=== PATIENT | female | born 1960 | race Caucasian/White ===

== ENCOUNTER 2017-09-30 04:31 | Emergency (ER) | payer OTHER ==
[~2017-09-30] VITALS: Ht 162.6 cm; Wt 86.0 kg
[~2017-09-30 04:31] MED LIST: ANAS1TAB PO; CHOL20002 PO; DENO60DI SC; ESOM40CA PO; FLUT1DIS3 INH; IPRA4AER INH; LORA1TAB46 PO; MONT10TA9 PO; VILA20TA PO; VITA1CAP PO; calcium PO; magnesium PO
[2017-09-30 04:32] VITALS: BP 154/90
[2017-09-30] MEDS ORDERED: ACYCLOVIR (04:39)
[2017-09-30] MEDS ORDERED: CLINDAMYCIN (04:39)
[2017-09-30] MEDS ORDERED: PROPARACAINE OPHTH 0.5%, 15ML ONE (04:50)
[2017-09-30] MEDS ORDERED: FLUORESCEIN OPHTHALMIC 1 MG STRIP ONE (04:50)
[2017-09-30] MEDS ORDERED: ONDANSETRON ODT 4 MG ONE (05:15)
[2017-09-30] MEDS ORDERED: OXYcodone/APAP 5/325MG TABLET ONE (05:15)
[2017-09-30] MEDS ORDERED: ONDANSETRON ODT 4 MG PO ONE (05:30)
[2017-09-30] MEDS ORDERED: OXYcodone/APAP 5/325MG TABLET PO ONE (05:30)
== END 2017-09-30 05:59 | disposition home or self-care (01) ==
LOC: ED 05:39
DX: B02.33 Zoster keratitis (principal); K21.9 Gastro-esophageal reflux disease without esophagitis; J44.9 Chronic obstructive pulmonary disease, unspecified; Z85.3 Personal history of malignant neoplasm of breast; Z87.891 Personal history of nicotine dependence
CPT/HCPCS: 99283; Q0162

== ENCOUNTER → 2018-02-13 | Outpatient (CLI) | payer OTHER ==
[~2018-02-13] MED LIST changes: +ACYCLOVIR; +CLINDAMYCIN; +IBUP-1223 PO; +TRAM50TA2 PO
== END | disposition home or self-care (01) ==
LOC: CFH 12:33
PROVIDERS: ATTEND Nurse Practitioner Family
DX: M79.604 Pain in right leg (principal); R60.0 Localized edema

== ENCOUNTER → 2018-02-14 | Outpatient (CLI) | payer OTHER ==
[~2018-02-14] MED LIST changes: +OMNIPAQUE 350 MG/ML, 100ML BOTTLE ONE
== END | disposition home or self-care (01) ==
LOC: RAD 11:48
PROVIDERS: ATTEND Nurse Practitioner Family
DX: M84.451A Pathological fracture, right femur, initial encounter for fracture (principal); R59.0 Localized enlarged lymph nodes; M79.89 Other specified soft tissue disorders; F17.200 Nicotine dependence, unspecified, uncomplicated; Z88.0 Allergy status to penicillin; Z88.2 Allergy status to sulfonamides
CPT/HCPCS: 72193; Q9967

== ENCOUNTER → 2018-02-18 | Day surgery (SDC) | payer OTHER ==
[~2018-02-18] VITALS: Ht 162.6 cm; Wt 88.9 kg
[~2018-02-18] MED LIST changes: +FENTANYL PF 100 MCG/2ML ONE; +LIDOCAINE-MPF 2%, 2ML ONE; +MIDAZOLAM 1 MG/ML, 5ML ONE; -OMNIPAQUE 350 MG/ML, 100ML BOTTLE ONE; +SODIUM CHLORIDE 0.9% 1,000 ML IV SCH
[2018-02-18 09:55] VITALS: BP 131/68
== END | disposition home or self-care (01) ==
LOC: OUT 09:20
PROVIDERS: ATTEND Nurse Practitioner Family
DX: C83.35 Diffuse large B-cell lymphoma, lymph nodes of inguinal region and lower limb (principal); F17.210 Nicotine dependence, cigarettes, uncomplicated; Z79.899 Other long term (current) drug therapy; Z98.890 Other specified postprocedural states; Z88.0 Allergy status to penicillin; Z88.2 Allergy status to sulfonamides; Z88.8 Allergy status to other drugs, medicaments and biological substances
CPT/HCPCS: 20206; 76942; 88305; 88341; 88342; 88360; 99156; 99157; J2250; J3010; J3490; J7030; G0461

== ENCOUNTER 2018-02-28 21:44 | Inpatient (IN) | payer OTHER ==
[~2018-02-28] VITALS: Ht 162.6 cm; Wt 80.5 kg
[~2018-02-28 21:44] MED LIST changes: -CHOL20002 PO; +CHOL200052 PO; -FENTANYL PF 100 MCG/2ML ONE; -LIDOCAINE-MPF 2%, 2ML ONE; -MIDAZOLAM 1 MG/ML, 5ML ONE; -SODIUM CHLORIDE 0.9% 1,000 ML IV SCH
[2018-02-28] MEDS ORDERED: ONDANSETRON ODT 4 MG ONE (22:17)
[2018-02-28] MEDS ORDERED: MORPHINE SULFATE 4 MG/ML, 1ML ONE ×2 (22:17→23:13)
[2018-02-28] MEDS: MORPHINE SULFATE 4 MG/ML, 1ML IVPush PRN ×2 (22:23→23:16)
[2018-02-28] MEDS ORDERED: ONDANSETRON ODT 4 MG PO ONE (22:30)
[2018-02-28] MEDS ORDERED: SODIUM CHLORIDE FLUSH 10ML SYR IVF ONE (23:00)
[2018-02-28] MEDS ORDERED: MORPHINE SULFATE 4 MG/ML, 1ML IVPush PRN (23:00)
[2018-02-28 23:22] LABS: BASOPHILS # (AUTO) 0.01 x10^3/uL (0-0.1); BASOPHILS % (AUTO) 0 % (0-1); EOSINOPHILS # (AUTO) 0.07 x10^3/uL (0-0.4); EOSINOPHILS % (AUTO) 2 % (1-7); LYMPHOCYTES # (AUTO) 0.37 x10^3/uL (1-3.4); LYMPHOCYTES % (AUTO) 11 % (22-44); MD NO; MEAN CORPUSCULAR HEMOGLOBIN 34.3 pg (27.0-34.8); MEAN CORPUSCULAR HGB CONC 34.9 g/dL (32.4-35.8); MEAN CORPUSCULAR VOLUME 98.2 fL (80-100); MEAN PLATELET VOLUME 7.6 fL (7.4-10.4); MONOCYTES # (AUTO) 0.08 x10^3/uL (0.2-0.8); MONOCYTES % (AUTO) 2 % (2-9); NEUTROPHILS % (AUTO) 85 % (42-75); PLATELET COUNT 210 x10^3/uL (130-400); RED BLOOD COUNT 3.04 x10^6/uL (3.82-5.3); RED CELL DISTRIBUTION WIDTH 14.5 % (9.6-15.2)
[2018-02-28 23:30] LABS: INTERNATIONAL NORMALIZED RATIO 1.1 (0.93-1.1); PROTHROMBIN TIME 11.3 Seconds (9.6-11.5)
[2018-02-28 23:31] LABS: ALBUMIN 3.4 g/dL (3.4-5.0); ANION GAP 9 mmol/L (5-15); CALCIUM 12.4 mg/dL (8.5-10.1); CHLORIDE 102 mmol/L (98-107); CREATININE 1.78 mg/dL (0.55-1.02)
[2018-03-01] MEDS ORDERED: MORPHINE SULFATE 4 MG/ML, 1ML ONE ×2 (00:42→21:39)
[2018-03-01] MEDS ORDERED: HYDROmorphone 1 MG/ML, 1ML IVPush PRN (01:30)
[2018-03-01] MEDS ORDERED: SODIUM CHLORIDE FLUSH 10ML SYR IVF PRN (01:30)
[2018-03-01] MEDS ORDERED: HYDROmorphone 2 MG/ML, 1ML IVPush ONE (01:30)
[2018-03-01] MEDS ORDERED: ONDANSETRON 2MG/ML, 2ML IVPush PRN (01:30)
[2018-03-01 01:52] VITALS: BP 186/90
[2018-03-01] MEDS ORDERED: SODIUM CHLORIDE 0.9% 1,000 ML IV SCH ×2 (04:09→23:00)
[2018-03-01] MEDS: ONDANSETRON ODT 4 MG PO PRN (04:27)
[2018-03-01] MEDS ORDERED: hydrALAzine 20 MG/ML, 1ML IVPush PRN (04:30)
[2018-03-01] MEDS ORDERED: ACETAMINOPHEN 500 MG TABLET PO PRN (04:30)
[2018-03-01] MEDS: KETOROLAC 30 MG/1 ML IV PRN ×2 (04:32→13:38)
[2018-03-01] MEDS: PROMETHAZINE 25 MG/ML, 1ML IM PRN (04:49)
[2018-03-01] MEDS: HEPARIN 5,000 UNITS/ML, 1ML SQ SCH ×2 (06:02→16:12)
[2018-03-01 06:23] LABS: ALBUMIN 3.1 g/dL (3.4-5.0); ANION GAP 10 mmol/L (5-15); CHLORIDE 103 mmol/L (98-107)
[2018-03-01 06:32] LABS: % IRON SATURATION 23 % (20-55); ALANINE AMINOTRANSFERASE 15 U/L (12-78); ALKALINE PHOSPHATASE 75 U/L (45-117); BILIRUBIN,TOTAL 0.3 mg/dL (0.2-1.0); IRON LEVEL 56 mcg/dL (50-170); TOTAL IRON BINDING CAPACITY 245 mcg/dL (250-450); TOTAL PROTEIN 6.5 g/dL (6.4-8.2)
[2018-03-01 06:51] VITALS: BP 148/81
[2018-03-01] MEDS ORDERED: PAMIDRONATE 3 MG/ML, 10ML IV ONE (08:30)
[2018-03-01] MEDS ORDERED: CALCIUM CARBONATE 500 MG TAB.CHEW PO SCH (09:00)
[2018-03-01] MEDS: LACTULOSE 10 GM/15 ML UDC PO SCH ×2 (09:00→22:50)
[2018-03-01 09:43] LABS: FREE T4 (FREE THYROXINE) 1.31 ng/dL (0.76-1.46)
[2018-03-01] MEDS ORDERED: PAMIDRONATE IV ONE (10:00)
[2018-03-01] MEDS ORDERED: SODIUM CHLORIDE 0.9% IV ONE (10:00)
[2018-03-01] MEDS: HYDROmorphone 2 MG/ML, 1ML IVPush PRN ×3 (10:05→18:42)
[2018-03-01] MEDS: ALLOPURINOL 100 MG TABLET PO SCH (11:52)
[2018-03-01] MEDS: CHOLECALCIFEROL 5,000u TAB PO SCH (11:53)
[2018-03-01] MEDS: PANTOPROZOLE 40MG TABLET PO SCH ×2 (11:53→22:47)
[2018-03-01] MEDS: MAGNESIUM OXIDE 400 MG TABLET PO SCH (11:53)
[2018-03-01] MEDS: MULTIVITS,STRESS FORMULA 1 TABLET PO SCH (11:53)
[2018-03-01 12:48] VITALS: BP 158/70
[2018-03-01] MEDS ORDERED: LIDOCAINE-MPF 2%, 2ML ONE (13:40)
[2018-03-01] MEDS ORDERED: FENTANYL PF 100 MCG/2ML ONE ×2 (14:16→21:01)
[2018-03-01] MEDS ORDERED: MIDAZOLAM 1 MG/ML, 5ML ONE (14:16)
[2018-03-01] MEDS ORDERED: NALOXONE 1 MG/ML, 2ML ONE (14:17)
[2018-03-01] MEDS ORDERED: FLUMAZENIL 0.1 MG/1 ML, 5ML ONE (14:17)
[2018-03-01 15:16] VITALS: BP 155/78
[2018-03-01 18:28] VITALS: BP 165/74
[2018-03-01] MEDS ORDERED: MIDAZOLAM 1 MG/ML, 2ML ONE (19:14)
[2018-03-01] MEDS ORDERED: PROPOFOL 10 MG/ML, 20ML ONE (19:20)
[2018-03-01] MEDS ORDERED: ROCURONIUM 10 MG/ML,10ML ONE (19:20)
[2018-03-01] MEDS ORDERED: DEXAMETHASONE 4 MG/ML, 5ML ONE (19:20)
[2018-03-01] MEDS ORDERED: SUCCINYLCHOLINE 20 MG/ML, 10ML ONE (19:20)
[2018-03-01] MEDS ORDERED: CEFAZOLIN 1,000 MG ONE (19:20)
[2018-03-01] MEDS ORDERED: LABETALOL 5MG/ML, 20ML IV PRN ×2 (20:00→21:00)
[2018-03-01] MEDS ORDERED: LORazepam 2 MG/ML, 1ML IVPush PRN (20:00)
[2018-03-01] MEDS ORDERED: ONDANSETRON 2MG/ML, 2ML IV PRN ×2 (20:00→21:00)
[2018-03-01] MEDS ORDERED: OXYcodone 5 MG/5 ML ORAL.SOL UDC PO PRN ×2 (20:00→21:00)
[2018-03-01] MEDS ORDERED: ACETAMINOPHEN 325 MG TABLET PO PRN ×2 (20:00→21:00)
[2018-03-01] MEDS ORDERED: FENTANYL PF 250 MCG/5ML ONE (20:00)
[2018-03-01] MEDS ORDERED: ALBUTEROL SULFATE 2.5 MG/3 ML NPPB PRN (20:00)
[2018-03-01] MEDS ORDERED: MEPERIDINE/PF 25MG/0.5ML IVPush PRN ×2 (20:00→21:00)
[2018-03-01] MEDS ORDERED: hydrALAzine 20 MG/ML, 1ML IV PRN (20:00)
[2018-03-01] MEDS ORDERED: ONDANSETRON ODT 8 MG PO PRN (20:00)
[2018-03-01] MEDS ORDERED: PROMETHAZINE 25 MG/ML, 1ML IV PRN ×2 (20:00→21:00)
[2018-03-01] MEDS ORDERED: EPHEDRINE 50 MG/ML, 1ML IVPush PRN (20:00)
[2018-03-01] MEDS ORDERED: MIDAZOLAM 1 MG/ML, 2ML IV PRN ×2 (20:00→21:00)
[2018-03-01] MEDS ORDERED: HYDROmorphone 1 MG/ML, 1ML IV PRN ×2 (20:00→21:00)
[2018-03-01] MEDS ORDERED: PROMETHAZINE 12.5 MG SUPP PR PRN (20:00)
[2018-03-01] MEDS ORDERED: ALBUTEROL/IPRATROPIUM 2.5MG/0.5MG, 3 ML NPPB PRN (21:00)
[2018-03-01] MEDS ORDERED: SCOPOLAMINE PATCH, 1.5MG PATCH.TD72 TD PRN (21:00)
[2018-03-01] MEDS ORDERED: FENTANYL PF 100 MCG/2ML IV PRN (21:00)
[2018-03-01] MEDS ORDERED: OXYcodone 5 MG/5 ML ORAL.SOL UDC ONE (21:01)
[2018-03-01] MEDS ORDERED: ACETAMINOPHEN 650 MG/20.3 ML UDC ONE (21:01)
[2018-03-01] MEDS: FENTANYL PF 100 MCG/2ML IV PRN ×2 (21:05→21:10)
[2018-03-01] MEDS ORDERED: CYCLOBENZAPRINE 10 MG TABLET PO ONE (21:30)
[2018-03-01] MEDS ORDERED: CYCLOBENZAPRINE 10 MG TABLET ONE (21:35)
[2018-03-01] MEDS: MORPHINE SULFATE 4 MG/ML, 1ML IVPush PRN ×3 (21:41→21:57)
[2018-03-01] MEDS ORDERED: morphine SULFATE 10 MG/ML, 1ML ONE (21:50)
[2018-03-01 22:36] VITALS: BP 152/73
[2018-03-01] MEDS: SODIUM CHLORIDE 0.9% 1,000 ML IV SCH (23:20)
[2018-03-02 00:52] VITALS: BP 121/75
[2018-03-02] MEDS ORDERED: SODIUM CHLORIDE 0.9% 1,000 ML IV SCH ×2 (04:09→23:20)
[2018-03-02] MEDS: CEFAZOLIN PMX 2GM/100ML 100 ML IVPB SCH ×2 (04:34→12:59)
[2018-03-02] MEDS: SODIUM CHLORIDE 0.9% 1,000 ML IV SCH ×2 (04:35→18:57)
[2018-03-02 05:42] LABS: ALANINE AMINOTRANSFERASE 14 U/L (12-78); ALBUMIN 2.7 g/dL (3.4-5.0); ANION GAP 7 mmol/L (5-15); CALCIUM 11.4 mg/dL (8.5-10.1); CHLORIDE 107 mmol/L (98-107); CREATININE 1.33 mg/dL (0.55-1.02)
[2018-03-02 05:45] LABS: ALKALINE PHOSPHATASE 69 U/L (45-117); BILIRUBIN,TOTAL 0.3 mg/dL (0.2-1.0); TOTAL PROTEIN 5.8 g/dL (6.4-8.2)
[2018-03-02 06:05] LABS: MEAN CORPUSCULAR HEMOGLOBIN 33.7 pg (27.0-34.8); MEAN CORPUSCULAR HGB CONC 34.5 g/dL (32.4-35.8); MEAN CORPUSCULAR VOLUME 97.8 fL (80-100); MEAN PLATELET VOLUME 7.6 fL (7.4-10.4); PLATELET COUNT 197 x10^3/uL (130-400); RED BLOOD COUNT 2.38 x10^6/uL (3.82-5.3)
[2018-03-02 06:08] LABS: RED CELL DISTRIBUTION WIDTH 13.7 % (9.6-15.2)
[2018-03-02 06:45] LABS: MD MORPH REVIEW ONLY
[2018-03-02 06:46] LABS: <PLATELET ESTIMATE> ADEQUATE; <PLT MORPHOLOGY> NORMAL PLT MORPH; ANISOCYTOSIS 1+; BASOPHILS % (AUTO) 0 % (0-1); EOSINOPHILS % (AUTO) 0 % (1-7); LYMPHOCYTES # (AUTO) 0.22 x10^3/uL (1-3.4); LYMPHOCYTES % (AUTO) 8 % (22-44); MONOCYTES # (AUTO) 0.06 x10^3/uL (0.2-0.8); MONOCYTES % (AUTO) 2 % (2-9); NEUTROPHILS # (AUTO) 2.57 x10^3/uL (1.8-6.8); NEUTROPHILS % (AUTO) 90 % (42-75); OVALOCYTES 1+
[2018-03-02 06:47] LABS: BASOPHILLIC STIPPLING 1+; POLYCHROMASIA 1+
[2018-03-02 06:58] VITALS: BP 138/78
[2018-03-02] MEDS: LACTULOSE 10 GM/15 ML UDC PO SCH ×2 (09:00→20:58)
[2018-03-02] MEDS: SODIUM CHLORIDE FLUSH 10ML SYR IVF SCH ×2 (10:38→20:59)
[2018-03-02] MEDS: PANTOPROZOLE 40MG TABLET PO SCH ×2 (10:41→20:59)
[2018-03-02] MEDS: MAGNESIUM OXIDE 400 MG TABLET PO SCH (10:41)
[2018-03-02] MEDS: CHOLECALCIFEROL 5,000u TAB PO SCH (10:41)
[2018-03-02] MEDS: MULTIVITS,STRESS FORMULA 1 TABLET PO SCH (10:41)
[2018-03-02] MEDS: ALLOPURINOL 100 MG TABLET PO SCH (10:41)
[2018-03-02] MEDS: HEPARIN 5,000 UNITS/ML, 1ML SQ SCH ×2 (10:41→20:58)
[2018-03-02] MEDS: POLYETHYLENE GLYCOL 17 GM PACKET PO PRN (10:58)
[2018-03-02] MEDS: OXYcodone IR 5MG TABLET PO PRN ×2 (10:59→17:46)
[2018-03-02 12:05] VITALS: BP 163/77
[2018-03-02] MEDS: HYDROmorphone 2 MG/ML, 1ML IVPush PRN ×3 (13:36→21:56)
[2018-03-02] MEDS ORDERED: MAGNESIUM SULFATE PMX 2GM/50ML 50 ML IV ONE (18:30)
[2018-03-02 19:42] VITALS: BP 157/73
[2018-03-03] VITALS (12 sets, daily range): BP systolic 123–164; BP diastolic 64–82
[2018-03-03] MEDS: OXYcodone IR 5MG TABLET PO PRN ×4 (01:06→19:42)
[2018-03-03] MEDS: SODIUM CHLORIDE 0.9% 1,000 ML IV SCH (02:36)
[2018-03-03 05:07] LABS: CALCIUM 9.3 mg/dL (8.5-10.1); CHLORIDE 104 mmol/L (98-107)
[2018-03-03 05:13] LABS: ALANINE AMINOTRANSFERASE 11 U/L (12-78); ALBUMIN 2.4 g/dL (3.4-5.0); ALKALINE PHOSPHATASE 59 U/L (45-117); ANION GAP 8 mmol/L (5-15); BILIRUBIN,TOTAL 0.3 mg/dL (0.2-1.0); CREATININE 1.16 mg/dL (0.55-1.02); TOTAL PROTEIN 5.1 g/dL (6.4-8.2)
[2018-03-03 06:28] LABS: MEAN CORPUSCULAR HEMOGLOBIN 34.5 pg (27.0-34.8); MEAN CORPUSCULAR HGB CONC 35.6 g/dL (32.4-35.8); MEAN CORPUSCULAR VOLUME 96.8 fL (80-100); MEAN PLATELET VOLUME 7.4 fL (7.4-10.4); PLATELET COUNT 155 x10^3/uL (130-400); RED BLOOD COUNT 1.97 x10^6/uL (3.82-5.3); RED CELL DISTRIBUTION WIDTH 14.3 % (9.6-15.2)
[2018-03-03 07:10] LABS: MD YES
[2018-03-03 07:16] LABS: EOS#(MANUAL) 0.02 x10^3/uL (0.0-0.4); EOS% (MANUAL) 1 % (1-7); LYMPH#(MANUAL) 0.19 x10^3/uL (1-3.4); LYMPHS% (MANUAL) 12 % (22-44); MONOS#(MANUAL) 0.03 x10^3/uL (0.3-2.7); MONOS% (MANUAL) 2 % (2-9); SEG#(MANUAL) 1.34 x10^3/uL (1.8-6.8); SEGS% (MANUAL) 84 % (42-75)
[2018-03-03 07:18] LABS: ANISOCYTOSIS 1+; OTHER CELLS # (MANUAL) 0.02 x10^3/uL (0-0); OTHER CELLS % (MANUAL) 1 % (0-0)
[2018-03-03 07:19] LABS: OVALOCYTES 1+; POLYCHROMASIA 1+
[2018-03-03 07:20] LABS: <PLATELET ESTIMATE> ADEQUATE; <PLT MORPHOLOGY> NORMAL PLT MORPH
[2018-03-03] MEDS ORDERED: MAGNESIUM SULFATE IN WATER 50 ML IV ONE (09:00)
[2018-03-03] MEDS ORDERED: MAGNESIUM SULFATE 4 GM in SODIUM CHLORIDE 0.9% 100 ML IV ONE (09:00)
[2018-03-03] MEDS: SODIUM CHLORIDE FLUSH 10ML SYR IVF SCH ×2 (09:00→21:19)
[2018-03-03] MEDS ORDERED: POTASSIUM PHOSPHATE 44 MEQ in SODIUM CHLORIDE 0.9% 500 ML IV ONE (09:00)
[2018-03-03 10:12] LABS: MEAN CORPUSCULAR HEMOGLOBIN 33.9 pg (27.0-34.8); MEAN CORPUSCULAR HGB CONC 35.4 g/dL (32.4-35.8); MEAN CORPUSCULAR VOLUME 95.6 fL (80-100); MEAN PLATELET VOLUME 6.8 fL (7.4-10.4); PLATELET COUNT 157 x10^3/uL (130-400); RED BLOOD COUNT 1.91 x10^6/uL (3.82-5.3); RED CELL DISTRIBUTION WIDTH 14.2 % (9.6-15.2)
[2018-03-03 10:26] LABS: MD YES
[2018-03-03 10:28] LABS: BAND#(MANUAL) 0.02 x10^3/uL; BANDS%(MANUAL) 1 % (0-7); LYMPH#(MANUAL) 0.22 x10^3/uL (1-3.4); LYMPHS% (MANUAL) 13 % (22-44); MONOS#(MANUAL) 0.05 x10^3/uL (0.3-2.7); MONOS% (MANUAL) 3 % (2-9); SEG#(MANUAL) 1.41 x10^3/uL (1.8-6.8); SEGS% (MANUAL) 83 % (42-75)
[2018-03-03 10:29] LABS: ANISOCYTOSIS 1+; OVALOCYTES 1+; POLYCHROMASIA 1+
[2018-03-03 10:30] LABS: <PLATELET ESTIMATE> ADEQUATE; <PLT MORPHOLOGY> NORMAL PLT MORPH
[2018-03-03] MEDS: HYDROmorphone 2 MG/ML, 1ML IVPush PRN (10:58)
[2018-03-03] MEDS: ALLOPURINOL 100 MG TABLET PO SCH (11:08)
[2018-03-03] MEDS: POTASSIUM CHLORIDE 20 MEQ TAB.ER.PRT PO SCH ×2 (11:09→14:44)
[2018-03-03] MEDS: PANTOPROZOLE 40MG TABLET PO SCH ×2 (11:10→21:18)
[2018-03-03] MEDS: LACTULOSE 10 GM/15 ML UDC PO SCH ×2 (11:10→21:18)
[2018-03-03] MEDS: MAGNESIUM OXIDE 400 MG TABLET PO SCH (11:10)
[2018-03-03] MEDS: MULTIVITS,STRESS FORMULA 1 TABLET PO SCH (11:11)
[2018-03-03] MEDS: HEPARIN 5,000 UNITS/ML, 1ML SQ SCH ×2 (11:12→22:50)
[2018-03-03] MEDS: CHOLECALCIFEROL 5,000u TAB PO SCH (11:13)
[2018-03-04] MEDS: OXYcodone IR 5MG TABLET PO PRN ×6 (00:11→23:50)
[2018-03-04 01:26] VITALS: BP 155/79
[2018-03-04 04:31] LABS: MEAN CORPUSCULAR HEMOGLOBIN 33.8 pg (27.0-34.8); MEAN CORPUSCULAR HGB CONC 35.7 g/dL (32.4-35.8); MEAN CORPUSCULAR VOLUME 94.9 fL (80-100); MEAN PLATELET VOLUME 7.3 fL (7.4-10.4); PLATELET COUNT 154 x10^3/uL (130-400); RED BLOOD COUNT 2.83 x10^6/uL (3.82-5.3); RED CELL DISTRIBUTION WIDTH 15.7 % (9.6-15.2)
[2018-03-04 04:37] LABS: ALBUMIN 2.3 g/dL (3.4-5.0); ANION GAP 6 mmol/L (5-15); CALCIUM 8.6 mg/dL (8.5-10.1); CHLORIDE 108 mmol/L (98-107)
[2018-03-04 04:42] LABS: ALANINE AMINOTRANSFERASE 11 U/L (12-78); ALKALINE PHOSPHATASE 61 U/L (45-117); BILIRUBIN,TOTAL 0.5 mg/dL (0.2-1.0); CREATININE 1.01 mg/dL (0.55-1.02); TOTAL PROTEIN 5.2 g/dL (6.4-8.2)
[2018-03-04 05:36] LABS: OCCULT BLOOD NEGATIVE (NEGATIVE)
[2018-03-04 05:48] LABS: MD YES
[2018-03-04 05:53] LABS: <PLATELET ESTIMATE> ADEQUATE; <PLT MORPHOLOGY> NORMAL PLT MORPH; ANISOCYTOSIS 1+; BAND#(MANUAL) 0.05 x10^3/uL; BANDS%(MANUAL) 3 % (0-7); EOS#(MANUAL) 0.04 x10^3/uL (0.0-0.4); EOS% (MANUAL) 2 % (1-7); LYMPH#(MANUAL) 0.32 x10^3/uL (1-3.4); LYMPHS% (MANUAL) 18 % (22-44); MONOS#(MANUAL) 0.02 x10^3/uL (0.3-2.7); MONOS% (MANUAL) 1 % (2-9); OVALOCYTES 1+; POLYCHROMASIA 1+; SEG#(MANUAL) 1.37 x10^3/uL (1.8-6.8); SEGS% (MANUAL) 76 % (42-75)
[2018-03-04 07:33] VITALS: BP 148/79
[2018-03-04] MEDS: MAGNESIUM OXIDE 400 MG TABLET PO SCH (08:59)
[2018-03-04] MEDS: LACTULOSE 10 GM/15 ML UDC PO SCH ×2 (08:59→21:42)
[2018-03-04] MEDS: MULTIVITS,STRESS FORMULA 1 TABLET PO SCH (08:59)
[2018-03-04] MEDS: CHOLECALCIFEROL 5,000u TAB PO SCH (08:59)
[2018-03-04] MEDS: PANTOPROZOLE 40MG TABLET PO SCH ×2 (08:59→21:42)
[2018-03-04] MEDS: ALLOPURINOL 100 MG TABLET PO SCH (08:59)
[2018-03-04] MEDS: POLYETHYLENE GLYCOL 17 GM PACKET PO PRN (09:08)
[2018-03-04] MEDS: HEPARIN 5,000 UNITS/ML, 1ML SQ SCH ×2 (11:47→21:42)
[2018-03-04] MEDS: SODIUM CHLORIDE FLUSH 10ML SYR IVF SCH ×2 (11:52→21:42)
[2018-03-04 13:12] VITALS: BP 166/83
[2018-03-04] MEDS: ONDANSETRON ODT 4 MG PO PRN ×2 (19:34→23:51)
[2018-03-04 19:51] VITALS: BP 162/89
[2018-03-05 01:40] VITALS: BP 150/74
[2018-03-05] MEDS: OXYcodone IR 5MG TABLET PO PRN ×2 (05:56→13:05)
[2018-03-05 06:43] VITALS: BP 151/84
[2018-03-05] MEDS: ONDANSETRON ODT 4 MG PO PRN ×4 (08:15→20:59)
[2018-03-05 08:18] VITALS: BP 150/78
[2018-03-05] MEDS: LACTULOSE 10 GM/15 ML UDC PO SCH ×2 (10:09→20:59)
[2018-03-05] MEDS: PANTOPROZOLE 40MG TABLET PO SCH ×2 (10:10→20:59)
[2018-03-05] MEDS: CHOLECALCIFEROL 5,000u TAB PO SCH (10:10)
[2018-03-05] MEDS: MAGNESIUM OXIDE 400 MG TABLET PO SCH (10:10)
[2018-03-05] MEDS: MULTIVITS,STRESS FORMULA 1 TABLET PO SCH (10:10)
[2018-03-05] MEDS: ALLOPURINOL 100 MG TABLET PO SCH (10:10)
[2018-03-05] MEDS: HEPARIN 5,000 UNITS/ML, 1ML SQ SCH ×2 (10:15→20:59)
[2018-03-05] MEDS: SODIUM CHLORIDE FLUSH 10ML SYR IVF SCH ×2 (10:23→20:59)
[2018-03-05] MEDS: DRONABINOL 5 MG CAPSULE PO SCH ×2 (12:07→16:00)
[2018-03-05 12:46] VITALS: BP 126/58
[2018-03-05] MEDS ORDERED: DRONABINOL 2.5 MG CAPSULE ONE (15:34)
[2018-03-05 19:40] VITALS: BP 148/66
[2018-03-06] MEDS: ONDANSETRON ODT 4 MG PO PRN ×4 (01:38→15:05)
[2018-03-06] MEDS: OXYcodone IR 5MG TABLET PO PRN ×4 (01:39→15:05)
[2018-03-06 01:50] VITALS: BP 138/70
[2018-03-06 05:05] LABS: MEAN CORPUSCULAR HEMOGLOBIN 33.6 pg (27.0-34.8); MEAN CORPUSCULAR HGB CONC 34.9 g/dL (32.4-35.8); MEAN CORPUSCULAR VOLUME 96.4 fL (80-100); MEAN PLATELET VOLUME 7.5 fL (7.4-10.4); PLATELET COUNT 193 x10^3/uL (130-400); RED BLOOD COUNT 2.94 x10^6/uL (3.82-5.3); RED CELL DISTRIBUTION WIDTH 15.5 % (9.6-15.2)
[2018-03-06 05:09] LABS: ALBUMIN 2.3 g/dL (3.4-5.0); ANION GAP 7 mmol/L (5-15); CALCIUM 9.1 mg/dL (8.5-10.1); CHLORIDE 106 mmol/L (98-107)
[2018-03-06 05:14] LABS: ALANINE AMINOTRANSFERASE 16 U/L (12-78); ALKALINE PHOSPHATASE 71 U/L (45-117); BILIRUBIN,TOTAL 0.3 mg/dL (0.2-1.0); CREATININE 0.98 mg/dL (0.55-1.02); TOTAL PROTEIN 5.3 g/dL (6.4-8.2)
[2018-03-06 05:39] LABS: MD YES
[2018-03-06 05:42] LABS: <PLATELET ESTIMATE> ADEQUATE; <PLT MORPHOLOGY> NORMAL PLT MORPH; ANISOCYTOSIS 1+; EOS#(MANUAL) 0.07 x10^3/uL (0.0-0.4); EOS% (MANUAL) 4 % (1-7); LYMPH#(MANUAL) 0.51 x10^3/uL (1-3.4); LYMPHS% (MANUAL) 30 % (22-44); MONOS#(MANUAL) 0.03 x10^3/uL (0.3-2.7); MONOS% (MANUAL) 2 % (2-9); OVALOCYTES 1+; POLYCHROMASIA 1+; SEG#(MANUAL) 1.09 x10^3/uL (1.8-6.8); SEGS% (MANUAL) 64 % (42-75)
[2018-03-06 08:23] VITALS: BP 136/82
[2018-03-06] MEDS: LACTULOSE 10 GM/15 ML UDC PO SCH ×2 (10:01→22:24)
[2018-03-06] MEDS: PANTOPROZOLE 40MG TABLET PO SCH ×2 (10:01→22:22)
[2018-03-06] MEDS: MAGNESIUM OXIDE 400 MG TABLET PO SCH (10:01)
[2018-03-06] MEDS: ALLOPURINOL 100 MG TABLET PO SCH (10:01)
[2018-03-06] MEDS: MULTIVITS,STRESS FORMULA 1 TABLET PO SCH (10:01)
[2018-03-06] MEDS: CHOLECALCIFEROL 5,000u TAB PO SCH (10:01)
[2018-03-06] MEDS: HEPARIN 5,000 UNITS/ML, 1ML SQ SCH ×2 (10:02→22:22)
[2018-03-06] MEDS: SODIUM CHLORIDE FLUSH 10ML SYR IVF SCH ×2 (10:18→22:21)
[2018-03-06 15:06] VITALS: BP 134/80
[2018-03-06 18:51] VITALS: BP 155/83
[2018-03-07 00:45] VITALS: BP 133/75
[2018-03-07] MEDS: ONDANSETRON ODT 4 MG PO PRN ×3 (03:45→17:46)
[2018-03-07] MEDS: OXYcodone IR 5MG TABLET PO PRN ×3 (03:45→17:46)
[2018-03-07 04:55] LABS: MEAN CORPUSCULAR HEMOGLOBIN 32.1 pg (27.0-34.8); MEAN CORPUSCULAR HGB CONC 33.8 g/dL (32.4-35.8); MEAN PLATELET VOLUME 7.6 fL (7.4-10.4); PLATELET COUNT 181 x10^3/uL (130-400); RED BLOOD COUNT 2.97 x10^6/uL (3.82-5.3); RED CELL DISTRIBUTION WIDTH 15.3 % (9.6-15.2)
[2018-03-07 05:02] LABS: ALBUMIN 2.3 g/dL (3.4-5.0); ANION GAP 7 mmol/L (5-15); CALCIUM 8.5 mg/dL (8.5-10.1); CHLORIDE 105 mmol/L (98-107)
[2018-03-07 05:07] LABS: ALANINE AMINOTRANSFERASE 22 U/L (12-78); ALKALINE PHOSPHATASE 85 U/L (45-117); BILIRUBIN,TOTAL 0.4 mg/dL (0.2-1.0); CREATININE 1.01 mg/dL (0.55-1.02); TOTAL PROTEIN 5.3 g/dL (6.4-8.2)
[2018-03-07 05:41] LABS: MD YES
[2018-03-07 05:45] LABS: BAND#(MANUAL) 0.02 x10^3/uL; BANDS%(MANUAL) 1 % (0-7); BASOS#(MANUAL) 0.02 x10^3/uL (0-0.1); BASOS% (MANUAL) 1 % (0-1); EOS#(MANUAL) 0.02 x10^3/uL (0.0-0.4); EOS% (MANUAL) 1 % (1-7); LYMPH#(MANUAL) 0.48 x10^3/uL (1-3.4); LYMPHS% (MANUAL) 25 % (22-44); MONOS#(MANUAL) 0.08 x10^3/uL (0.3-2.7); MONOS% (MANUAL) 4 % (2-9); SEG#(MANUAL) 1.29 x10^3/uL (1.8-6.8); SEGS% (MANUAL) 68 % (42-75)
[2018-03-07 05:46] LABS: ANISOCYTOSIS 1+; POLYCHROMASIA 1+
[2018-03-07 05:47] LABS: <PLATELET ESTIMATE> ADEQUATE; <PLT MORPHOLOGY> NORMAL PLT MORPH; OVALOCYTES 1+
[2018-03-07 08:00] VITALS: BP 151/73
[2018-03-07] MEDS: PANTOPROZOLE 40MG TABLET PO SCH ×2 (08:19→21:10)
[2018-03-07] MEDS: CHOLECALCIFEROL 5,000u TAB PO SCH (08:19)
[2018-03-07] MEDS: POLYETHYLENE GLYCOL 17 GM PACKET PO PRN (08:19)
[2018-03-07] MEDS: LACTULOSE 10 GM/15 ML UDC PO SCH ×2 (08:19→21:09)
[2018-03-07] MEDS: MAGNESIUM OXIDE 400 MG TABLET PO SCH (08:19)
[2018-03-07] MEDS: MULTIVITS,STRESS FORMULA 1 TABLET PO SCH (08:19)
[2018-03-07] MEDS: ALLOPURINOL 100 MG TABLET PO SCH (08:19)
[2018-03-07] MEDS: HEPARIN 5,000 UNITS/ML, 1ML SQ SCH ×2 (08:19→21:14)
[2018-03-07] MEDS: SODIUM CHLORIDE FLUSH 10ML SYR IVF SCH ×2 (08:20→21:00)
[2018-03-07 14:30] VITALS: BP 146/80
[2018-03-07 18:53] VITALS: BP 158/87
[2018-03-08 04:19] VITALS: BP 132/76
[2018-03-08] MEDS: OXYcodone IR 5MG TABLET PO PRN ×4 (04:36→23:08)
[2018-03-08] MEDS: ONDANSETRON ODT 4 MG PO PRN ×4 (04:38→21:59)
[2018-03-08 05:24] LABS: MEAN CORPUSCULAR HEMOGLOBIN 33.6 pg (27.0-34.8); MEAN CORPUSCULAR HGB CONC 35.1 g/dL (32.4-35.8); MEAN CORPUSCULAR VOLUME 95.6 fL (80-100); MEAN PLATELET VOLUME 7.4 fL (7.4-10.4); PLATELET COUNT 184 x10^3/uL (130-400); RED BLOOD COUNT 3.14 x10^6/uL (3.82-5.3)
[2018-03-08 05:36] LABS: ALANINE AMINOTRANSFERASE 29 U/L (12-78); ALBUMIN 2.3 g/dL (3.4-5.0); ANION GAP 7 mmol/L (5-15); CALCIUM 8.7 mg/dL (8.5-10.1); CHLORIDE 104 mmol/L (98-107)
[2018-03-08 05:39] LABS: ALKALINE PHOSPHATASE 95 U/L (45-117); BILIRUBIN,TOTAL 0.4 mg/dL (0.2-1.0); TOTAL PROTEIN 5.5 g/dL (6.4-8.2)
[2018-03-08 06:19] LABS: BASOPHILS # (AUTO) 0.01 x10^3/uL (0-0.1); BASOPHILS % (AUTO) 0 % (0-1); EOSINOPHILS # (AUTO) 0.06 x10^3/uL (0-0.4); EOSINOPHILS % (AUTO) 3 % (1-7); LYMPHOCYTES # (AUTO) 0.37 x10^3/uL (1-3.4); LYMPHOCYTES % (AUTO) 18 % (22-44); MD SCAN; MONOCYTES # (AUTO) 0.15 x10^3/uL (0.2-0.8); MONOCYTES % (AUTO) 7 % (2-9); NEUTROPHILS # (AUTO) 1.52 x10^3/uL (1.8-6.8); NEUTROPHILS % (AUTO) 72 % (42-75)
[2018-03-08] MEDS: HEPARIN 5,000 UNITS/ML, 1ML SQ SCH ×2 (08:29→22:05)
[2018-03-08] MEDS: MAGNESIUM OXIDE 400 MG TABLET PO SCH (08:29)
[2018-03-08] MEDS: SODIUM CHLORIDE FLUSH 10ML SYR IVF SCH ×2 (08:29→22:08)
[2018-03-08] MEDS: ALLOPURINOL 100 MG TABLET PO SCH (08:29)
[2018-03-08] MEDS: LACTULOSE 10 GM/15 ML UDC PO SCH ×2 (08:29→21:59)
[2018-03-08] MEDS: PANTOPROZOLE 40MG TABLET PO SCH ×2 (08:29→21:59)
[2018-03-08] MEDS: CHOLECALCIFEROL 5,000u TAB PO SCH (08:29)
[2018-03-08] MEDS: MULTIVITS,STRESS FORMULA 1 TABLET PO SCH (08:29)
[2018-03-08 08:30] VITALS: BP 115/83
[2018-03-08 14:30] VITALS: BP 150/86
[2018-03-08 18:41] VITALS: BP 160/80
[2018-03-08] MEDS: PROMETHAZINE 25 MG/ML, 1ML IM PRN (19:53)
[2018-03-09 02:51] VITALS: BP 140/84
[2018-03-09] MEDS: OXYcodone IR 5MG TABLET PO PRN ×6 (03:59→23:13)
[2018-03-09] MEDS: ONDANSETRON ODT 4 MG PO PRN ×4 (03:59→23:13)
[2018-03-09 05:02] LABS: MEAN CORPUSCULAR HEMOGLOBIN 32.9 pg (27.0-34.8); MEAN CORPUSCULAR HGB CONC 34.5 g/dL (32.4-35.8); MEAN CORPUSCULAR VOLUME 95.5 fL (80-100); MEAN PLATELET VOLUME 7.5 fL (7.4-10.4); PLATELET COUNT 210 x10^3/uL (130-400); RED BLOOD COUNT 3.46 x10^6/uL (3.82-5.3)
[2018-03-09 05:08] LABS: ALBUMIN 2.6 g/dL (3.4-5.0); ANION GAP 9 mmol/L (5-15); CHLORIDE 103 mmol/L (98-107)
[2018-03-09 05:17] LABS: ALANINE AMINOTRANSFERASE 27 U/L (12-78); ALKALINE PHOSPHATASE 107 U/L (45-117); BILIRUBIN,TOTAL 0.5 mg/dL (0.2-1.0); CREATININE 0.98 mg/dL (0.55-1.02)
[2018-03-09 05:56] LABS: BASOPHILS # (AUTO) 0.02 x10^3/uL (0-0.1); BASOPHILS % (AUTO) 1 % (0-1); EOSINOPHILS # (AUTO) 0.06 x10^3/uL (0-0.4); EOSINOPHILS % (AUTO) 3 % (1-7); LYMPHOCYTES # (AUTO) 0.27 x10^3/uL (1-3.4); LYMPHOCYTES % (AUTO) 12 % (22-44); MD SCAN; MONOCYTES # (AUTO) 0.13 x10^3/uL (0.2-0.8); MONOCYTES % (AUTO) 6 % (2-9); NEUTROPHILS # (AUTO) 1.79 x10^3/uL (1.8-6.8); NEUTROPHILS % (AUTO) 79 % (42-75)
[2018-03-09 08:30] VITALS: BP 123/76
[2018-03-09] MEDS: SODIUM CHLORIDE FLUSH 10ML SYR IVF SCH ×2 (09:00→22:03)
[2018-03-09] MEDS: ALLOPURINOL 100 MG TABLET PO SCH (09:14)
[2018-03-09] MEDS: MAGNESIUM OXIDE 400 MG TABLET PO SCH (09:14)
[2018-03-09] MEDS: LACTULOSE 10 GM/15 ML UDC PO SCH ×2 (09:14→22:00)
[2018-03-09] MEDS: PANTOPROZOLE 40MG TABLET PO SCH ×2 (09:14→22:00)
[2018-03-09] MEDS: HEPARIN 5,000 UNITS/ML, 1ML SQ SCH ×2 (09:15→22:00)
[2018-03-09] MEDS: CHOLECALCIFEROL 5,000u TAB PO SCH (09:15)
[2018-03-09] MEDS: MULTIVITS,STRESS FORMULA 1 TABLET PO SCH (09:16)
[2018-03-09 14:30] VITALS: BP 131/83
[2018-03-09 20:41] VITALS: BP 146/81
[2018-03-10 01:27] VITALS: BP 139/85
[2018-03-10] MEDS: OXYcodone IR 5MG TABLET PO PRN ×5 (04:35→21:51)
[2018-03-10] MEDS: ONDANSETRON ODT 4 MG PO PRN ×4 (04:35→21:51)
[2018-03-10 08:22] VITALS: BP 118/82
[2018-03-10] MEDS: SODIUM CHLORIDE FLUSH 10ML SYR IVF SCH ×2 (09:06→20:59)
[2018-03-10] MEDS: MULTIVITS,STRESS FORMULA 1 TABLET PO SCH (09:06)
[2018-03-10] MEDS: ALLOPURINOL 100 MG TABLET PO SCH (09:06)
[2018-03-10] MEDS: CHOLECALCIFEROL 5,000u TAB PO SCH (09:06)
[2018-03-10] MEDS: HEPARIN 5,000 UNITS/ML, 1ML SQ SCH ×2 (09:07→20:58)
[2018-03-10] MEDS: PANTOPROZOLE 40MG TABLET PO SCH ×2 (09:07→20:58)
[2018-03-10] MEDS: LACTULOSE 10 GM/15 ML UDC PO SCH ×2 (09:07→20:59)
[2018-03-10] MEDS: MAGNESIUM OXIDE 400 MG TABLET PO SCH (09:07)
[2018-03-10] MEDS: PROMETHAZINE 25 MG/ML, 1ML IM PRN (12:00)
[2018-03-10 13:50] VITALS: BP 139/84
[2018-03-10 19:57] VITALS: BP 140/73
[2018-03-10] MEDS: HYDROmorphone 2 MG/ML, 1ML IVPush PRN (23:53)
[2018-03-11 00:08] VITALS: BP 142/84
[2018-03-11] MEDS: ONDANSETRON ODT 4 MG PO PRN ×5 (04:05→21:05)
[2018-03-11] MEDS: OXYcodone IR 5MG TABLET PO PRN ×5 (04:05→21:05)
[2018-03-11 05:23] LABS: BASOPHILS # (AUTO) 0.01 x10^3/uL (0-0.1); BASOPHILS % (AUTO) 0 % (0-1); EOSINOPHILS # (AUTO) 0.05 x10^3/uL (0-0.4); EOSINOPHILS % (AUTO) 1 % (1-7); LYMPHOCYTES # (AUTO) 0.37 x10^3/uL (1-3.4); LYMPHOCYTES % (AUTO) 10 % (22-44); MD NO; MEAN CORPUSCULAR HEMOGLOBIN 33.5 pg (27.0-34.8); MEAN CORPUSCULAR HGB CONC 34.6 g/dL (32.4-35.8); MEAN CORPUSCULAR VOLUME 96.8 fL (80-100); MEAN PLATELET VOLUME 7.7 fL (7.4-10.4); MONOCYTES # (AUTO) 0.17 x10^3/uL (0.2-0.8); MONOCYTES % (AUTO) 5 % (2-9); NEUTROPHILS # (AUTO) 3.06 x10^3/uL (1.8-6.8); NEUTROPHILS % (AUTO) 84 % (42-75); PLATELET COUNT 209 x10^3/uL (130-400); RED BLOOD COUNT 3.83 x10^6/uL (3.82-5.3); RED CELL DISTRIBUTION WIDTH 15.4 % (9.6-15.2)
[2018-03-11 05:33] LABS: ALBUMIN 2.7 g/dL (3.4-5.0); ANION GAP 7 mmol/L (5-15); CHLORIDE 97 mmol/L (98-107)
[2018-03-11 05:57] LABS: ALANINE AMINOTRANSFERASE 22 U/L (12-78); ALKALINE PHOSPHATASE 114 U/L (45-117); BILIRUBIN,TOTAL 0.6 mg/dL (0.2-1.0); TOTAL PROTEIN 6.2 g/dL (6.4-8.2)
[2018-03-11] MEDS: HEPARIN 5,000 UNITS/ML, 1ML SQ SCH ×2 (07:24→20:20)
[2018-03-11] MEDS ORDERED: VANCOMYCIN PMX 1GM/200ML 200 ML IV STA (07:33)
[2018-03-11 07:38] VITALS: BP 142/70
[2018-03-11] MEDS: MULTIVITS,STRESS FORMULA 1 TABLET PO SCH (07:40)
[2018-03-11] MEDS: CHOLECALCIFEROL 5,000u TAB PO SCH (07:40)
[2018-03-11] MEDS: SODIUM CHLORIDE FLUSH 10ML SYR IVF SCH ×2 (07:41→20:21)
[2018-03-11] MEDS: MAGNESIUM OXIDE 400 MG TABLET PO SCH (07:41)
[2018-03-11] MEDS: PANTOPROZOLE 40MG TABLET PO SCH ×2 (07:41→20:20)
[2018-03-11] MEDS: LACTULOSE 10 GM/15 ML UDC PO SCH ×2 (07:41→20:20)
[2018-03-11] MEDS: ALLOPURINOL 100 MG TABLET PO SCH (07:41)
[2018-03-11] MEDS ORDERED: LIDOCAINE-MPF 2%, 2ML ONE (08:54)
[2018-03-11] MEDS ORDERED: FLUMAZENIL 0.1 MG/1 ML, 5ML ONE (09:20)
[2018-03-11] MEDS ORDERED: MIDAZOLAM 1 MG/ML, 5ML ONE ×2 (09:20→12:11)
[2018-03-11] MEDS ORDERED: FENTANYL PF 100 MCG/2ML ONE ×2 (09:20→12:11)
[2018-03-11] MEDS ORDERED: NALOXONE 1 MG/ML, 2ML ONE (09:20)
[2018-03-11 14:14] VITALS: BP 130/75
[2018-03-11 19:10] VITALS: BP 138/90
[2018-03-12] MEDS: ONDANSETRON ODT 4 MG PO PRN ×5 (01:05→20:12)
[2018-03-12] MEDS: OXYcodone IR 5MG TABLET PO PRN ×5 (01:05→20:12)
[2018-03-12 01:15] VITALS: BP 136/80
[2018-03-12 05:24] LABS: BASOPHILS # (AUTO) 0.02 x10^3/uL (0-0.1); BASOPHILS % (AUTO) 0 % (0-1); EOSINOPHILS # (AUTO) 0.06 x10^3/uL (0-0.4); EOSINOPHILS % (AUTO) 1 % (1-7); LYMPHOCYTES # (AUTO) 0.42 x10^3/uL (1-3.4); LYMPHOCYTES % (AUTO) 8 % (22-44); MD NO; MEAN CORPUSCULAR HEMOGLOBIN 33.4 pg (27.0-34.8); MEAN CORPUSCULAR HGB CONC 34.7 g/dL (32.4-35.8); MEAN CORPUSCULAR VOLUME 96.2 fL (80-100); MEAN PLATELET VOLUME 7.6 fL (7.4-10.4); MONOCYTES # (AUTO) 0.25 x10^3/uL (0.2-0.8); MONOCYTES % (AUTO) 5 % (2-9); NEUTROPHILS # (AUTO) 4.55 x10^3/uL (1.8-6.8); NEUTROPHILS % (AUTO) 86 % (42-75); PLATELET COUNT 216 x10^3/uL (130-400); RED BLOOD COUNT 3.59 x10^6/uL (3.82-5.3); RED CELL DISTRIBUTION WIDTH 15.3 % (9.6-15.2)
[2018-03-12 05:29] LABS: ANION GAP 10 mmol/L (5-15); CALCIUM 9.2 mg/dL (8.5-10.1); CHLORIDE 96 mmol/L (98-107); CREATININE 0.97 mg/dL (0.55-1.02)
[2018-03-12 07:14] VITALS: BP 141/78
[2018-03-12] MEDS: LACTULOSE 10 GM/15 ML UDC PO SCH ×2 (09:42→21:15)
[2018-03-12] MEDS: SODIUM CHLORIDE 0.9% 1,000 ML IV SCH (09:42)
[2018-03-12] MEDS: SODIUM CHLORIDE FLUSH 10ML SYR IVF SCH ×2 (09:42→21:16)
[2018-03-12] MEDS: CHOLECALCIFEROL 5,000u TAB PO SCH (09:43)
[2018-03-12] MEDS: MAGNESIUM OXIDE 400 MG TABLET PO SCH (09:43)
[2018-03-12] MEDS: PANTOPROZOLE 40MG TABLET PO SCH ×2 (09:43→21:15)
[2018-03-12] MEDS: HEPARIN 5,000 UNITS/ML, 1ML SQ SCH ×2 (09:44→21:15)
[2018-03-12] MEDS: ALLOPURINOL 300 MG TABLET PO SCH (09:46)
[2018-03-12] MEDS: MULTIVITS,STRESS FORMULA 1 TABLET PO SCH (10:01)
[2018-03-12] MEDS: PROMETHAZINE 25 MG/ML, 1ML IM PRN (11:45)
[2018-03-12] MEDS: HYDROmorphone 2 MG/ML, 1ML IVPush PRN (13:37)
[2018-03-12 15:54] VITALS: BP 143/85
[2018-03-12 19:30] VITALS: BP 134/85
[2018-03-13] MEDS: OXYcodone IR 5MG TABLET PO PRN ×6 (00:55→22:44)
[2018-03-13] MEDS: ONDANSETRON ODT 4 MG PO PRN ×6 (00:55→22:44)
[2018-03-13] MEDS: SODIUM CHLORIDE 0.9% 1,000 ML IV SCH (00:55)
[2018-03-13 02:40] VITALS: BP 140/86
[2018-03-13 06:03] LABS: ALBUMIN 2.2 g/dL (3.4-5.0); ANION GAP 8 mmol/L (5-15); CALCIUM 8.9 mg/dL (8.5-10.1); CHLORIDE 94 mmol/L (98-107)
[2018-03-13 06:04] LABS: BASOPHILS # (AUTO) 0.02 x10^3/uL (0-0.1); BASOPHILS % (AUTO) 0 % (0-1); EOSINOPHILS # (AUTO) 0.11 x10^3/uL (0-0.4); EOSINOPHILS % (AUTO) 3 % (1-7); LYMPHOCYTES # (AUTO) 0.35 x10^3/uL (1-3.4); LYMPHOCYTES % (AUTO) 9 % (22-44); MD NO; MEAN CORPUSCULAR HEMOGLOBIN 33.1 pg (27.0-34.8); MEAN CORPUSCULAR HGB CONC 34.6 g/dL (32.4-35.8); MEAN CORPUSCULAR VOLUME 95.6 fL (80-100); MEAN PLATELET VOLUME 7.7 fL (7.4-10.4); MONOCYTES # (AUTO) 0.19 x10^3/uL (0.2-0.8); MONOCYTES % (AUTO) 5 % (2-9); NEUTROPHILS # (AUTO) 3.36 x10^3/uL (1.8-6.8); NEUTROPHILS % (AUTO) 83 % (42-75); PLATELET COUNT 206 x10^3/uL (130-400); RED BLOOD COUNT 3.29 x10^6/uL (3.82-5.3); RED CELL DISTRIBUTION WIDTH 15.2 % (9.6-15.2)
[2018-03-13 06:08] LABS: ALANINE AMINOTRANSFERASE 12 U/L (12-78); ALKALINE PHOSPHATASE 100 U/L (45-117); BILIRUBIN,TOTAL 0.4 mg/dL (0.2-1.0); CREATININE 0.86 mg/dL (0.55-1.02); TOTAL PROTEIN 5.4 g/dL (6.4-8.2)
[2018-03-13 08:18] VITALS: BP 130/81
[2018-03-13] MEDS: LACTULOSE 10 GM/15 ML UDC PO SCH ×2 (08:28→21:20)
[2018-03-13] MEDS: PANTOPROZOLE 40MG TABLET PO SCH ×2 (08:28→21:21)
[2018-03-13] MEDS: MULTIVITS,STRESS FORMULA 1 TABLET PO SCH (08:28)
[2018-03-13] MEDS: CHOLECALCIFEROL 5,000u TAB PO SCH (08:28)
[2018-03-13] MEDS: SODIUM CHLORIDE FLUSH 10ML SYR IVF SCH ×2 (08:28→21:21)
[2018-03-13] MEDS: ALLOPURINOL 300 MG TABLET PO SCH (08:28)
[2018-03-13] MEDS: MAGNESIUM OXIDE 400 MG TABLET PO SCH (08:28)
[2018-03-13] MEDS: HEPARIN 5,000 UNITS/ML, 1ML SQ SCH ×2 (08:29→21:20)
[2018-03-13] MEDS: HYDROmorphone 2 MG/ML, 1ML IVPush PRN ×2 (11:03→14:57)
[2018-03-13 12:48] VITALS: BP 142/82
[2018-03-13] MEDS: ERTAPENEM 1 GM in SODIUM CHLORIDE 0.9% 50 ML IV SCH (13:16)
[2018-03-13] MEDS: PROMETHAZINE 25 MG/ML, 1ML IM PRN ×2 (14:05→21:20)
[2018-03-13] MEDS ORDERED: FUROSEMIDE 40 MG/4 ML IV ONE (17:00)
[2018-03-13] MEDS ORDERED: POTASSIUM CHLORIDE 20 MEQ TAB.ER.PRT PO ONE (17:00)
[2018-03-13 20:28] VITALS: BP 140/85
[2018-03-14 01:42] VITALS: BP 139/86
[2018-03-14] MEDS: OXYcodone IR 5MG TABLET PO PRN ×4 (04:17→21:55)
[2018-03-14] MEDS: ONDANSETRON ODT 4 MG PO PRN ×4 (04:17→21:55)
[2018-03-14] MEDS: HYDROmorphone 2 MG/ML, 1ML IVPush PRN ×3 (04:50→19:32)
[2018-03-14 05:18] LABS: ALBUMIN 2.2 g/dL (3.4-5.0); ANION GAP 9 mmol/L (5-15); CALCIUM 9.6 mg/dL (8.5-10.1); CHLORIDE 93 mmol/L (98-107)
[2018-03-14 05:22] LABS: ALANINE AMINOTRANSFERASE 12 U/L (12-78); ALKALINE PHOSPHATASE 115 U/L (45-117); BILIRUBIN,TOTAL 0.4 mg/dL (0.2-1.0); CREATININE 1.02 mg/dL (0.55-1.02); TOTAL PROTEIN 5.7 g/dL (6.4-8.2)
[2018-03-14 05:28] LABS: BASOPHILS # (AUTO) 0.01 x10^3/uL (0-0.1); BASOPHILS % (AUTO) 0 % (0-1); EOSINOPHILS # (AUTO) 0.09 x10^3/uL (0-0.4); EOSINOPHILS % (AUTO) 2 % (1-7); LYMPHOCYTES # (AUTO) 0.35 x10^3/uL (1-3.4); LYMPHOCYTES % (AUTO) 7 % (22-44); MD NO; MEAN CORPUSCULAR HEMOGLOBIN 33.7 pg (27.0-34.8); MEAN CORPUSCULAR HGB CONC 35.1 g/dL (32.4-35.8); MEAN PLATELET VOLUME 7.7 fL (7.4-10.4); MONOCYTES # (AUTO) 0.22 x10^3/uL (0.2-0.8); MONOCYTES % (AUTO) 4 % (2-9); NEUTROPHILS # (AUTO) 4.39 x10^3/uL (1.8-6.8); NEUTROPHILS % (AUTO) 87 % (42-75); PLATELET COUNT 234 x10^3/uL (130-400); RED BLOOD COUNT 3.42 x10^6/uL (3.82-5.3); RED CELL DISTRIBUTION WIDTH 15.3 % (9.6-15.2)
[2018-03-14 08:55] VITALS: BP 118/78
[2018-03-14] MEDS: PANTOPROZOLE 40MG TABLET PO SCH ×2 (10:27→19:32)
[2018-03-14] MEDS: MULTIVITS,STRESS FORMULA 1 TABLET PO SCH (10:27)
[2018-03-14] MEDS: LACTULOSE 10 GM/15 ML UDC PO SCH ×2 (10:27→19:32)
[2018-03-14] MEDS: ALLOPURINOL 300 MG TABLET PO SCH (10:27)
[2018-03-14] MEDS: HEPARIN 5,000 UNITS/ML, 1ML SQ SCH ×2 (10:27→21:55)
[2018-03-14] MEDS: MAGNESIUM OXIDE 400 MG TABLET PO SCH (10:28)
[2018-03-14] MEDS: CHOLECALCIFEROL 5,000u TAB PO SCH (10:28)
[2018-03-14] MEDS: SODIUM CHLORIDE FLUSH 10ML SYR IVF SCH ×2 (10:28→19:33)
[2018-03-14] MEDS: ERTAPENEM 1 GM in SODIUM CHLORIDE 0.9% 50 ML IV SCH (13:44)
[2018-03-14 15:18] VITALS: BP 123/79
[2018-03-14] MEDS ORDERED: FUROSEMIDE 40 MG/4 ML IV ONE (18:30)
[2018-03-14 20:11] VITALS: BP 139/86
[2018-03-15 03:41] VITALS: BP 124/74
[2018-03-15 03:54] LABS: BASOPHILS # (AUTO) 0.02 x10^3/uL (0-0.1); BASOPHILS % (AUTO) 1 % (0-1); EOSINOPHILS # (AUTO) 0.09 x10^3/uL (0-0.4); EOSINOPHILS % (AUTO) 2 % (1-7); LYMPHOCYTES # (AUTO) 0.32 x10^3/uL (1-3.4); LYMPHOCYTES % (AUTO) 7 % (22-44); MD NO; MEAN CORPUSCULAR HEMOGLOBIN 33.9 pg (27.0-34.8); MEAN CORPUSCULAR HGB CONC 34.9 g/dL (32.4-35.8); MEAN CORPUSCULAR VOLUME 97.1 fL (80-100); MEAN PLATELET VOLUME 7.3 fL (7.4-10.4); MONOCYTES % (AUTO) 4 % (2-9); NEUTROPHILS % (AUTO) 86 % (42-75); PLATELET COUNT 235 x10^3/uL (130-400); RED BLOOD COUNT 3.37 x10^6/uL (3.82-5.3); RED CELL DISTRIBUTION WIDTH 15.8 % (9.6-15.2)
[2018-03-15] MEDS: OXYcodone IR 5MG TABLET PO PRN ×4 (03:57→20:12)
[2018-03-15] MEDS: ONDANSETRON ODT 4 MG PO PRN ×4 (03:57→20:15)
[2018-03-15] MEDS: POLYETHYLENE GLYCOL 17 GM PACKET PO PRN (03:57)
[2018-03-15 04:07] LABS: ALANINE AMINOTRANSFERASE 10 U/L (12-78); ALBUMIN 2.2 g/dL (3.4-5.0); ANION GAP 9 mmol/L (5-15); CALCIUM 10.2 mg/dL (8.5-10.1); CHLORIDE 91 mmol/L (98-107); CREATININE 0.92 mg/dL (0.55-1.02)
[2018-03-15 04:09] LABS: ALKALINE PHOSPHATASE 127 U/L (45-117); BILIRUBIN,TOTAL 0.4 mg/dL (0.2-1.0); TOTAL PROTEIN 5.7 g/dL (6.4-8.2)
[2018-03-15] MEDS: HYDROmorphone 2 MG/ML, 1ML IVPush PRN ×3 (05:08→22:32)
[2018-03-15 08:01] VITALS: BP 122/67
[2018-03-15] MEDS ORDERED: PHARMACOKINETIC CONSULTATION MC ONE (08:30)
[2018-03-15] MEDS ORDERED: VANCOMYCIN PER PHARMACY MC PRN (08:30)
[2018-03-15] MEDS ORDERED: VANCOMYCIN PMX 1GM/200ML 200 ML IV ONE (08:30)
[2018-03-15] MEDS ORDERED: VANCOMYCIN 1,500 MG in SODIUM CHLORIDE 0.9% 250 ML IV SCH (08:30)
[2018-03-15] MEDS ORDERED: PHARMACOKINETIC MONITORING MC PRN (08:30)
[2018-03-15] MEDS: MAGNESIUM OXIDE 400 MG TABLET PO SCH (09:00)
[2018-03-15] MEDS: ALLOPURINOL 300 MG TABLET PO SCH (09:00)
[2018-03-15] MEDS: SODIUM CHLORIDE FLUSH 10ML SYR IVF SCH ×2 (09:00→20:14)
[2018-03-15] MEDS: CHOLECALCIFEROL 5,000u TAB PO SCH (09:00)
[2018-03-15] MEDS: MULTIVITS,STRESS FORMULA 1 TABLET PO SCH (09:00)
[2018-03-15] MEDS: HEPARIN 5,000 UNITS/ML, 1ML SQ SCH ×2 (09:17→20:13)
[2018-03-15] MEDS: LACTULOSE 10 GM/15 ML UDC PO SCH ×2 (09:18→20:14)
[2018-03-15] MEDS: PANTOPROZOLE 40MG TABLET PO SCH ×2 (10:08→20:13)
[2018-03-15 13:22] VITALS: BP 130/82
[2018-03-15] MEDS: ERTAPENEM 1 GM in SODIUM CHLORIDE 0.9% 50 ML IV SCH (14:08)
[2018-03-15] MEDS: DAPTOMYCIN 500 MG in SODIUM CHLORIDE 0.9% 100 ML IV SCH (17:03)
[2018-03-15] MEDS ORDERED: FUROSEMIDE 40 MG/4 ML IV ONE (17:30)
[2018-03-15] MEDS: SODIUM CHLORIDE 0.9% 1,000 ML IV SCH (18:26)
[2018-03-15 20:46] VITALS: BP 113/80
[2018-03-16 01:43] VITALS: BP 116/79
[2018-03-16] MEDS: ONDANSETRON ODT 4 MG PO PRN ×3 (05:34→19:17)
[2018-03-16] MEDS: OXYcodone IR 5MG TABLET PO PRN ×3 (05:34→19:17)
[2018-03-16 05:49] LABS: BASOPHILS # (AUTO) 0.03 x10^3/uL (0-0.1); BASOPHILS % (AUTO) 1 % (0-1); EOSINOPHILS % (AUTO) 3 % (1-7); LYMPHOCYTES # (AUTO) 0.33 x10^3/uL (1-3.4); LYMPHOCYTES % (AUTO) 9 % (22-44); MD NO; MEAN CORPUSCULAR HEMOGLOBIN 33.9 pg (27.0-34.8); MEAN CORPUSCULAR HGB CONC 35.5 g/dL (32.4-35.8); MEAN CORPUSCULAR VOLUME 95.6 fL (80-100); MEAN PLATELET VOLUME 7.5 fL (7.4-10.4); MONOCYTES # (AUTO) 0.13 x10^3/uL (0.2-0.8); MONOCYTES % (AUTO) 4 % (2-9); NEUTROPHILS # (AUTO) 3.07 x10^3/uL (1.8-6.8); NEUTROPHILS % (AUTO) 84 % (42-75); PLATELET COUNT 237 x10^3/uL (130-400); RED BLOOD COUNT 3.17 x10^6/uL (3.82-5.3); RED CELL DISTRIBUTION WIDTH 15.2 % (9.6-15.2)
[2018-03-16 05:51] LABS: ANION GAP 9 mmol/L (5-15); CALCIUM 10.3 mg/dL (8.5-10.1); CHLORIDE 91 mmol/L (98-107)
[2018-03-16 05:54] LABS: ALANINE AMINOTRANSFERASE 9 U/L (12-78); ALKALINE PHOSPHATASE 122 U/L (45-117); BILIRUBIN,TOTAL 0.5 mg/dL (0.2-1.0); CREATININE 0.83 mg/dL (0.55-1.02); TOTAL PROTEIN 5.3 g/dL (6.4-8.2)
[2018-03-16 08:00] VITALS: BP 116/79
[2018-03-16] MEDS: MULTIVITS,STRESS FORMULA 1 TABLET PO SCH (09:13)
[2018-03-16] MEDS: PANTOPROZOLE 40MG TABLET PO SCH ×2 (09:13→20:00)
[2018-03-16] MEDS: ALLOPURINOL 300 MG TABLET PO SCH (09:13)
[2018-03-16] MEDS: MAGNESIUM OXIDE 400 MG TABLET PO SCH (09:13)
[2018-03-16] MEDS: LACTULOSE 10 GM/15 ML UDC PO SCH ×2 (09:14→20:00)
[2018-03-16] MEDS: SODIUM CHLORIDE 0.9% 1,000 ML IV SCH ×3 (09:15→20:00)
[2018-03-16] MEDS: HEPARIN 5,000 UNITS/ML, 1ML SQ SCH ×2 (09:15→20:00)
[2018-03-16] MEDS: HYDROmorphone 2 MG/ML, 1ML IVPush PRN ×2 (09:15→15:18)
[2018-03-16] MEDS: SODIUM CHLORIDE FLUSH 10ML SYR IVF SCH ×2 (11:39→20:01)
[2018-03-16] MEDS: CHOLECALCIFEROL 5,000u TAB PO SCH (11:42)
[2018-03-16 12:37] VITALS: BP 145/81
[2018-03-16] MEDS: ERTAPENEM 1 GM in SODIUM CHLORIDE 0.9% 50 ML IV SCH (13:42)
[2018-03-16] MEDS: DAPTOMYCIN 500 MG in SODIUM CHLORIDE 0.9% 100 ML IV SCH (15:18)
[2018-03-16] MEDS ORDERED: MAGNESIUM SULFATE PMX 2GM/50ML 50 ML IV ONE (15:30)
[2018-03-16 20:10] VITALS: BP 119/76
[2018-03-17 01:10] VITALS: BP 119/68
[2018-03-17] MEDS: ONDANSETRON ODT 4 MG PO PRN ×4 (01:11→18:00)
[2018-03-17] MEDS: OXYcodone IR 5MG TABLET PO PRN ×4 (01:11→18:01)
[2018-03-17] MEDS: SODIUM CHLORIDE 0.9% 1,000 ML IV SCH (03:41)
[2018-03-17 04:31] LABS: BASOPHILS # (AUTO) 0.02 x10^3/uL (0-0.1); BASOPHILS % (AUTO) 1 % (0-1); EOSINOPHILS # (AUTO) 0.11 x10^3/uL (0-0.4); EOSINOPHILS % (AUTO) 4 % (1-7); LYMPHOCYTES # (AUTO) 0.26 x10^3/uL (1-3.4); LYMPHOCYTES % (AUTO) 8 % (22-44); MD NO; MEAN CORPUSCULAR HEMOGLOBIN 33.1 pg (27.0-34.8); MEAN CORPUSCULAR HGB CONC 34.8 g/dL (32.4-35.8); MEAN CORPUSCULAR VOLUME 95.3 fL (80-100); MEAN PLATELET VOLUME 7.1 fL (7.4-10.4); MONOCYTES # (AUTO) 0.15 x10^3/uL (0.2-0.8); MONOCYTES % (AUTO) 5 % (2-9); NEUTROPHILS # (AUTO) 2.58 x10^3/uL (1.8-6.8); NEUTROPHILS % (AUTO) 83 % (42-75); PLATELET COUNT 227 x10^3/uL (130-400); RED BLOOD COUNT 3.04 x10^6/uL (3.82-5.3); RED CELL DISTRIBUTION WIDTH 15.3 % (9.6-15.2)
[2018-03-17 04:42] LABS: ANION GAP 10 mmol/L (5-15); CALCIUM 10.6 mg/dL (8.5-10.1); CHLORIDE 94 mmol/L (98-107)
[2018-03-17 04:45] LABS: ALANINE AMINOTRANSFERASE 9 U/L (12-78); ALKALINE PHOSPHATASE 117 U/L (45-117); BILIRUBIN,TOTAL 0.4 mg/dL (0.2-1.0); CREATININE 0.76 mg/dL (0.55-1.02); TOTAL PROTEIN 4.9 g/dL (6.4-8.2)
[2018-03-17] MEDS: HYDROmorphone 2 MG/ML, 1ML IVPush PRN ×3 (05:37→19:51)
[2018-03-17 08:40] VITALS: BP 114/72
[2018-03-17] MEDS: MULTIVITS,STRESS FORMULA 1 TABLET PO SCH (09:07)
[2018-03-17] MEDS: ALLOPURINOL 300 MG TABLET PO SCH (09:07)
[2018-03-17] MEDS: MAGNESIUM OXIDE 400 MG TABLET PO SCH (09:07)
[2018-03-17] MEDS: LACTULOSE 10 GM/15 ML UDC PO SCH ×2 (09:07→19:50)
[2018-03-17] MEDS: CHOLECALCIFEROL 5,000u TAB PO SCH (09:07)
[2018-03-17] MEDS: SODIUM CHLORIDE FLUSH 10ML SYR IVF SCH ×2 (09:07→19:50)
[2018-03-17] MEDS: PANTOPROZOLE 40MG TABLET PO SCH ×2 (09:07→19:50)
[2018-03-17] MEDS: HEPARIN 5,000 UNITS/ML, 1ML SQ SCH ×2 (09:08→19:50)
[2018-03-17] MEDS: PROMETHAZINE 25 MG/ML, 1ML IM PRN (13:02)
[2018-03-17] MEDS: ERTAPENEM 1 GM in SODIUM CHLORIDE 0.9% 50 ML IV SCH (13:02)
[2018-03-17 15:52] VITALS: BP 127/83
[2018-03-17] MEDS: DAPTOMYCIN 500 MG in SODIUM CHLORIDE 0.9% 100 ML IV SCH (18:00)
[2018-03-17 20:39] VITALS: BP 124/82
[2018-03-17] MEDS: TEMAZEPAM 15 MG CAPSULE PO PRN (21:40)
[2018-03-18 02:37] VITALS: BP 111/74
[2018-03-18] MEDS: ONDANSETRON ODT 4 MG PO PRN ×4 (02:39→17:38)
[2018-03-18] MEDS: OXYcodone IR 5MG TABLET PO PRN ×4 (02:39→17:38)
[2018-03-18 06:05] LABS: BASOPHILS # (AUTO) 0.01 x10^3/uL (0-0.1); BASOPHILS % (AUTO) 0 % (0-1); EOSINOPHILS # (AUTO) 0.09 x10^3/uL (0-0.4); EOSINOPHILS % (AUTO) 2 % (1-7); LYMPHOCYTES % (AUTO) 8 % (22-44); MD NO; MEAN CORPUSCULAR HEMOGLOBIN 33.9 pg (27.0-34.8); MEAN CORPUSCULAR HGB CONC 35.2 g/dL (32.4-35.8); MEAN CORPUSCULAR VOLUME 96.5 fL (80-100); MEAN PLATELET VOLUME 7.4 fL (7.4-10.4); MONOCYTES # (AUTO) 0.17 x10^3/uL (0.2-0.8); MONOCYTES % (AUTO) 4 % (2-9); NEUTROPHILS # (AUTO) 3.16 x10^3/uL (1.8-6.8); NEUTROPHILS % (AUTO) 85 % (42-75); PLATELET COUNT 237 x10^3/uL (130-400); RED BLOOD COUNT 3.21 x10^6/uL (3.82-5.3); RED CELL DISTRIBUTION WIDTH 15.4 % (9.6-15.2)
[2018-03-18 06:12] LABS: ALANINE AMINOTRANSFERASE 11 U/L (12-78); ALBUMIN 2.1 g/dL (3.4-5.0); ANION GAP 9 mmol/L (5-15); CALCIUM 11.6 mg/dL (8.5-10.1); CHLORIDE 95 mmol/L (98-107)
[2018-03-18 06:14] LABS: ALKALINE PHOSPHATASE 131 U/L (45-117); BILIRUBIN,TOTAL 0.4 mg/dL (0.2-1.0); TOTAL PROTEIN 5.3 g/dL (6.4-8.2)
[2018-03-18] MEDS: HYDROmorphone 2 MG/ML, 1ML IVPush PRN ×2 (06:14→21:05)
[2018-03-18] MEDS: CHOLECALCIFEROL 5,000u TAB PO SCH (08:26)
[2018-03-18] MEDS: PANTOPROZOLE 40MG TABLET PO SCH (08:26)
[2018-03-18] MEDS: MAGNESIUM OXIDE 400 MG TABLET PO SCH (08:26)
[2018-03-18] MEDS: HEPARIN 5,000 UNITS/ML, 1ML SQ SCH ×2 (08:27→21:04)
[2018-03-18] MEDS: ALLOPURINOL 300 MG TABLET PO SCH (08:27)
[2018-03-18] MEDS: LACTULOSE 10 GM/15 ML UDC PO SCH ×2 (08:28→21:04)
[2018-03-18] MEDS: SODIUM CHLORIDE FLUSH 10ML SYR IVF SCH ×2 (08:32→21:05)
[2018-03-18] MEDS: MULTIVITS,STRESS FORMULA 1 TABLET PO SCH (09:06)
[2018-03-18 09:40] VITALS: BP 115/71
[2018-03-18 14:46] VITALS: BP 110/73
[2018-03-18] MEDS: ERTAPENEM 1 GM in SODIUM CHLORIDE 0.9% 50 ML IV SCH (14:47)
[2018-03-18] MEDS: METHOCARBAMOL 750 MG TABLET PO PRN ×2 (14:47→22:16)
[2018-03-18] MEDS: DAPTOMYCIN 500 MG in SODIUM CHLORIDE 0.9% 100 ML IV SCH (15:33)
[2018-03-18 18:52] VITALS: BP 138/75
[2018-03-18] MEDS ORDERED: SODIUM CHLORIDE 0.9% 1,000 ML IV SCH (20:00)
[2018-03-18] MEDS: SODIUM CHLORIDE 0.9% 1,000 ML IV SCH (21:06)
[2018-03-19] MEDS: ONDANSETRON ODT 4 MG PO PRN ×2 (00:52→05:00)
[2018-03-19] MEDS: OXYcodone IR 5MG TABLET PO PRN ×6 (00:52→21:46)
[2018-03-19 00:55] VITALS: BP 110/72
[2018-03-19] MEDS: SODIUM CHLORIDE 0.9% 1,000 ML IV SCH ×2 (04:05→10:28)
[2018-03-19 04:38] LABS: MEAN CORPUSCULAR HEMOGLOBIN 32.9 pg (27.0-34.8); MEAN CORPUSCULAR HGB CONC 34.3 g/dL (32.4-35.8); MEAN CORPUSCULAR VOLUME 95.9 fL (80-100); MEAN PLATELET VOLUME 7.3 fL (7.4-10.4); PLATELET COUNT 219 x10^3/uL (130-400); RED BLOOD COUNT 2.92 x10^6/uL (3.82-5.3); RED CELL DISTRIBUTION WIDTH 15.6 % (9.6-15.2)
[2018-03-19 04:45] LABS: ALBUMIN 1.9 g/dL (3.4-5.0); ANION GAP 8 mmol/L (5-15); CALCIUM 11.2 mg/dL (8.5-10.1); CHLORIDE 98 mmol/L (98-107)
[2018-03-19 04:50] LABS: ALANINE AMINOTRANSFERASE 10 U/L (12-78); ALKALINE PHOSPHATASE 112 U/L (45-117); BILIRUBIN,TOTAL 0.4 mg/dL (0.2-1.0); CREATININE 0.74 mg/dL (0.55-1.02); TOTAL PROTEIN 4.7 g/dL (6.4-8.2)
[2018-03-19 05:57] LABS: BASOPHILS % (AUTO) 0 % (0-1); EOSINOPHILS % (AUTO) 4 % (1-7); LYMPHOCYTES % (AUTO) 9 % (22-44); MONOCYTES % (AUTO) 3 % (2-9); NEUTROPHILS % (AUTO) 84 % (42-75)
[2018-03-19 05:58] LABS: MD SCAN
[2018-03-19 06:19] LABS: BASOPHILS # (AUTO) 0.01 x10^3/uL (0-0.1); LYMPHOCYTES # (AUTO) 0.24 x10^3/uL (1-3.4); MONOCYTES # (AUTO) 0.09 x10^3/uL (0.2-0.8)
[2018-03-19] MEDS: PANTOPROZOLE 40MG TABLET PO SCH ×3 (08:30→20:40)
[2018-03-19] MEDS: ALLOPURINOL 300 MG TABLET PO SCH ×2 (08:31→10:41)
[2018-03-19] MEDS: CHOLECALCIFEROL 5,000u TAB PO SCH (08:32)
[2018-03-19] MEDS: MULTIVITS,STRESS FORMULA 1 TABLET PO SCH (08:32)
[2018-03-19] MEDS: SODIUM CHLORIDE FLUSH 10ML SYR IVF SCH ×2 (08:32→20:40)
[2018-03-19] MEDS: METHOCARBAMOL 750 MG TABLET PO PRN (08:32)
[2018-03-19] MEDS: MAGNESIUM OXIDE 400 MG TABLET PO SCH (08:32)
[2018-03-19] MEDS: LACTULOSE 10 GM/15 ML UDC PO SCH ×2 (08:32→20:39)
[2018-03-19] MEDS: HEPARIN 5,000 UNITS/ML, 1ML SQ SCH ×2 (08:33→20:39)
[2018-03-19 09:30] VITALS: BP 104/68
[2018-03-19] MEDS ORDERED: FAMOTIDINE 20 MG/2 ML IV ONE (10:30)
[2018-03-19] MEDS ORDERED: DIPHENHYDRAMINE 50 MG/ML, 1ML IVPush ONE (10:30)
[2018-03-19] MEDS ORDERED: ONDANSETRON 16 MG in SODIUM CHLORIDE 0.9% 50 ML IVPB SCH (11:30)
[2018-03-19] MEDS ORDERED: ACETAMINOPHEN 325 MG TABLET PO ONE (11:30)
[2018-03-19] MEDS ORDERED: SODIUM CHLORIDE 0.9% IV ONE ×3 (12:00→20:00)
[2018-03-19] MEDS ORDERED: RITUXIMAB IV ONE ×2 (12:00→13:30)
[2018-03-19 12:07] VITALS: BP 106/70
[2018-03-19] MEDS: ERTAPENEM 1 GM in SODIUM CHLORIDE 0.9% 50 ML IV SCH (12:57)
[2018-03-19] MEDS: DAPTOMYCIN 500 MG in SODIUM CHLORIDE 0.9% 100 ML IV SCH (15:56)
[2018-03-19] MEDS ORDERED: DEXAMETHASONE 12 MG in SODIUM CHLORIDE 0.9% 50 ML IVPB ONE (19:30)
[2018-03-19] MEDS ORDERED: ONDANSETRON 16 MG, DEXAMETHASONE 12 MG in SODIUM CHLORIDE 0.9% 50 ML IVPB ONE (19:30)
[2018-03-19] MEDS ORDERED: CYCLOPHOSPHAMIDE IV ONE (20:00)
[2018-03-19] MEDS ORDERED: SODIUM CHLORIDE 0.9% 1,000 ML IV SCH (20:00)
[2018-03-19] MEDS ORDERED: DOXORUBICIN IVPush ONE (21:00)
[2018-03-19] MEDS ORDERED: DEXTROSE 5% IV ONE (21:15)
[2018-03-19] MEDS ORDERED: VINCRISTINE IV ONE (21:15)
[2018-03-19 22:10] VITALS: BP 103/70
[2018-03-20 01:45] VITALS: BP 115/74
[2018-03-20] MEDS: SODIUM CHLORIDE 0.9% 1,000 ML IV SCH ×2 (04:08→23:57)
[2018-03-20] MEDS: OXYcodone IR 5MG TABLET PO PRN ×3 (04:09→14:09)
[2018-03-20 05:24] LABS: MEAN CORPUSCULAR HEMOGLOBIN 33.6 pg (27.0-34.8); MEAN CORPUSCULAR HGB CONC 34.6 g/dL (32.4-35.8); MEAN CORPUSCULAR VOLUME 97.1 fL (80-100); MEAN PLATELET VOLUME 7.6 fL (7.4-10.4); PLATELET COUNT 194 x10^3/uL (130-400); RED BLOOD COUNT 2.78 x10^6/uL (3.82-5.3); RED CELL DISTRIBUTION WIDTH 16.2 % (9.6-15.2)
[2018-03-20 05:26] LABS: ALBUMIN 1.9 g/dL (3.4-5.0); ANION GAP 8 mmol/L (5-15); CALCIUM 11.2 mg/dL (8.5-10.1); CHLORIDE 103 mmol/L (98-107)
[2018-03-20 05:31] LABS: ALANINE AMINOTRANSFERASE 10 U/L (12-78); ALKALINE PHOSPHATASE 106 U/L (45-117); BILIRUBIN,TOTAL 0.3 mg/dL (0.2-1.0); CREATININE 0.65 mg/dL (0.55-1.02); TOTAL PROTEIN 4.7 g/dL (6.4-8.2)
[2018-03-20 05:54] LABS: BASOPHILS % (AUTO) 0 % (0-1); EOSINOPHILS % (AUTO) 0 % (1-7); LYMPHOCYTES # (AUTO) 0.12 x10^3/uL (1-3.4); LYMPHOCYTES % (AUTO) 4 % (22-44); MD SCAN; MONOCYTES # (AUTO) 0.02 x10^3/uL (0.2-0.8); MONOCYTES % (AUTO) 1 % (2-9); NEUTROPHILS # (AUTO) 2.95 x10^3/uL (1.8-6.8); NEUTROPHILS % (AUTO) 95 % (42-75)
[2018-03-20 08:00] VITALS: BP 110/72
[2018-03-20] MEDS: HEPARIN 5,000 UNITS/ML, 1ML SQ SCH ×2 (09:00→20:07)
[2018-03-20] MEDS: SODIUM CHLORIDE FLUSH 10ML SYR IVF SCH ×2 (09:41→20:07)
[2018-03-20] MEDS: LACTULOSE 10 GM/15 ML UDC PO SCH ×2 (09:41→20:06)
[2018-03-20] MEDS: MULTIVITS,STRESS FORMULA 1 TABLET PO SCH (09:42)
[2018-03-20] MEDS: CHOLECALCIFEROL 5,000u TAB PO SCH (09:42)
[2018-03-20] MEDS: ALLOPURINOL 300 MG TABLET PO SCH (09:46)
[2018-03-20] MEDS: PANTOPROZOLE 40MG TABLET PO SCH ×2 (09:47→20:07)
[2018-03-20] MEDS: MAGNESIUM OXIDE 400 MG TABLET PO SCH (09:47)
[2018-03-20] MEDS ORDERED: SODIUM CHLORIDE 0.9% IV ONE (12:00)
[2018-03-20] MEDS ORDERED: METHOTREXATE IV ONE (12:00)
[2018-03-20] MEDS ORDERED: LIDOCAINE-MPF 2%, 2ML ONE (12:22)
[2018-03-20] MEDS: HYDROmorphone 2 MG/ML, 1ML IVPush PRN ×2 (12:38→17:06)
[2018-03-20] MEDS: ONDANSETRON ODT 4 MG PO PRN (12:38)
[2018-03-20] MEDS: ERTAPENEM 1 GM in SODIUM CHLORIDE 0.9% 50 ML IV SCH (14:11)
[2018-03-20 15:00] VITALS: BP 118/68
[2018-03-20] MEDS: DAPTOMYCIN 500 MG in SODIUM CHLORIDE 0.9% 100 ML IV SCH (16:21)
[2018-03-20 18:55] VITALS: BP 118/67
[2018-03-20] MEDS: ONDANSETRON 2MG/ML, 2ML IV PRN (20:06)
[2018-03-20] MEDS: PROMETHAZINE 25 MG/ML, 1ML IM PRN (22:32)
[2018-03-21 04:05] VITALS: BP 118/68
[2018-03-21] MEDS: OXYcodone IR 5MG TABLET PO PRN ×4 (04:31→20:27)
[2018-03-21] MEDS: ONDANSETRON 2MG/ML, 2ML IV PRN (04:31)
[2018-03-21 04:59] LABS: MEAN CORPUSCULAR HEMOGLOBIN 33.5 pg (27.0-34.8); MEAN CORPUSCULAR HGB CONC 35.1 g/dL (32.4-35.8); MEAN CORPUSCULAR VOLUME 95.5 fL (80-100); MEAN PLATELET VOLUME 7.4 fL (7.4-10.4); PLATELET COUNT 220 x10^3/uL (130-400); RED BLOOD COUNT 2.91 x10^6/uL (3.82-5.3); RED CELL DISTRIBUTION WIDTH 15.6 % (9.6-15.2)
[2018-03-21 05:03] LABS: ALANINE AMINOTRANSFERASE 13 U/L (12-78); ANION GAP 8 mmol/L (5-15); CHLORIDE 106 mmol/L (98-107)
[2018-03-21 05:05] LABS: ALKALINE PHOSPHATASE 106 U/L (45-117); BILIRUBIN,TOTAL 0.3 mg/dL (0.2-1.0); CREATININE 0.67 mg/dL (0.55-1.02); TOTAL PROTEIN 4.8 g/dL (6.4-8.2)
[2018-03-21 06:10] LABS: MD YES
[2018-03-21 06:13] LABS: BAND#(MANUAL) 0.05 x10^3/uL; BANDS%(MANUAL) 1 % (0-7); LYMPH#(MANUAL) 0.05 x10^3/uL (1-3.4); LYMPHS% (MANUAL) 1 % (22-44); MONOS#(MANUAL) 0.05 x10^3/uL (0.3-2.7); MONOS% (MANUAL) 1 % (2-9); SEG#(MANUAL) 4.56 x10^3/uL (1.8-6.8); SEGS% (MANUAL) 97 % (42-75)
[2018-03-21 06:14] LABS: ANISOCYTOSIS 1+
[2018-03-21 06:15] LABS: <PLATELET ESTIMATE> ADEQUATE; <PLT MORPHOLOGY> NORMAL PLT MORPH; OVALOCYTES 1+
[2018-03-21 07:05] VITALS: BP 107/67
[2018-03-21] MEDS: LACTULOSE 10 GM/15 ML UDC PO SCH ×2 (08:25→22:17)
[2018-03-21] MEDS: SODIUM CHLORIDE FLUSH 10ML SYR IVF SCH ×2 (08:25→22:19)
[2018-03-21] MEDS: MULTIVITS,STRESS FORMULA 1 TABLET PO SCH (08:26)
[2018-03-21] MEDS: HEPARIN 5,000 UNITS/ML, 1ML SQ SCH ×2 (08:26→22:23)
[2018-03-21] MEDS: MAGNESIUM OXIDE 400 MG TABLET PO SCH (08:26)
[2018-03-21] MEDS: ALLOPURINOL 300 MG TABLET PO SCH (08:26)
[2018-03-21] MEDS: CHOLECALCIFEROL 5,000u TAB PO SCH (08:26)
[2018-03-21] MEDS: PANTOPROZOLE 40MG TABLET PO SCH ×2 (08:27→22:17)
[2018-03-21] MEDS: ONDANSETRON ODT 4 MG PO PRN ×3 (08:27→20:27)
[2018-03-21] MEDS: ACYCLOVIR 800 MG TABLET PO SCH ×3 (12:30→22:17)
[2018-03-21] MEDS: ERTAPENEM 1 GM in SODIUM CHLORIDE 0.9% 50 ML IV SCH (12:45)
[2018-03-21] MEDS ORDERED: ACYCLOVIR 400 MG TABLET ONE ×2 (12:46→18:01)
[2018-03-21 13:39] VITALS: BP 100/63
[2018-03-21] MEDS: DAPTOMYCIN 500 MG in SODIUM CHLORIDE 0.9% 100 ML IV SCH (14:23)
[2018-03-21] MEDS: SODIUM CHLORIDE 0.9% 1,000 ML IV SCH (14:26)
[2018-03-21 20:06] VITALS: BP 107/56
[2018-03-22] MEDS: OXYcodone IR 5MG TABLET PO PRN ×4 (01:21→22:49)
[2018-03-22] MEDS: ONDANSETRON ODT 4 MG PO PRN ×2 (01:21→05:16)
[2018-03-22 01:40] VITALS: BP 111/69
[2018-03-22] MEDS: SODIUM CHLORIDE 0.9% 1,000 ML IV SCH ×2 (02:54→17:05)
[2018-03-22] MEDS: PROMETHAZINE 25 MG/ML, 1ML IM PRN (03:07)
[2018-03-22 05:41] LABS: MEAN CORPUSCULAR HEMOGLOBIN 34.3 pg (27.0-34.8); MEAN CORPUSCULAR HGB CONC 35.2 g/dL (32.4-35.8); MEAN CORPUSCULAR VOLUME 97.3 fL (80-100); MEAN PLATELET VOLUME 7.4 fL (7.4-10.4); PLATELET COUNT 181 x10^3/uL (130-400); RED BLOOD COUNT 2.53 x10^6/uL (3.82-5.3); RED CELL DISTRIBUTION WIDTH 16.3 % (9.6-15.2)
[2018-03-22 05:57] LABS: ALBUMIN 1.9 g/dL (3.4-5.0); ANION GAP 8 mmol/L (5-15); CALCIUM 10.8 mg/dL (8.5-10.1); CHLORIDE 104 mmol/L (98-107)
[2018-03-22 06:01] LABS: ALANINE AMINOTRANSFERASE 17 U/L (12-78); ALKALINE PHOSPHATASE 92 U/L (45-117); BILIRUBIN,TOTAL 0.2 mg/dL (0.2-1.0); CREATININE 0.65 mg/dL (0.55-1.02); TOTAL PROTEIN 4.6 g/dL (6.4-8.2)
[2018-03-22 08:04] LABS: BASOPHILS % (AUTO) 0 % (0-1); EOSINOPHILS % (AUTO) 0 % (1-7); LYMPHOCYTES # (AUTO) 0.11 x10^3/uL (1-3.4); LYMPHOCYTES % (AUTO) 4 % (22-44); MD YES; MONOCYTES # (AUTO) 0.02 x10^3/uL (0.2-0.8); MONOCYTES % (AUTO) 1 % (2-9); NEUTROPHILS # (AUTO) 3.16 x10^3/uL (1.8-6.8); NEUTROPHILS % (AUTO) 96 % (42-75)
[2018-03-22 08:32] VITALS: BP 118/66
[2018-03-22] MEDS: LACTULOSE 10 GM/15 ML UDC PO SCH ×2 (08:54→20:33)
[2018-03-22] MEDS: ALLOPURINOL 300 MG TABLET PO SCH (08:55)
[2018-03-22] MEDS: MAGNESIUM OXIDE 400 MG TABLET PO SCH (08:55)
[2018-03-22] MEDS: ACYCLOVIR 800 MG TABLET PO SCH ×3 (08:55→20:32)
[2018-03-22] MEDS: CHOLECALCIFEROL 5,000u TAB PO SCH (08:55)
[2018-03-22] MEDS: PANTOPROZOLE 40MG TABLET PO SCH ×2 (08:55→20:32)
[2018-03-22] MEDS: HEPARIN 5,000 UNITS/ML, 1ML SQ SCH ×2 (08:56→20:32)
[2018-03-22] MEDS: SODIUM CHLORIDE FLUSH 10ML SYR IVF SCH ×2 (09:02→20:31)
[2018-03-22] MEDS: MULTIVITS,STRESS FORMULA 1 TABLET PO SCH (09:02)
[2018-03-22] MEDS: ONDANSETRON 2MG/ML, 2ML IV PRN (09:02)
[2018-03-22 09:43] LABS: <PLATELET ESTIMATE> ADEQUATE; <PLT MORPHOLOGY> NORMAL PLT MORPH; ANISOCYTOSIS 1+; LYMPH#(MANUAL) 0.07 x10^3/uL (1-3.4); LYMPHS% (MANUAL) 2 % (22-44); OVALOCYTES 1+; SEG#(MANUAL) 3.23 x10^3/uL (1.8-6.8); SEGS% (MANUAL) 98 % (42-75)
[2018-03-22 12:41] VITALS: BP 111/72
[2018-03-22] MEDS: POLYETHYLENE GLYCOL 17 GM PACKET PO PRN (13:33)
[2018-03-22] MEDS: ERTAPENEM 1 GM in SODIUM CHLORIDE 0.9% 50 ML IV SCH (13:33)
[2018-03-22] MEDS: DAPTOMYCIN 500 MG in SODIUM CHLORIDE 0.9% 100 ML IV SCH (14:15)
[2018-03-22 19:55] VITALS: BP 96/65
[2018-03-23 01:22] VITALS: BP 102/66
[2018-03-23] MEDS: SODIUM CHLORIDE 0.9% 1,000 ML IV SCH ×2 (05:15→18:10)
[2018-03-23 05:37] LABS: MEAN CORPUSCULAR HEMOGLOBIN 33.2 pg (27.0-34.8); MEAN CORPUSCULAR VOLUME 97.1 fL (80-100); RED BLOOD COUNT 2.43 x10^6/uL (3.82-5.3)
[2018-03-23 05:38] LABS: MEAN CORPUSCULAR HGB CONC 34.2 g/dL (32.4-35.8); MEAN PLATELET VOLUME 7.9 fL (7.4-10.4); PLATELET COUNT 157 x10^3/uL (130-400); RED CELL DISTRIBUTION WIDTH 15.6 % (9.6-15.2)
[2018-03-23 05:46] LABS: CHLORIDE 107 mmol/L (98-107)
[2018-03-23 06:05] LABS: ALANINE AMINOTRANSFERASE 21 U/L (12-78); ALKALINE PHOSPHATASE 86 U/L (45-117); ANION GAP 7 mmol/L (5-15); BILIRUBIN,TOTAL 0.4 mg/dL (0.2-1.0); CALCIUM 10.3 mg/dL (8.5-10.1); CREATININE 0.59 mg/dL (0.55-1.02); TOTAL PROTEIN 4.6 g/dL (6.4-8.2)
[2018-03-23 06:11] LABS: BASOPHILS % (AUTO) 0 % (0-1); EOSINOPHILS % (AUTO) 0 % (1-7); LYMPHOCYTES # (AUTO) 0.11 x10^3/uL (1-3.4); LYMPHOCYTES % (AUTO) 4 % (22-44); MD SCAN; MONOCYTES % (AUTO) 0 % (2-9); NEUTROPHILS # (AUTO) 2.55 x10^3/uL (1.8-6.8); NEUTROPHILS % (AUTO) 96 % (42-75)
[2018-03-23 07:27] VITALS: BP 112/72
[2018-03-23] MEDS: ALLOPURINOL 300 MG TABLET PO SCH (08:24)
[2018-03-23] MEDS: HEPARIN 5,000 UNITS/ML, 1ML SQ SCH ×2 (08:24→21:21)
[2018-03-23] MEDS: MAGNESIUM OXIDE 400 MG TABLET PO SCH (08:24)
[2018-03-23] MEDS: ACYCLOVIR 800 MG TABLET PO SCH ×3 (08:24→21:21)
[2018-03-23] MEDS: MULTIVITS,STRESS FORMULA 1 TABLET PO SCH (08:24)
[2018-03-23] MEDS: CHOLECALCIFEROL 5,000u TAB PO SCH (08:24)
[2018-03-23] MEDS: LACTULOSE 10 GM/15 ML UDC PO SCH ×2 (08:25→21:20)
[2018-03-23] MEDS: PANTOPROZOLE 40MG TABLET PO SCH ×2 (08:25→21:21)
[2018-03-23] MEDS: OXYcodone IR 5MG TABLET PO PRN ×2 (08:53→19:52)
[2018-03-23] MEDS: SODIUM CHLORIDE FLUSH 10ML SYR IVF SCH ×2 (09:00→21:20)
[2018-03-23 12:38] VITALS: BP 103/63
[2018-03-23] MEDS: ERTAPENEM 1 GM in SODIUM CHLORIDE 0.9% 50 ML IV SCH (13:36)
[2018-03-23] MEDS: DAPTOMYCIN 500 MG in SODIUM CHLORIDE 0.9% 100 ML IV SCH (14:18)
[2018-03-23 19:32] VITALS: BP 109/59
[2018-03-23] MEDS: ONDANSETRON ODT 4 MG PO PRN (19:52)
[2018-03-23] MEDS: METHOCARBAMOL 750 MG TABLET PO PRN (21:21)
[2018-03-24 02:05] VITALS: BP 125/77
[2018-03-24 05:16] LABS: ANION GAP 7 mmol/L (5-15); CHLORIDE 107 mmol/L (98-107)
[2018-03-24 05:20] LABS: ALANINE AMINOTRANSFERASE 24 U/L (12-78); ALKALINE PHOSPHATASE 81 U/L (45-117); BILIRUBIN,TOTAL 0.4 mg/dL (0.2-1.0); CREATININE 0.61 mg/dL (0.55-1.02); TOTAL PROTEIN 4.6 g/dL (6.4-8.2)
[2018-03-24 05:32] LABS: MEAN CORPUSCULAR HEMOGLOBIN 34.2 pg (27.0-34.8); MEAN CORPUSCULAR HGB CONC 35.3 g/dL (32.4-35.8); MEAN CORPUSCULAR VOLUME 96.9 fL (80-100); MEAN PLATELET VOLUME 7.5 fL (7.4-10.4); PLATELET COUNT 139 x10^3/uL (130-400); RED BLOOD COUNT 2.34 x10^6/uL (3.82-5.3); RED CELL DISTRIBUTION WIDTH 15.4 % (9.6-15.2)
[2018-03-24 06:04] LABS: BASOPHILS # (AUTO) 0.01 x10^3/uL (0-0.1); BASOPHILS % (AUTO) 0 % (0-1); EOSINOPHILS % (AUTO) 0 % (1-7); LYMPHOCYTES # (AUTO) 0.11 x10^3/uL (1-3.4); LYMPHOCYTES % (AUTO) 5 % (22-44); MD SCAN; MONOCYTES % (AUTO) 0 % (2-9); NEUTROPHILS # (AUTO) 2.25 x10^3/uL (1.8-6.8); NEUTROPHILS % (AUTO) 95 % (42-75)
[2018-03-24] MEDS: SODIUM CHLORIDE 0.9% 1,000 ML IV SCH ×2 (06:41→20:27)
[2018-03-24 06:45] VITALS: BP 128/81
[2018-03-24] MEDS: HEPARIN 5,000 UNITS/ML, 1ML SQ SCH ×2 (08:34→20:28)
[2018-03-24] MEDS: CHOLECALCIFEROL 5,000u TAB PO SCH (08:34)
[2018-03-24] MEDS: ACYCLOVIR 800 MG TABLET PO SCH ×3 (08:34→20:27)
[2018-03-24] MEDS: MULTIVITS,STRESS FORMULA 1 TABLET PO SCH (08:34)
[2018-03-24] MEDS: PANTOPROZOLE 40MG TABLET PO SCH ×2 (08:35→20:28)
[2018-03-24] MEDS: OXYcodone IR 5MG TABLET PO PRN ×2 (08:36→12:44)
[2018-03-24] MEDS: MAGNESIUM OXIDE 400 MG TABLET PO SCH (08:36)
[2018-03-24] MEDS: METHOCARBAMOL 750 MG TABLET PO PRN ×2 (08:36→17:02)
[2018-03-24] MEDS: LACTULOSE 10 GM/15 ML UDC PO SCH ×2 (08:37→20:27)
[2018-03-24] MEDS: SODIUM CHLORIDE FLUSH 10ML SYR IVF SCH ×2 (08:37→20:29)
[2018-03-24] MEDS: ONDANSETRON ODT 4 MG PO PRN (12:43)
[2018-03-24] MEDS: ERTAPENEM 1 GM in SODIUM CHLORIDE 0.9% 50 ML IV SCH (13:39)
[2018-03-24 15:10] VITALS: BP 116/73
[2018-03-24] MEDS: DAPTOMYCIN 500 MG in SODIUM CHLORIDE 0.9% 100 ML IV SCH (15:29)
[2018-03-24 19:10] VITALS: BP 112/67
[2018-03-24] MEDS: MICONAZOLE 7 VAG. CRM 2%, 45GM VG SCH (20:28)
[2018-03-25 01:28] VITALS: BP 97/62
[2018-03-25 04:01] LABS: ALBUMIN 1.9 g/dL (3.4-5.0); ANION GAP 7 mmol/L (5-15); CALCIUM 9.4 mg/dL (8.5-10.1); CHLORIDE 109 mmol/L (98-107); MEAN CORPUSCULAR HEMOGLOBIN 33.3 pg (27.0-34.8); MEAN CORPUSCULAR HGB CONC 34.5 g/dL (32.4-35.8); MEAN CORPUSCULAR VOLUME 96.4 fL (80-100); MEAN PLATELET VOLUME 7.2 fL (7.4-10.4); PLATELET COUNT 114 x10^3/uL (130-400); RED BLOOD COUNT 2.17 x10^6/uL (3.82-5.3); RED CELL DISTRIBUTION WIDTH 15.5 % (9.6-15.2)
[2018-03-25 04:09] LABS: ALANINE AMINOTRANSFERASE 22 U/L (12-78); ALKALINE PHOSPHATASE 74 U/L (45-117); BILIRUBIN,TOTAL 0.3 mg/dL (0.2-1.0); CREATININE 0.55 mg/dL (0.55-1.02); TOTAL PROTEIN 4.2 g/dL (6.4-8.2)
[2018-03-25 04:16] LABS: HCT (SEDRATE) 20.9 % (34.6-47.8)
[2018-03-25 04:46] LABS: MD YES
[2018-03-25 04:51] LABS: BAND#(MANUAL) 0.03 x10^3/uL; BANDS%(MANUAL) 3 % (0-7); EOS#(MANUAL) 0.01 x10^3/uL (0.0-0.4); EOS% (MANUAL) 1 % (1-7); LYMPH#(MANUAL) 0.11 x10^3/uL (1-3.4); LYMPHS% (MANUAL) 10 % (22-44); SEG#(MANUAL) 0.95 x10^3/uL (1.8-6.8); SEGS% (MANUAL) 86 % (42-75)
[2018-03-25 04:52] LABS: <PLATELET ESTIMATE> DECREASED; <PLT MORPHOLOGY> NORMAL PLT MORPH; ANISOCYTOSIS 1+
[2018-03-25] MEDS: OXYcodone IR 5MG TABLET PO PRN ×3 (06:24→16:37)
[2018-03-25 08:43] VITALS: BP 102/66
[2018-03-25] MEDS: LACTULOSE 10 GM/15 ML UDC PO SCH ×2 (09:00→21:00)
[2018-03-25] MEDS: DOCUSATE 100 MG CAPSULE PO PRN (09:22)
[2018-03-25] MEDS: METHOCARBAMOL 750 MG TABLET PO PRN ×2 (09:23→16:37)
[2018-03-25] MEDS: ACYCLOVIR 800 MG TABLET PO SCH ×3 (09:23→21:19)
[2018-03-25] MEDS: PANTOPROZOLE 40MG TABLET PO SCH ×2 (09:23→21:18)
[2018-03-25] MEDS: CHOLECALCIFEROL 5,000u TAB PO SCH (09:23)
[2018-03-25] MEDS: FLUCONAZOLE 200 MG TABLET PO SCH (09:23)
[2018-03-25] MEDS: MULTIVITS,STRESS FORMULA 1 TABLET PO SCH (09:24)
[2018-03-25] MEDS: MAGNESIUM OXIDE 400 MG TABLET PO SCH (09:24)
[2018-03-25] MEDS: SODIUM CHLORIDE FLUSH 10ML SYR IVF SCH ×2 (09:25→21:18)
[2018-03-25] MEDS: HEPARIN 5,000 UNITS/ML, 1ML SQ SCH ×2 (09:25→21:18)
[2018-03-25] MEDS: TBO-FILGRASTIM 480 MCG/0.8 ML SQ SCH (10:28)
[2018-03-25 14:47] VITALS: BP 114/66
[2018-03-25] MEDS: ERTAPENEM 1 GM in SODIUM CHLORIDE 0.9% 50 ML IV SCH (15:27)
[2018-03-25] MEDS: SODIUM CHLORIDE 0.9% 1,000 ML IV SCH (15:28)
[2018-03-25] MEDS: DAPTOMYCIN 500 MG in SODIUM CHLORIDE 0.9% 100 ML IV SCH (16:37)
[2018-03-25 20:44] VITALS: BP 110/66
[2018-03-25] MEDS: MICONAZOLE 7 VAG. CRM 2%, 45GM VG SCH (21:20)
[2018-03-26] MEDS: SODIUM CHLORIDE 0.9% 1,000 ML IV SCH ×2 (02:19→15:37)
[2018-03-26 03:05] VITALS: BP 103/66
[2018-03-26] MEDS: OXYcodone IR 5MG TABLET PO PRN (05:57)
[2018-03-26 06:39] LABS: MEAN CORPUSCULAR HEMOGLOBIN 33.3 pg (27.0-34.8); MEAN CORPUSCULAR HGB CONC 34.5 g/dL (32.4-35.8); MEAN CORPUSCULAR VOLUME 96.5 fL (80-100); MEAN PLATELET VOLUME 7.7 fL (7.4-10.4); PLATELET COUNT 84 x10^3/uL (130-400); RED BLOOD COUNT 2.21 x10^6/uL (3.82-5.3); RED CELL DISTRIBUTION WIDTH 15.6 % (9.6-15.2)
[2018-03-26 06:43] LABS: ALANINE AMINOTRANSFERASE 19 U/L (12-78); ALBUMIN 1.8 g/dL (3.4-5.0); ANION GAP 7 mmol/L (5-15); CALCIUM 8.9 mg/dL (8.5-10.1); CHLORIDE 108 mmol/L (98-107); CREATININE 0.54 mg/dL (0.55-1.02)
[2018-03-26 06:46] LABS: ALKALINE PHOSPHATASE 71 U/L (45-117); BILIRUBIN,TOTAL 0.3 mg/dL (0.2-1.0); TOTAL PROTEIN 4.4 g/dL (6.4-8.2)
[2018-03-26 07:06] LABS: MD YES
[2018-03-26 07:14] LABS: LYMPH#(MANUAL) 0.05 x10^3/uL (1-3.4); LYMPHS% (MANUAL) 12 % (22-44)
[2018-03-26 07:15] LABS: BASOS#(MANUAL) 0.01 x10^3/uL (0-0.1); BASOS% (MANUAL) 2 % (0-1); SEG#(MANUAL) 0.34 x10^3/uL (1.8-6.8); SEGS% (MANUAL) 86 % (42-75)
[2018-03-26 07:19] LABS: <PLATELET ESTIMATE> DECREASED; <PLT MORPHOLOGY> NORMAL PLT MORPH; ANISOCYTOSIS 1+
[2018-03-26 07:20] LABS: OVALOCYTES 1+
[2018-03-26 07:24] VITALS: BP 106/67
[2018-03-26] MEDS: FLUCONAZOLE 200 MG TABLET PO SCH (09:00)
[2018-03-26] MEDS: LACTULOSE 10 GM/15 ML UDC PO SCH ×2 (09:00→19:49)
[2018-03-26] MEDS: SODIUM CHLORIDE FLUSH 10ML SYR IVF SCH ×2 (09:00→21:17)
[2018-03-26] MEDS: MULTIVITS,STRESS FORMULA 1 TABLET PO SCH (09:33)
[2018-03-26] MEDS: METHOCARBAMOL 750 MG TABLET PO PRN (09:33)
[2018-03-26] MEDS: CHOLECALCIFEROL 5,000u TAB PO SCH (09:34)
[2018-03-26] MEDS: PANTOPROZOLE 40MG TABLET PO SCH ×2 (09:34→19:50)
[2018-03-26] MEDS: MAGNESIUM OXIDE 400 MG TABLET PO SCH (09:34)
[2018-03-26] MEDS: DOCUSATE 100 MG CAPSULE PO PRN (09:34)
[2018-03-26] MEDS: HEPARIN 5,000 UNITS/ML, 1ML SQ SCH ×2 (09:35→19:50)
[2018-03-26] MEDS: TBO-FILGRASTIM 480 MCG/0.8 ML SQ SCH (09:45)
[2018-03-26] MEDS: ACYCLOVIR 800 MG TABLET PO SCH ×3 (09:45→19:50)
[2018-03-26 13:02] VITALS: BP 92/58
[2018-03-26] MEDS: ERTAPENEM 1 GM in SODIUM CHLORIDE 0.9% 50 ML IV SCH (13:41)
[2018-03-26] MEDS: DAPTOMYCIN 500 MG in SODIUM CHLORIDE 0.9% 100 ML IV SCH (15:35)
[2018-03-26 19:18] VITALS: BP 99/62
[2018-03-26] MEDS: MICONAZOLE 7 VAG. CRM 2%, 45GM VG SCH (19:50)
[2018-03-26] MEDS: FLUCONAZOLE 400 MG/200 ML 200 ML IV SCH (22:30)
[2018-03-27] VITALS (13 sets, daily range): BP systolic 96–120; BP diastolic 54–80
[2018-03-27] MEDS: SODIUM CHLORIDE 0.9% 1,000 ML IV SCH (04:33)
[2018-03-27 05:24] LABS: MEAN CORPUSCULAR HEMOGLOBIN 33.7 pg (27.0-34.8); MEAN CORPUSCULAR HGB CONC 35.2 g/dL (32.4-35.8); MEAN CORPUSCULAR VOLUME 95.8 fL (80-100); RED BLOOD COUNT 2.01 x10^6/uL (3.82-5.3); RED CELL DISTRIBUTION WIDTH 15.1 % (9.6-15.2)
[2018-03-27 05:32] LABS: ALBUMIN 1.9 g/dL (3.4-5.0); ANION GAP 6 mmol/L (5-15); CALCIUM 8.4 mg/dL (8.5-10.1); CHLORIDE 111 mmol/L (98-107)
[2018-03-27 05:35] LABS: ALANINE AMINOTRANSFERASE 18 U/L (12-78); ALKALINE PHOSPHATASE 68 U/L (45-117); BILIRUBIN,TOTAL 0.3 mg/dL (0.2-1.0); CREATININE 0.48 mg/dL (0.55-1.02); TOTAL PROTEIN 4.4 g/dL (6.4-8.2)
[2018-03-27 05:46] LABS: MD YES; PLATELET COUNT 64 x10^3/uL (130-400)
[2018-03-27 06:00] LABS: LYMPH#(MANUAL) 0.18 x10^3/uL (1-3.4); LYMPHS% (MANUAL) 92 % (22-44); MONOS#(MANUAL) 0.01 x10^3/uL (0.3-2.7); MONOS% (MANUAL) 4 % (2-9); SEG#(MANUAL) 0.01 x10^3/uL (1.8-6.8); SEGS% (MANUAL) 4 % (42-75)
[2018-03-27 06:01] LABS: <PLATELET ESTIMATE> DECREASED; <PLT MORPHOLOGY> NORMAL PLT MORPH; ANISOCYTOSIS 1+
[2018-03-27 06:02] LABS: OVALOCYTES 1+
[2018-03-27] MEDS ORDERED: ACETAMINOPHEN 325 MG TABLET PO PRN (08:30)
[2018-03-27] MEDS ORDERED: DIPHENHYDRAMINE 25 MG CAPSULE PO PRN (08:30)
[2018-03-27] MEDS: HEPARIN 5,000 UNITS/ML, 1ML SQ SCH ×2 (08:41→20:13)
[2018-03-27] MEDS: LACTULOSE 10 GM/15 ML UDC PO SCH ×2 (09:00→20:31)
[2018-03-27] MEDS: MAGNESIUM OXIDE 400 MG TABLET PO SCH (09:27)
[2018-03-27] MEDS: CHOLECALCIFEROL 5,000u TAB PO SCH (09:28)
[2018-03-27] MEDS: MULTIVITS,STRESS FORMULA 1 TABLET PO SCH (09:29)
[2018-03-27] MEDS: PANTOPROZOLE 40MG TABLET PO SCH ×2 (09:29→20:13)
[2018-03-27] MEDS: ACYCLOVIR 800 MG TABLET PO SCH ×3 (09:30→20:13)
[2018-03-27] MEDS: SODIUM CHLORIDE FLUSH 10ML SYR IVF SCH ×2 (09:32→21:00)
[2018-03-27] MEDS: TBO-FILGRASTIM 480 MCG/0.8 ML SQ SCH (11:57)
[2018-03-27] MEDS: ERTAPENEM 1 GM in SODIUM CHLORIDE 0.9% 50 ML IV SCH (13:47)
[2018-03-27] MEDS: DAPTOMYCIN 500 MG in SODIUM CHLORIDE 0.9% 100 ML IV SCH (16:43)
[2018-03-27] MEDS: MICONAZOLE 7 VAG. CRM 2%, 45GM VG SCH (20:14)
[2018-03-27] MEDS: ONDANSETRON ODT 4 MG PO PRN (22:07)
[2018-03-27] MEDS: FLUCONAZOLE 400 MG/200 ML 200 ML IV SCH (22:30)
[2018-03-28] MEDS: SODIUM CHLORIDE 0.9% 1,000 ML IV SCH ×3 (00:27→20:45)
[2018-03-28] MEDS: OXYcodone IR 5MG TABLET PO PRN ×3 (00:27→22:08)
[2018-03-28 01:09] VITALS: BP 113/69
[2018-03-28 04:44] LABS: ALBUMIN 1.8 g/dL (3.4-5.0); ANION GAP 7 mmol/L (5-15); CHLORIDE 112 mmol/L (98-107)
[2018-03-28 04:52] LABS: ALANINE AMINOTRANSFERASE 18 U/L (12-78); ALKALINE PHOSPHATASE 66 U/L (45-117); BILIRUBIN,TOTAL 0.6 mg/dL (0.2-1.0); CALCIUM 8.2 mg/dL (8.5-10.1); CREATININE 0.56 mg/dL (0.55-1.02); TOTAL PROTEIN 4.4 g/dL (6.4-8.2)
[2018-03-28 05:11] LABS: MEAN CORPUSCULAR HEMOGLOBIN 32.8 pg (27.0-34.8); MEAN CORPUSCULAR HGB CONC 35.4 g/dL (32.4-35.8); MEAN CORPUSCULAR VOLUME 92.8 fL (80-100); RED BLOOD COUNT 2.81 x10^6/uL (3.82-5.3); RED CELL DISTRIBUTION WIDTH 15.6 % (9.6-15.2)
[2018-03-28 06:01] LABS: MD YES; MEAN PLATELET VOLUME 7.8 fL (7.4-10.4); PLATELET COUNT 51 x10^3/uL (130-400)
[2018-03-28 06:10] LABS: EOS#(MANUAL) 0.01 x10^3/uL (0.0-0.4); EOS% (MANUAL) 4 % (1-7); LYMPH#(MANUAL) 0.25 x10^3/uL (1-3.4); LYMPHS% (MANUAL) 84 % (22-44); SEG#(MANUAL) 0.04 x10^3/uL (1.8-6.8); SEGS% (MANUAL) 12 % (42-75)
[2018-03-28 06:11] LABS: <PLATELET ESTIMATE> DECREASED; <PLT MORPHOLOGY> NORMAL PLT MORPH; ANISOCYTOSIS 1+; OVALOCYTES 1+
[2018-03-28 06:50] VITALS: BP 107/64
[2018-03-28] MEDS: LACTULOSE 10 GM/15 ML UDC PO SCH ×2 (09:00→21:00)
[2018-03-28] MEDS: HEPARIN 5,000 UNITS/ML, 1ML SQ SCH ×2 (09:53→21:50)
[2018-03-28] MEDS: ACYCLOVIR 800 MG TABLET PO SCH ×3 (09:53→21:49)
[2018-03-28] MEDS: MAGNESIUM OXIDE 400 MG TABLET PO SCH (09:53)
[2018-03-28] MEDS: MULTIVITS,STRESS FORMULA 1 TABLET PO SCH (09:53)
[2018-03-28] MEDS: CHOLECALCIFEROL 5,000u TAB PO SCH (09:53)
[2018-03-28] MEDS: PANTOPROZOLE 40MG TABLET PO SCH ×2 (09:53→21:50)
[2018-03-28] MEDS: SODIUM CHLORIDE FLUSH 10ML SYR IVF SCH ×2 (09:54→21:00)
[2018-03-28] MEDS: TBO-FILGRASTIM 480 MCG/0.8 ML SQ SCH (11:01)
[2018-03-28] MEDS: ERTAPENEM 1 GM in SODIUM CHLORIDE 0.9% 50 ML IV SCH (13:23)
[2018-03-28 13:53] VITALS: BP 105/62
[2018-03-28] MEDS: DAPTOMYCIN 500 MG in SODIUM CHLORIDE 0.9% 100 ML IV SCH (15:12)
[2018-03-28 20:23] VITALS: BP 109/65
[2018-03-28] MEDS: MICONAZOLE 7 VAG. CRM 2%, 45GM VG SCH (21:00)
[2018-03-28] MEDS: TEMAZEPAM 15 MG CAPSULE PO PRN (22:08)
[2018-03-28] MEDS: FLUCONAZOLE 400 MG/200 ML 200 ML IV SCH (22:10)
[2018-03-29 02:59] VITALS: BP 138/76
[2018-03-29 05:41] LABS: MEAN CORPUSCULAR HEMOGLOBIN 32.7 pg (27.0-34.8); MEAN CORPUSCULAR VOLUME 93.7 fL (80-100); MEAN PLATELET VOLUME 8.4 fL (7.4-10.4); RED BLOOD COUNT 2.71 x10^6/uL (3.82-5.3); RED CELL DISTRIBUTION WIDTH 15.7 % (9.6-15.2)
[2018-03-29 05:47] LABS: PLATELET COUNT 45 x10^3/uL (130-400)
[2018-03-29 05:54] LABS: ALBUMIN 1.9 g/dL (3.4-5.0); ANION GAP 9 mmol/L (5-15); CALCIUM 8.4 mg/dL (8.5-10.1); CHLORIDE 113 mmol/L (98-107)
[2018-03-29 05:59] LABS: ALANINE AMINOTRANSFERASE 14 U/L (12-78); ALKALINE PHOSPHATASE 76 U/L (45-117); BILIRUBIN,TOTAL 0.3 mg/dL (0.2-1.0); CREATININE 0.49 mg/dL (0.55-1.02); MD YES; TOTAL PROTEIN 4.4 g/dL (6.4-8.2)
[2018-03-29 06:08] LABS: ANISOCYTOSIS 1+; LYMPH#(MANUAL) 0.28 x10^3/uL (1-3.4); LYMPHS% (MANUAL) 92 % (22-44); MONOS#(MANUAL) 0.01 x10^3/uL (0.3-2.7); MONOS% (MANUAL) 4 % (2-9); SEG#(MANUAL) 0.01 x10^3/uL (1.8-6.8); SEGS% (MANUAL) 4 % (42-75)
[2018-03-29 06:09] LABS: <PLATELET ESTIMATE> DECREASED; <PLT MORPHOLOGY> NORMAL PLT MORPH
[2018-03-29 06:59] VITALS: BP 115/71
[2018-03-29] MEDS: LACTULOSE 10 GM/15 ML UDC PO SCH ×2 (09:00→19:35)
[2018-03-29] MEDS: MAGNESIUM OXIDE 400 MG TABLET PO SCH ×2 (09:00→09:08)
[2018-03-29] MEDS: MULTIVITS,STRESS FORMULA 1 TABLET PO SCH (09:08)
[2018-03-29] MEDS: HEPARIN 5,000 UNITS/ML, 1ML SQ SCH ×2 (09:09→19:35)
[2018-03-29] MEDS: PANTOPROZOLE 40MG TABLET PO SCH ×2 (09:09→19:34)
[2018-03-29] MEDS: CHOLECALCIFEROL 5,000u TAB PO SCH (09:09)
[2018-03-29] MEDS: ACYCLOVIR 800 MG TABLET PO SCH ×3 (09:09→19:33)
[2018-03-29] MEDS: SODIUM CHLORIDE FLUSH 10ML SYR IVF SCH ×2 (09:10→19:35)
[2018-03-29] MEDS: ONDANSETRON ODT 4 MG PO PRN ×2 (12:10→17:27)
[2018-03-29] MEDS: SODIUM CHLORIDE 0.9% 1,000 ML IV SCH ×2 (12:10→22:18)
[2018-03-29] MEDS: OXYcodone IR 5MG TABLET PO PRN (12:10)
[2018-03-29] MEDS: TBO-FILGRASTIM 480 MCG/0.8 ML SQ SCH (12:11)
[2018-03-29 12:55] VITALS: BP 125/74
[2018-03-29] MEDS: ERTAPENEM 1 GM in SODIUM CHLORIDE 0.9% 50 ML IV SCH (13:16)
[2018-03-29] MEDS: DAPTOMYCIN 500 MG in SODIUM CHLORIDE 0.9% 100 ML IV SCH (16:43)
[2018-03-29 19:06] VITALS: BP 126/76
[2018-03-29] MEDS: MICONAZOLE 7 VAG. CRM 2%, 45GM VG SCH (19:34)
[2018-03-30 02:39] VITALS: BP 117/85
[2018-03-30 05:55] LABS: MEAN CORPUSCULAR HEMOGLOBIN 32.7 pg (27.0-34.8); MEAN CORPUSCULAR HGB CONC 35.1 g/dL (32.4-35.8); MEAN CORPUSCULAR VOLUME 93.3 fL (80-100); MEAN PLATELET VOLUME 8.4 fL (7.4-10.4); RED CELL DISTRIBUTION WIDTH 15.6 % (9.6-15.2)
[2018-03-30 05:56] LABS: PLATELET COUNT 47 x10^3/uL (130-400)
[2018-03-30 06:05] LABS: ALANINE AMINOTRANSFERASE 12 U/L (12-78); ALBUMIN 1.9 g/dL (3.4-5.0); ANION GAP 7 mmol/L (5-15); CALCIUM 8.3 mg/dL (8.5-10.1); CHLORIDE 115 mmol/L (98-107); CREATININE 0.49 mg/dL (0.55-1.02)
[2018-03-30 06:07] LABS: ALKALINE PHOSPHATASE 77 U/L (45-117); BILIRUBIN,TOTAL 0.3 mg/dL (0.2-1.0); TOTAL PROTEIN 4.5 g/dL (6.4-8.2)
[2018-03-30 06:33] LABS: MD YES
[2018-03-30 06:34] LABS: LYMPH#(MANUAL) 0.24 x10^3/uL (1-3.4); LYMPHS% (MANUAL) 80 % (22-44); MONOS#(MANUAL) 0.01 x10^3/uL (0.3-2.7); MONOS% (MANUAL) 4 % (2-9); SEG#(MANUAL) 0.05 x10^3/uL (1.8-6.8); SEGS% (MANUAL) 16 % (42-75)
[2018-03-30 06:36] LABS: <PLATELET ESTIMATE> DECREASED; ANISOCYTOSIS 1+; OVALOCYTES 1+
[2018-03-30 06:37] LABS: <PLT MORPHOLOGY> NORMAL PLT MORPH
[2018-03-30 07:07] VITALS: BP 102/63
[2018-03-30] MEDS: HEPARIN 5,000 UNITS/ML, 1ML SQ SCH ×2 (08:59→21:44)
[2018-03-30] MEDS: TBO-FILGRASTIM 480 MCG/0.8 ML SQ SCH (08:59)
[2018-03-30] MEDS: ACYCLOVIR 800 MG TABLET PO SCH ×3 (09:00→21:44)
[2018-03-30] MEDS: MULTIVITS,STRESS FORMULA 1 TABLET PO SCH (09:00)
[2018-03-30] MEDS: LACTULOSE 10 GM/15 ML UDC PO SCH ×2 (09:00→21:48)
[2018-03-30] MEDS: PANTOPROZOLE 40MG TABLET PO SCH ×2 (09:00→21:45)
[2018-03-30] MEDS: MAGNESIUM OXIDE 400 MG TABLET PO SCH (09:01)
[2018-03-30] MEDS: CHOLECALCIFEROL 5,000u TAB PO SCH (09:01)
[2018-03-30] MEDS: SODIUM CHLORIDE FLUSH 10ML SYR IVF SCH ×2 (09:02→21:46)
[2018-03-30] MEDS: ONDANSETRON 2MG/ML, 2ML IV PRN (11:44)
[2018-03-30] MEDS: SODIUM CHLORIDE 0.9% 1,000 ML IV SCH (12:38)
[2018-03-30] MEDS: ERTAPENEM 1 GM in SODIUM CHLORIDE 0.9% 50 ML IV SCH (12:38)
[2018-03-30 13:59] VITALS: BP 108/69
[2018-03-30] MEDS: DAPTOMYCIN 500 MG in SODIUM CHLORIDE 0.9% 100 ML IV SCH (15:58)
[2018-03-30] MEDS: OXYcodone IR 5MG TABLET PO PRN (18:15)
[2018-03-30] MEDS: PROMETHAZINE 25 MG/ML, 1ML IM PRN (18:17)
[2018-03-30 18:59] VITALS: BP 115/53
[2018-03-30] MEDS: MICONAZOLE 7 VAG. CRM 2%, 45GM VG SCH (21:44)
[2018-03-31 03:13] VITALS: BP 106/66
[2018-03-31] MEDS: SODIUM CHLORIDE 0.9% 1,000 ML IV SCH (05:07)
[2018-03-31] MEDS: ONDANSETRON ODT 4 MG PO PRN ×2 (05:15→16:59)
[2018-03-31] MEDS: OXYcodone IR 5MG TABLET PO PRN ×2 (05:15→16:51)
[2018-03-31 06:04] LABS: ALBUMIN 1.9 g/dL (3.4-5.0); ANION GAP 8 mmol/L (5-15); CALCIUM 8.3 mg/dL (8.5-10.1); CHLORIDE 115 mmol/L (98-107)
[2018-03-31 06:08] LABS: ALANINE AMINOTRANSFERASE 13 U/L (12-78); ALKALINE PHOSPHATASE 78 U/L (45-117); BILIRUBIN,TOTAL 0.2 mg/dL (0.2-1.0); CREATININE 0.54 mg/dL (0.55-1.02); TOTAL PROTEIN 4.5 g/dL (6.4-8.2)
[2018-03-31 06:12] LABS: MEAN CORPUSCULAR HEMOGLOBIN 32.4 pg (27.0-34.8); MEAN CORPUSCULAR HGB CONC 34.4 g/dL (32.4-35.8); MEAN CORPUSCULAR VOLUME 94.1 fL (80-100); MEAN PLATELET VOLUME 8.9 fL (7.4-10.4); PLATELET COUNT 68 x10^3/uL (130-400); RED BLOOD COUNT 2.69 x10^6/uL (3.82-5.3); RED CELL DISTRIBUTION WIDTH 15.2 % (9.6-15.2)
[2018-03-31 06:35] LABS: MD YES
[2018-03-31 06:45] LABS: ANISOCYTOSIS 1+; LYMPH#(MANUAL) 0.18 x10^3/uL (1-3.4); LYMPHS% (MANUAL) 25 % (22-44); MONOS#(MANUAL) 0.04 x10^3/uL (0.3-2.7); MONOS% (MANUAL) 5 % (2-9); SEG#(MANUAL) 0.49 x10^3/uL (1.8-6.8); SEGS% (MANUAL) 70 % (42-75)
[2018-03-31 06:46] LABS: <PLATELET ESTIMATE> DECREASED; <PLT MORPHOLOGY> NORMAL PLT MORPH; POLYCHROMASIA 1+
[2018-03-31 08:56] VITALS: BP 105/65
[2018-03-31] MEDS: SODIUM CHLORIDE FLUSH 10ML SYR IVF SCH ×2 (09:00→20:19)
[2018-03-31] MEDS: ACYCLOVIR 800 MG TABLET PO SCH ×3 (09:26→20:19)
[2018-03-31] MEDS: MAGNESIUM OXIDE 400 MG TABLET PO SCH (09:26)
[2018-03-31] MEDS: MULTIVITS,STRESS FORMULA 1 TABLET PO SCH (09:26)
[2018-03-31] MEDS: LACTULOSE 10 GM/15 ML UDC PO SCH ×2 (09:26→20:19)
[2018-03-31] MEDS: CHOLECALCIFEROL 5,000u TAB PO SCH (09:27)
[2018-03-31] MEDS: PANTOPROZOLE 40MG TABLET PO SCH ×2 (09:28→20:19)
[2018-03-31] MEDS: HEPARIN 5,000 UNITS/ML, 1ML SQ SCH ×2 (09:29→20:18)
[2018-03-31] MEDS: TBO-FILGRASTIM 480 MCG/0.8 ML SQ SCH (11:03)
[2018-03-31] MEDS: ERTAPENEM 1 GM in SODIUM CHLORIDE 0.9% 50 ML IV SCH (12:54)
[2018-03-31 13:20] VITALS: BP 114/75
[2018-03-31] MEDS: DAPTOMYCIN 500 MG in SODIUM CHLORIDE 0.9% 100 ML IV SCH (16:51)
[2018-03-31 19:45] VITALS: BP 94/67
[2018-03-31] MEDS: METHOCARBAMOL 750 MG TABLET PO PRN (21:26)
[2018-04-01 01:26] VITALS: BP 97/65
[2018-04-01 05:24] LABS: HCT (SEDRATE) 25.5 % (34.6-47.8)
[2018-04-01 05:31] LABS: MEAN CORPUSCULAR HEMOGLOBIN 32.7 pg (27.0-34.8); MEAN CORPUSCULAR HGB CONC 34.6 g/dL (32.4-35.8); MEAN CORPUSCULAR VOLUME 94.6 fL (80-100); MEAN PLATELET VOLUME 8.6 fL (7.4-10.4); PLATELET COUNT 99 x10^3/uL (130-400); RED BLOOD COUNT 2.72 x10^6/uL (3.82-5.3); RED CELL DISTRIBUTION WIDTH 15.4 % (9.6-15.2)
[2018-04-01 05:32] LABS: CHLORIDE 113 mmol/L (98-107)
[2018-04-01 05:54] LABS: ALANINE AMINOTRANSFERASE 11 U/L (12-78); ALKALINE PHOSPHATASE 89 U/L (45-117); ANION GAP 8 mmol/L (5-15); BILIRUBIN,TOTAL 0.2 mg/dL (0.2-1.0); CALCIUM 7.9 mg/dL (8.5-10.1); CREATININE 0.51 mg/dL (0.55-1.02); TOTAL PROTEIN 4.5 g/dL (6.4-8.2)
[2018-04-01 06:01] LABS: MD YES
[2018-04-01 06:06] LABS: ANISOCYTOSIS 1+; BAND#(MANUAL) 0.14 x10^3/uL; BANDS%(MANUAL) 9 % (0-7); EOS#(MANUAL) 0.02 x10^3/uL (0.0-0.4); EOS% (MANUAL) 1 % (1-7); LYMPH#(MANUAL) 0.27 x10^3/uL (1-3.4); LYMPHS% (MANUAL) 17 % (22-44); MONOS#(MANUAL) 0.06 x10^3/uL (0.3-2.7); MONOS% (MANUAL) 4 % (2-9); SEGS% (MANUAL) 69 % (42-75)
[2018-04-01 06:07] LABS: POLYCHROMASIA 1+
[2018-04-01 06:08] LABS: <PLATELET ESTIMATE> DECREASED; <PLT MORPHOLOGY> NORMAL PLT MORPH
[2018-04-01 07:38] VITALS: BP 104/65
[2018-04-01] MEDS: LACTULOSE 10 GM/15 ML UDC PO SCH ×3 (09:00→22:06)
[2018-04-01] MEDS: HEPARIN 5,000 UNITS/ML, 1ML SQ SCH ×2 (09:43→21:45)
[2018-04-01] MEDS: CHOLECALCIFEROL 5,000u TAB PO SCH (09:45)
[2018-04-01] MEDS: OXYcodone IR 5MG TABLET PO PRN ×2 (09:45→16:50)
[2018-04-01] MEDS: ACYCLOVIR 800 MG TABLET PO SCH ×3 (09:45→21:45)
[2018-04-01] MEDS: MULTIVITS,STRESS FORMULA 1 TABLET PO SCH (09:45)
[2018-04-01] MEDS: PANTOPROZOLE 40MG TABLET PO SCH ×2 (09:46→21:45)
[2018-04-01] MEDS: SODIUM CHLORIDE FLUSH 10ML SYR IVF SCH ×2 (09:47→21:45)
[2018-04-01] MEDS: MAGNESIUM OXIDE 400 MG TABLET PO SCH (09:58)
[2018-04-01] MEDS: TBO-FILGRASTIM 480 MCG/0.8 ML SQ SCH (12:01)
[2018-04-01 12:29] VITALS: BP 107/72
[2018-04-01] MEDS: ERTAPENEM 1 GM in SODIUM CHLORIDE 0.9% 50 ML IV SCH (15:26)
[2018-04-01] MEDS: DAPTOMYCIN 500 MG in SODIUM CHLORIDE 0.9% 100 ML IV SCH (16:13)
[2018-04-01] MEDS: ONDANSETRON ODT 4 MG PO PRN (16:49)
[2018-04-01 20:10] VITALS: BP 100/55
[2018-04-01] MEDS: METHOCARBAMOL 750 MG TABLET PO PRN (21:44)
[2018-04-02 01:33] VITALS: BP 96/53
[2018-04-02 05:11] LABS: MEAN CORPUSCULAR HGB CONC 34.8 g/dL (32.4-35.8); MEAN CORPUSCULAR VOLUME 94.9 fL (80-100); MEAN PLATELET VOLUME 7.9 fL (7.4-10.4); PLATELET COUNT 142 x10^3/uL (130-400); RED BLOOD COUNT 2.68 x10^6/uL (3.82-5.3); RED CELL DISTRIBUTION WIDTH 15.8 % (9.6-15.2)
[2018-04-02 05:23] LABS: ALBUMIN 2.1 g/dL (3.4-5.0); ANION GAP 8 mmol/L (5-15); CHLORIDE 113 mmol/L (98-107)
[2018-04-02 05:28] LABS: ALANINE AMINOTRANSFERASE 12 U/L (12-78); ALKALINE PHOSPHATASE 99 U/L (45-117); BILIRUBIN,TOTAL 0.2 mg/dL (0.2-1.0); CREATININE 0.62 mg/dL (0.55-1.02); MD YES; TOTAL PROTEIN 4.6 g/dL (6.4-8.2)
[2018-04-02 05:31] LABS: <PLATELET ESTIMATE> ADEQUATE; <PLT MORPHOLOGY> NORMAL PLT MORPH; ANISOCYTOSIS 1+; BAND#(MANUAL) 0.48 x10^3/uL; BANDS%(MANUAL) 13 % (0-7); LYMPH#(MANUAL) 0.81 x10^3/uL (1-3.4); LYMPHS% (MANUAL) 22 % (22-44); MONOS#(MANUAL) 0.07 x10^3/uL (0.3-2.7); MONOS% (MANUAL) 2 % (2-9); POLYCHROMASIA 1+; SEG#(MANUAL) 2.33 x10^3/uL (1.8-6.8); SEGS% (MANUAL) 63 % (42-75)
[2018-04-02 06:47] VITALS: BP 114/66
[2018-04-02] MEDS: LACTULOSE 10 GM/15 ML UDC PO SCH ×2 (08:15→19:54)
[2018-04-02] MEDS: MULTIVITS,STRESS FORMULA 1 TABLET PO SCH (08:29)
[2018-04-02] MEDS: CHOLECALCIFEROL 5,000u TAB PO SCH (08:30)
[2018-04-02] MEDS: ACYCLOVIR 800 MG TABLET PO SCH ×3 (08:30→20:15)
[2018-04-02] MEDS: METHOCARBAMOL 750 MG TABLET PO PRN (08:30)
[2018-04-02] MEDS: SODIUM CHLORIDE FLUSH 10ML SYR IVF SCH ×2 (08:30→19:54)
[2018-04-02] MEDS: MAGNESIUM OXIDE 400 MG TABLET PO SCH (08:30)
[2018-04-02] MEDS: PANTOPROZOLE 40MG TABLET PO SCH ×2 (08:30→20:15)
[2018-04-02] MEDS: HEPARIN 5,000 UNITS/ML, 1ML SQ SCH ×2 (08:31→20:15)
[2018-04-02] MEDS ORDERED: DEXTROSE 5% 1,000 ML IV ONE (09:30)
[2018-04-02 12:37] VITALS: BP 109/62
[2018-04-02] MEDS: ERTAPENEM 1 GM in SODIUM CHLORIDE 0.9% 50 ML IV SCH (15:46)
[2018-04-02] MEDS: ONDANSETRON 2MG/ML, 2ML IVPush PRN (15:53)
[2018-04-02] MEDS: OXYcodone IR 5MG TABLET PO PRN ×2 (15:53→23:09)
[2018-04-02] MEDS: DAPTOMYCIN 500 MG in SODIUM CHLORIDE 0.9% 100 ML IV SCH (16:52)
[2018-04-02 19:22] VITALS: BP 96/53
[2018-04-02] MEDS: PROMETHAZINE 25 MG/ML, 1ML IM PRN (19:55)
[2018-04-03 01:22] VITALS: BP 106/64
[2018-04-03 05:30] LABS: ALBUMIN 2.2 g/dL (3.4-5.0); ANION GAP 7 mmol/L (5-15); CALCIUM 8.2 mg/dL (8.5-10.1); CHLORIDE 113 mmol/L (98-107)
[2018-04-03 05:32] LABS: MEAN CORPUSCULAR HEMOGLOBIN 32.2 pg (27.0-34.8); MEAN CORPUSCULAR HGB CONC 33.7 g/dL (32.4-35.8); MEAN CORPUSCULAR VOLUME 95.7 fL (80-100); MEAN PLATELET VOLUME 7.9 fL (7.4-10.4); PLATELET COUNT 189 x10^3/uL (130-400); RED BLOOD COUNT 2.74 x10^6/uL (3.82-5.3); RED CELL DISTRIBUTION WIDTH 15.9 % (9.6-15.2)
[2018-04-03 05:34] LABS: ALANINE AMINOTRANSFERASE 13 U/L (12-78); ALKALINE PHOSPHATASE 104 U/L (45-117); BILIRUBIN,TOTAL 0.2 mg/dL (0.2-1.0); CREATININE 0.64 mg/dL (0.55-1.02); TOTAL PROTEIN 4.7 g/dL (6.4-8.2)
[2018-04-03 05:57] LABS: MD YES
[2018-04-03 05:59] LABS: <PLATELET ESTIMATE> ADEQUATE; <PLT MORPHOLOGY> NORMAL PLT MORPH; ANISOCYTOSIS 1+; BAND#(MANUAL) 0.26 x10^3/uL; BANDS%(MANUAL) 7 % (0-7); LYMPH#(MANUAL) 0.48 x10^3/uL (1-3.4); LYMPHS% (MANUAL) 13 % (22-44); METAMYELOCYTES# (MANUAL) 0.07 x10^3/uL (0-0); METAMYELOCYTES% (MANUAL) 2 % (0-1); MONOS#(MANUAL) 0.11 x10^3/uL (0.3-2.7); MONOS% (MANUAL) 3 % (2-9); POLYCHROMASIA 1+; SEG#(MANUAL) 2.78 x10^3/uL (1.8-6.8); SEGS% (MANUAL) 75 % (42-75)
[2018-04-03 07:21] VITALS: BP 95/54
[2018-04-03] MEDS: MAGNESIUM OXIDE 400 MG TABLET PO SCH (09:33)
[2018-04-03] MEDS: HEPARIN 5,000 UNITS/ML, 1ML SQ SCH ×2 (09:34→20:53)
[2018-04-03] MEDS: LACTULOSE 10 GM/15 ML UDC PO SCH ×2 (09:34→20:53)
[2018-04-03] MEDS: PANTOPROZOLE 40MG TABLET PO SCH ×2 (09:34→20:53)
[2018-04-03] MEDS: ACYCLOVIR 800 MG TABLET PO SCH ×3 (09:34→20:53)
[2018-04-03] MEDS: CHOLECALCIFEROL 5,000u TAB PO SCH (09:34)
[2018-04-03] MEDS: MULTIVITS,STRESS FORMULA 1 TABLET PO SCH (09:34)
[2018-04-03] MEDS: SODIUM CHLORIDE FLUSH 10ML SYR IVF SCH ×2 (09:35→20:53)
[2018-04-03] MEDS: OXYcodone IR 5MG TABLET PO PRN ×2 (11:40→21:22)
[2018-04-03 13:19] VITALS: BP 102/57
[2018-04-03] MEDS: ONDANSETRON 2MG/ML, 2ML IVPush PRN (14:18)
[2018-04-03] MEDS: ERTAPENEM 1 GM in SODIUM CHLORIDE 0.9% 50 ML IV SCH (15:22)
[2018-04-03] MEDS: DAPTOMYCIN 500 MG in SODIUM CHLORIDE 0.9% 100 ML IV SCH (17:41)
[2018-04-03 18:41] VITALS: BP 111/52
[2018-04-03] MEDS: ONDANSETRON ODT 4 MG PO PRN (21:22)
[2018-04-04 01:53] VITALS: BP 110/61
[2018-04-04 05:16] LABS: ALBUMIN 2.2 g/dL (3.4-5.0); ANION GAP 7 mmol/L (5-15); CALCIUM 8.2 mg/dL (8.5-10.1); CHLORIDE 114 mmol/L (98-107)
[2018-04-04 05:17] LABS: MEAN CORPUSCULAR HEMOGLOBIN 32.8 pg (27.0-34.8); MEAN CORPUSCULAR HGB CONC 34.3 g/dL (32.4-35.8); MEAN CORPUSCULAR VOLUME 95.7 fL (80-100); MEAN PLATELET VOLUME 7.6 fL (7.4-10.4); PLATELET COUNT 254 x10^3/uL (130-400); RED BLOOD COUNT 2.76 x10^6/uL (3.82-5.3)
[2018-04-04 05:19] LABS: ALANINE AMINOTRANSFERASE 15 U/L (12-78); ALKALINE PHOSPHATASE 110 U/L (45-117); BILIRUBIN,TOTAL 0.1 mg/dL (0.2-1.0); CREATININE 0.67 mg/dL (0.55-1.02); TOTAL PROTEIN 4.8 g/dL (6.4-8.2)
[2018-04-04 05:37] LABS: MD YES
[2018-04-04 05:41] LABS: BAND#(MANUAL) 0.15 x10^3/uL; BANDS%(MANUAL) 5 % (0-7); LYMPH#(MANUAL) 0.48 x10^3/uL (1-3.4); LYMPHS% (MANUAL) 16 % (22-44); METAMYELOCYTES# (MANUAL) 0.09 x10^3/uL (0-0); METAMYELOCYTES% (MANUAL) 3 % (0-1); MONOS#(MANUAL) 0.21 x10^3/uL (0.3-2.7); MONOS% (MANUAL) 7 % (2-9); MYELOCYTES# (MANUAL) 0.03 x10^3/uL (0-0); MYELOCYTES% (MANUAL) 1 % (0-0); SEG#(MANUAL) 2.04 x10^3/uL (1.8-6.8); SEGS% (MANUAL) 68 % (42-75)
[2018-04-04 05:42] LABS: ANISOCYTOSIS 1+; POLYCHROMASIA 1+
[2018-04-04 05:43] LABS: <PLATELET ESTIMATE> ADEQUATE; <PLT MORPHOLOGY> NORMAL PLT MORPH
[2018-04-04 07:30] VITALS: BP 109/69
[2018-04-04] MEDS: CHOLECALCIFEROL 5,000u TAB PO SCH (08:53)
[2018-04-04] MEDS: ACYCLOVIR 800 MG TABLET PO SCH ×3 (08:53→20:42)
[2018-04-04] MEDS: HEPARIN 5,000 UNITS/ML, 1ML SQ SCH ×2 (08:53→20:45)
[2018-04-04] MEDS: PANTOPROZOLE 40MG TABLET PO SCH ×2 (08:53→20:42)
[2018-04-04] MEDS: OXYcodone IR 5MG TABLET PO PRN ×3 (08:53→20:52)
[2018-04-04] MEDS: MULTIVITS,STRESS FORMULA 1 TABLET PO SCH (08:53)
[2018-04-04] MEDS: MAGNESIUM OXIDE 400 MG TABLET PO SCH (08:53)
[2018-04-04] MEDS: SODIUM CHLORIDE FLUSH 10ML SYR IVF SCH ×2 (08:54→20:44)
[2018-04-04] MEDS: LACTULOSE 10 GM/15 ML UDC PO SCH ×2 (08:54→20:42)
[2018-04-04] MEDS ORDERED: DEXTROSE 5% 1,000 ML IV ONE (12:30)
[2018-04-04 12:43] VITALS: BP 134/77
[2018-04-04] MEDS: ONDANSETRON ODT 4 MG PO PRN ×2 (14:08→20:52)
[2018-04-04] MEDS: ERTAPENEM 1 GM in SODIUM CHLORIDE 0.9% 50 ML IV SCH (14:39)
[2018-04-04] MEDS: DAPTOMYCIN 500 MG in SODIUM CHLORIDE 0.9% 100 ML IV SCH (17:35)
[2018-04-04] MEDS: ALLOPURINOL 300 MG TABLET PO SCH (17:37)
[2018-04-04 18:31] VITALS: BP 123/70
[2018-04-05 01:36] VITALS: BP 114/73
[2018-04-05] MEDS: OXYcodone IR 5MG TABLET PO PRN ×3 (03:18→15:40)
[2018-04-05] MEDS: ONDANSETRON ODT 4 MG PO PRN ×4 (03:18→18:11)
[2018-04-05 05:38] LABS: MEAN CORPUSCULAR HEMOGLOBIN 33.5 pg (27.0-34.8); MEAN CORPUSCULAR HGB CONC 34.7 g/dL (32.4-35.8); MEAN CORPUSCULAR VOLUME 96.5 fL (80-100); MEAN PLATELET VOLUME 7.5 fL (7.4-10.4); PLATELET COUNT 272 x10^3/uL (130-400); RED BLOOD COUNT 2.94 x10^6/uL (3.82-5.3); RED CELL DISTRIBUTION WIDTH 16.2 % (9.6-15.2)
[2018-04-05 05:39] LABS: ALBUMIN 2.5 g/dL (3.4-5.0); ANION GAP 9 mmol/L (5-15); CALCIUM 8.7 mg/dL (8.5-10.1); CHLORIDE 109 mmol/L (98-107)
[2018-04-05 05:44] LABS: ALANINE AMINOTRANSFERASE 18 U/L (12-78); ALKALINE PHOSPHATASE 127 U/L (45-117); BILIRUBIN,TOTAL 0.1 mg/dL (0.2-1.0); CREATININE 0.71 mg/dL (0.55-1.02); TOTAL PROTEIN 5.4 g/dL (6.4-8.2)
[2018-04-05 06:16] LABS: MD YES
[2018-04-05 06:22] LABS: BAND#(MANUAL) 0.24 x10^3/uL; BANDS%(MANUAL) 8 % (0-7); EOS#(MANUAL) 0.03 x10^3/uL (0.0-0.4); EOS% (MANUAL) 1 % (1-7); LYMPH#(MANUAL) 0.36 x10^3/uL (1-3.4); LYMPHS% (MANUAL) 12 % (22-44); METAMYELOCYTES# (MANUAL) 0.15 x10^3/uL (0-0); METAMYELOCYTES% (MANUAL) 5 % (0-1); MONOS#(MANUAL) 0.15 x10^3/uL (0.3-2.7); MONOS% (MANUAL) 5 % (2-9); MYELOCYTES# (MANUAL) 0.09 x10^3/uL (0-0); MYELOCYTES% (MANUAL) 3 % (0-0); NRBC % (MANUAL) 1 % (0-1); SEG#(MANUAL) 1.98 x10^3/uL (1.8-6.8); SEGS% (MANUAL) 66 % (42-75)
[2018-04-05 06:23] LABS: <PLATELET ESTIMATE> ADEQUATE; <PLT MORPHOLOGY> NORMAL PLT MORPH; ANISOCYTOSIS 1+; POLYCHROMASIA 1+
[2018-04-05 07:10] VITALS: BP 104/66
[2018-04-05] MEDS: ACYCLOVIR 800 MG TABLET PO SCH ×3 (08:32→21:13)
[2018-04-05] MEDS: ALLOPURINOL 300 MG TABLET PO SCH (08:32)
[2018-04-05] MEDS: MULTIVITS,STRESS FORMULA 1 TABLET PO SCH (08:32)
[2018-04-05] MEDS: CHOLECALCIFEROL 5,000u TAB PO SCH (08:32)
[2018-04-05] MEDS: MAGNESIUM OXIDE 400 MG TABLET PO SCH (08:33)
[2018-04-05] MEDS: PANTOPROZOLE 40MG TABLET PO SCH ×2 (08:33→21:13)
[2018-04-05] MEDS: LACTULOSE 10 GM/15 ML UDC PO SCH ×2 (08:33→21:17)
[2018-04-05] MEDS: HEPARIN 5,000 UNITS/ML, 1ML SQ SCH ×2 (08:34→21:14)
[2018-04-05] MEDS: SODIUM CHLORIDE FLUSH 10ML SYR IVF SCH ×2 (08:34→20:03)
[2018-04-05 13:00] VITALS: BP 116/66
[2018-04-05] MEDS: DAPTOMYCIN 500 MG in SODIUM CHLORIDE 0.9% 100 ML IV SCH (17:16)
[2018-04-05] MEDS: ERTAPENEM 1 GM in SODIUM CHLORIDE 0.9% 50 ML IV SCH (18:11)
[2018-04-05 19:04] VITALS: BP 115/73
[2018-04-05] MEDS: PROMETHAZINE 25 MG/ML, 1ML IM PRN (20:08)
[2018-04-06 00:47] VITALS: BP 105/65
[2018-04-06] MEDS: ONDANSETRON ODT 4 MG PO PRN ×3 (04:45→21:39)
[2018-04-06] MEDS: OXYcodone IR 5MG TABLET PO PRN ×4 (04:45→21:38)
[2018-04-06 05:32] LABS: MEAN CORPUSCULAR HEMOGLOBIN 33.2 pg (27.0-34.8); MEAN CORPUSCULAR HGB CONC 34.2 g/dL (32.4-35.8); MEAN PLATELET VOLUME 7.2 fL (7.4-10.4); PLATELET COUNT 292 x10^3/uL (130-400); RED BLOOD COUNT 2.87 x10^6/uL (3.82-5.3); RED CELL DISTRIBUTION WIDTH 15.8 % (9.6-15.2)
[2018-04-06 05:40] LABS: CHLORIDE 111 mmol/L (98-107)
[2018-04-06 05:49] LABS: MD YES
[2018-04-06 05:52] LABS: ALANINE AMINOTRANSFERASE 17 U/L (12-78); ALBUMIN 2.4 g/dL (3.4-5.0); ALKALINE PHOSPHATASE 124 U/L (45-117); ANION GAP 6 mmol/L (5-15); BILIRUBIN,TOTAL 0.2 mg/dL (0.2-1.0); CALCIUM 8.4 mg/dL (8.5-10.1); CREATININE 0.75 mg/dL (0.55-1.02); TOTAL PROTEIN 5.2 g/dL (6.4-8.2)
[2018-04-06 05:56] LABS: ANISOCYTOSIS 1+; BAND#(MANUAL) 0.04 x10^3/uL; BANDS%(MANUAL) 2 % (0-7); EOS#(MANUAL) 0.02 x10^3/uL (0.0-0.4); EOS% (MANUAL) 1 % (1-7); LYMPHS% (MANUAL) 18 % (22-44); METAMYELOCYTES# (MANUAL) 0.15 x10^3/uL (0-0); METAMYELOCYTES% (MANUAL) 7 % (0-1); MONOS#(MANUAL) 0.18 x10^3/uL (0.3-2.7); MONOS% (MANUAL) 8 % (2-9); MYELOCYTES# (MANUAL) 0.09 x10^3/uL (0-0); MYELOCYTES% (MANUAL) 4 % (0-0); NRBC % (MANUAL) 1 % (0-1); POLYCHROMASIA 1+; REACTIVE LYMPHS # (MANUAL) 0.02 x10^3/uL (0-0); REACTIVE LYMPHS % (MANUAL) 1 % (0-0); SEGS% (MANUAL) 59 % (42-75)
[2018-04-06 05:57] LABS: <PLATELET ESTIMATE> ADEQUATE; <PLT MORPHOLOGY> NORMAL PLT MORPH
[2018-04-06 07:54] VITALS: BP 108/70
[2018-04-06] MEDS: LACTULOSE 10 GM/15 ML UDC PO SCH ×2 (09:00→20:29)
[2018-04-06] MEDS: HEPARIN 5,000 UNITS/ML, 1ML SQ SCH ×2 (09:06→20:30)
[2018-04-06] MEDS: MAGNESIUM OXIDE 400 MG TABLET PO SCH (09:07)
[2018-04-06] MEDS: ACYCLOVIR 800 MG TABLET PO SCH ×3 (09:07→20:29)
[2018-04-06] MEDS: PANTOPROZOLE 40MG TABLET PO SCH ×2 (09:07→20:29)
[2018-04-06] MEDS: MULTIVITS,STRESS FORMULA 1 TABLET PO SCH (09:07)
[2018-04-06] MEDS: ALLOPURINOL 300 MG TABLET PO SCH (09:08)
[2018-04-06] MEDS: CHOLECALCIFEROL 5,000u TAB PO SCH (09:08)
[2018-04-06] MEDS: SODIUM CHLORIDE FLUSH 10ML SYR IVF SCH ×2 (09:09→20:29)
[2018-04-06 12:20] VITALS: BP 107/51
[2018-04-06] MEDS ORDERED: TBO-FILGRASTIM 480 MCG/0.8 ML SQ SCH (15:00)
[2018-04-06] MEDS: ERTAPENEM 1 GM in SODIUM CHLORIDE 0.9% 50 ML IV SCH (17:17)
[2018-04-06 20:20] VITALS: BP 114/63
[2018-04-06] MEDS: DAPTOMYCIN 500 MG in SODIUM CHLORIDE 0.9% 100 ML IV SCH (20:28)
[2018-04-07] MEDS: PROMETHAZINE 25 MG/ML, 1ML IM PRN (00:33)
[2018-04-07 01:50] VITALS: BP 106/69
[2018-04-07] MEDS: OXYcodone IR 5MG TABLET PO PRN ×4 (01:53→21:44)
[2018-04-07] MEDS: ONDANSETRON ODT 4 MG PO PRN ×2 (01:53→19:17)
[2018-04-07 05:31] LABS: MEAN CORPUSCULAR HEMOGLOBIN 32.8 pg (27.0-34.8); MEAN CORPUSCULAR HGB CONC 33.8 g/dL (32.4-35.8); MEAN PLATELET VOLUME 7.2 fL (7.4-10.4); PLATELET COUNT 322 x10^3/uL (130-400); RED BLOOD COUNT 2.94 x10^6/uL (3.82-5.3); RED CELL DISTRIBUTION WIDTH 16.7 % (9.6-15.2)
[2018-04-07 05:48] LABS: ALANINE AMINOTRANSFERASE 17 U/L (12-78); ALBUMIN 2.4 g/dL (3.4-5.0); ANION GAP 10 mmol/L (5-15); CALCIUM 8.5 mg/dL (8.5-10.1); CHLORIDE 109 mmol/L (98-107); CREATININE 0.84 mg/dL (0.55-1.02)
[2018-04-07 05:50] LABS: ALKALINE PHOSPHATASE 135 U/L (45-117); BILIRUBIN,TOTAL 0.2 mg/dL (0.2-1.0); TOTAL PROTEIN 5.3 g/dL (6.4-8.2)
[2018-04-07 05:51] LABS: MD YES
[2018-04-07 05:54] LABS: BAND#(MANUAL) 2.64 x10^3/uL; BANDS%(MANUAL) 16 % (0-7); LYMPH#(MANUAL) 0.17 x10^3/uL (1-3.4); LYMPHS% (MANUAL) 1 % (22-44); MONOS#(MANUAL) 0.66 x10^3/uL (0.3-2.7); MONOS% (MANUAL) 4 % (2-9); SEG#(MANUAL) 13.04 x10^3/uL (1.8-6.8); SEGS% (MANUAL) 79 % (42-75)
[2018-04-07 05:55] LABS: ANISOCYTOSIS 1+
[2018-04-07 05:56] LABS: <PLATELET ESTIMATE> ADEQUATE; <PLT MORPHOLOGY> NORMAL PLT MORPH; POLYCHROMASIA 1+
[2018-04-07 07:32] VITALS: BP 99/63
[2018-04-07] MEDS: LACTULOSE 10 GM/15 ML UDC PO SCH ×2 (09:00→20:03)
[2018-04-07] MEDS: ALLOPURINOL 300 MG TABLET PO SCH (09:03)
[2018-04-07] MEDS: MAGNESIUM OXIDE 400 MG TABLET PO SCH (09:03)
[2018-04-07] MEDS: PANTOPROZOLE 40MG TABLET PO SCH ×2 (09:03→20:02)
[2018-04-07] MEDS: ACYCLOVIR 800 MG TABLET PO SCH ×3 (09:03→20:02)
[2018-04-07] MEDS: CHOLECALCIFEROL 5,000u TAB PO SCH (09:04)
[2018-04-07] MEDS: HEPARIN 5,000 UNITS/ML, 1ML SQ SCH ×2 (09:04→20:03)
[2018-04-07] MEDS: MULTIVITS,STRESS FORMULA 1 TABLET PO SCH (09:20)
[2018-04-07] MEDS: SODIUM CHLORIDE FLUSH 10ML SYR IVF SCH ×2 (09:20→20:02)
[2018-04-07 12:02] VITALS: BP 104/68
[2018-04-07 13:04] LABS: C-REACTIVE PROTEIN, QUANT 0.86 mg/dL (0.02-0.49)
[2018-04-07] MEDS: ERTAPENEM 1 GM in SODIUM CHLORIDE 0.9% 50 ML IV SCH (16:29)
[2018-04-07 19:20] VITALS: BP 114/68
[2018-04-07] MEDS: DAPTOMYCIN 500 MG in SODIUM CHLORIDE 0.9% 100 ML IV SCH (20:02)
[2018-04-08 04:52] VITALS: BP 103/66
[2018-04-08] MEDS: OXYcodone IR 5MG TABLET PO PRN ×3 (04:59→20:06)
[2018-04-08] MEDS: ONDANSETRON ODT 4 MG PO PRN ×3 (04:59→20:06)
[2018-04-08 05:15] LABS: MEAN CORPUSCULAR HEMOGLOBIN 33.5 pg (27.0-34.8); MEAN CORPUSCULAR HGB CONC 34.4 g/dL (32.4-35.8); MEAN CORPUSCULAR VOLUME 97.3 fL (80-100); MEAN PLATELET VOLUME 7.2 fL (7.4-10.4); PLATELET COUNT 315 x10^3/uL (130-400); RED BLOOD COUNT 2.84 x10^6/uL (3.82-5.3); RED CELL DISTRIBUTION WIDTH 17.1 % (9.6-15.2)
[2018-04-08 05:20] LABS: ALBUMIN 2.4 g/dL (3.4-5.0); ANION GAP 8 mmol/L (5-15); CALCIUM 8.3 mg/dL (8.5-10.1); CHLORIDE 110 mmol/L (98-107)
[2018-04-08 05:23] LABS: ALANINE AMINOTRANSFERASE 17 U/L (12-78); ALKALINE PHOSPHATASE 137 U/L (45-117); BILIRUBIN,TOTAL 0.2 mg/dL (0.2-1.0); TOTAL PROTEIN 5.3 g/dL (6.4-8.2)
[2018-04-08 05:40] LABS: MD YES
[2018-04-08 05:43] LABS: BAND#(MANUAL) 0.59 x10^3/uL; BANDS%(MANUAL) 5 % (0-7); LYMPH#(MANUAL) 1.06 x10^3/uL (1-3.4); LYMPHS% (MANUAL) 9 % (22-44); METAMYELOCYTES# (MANUAL) 0.24 x10^3/uL (0-0); METAMYELOCYTES% (MANUAL) 2 % (0-1); MONOS#(MANUAL) 0.47 x10^3/uL (0.3-2.7); MONOS% (MANUAL) 4 % (2-9); SEG#(MANUAL) 9.44 x10^3/uL (1.8-6.8); SEGS% (MANUAL) 80 % (42-75)
[2018-04-08 05:44] LABS: <PLATELET ESTIMATE> ADEQUATE; <PLT MORPHOLOGY> NORMAL PLT MORPH; ANISOCYTOSIS 1+; POLYCHROMASIA 1+
[2018-04-08 07:50] VITALS: BP 110/72
[2018-04-08] MEDS: LACTULOSE 10 GM/15 ML UDC PO SCH ×2 (09:00→20:05)
[2018-04-08] MEDS: SODIUM CHLORIDE FLUSH 10ML SYR IVF SCH ×2 (10:34→20:05)
[2018-04-08] MEDS: CHOLECALCIFEROL 5,000u TAB PO SCH (10:35)
[2018-04-08] MEDS: ACYCLOVIR 800 MG TABLET PO SCH ×3 (10:35→20:06)
[2018-04-08] MEDS: PANTOPROZOLE 40MG TABLET PO SCH (10:35)
[2018-04-08] MEDS: ALLOPURINOL 300 MG TABLET PO SCH (10:35)
[2018-04-08] MEDS: MAGNESIUM OXIDE 400 MG TABLET PO SCH (10:36)
[2018-04-08] MEDS: MULTIVITS,STRESS FORMULA 1 TABLET PO SCH (10:36)
[2018-04-08] MEDS: HEPARIN 5,000 UNITS/ML, 1ML SQ SCH ×2 (10:36→20:06)
[2018-04-08 13:21] VITALS: BP 120/78
[2018-04-08] MEDS: ERTAPENEM 1 GM in SODIUM CHLORIDE 0.9% 50 ML IV SCH (16:58)
[2018-04-08 19:50] VITALS: BP 102/49
[2018-04-08] MEDS: DAPTOMYCIN 500 MG in SODIUM CHLORIDE 0.9% 100 ML IV SCH (20:05)
[2018-04-09 03:34] VITALS: BP 105/70
[2018-04-09 04:09] LABS: CHLORIDE 111 mmol/L (98-107)
[2018-04-09 04:10] LABS: ALANINE AMINOTRANSFERASE 20 U/L (12-78); ALBUMIN 2.4 g/dL (3.4-5.0); ANION GAP 7 mmol/L (5-15); CALCIUM 8.4 mg/dL (8.5-10.1); CREATININE 0.73 mg/dL (0.55-1.02)
[2018-04-09 04:12] LABS: ALKALINE PHOSPHATASE 128 U/L (45-117); BILIRUBIN,TOTAL 0.2 mg/dL (0.2-1.0); TOTAL PROTEIN 5.1 g/dL (6.4-8.2)
[2018-04-09 04:13] LABS: MEAN CORPUSCULAR HEMOGLOBIN 33.9 pg (27.0-34.8); MEAN CORPUSCULAR HGB CONC 34.8 g/dL (32.4-35.8); MEAN CORPUSCULAR VOLUME 97.3 fL (80-100); MEAN PLATELET VOLUME 6.9 fL (7.4-10.4); PLATELET COUNT 311 x10^3/uL (130-400); RED CELL DISTRIBUTION WIDTH 16.2 % (9.6-15.2)
[2018-04-09 04:51] LABS: BASOPHILS # (AUTO) 0.01 x10^3/uL (0-0.1); BASOPHILS % (AUTO) 0 % (0-1); EOSINOPHILS # (AUTO) 0.01 x10^3/uL (0-0.4); EOSINOPHILS % (AUTO) 0 % (1-7); LYMPHOCYTES # (AUTO) 0.48 x10^3/uL (1-3.4); LYMPHOCYTES % (AUTO) 8 % (22-44); MD SCAN; MONOCYTES # (AUTO) 0.28 x10^3/uL (0.2-0.8); MONOCYTES % (AUTO) 5 % (2-9); NEUTROPHILS # (AUTO) 5.02 x10^3/uL (1.8-6.8); NEUTROPHILS % (AUTO) 87 % (42-75)
[2018-04-09 07:49] VITALS: BP 99/63
[2018-04-09] MEDS: ALLOPURINOL 300 MG TABLET PO SCH (07:57)
[2018-04-09] MEDS: ACYCLOVIR 800 MG TABLET PO SCH ×3 (07:57→20:24)
[2018-04-09] MEDS: MULTIVITS,STRESS FORMULA 1 TABLET PO SCH (07:57)
[2018-04-09] MEDS: CHOLECALCIFEROL 5,000u TAB PO SCH (07:57)
[2018-04-09] MEDS: MAGNESIUM OXIDE 400 MG TABLET PO SCH (07:57)
[2018-04-09] MEDS: LACTULOSE 10 GM/15 ML UDC PO SCH ×2 (07:58→20:24)
[2018-04-09] MEDS: PANTOPROZOLE 40MG TABLET PO SCH ×2 (07:58→16:49)
[2018-04-09] MEDS: SODIUM CHLORIDE FLUSH 10ML SYR IVF SCH ×2 (07:58→20:24)
[2018-04-09] MEDS: HEPARIN 5,000 UNITS/ML, 1ML SQ SCH ×2 (09:28→20:24)
[2018-04-09] MEDS ORDERED: FOSAPREPITANT 150 MG in SODIUM CHLORIDE 0.9% 145 ML IV ONE ×2 (09:30→14:00)
[2018-04-09] MEDS ORDERED: ACETAMINOPHEN 325 MG TABLET PO ONE (09:30)
[2018-04-09] MEDS ORDERED: FAMOTIDINE 20 MG/2 ML IVPush ONE (09:30)
[2018-04-09] MEDS ORDERED: DIPHENHYDRAMINE 50 MG/ML, 1ML IVPush ONE (09:30)
[2018-04-09] MEDS ORDERED: RITUXIMAB 700 MG in SODIUM CHLORIDE 0.9% 250 ML IV ONE (10:00)
[2018-04-09 13:29] VITALS: BP 107/69
[2018-04-09] MEDS ORDERED: ONDANSETRON 16 MG in SODIUM CHLORIDE 0.9% 50 ML IVPB ONE (14:00)
[2018-04-09] MEDS ORDERED: SODIUM CHLORIDE 0.9% IV ONE (14:30)
[2018-04-09] MEDS ORDERED: CYCLOPHOSPHAMIDE IV ONE (14:30)
[2018-04-09] MEDS ORDERED: DOXORUBICIN IVPush ONE (15:00)
[2018-04-09] MEDS ORDERED: DEXTROSE 5% IV ONE (15:15)
[2018-04-09] MEDS ORDERED: VINCRISTINE IV ONE (15:15)
[2018-04-09] MEDS: OXYcodone IR 5MG TABLET PO PRN (16:49)
[2018-04-09] MEDS: ERTAPENEM 1 GM in SODIUM CHLORIDE 0.9% 50 ML IV SCH (17:16)
[2018-04-09] MEDS: DAPTOMYCIN 500 MG in SODIUM CHLORIDE 0.9% 100 ML IV SCH (20:23)
[2018-04-09] MEDS: ONDANSETRON ODT 4 MG PO PRN (20:23)
[2018-04-09 20:32] VITALS: BP 110/63
[2018-04-09] MEDS: METHOCARBAMOL 750 MG TABLET PO PRN (21:47)
[2018-04-10 03:22] VITALS: BP 110/69
[2018-04-10] MEDS: OXYcodone IR 5MG TABLET PO PRN ×2 (03:30→14:50)
[2018-04-10] MEDS: ONDANSETRON ODT 4 MG PO PRN ×3 (03:30→21:36)
[2018-04-10 03:44] LABS: ALANINE AMINOTRANSFERASE 21 U/L (12-78); ALBUMIN 2.3 g/dL (3.4-5.0); ANION GAP 8 mmol/L (5-15); CALCIUM 8.2 mg/dL (8.5-10.1); CHLORIDE 112 mmol/L (98-107); CREATININE 0.59 mg/dL (0.55-1.02)
[2018-04-10 03:46] LABS: ALKALINE PHOSPHATASE 114 U/L (45-117); BILIRUBIN,TOTAL 0.2 mg/dL (0.2-1.0); MEAN CORPUSCULAR HEMOGLOBIN 33.5 pg (27.0-34.8); MEAN CORPUSCULAR HGB CONC 34.1 g/dL (32.4-35.8); MEAN CORPUSCULAR VOLUME 98.2 fL (80-100); PLATELET COUNT 309 x10^3/uL (130-400); RED BLOOD COUNT 2.73 x10^6/uL (3.82-5.3); RED CELL DISTRIBUTION WIDTH 17.6 % (9.6-15.2); TOTAL PROTEIN 5.1 g/dL (6.4-8.2)
[2018-04-10 04:05] LABS: BASOPHILS % (AUTO) 0 % (0-1); EOSINOPHILS % (AUTO) 0 % (1-7); LYMPHOCYTES # (AUTO) 0.42 x10^3/uL (1-3.4); LYMPHOCYTES % (AUTO) 5 % (22-44); MD SCAN; MONOCYTES # (AUTO) 0.42 x10^3/uL (0.2-0.8); MONOCYTES % (AUTO) 6 % (2-9); NEUTROPHILS # (AUTO) 6.92 x10^3/uL (1.8-6.8); NEUTROPHILS % (AUTO) 89 % (42-75)
[2018-04-10 06:56] VITALS: BP 104/67
[2018-04-10] MEDS ORDERED: TRIAMCINOLONE ACETONIDE 40 MG/ML, 1ML ONE (07:19)
[2018-04-10] MEDS ORDERED: LIDOCAINE-MPF 1%, 5ML ONE (07:20)
[2018-04-10] MEDS: LACTULOSE 10 GM/15 ML UDC PO SCH ×2 (07:37→21:37)
[2018-04-10] MEDS: HEPARIN 5,000 UNITS/ML, 1ML SQ SCH ×2 (07:37→21:45)
[2018-04-10] MEDS: MULTIVITS,STRESS FORMULA 1 TABLET PO SCH (07:38)
[2018-04-10] MEDS: ALLOPURINOL 300 MG TABLET PO SCH (07:39)
[2018-04-10] MEDS: ACYCLOVIR 800 MG TABLET PO SCH ×3 (07:39→21:36)
[2018-04-10] MEDS: SODIUM CHLORIDE FLUSH 10ML SYR IVF SCH ×2 (07:39→19:57)
[2018-04-10] MEDS: MAGNESIUM OXIDE 400 MG TABLET PO SCH (07:39)
[2018-04-10] MEDS: PANTOPROZOLE 40MG TABLET PO SCH ×2 (07:39→17:05)
[2018-04-10] MEDS: CHOLECALCIFEROL 5,000u TAB PO SCH (07:57)
[2018-04-10] MEDS: HYDROmorphone 2 MG/ML, 1ML IVPush PRN (10:53)
[2018-04-10] MEDS: ONDANSETRON 2MG/ML, 2ML IVPush PRN (10:53)
[2018-04-10] MEDS ORDERED: METHOTREXATE/PF 2ML 12 MG in SODIUM CHLORIDE 0.9% 5.52 ML IT ONE (12:00)
[2018-04-10 13:16] VITALS: BP 119/73
[2018-04-10] MEDS: ERTAPENEM 1 GM in SODIUM CHLORIDE 0.9% 50 ML IV SCH (17:05)
[2018-04-10 19:54] VITALS: BP 149/82
[2018-04-10] MEDS: DAPTOMYCIN 500 MG in SODIUM CHLORIDE 0.9% 100 ML IV SCH (19:56)
[2018-04-10] MEDS: PROMETHAZINE 25 MG/ML, 1ML IM PRN (19:57)
[2018-04-11 04:55] VITALS: BP 110/66
[2018-04-11 05:53] LABS: ALANINE AMINOTRANSFERASE 26 U/L (12-78); ALBUMIN 2.6 g/dL (3.4-5.0); ANION GAP 5 mmol/L (5-15); CALCIUM 8.5 mg/dL (8.5-10.1); CHLORIDE 113 mmol/L (98-107); CREATININE 0.55 mg/dL (0.55-1.02)
[2018-04-11 05:56] LABS: ALKALINE PHOSPHATASE 122 U/L (45-117); BILIRUBIN,TOTAL 0.3 mg/dL (0.2-1.0); TOTAL PROTEIN 5.8 g/dL (6.4-8.2)
[2018-04-11 06:02] LABS: MEAN CORPUSCULAR HEMOGLOBIN 33.7 pg (27.0-34.8); MEAN CORPUSCULAR HGB CONC 34.5 g/dL (32.4-35.8); MEAN CORPUSCULAR VOLUME 97.9 fL (80-100); MEAN PLATELET VOLUME 7.2 fL (7.4-10.4); PLATELET COUNT 310 x10^3/uL (130-400); RED BLOOD COUNT 2.88 x10^6/uL (3.82-5.3); RED CELL DISTRIBUTION WIDTH 17.5 % (9.6-15.2)
[2018-04-11 06:32] LABS: MD YES
[2018-04-11 06:38] LABS: BAND#(MANUAL) 0.27 x10^3/uL; BANDS%(MANUAL) 7 % (0-7); LYMPH#(MANUAL) 0.38 x10^3/uL (1-3.4); LYMPHS% (MANUAL) 10 % (22-44); MONOS#(MANUAL) 0.27 x10^3/uL (0.3-2.7); MONOS% (MANUAL) 7 % (2-9); SEG#(MANUAL) 2.89 x10^3/uL (1.8-6.8); SEGS% (MANUAL) 76 % (42-75)
[2018-04-11 06:43] LABS: ANISOCYTOSIS 1+
[2018-04-11 06:44] LABS: <PLATELET ESTIMATE> ADEQUATE; <PLT MORPHOLOGY> NORMAL PLT MORPH; OVALOCYTES 1+; POLYCHROMASIA 1+
[2018-04-11] MEDS: PANTOPROZOLE 40MG TABLET PO SCH ×2 (07:56→17:35)
[2018-04-11 08:00] VITALS: BP 101/62
[2018-04-11] MEDS: LACTULOSE 10 GM/15 ML UDC PO SCH ×2 (09:00→20:50)
[2018-04-11] MEDS: ONDANSETRON ODT 4 MG PO PRN ×3 (10:01→21:45)
[2018-04-11] MEDS: ACYCLOVIR 800 MG TABLET PO SCH ×3 (10:01→20:51)
[2018-04-11] MEDS: ALLOPURINOL 300 MG TABLET PO SCH (10:01)
[2018-04-11] MEDS: MULTIVITS,STRESS FORMULA 1 TABLET PO SCH (10:01)
[2018-04-11] MEDS: MAGNESIUM OXIDE 400 MG TABLET PO SCH (10:02)
[2018-04-11] MEDS: HEPARIN 5,000 UNITS/ML, 1ML SQ SCH ×2 (10:02→20:51)
[2018-04-11] MEDS: CHOLECALCIFEROL 5,000u TAB PO SCH (10:02)
[2018-04-11] MEDS: SODIUM CHLORIDE FLUSH 10ML SYR IVF SCH ×2 (10:03→19:26)
[2018-04-11 13:50] VITALS: BP 104/61
[2018-04-11] MEDS: OXYcodone IR 5MG TABLET PO PRN ×2 (15:33→21:45)
[2018-04-11] MEDS: ERTAPENEM 1 GM in SODIUM CHLORIDE 0.9% 50 ML IV SCH (17:35)
[2018-04-11 19:24] VITALS: BP 162/85
[2018-04-11] MEDS: DAPTOMYCIN 500 MG in SODIUM CHLORIDE 0.9% 100 ML IV SCH (19:26)
[2018-04-12 01:34] VITALS: BP 108/61
[2018-04-12 05:30] LABS: MEAN CORPUSCULAR HEMOGLOBIN 33.5 pg (27.0-34.8); MEAN CORPUSCULAR HGB CONC 34.6 g/dL (32.4-35.8); MEAN CORPUSCULAR VOLUME 97.1 fL (80-100); MEAN PLATELET VOLUME 7.2 fL (7.4-10.4); PLATELET COUNT 282 x10^3/uL (130-400); RED BLOOD COUNT 2.72 x10^6/uL (3.82-5.3); RED CELL DISTRIBUTION WIDTH 18.4 % (9.6-15.2)
[2018-04-12 05:37] LABS: ALBUMIN 2.6 g/dL (3.4-5.0); ANION GAP 8 mmol/L (5-15); CALCIUM 8.4 mg/dL (8.5-10.1); CHLORIDE 111 mmol/L (98-107)
[2018-04-12 05:44] LABS: ALANINE AMINOTRANSFERASE 23 U/L (12-78); ALKALINE PHOSPHATASE 102 U/L (45-117); BILIRUBIN,TOTAL 0.4 mg/dL (0.2-1.0); TOTAL PROTEIN 5.4 g/dL (6.4-8.2)
[2018-04-12 06:56] LABS: MD YES
[2018-04-12 07:03] VITALS: BP 104/67
[2018-04-12] MEDS: PANTOPROZOLE 40MG TABLET PO SCH ×2 (07:50→17:29)
[2018-04-12 08:49] LABS: <PLATELET ESTIMATE> ADEQUATE; <PLT MORPHOLOGY> NORMAL PLT MORPH; ANISOCYTOSIS 1+; LYMPH#(MANUAL) 0.06 x10^3/uL (1-3.4); LYMPHS% (MANUAL) 2 % (22-44); OVALOCYTES 1+; POLYCHROMASIA 1+; SEG#(MANUAL) 2.74 x10^3/uL (1.8-6.8); SEGS% (MANUAL) 98 % (42-75)
[2018-04-12] MEDS: LACTULOSE 10 GM/15 ML UDC PO SCH ×2 (09:00→21:00)
[2018-04-12] MEDS: HEPARIN 5,000 UNITS/ML, 1ML SQ SCH ×2 (09:22→21:35)
[2018-04-12] MEDS: ONDANSETRON ODT 4 MG PO PRN ×3 (09:22→21:35)
[2018-04-12] MEDS: OXYcodone IR 5MG TABLET PO PRN ×3 (09:23→21:35)
[2018-04-12] MEDS: SODIUM CHLORIDE FLUSH 10ML SYR IVF SCH ×2 (09:36→21:00)
[2018-04-12] MEDS: MAGNESIUM OXIDE 400 MG TABLET PO SCH (09:58)
[2018-04-12] MEDS: MULTIVITS,STRESS FORMULA 1 TABLET PO SCH (10:00)
[2018-04-12] MEDS: CHOLECALCIFEROL 5,000u TAB PO SCH (10:03)
[2018-04-12] MEDS: ACYCLOVIR 800 MG TABLET PO SCH ×3 (10:03→21:35)
[2018-04-12] MEDS: ALLOPURINOL 300 MG TABLET PO SCH (10:05)
[2018-04-12 13:16] VITALS: BP 113/72
[2018-04-12] MEDS: ERTAPENEM 1 GM in SODIUM CHLORIDE 0.9% 50 ML IV SCH (17:29)
[2018-04-12 19:16] VITALS: BP 109/75
[2018-04-12] MEDS: DAPTOMYCIN 500 MG in SODIUM CHLORIDE 0.9% 100 ML IV SCH (19:51)
[2018-04-13 00:59] VITALS: BP 104/68
[2018-04-13 05:57] LABS: CHLORIDE 110 mmol/L (98-107)
[2018-04-13 06:03] LABS: MEAN CORPUSCULAR HEMOGLOBIN 33.5 pg (27.0-34.8); MEAN CORPUSCULAR HGB CONC 34.5 g/dL (32.4-35.8); MEAN PLATELET VOLUME 7.5 fL (7.4-10.4); PLATELET COUNT 286 x10^3/uL (130-400); RED BLOOD COUNT 2.64 x10^6/uL (3.82-5.3); RED CELL DISTRIBUTION WIDTH 18.8 % (9.6-15.2)
[2018-04-13 06:11] LABS: ALANINE AMINOTRANSFERASE 24 U/L (12-78); ALBUMIN 2.6 g/dL (3.4-5.0); ALKALINE PHOSPHATASE 95 U/L (45-117); ANION GAP 8 mmol/L (5-15); BILIRUBIN,TOTAL 0.4 mg/dL (0.2-1.0); CALCIUM 8.6 mg/dL (8.5-10.1); CREATININE 0.51 mg/dL (0.55-1.02); TOTAL PROTEIN 5.3 g/dL (6.4-8.2)
[2018-04-13] MEDS: PANTOPROZOLE 40MG TABLET PO SCH ×2 (07:57→17:37)
[2018-04-13] MEDS: SODIUM CHLORIDE FLUSH 10ML SYR IVF SCH ×2 (07:58→21:00)
[2018-04-13] MEDS: MAGNESIUM OXIDE 400 MG TABLET PO SCH (07:58)
[2018-04-13] MEDS: OXYcodone IR 5MG TABLET PO PRN ×2 (07:59→21:31)
[2018-04-13] MEDS: ACYCLOVIR 800 MG TABLET PO SCH ×3 (07:59→21:31)
[2018-04-13] MEDS: ONDANSETRON ODT 4 MG PO PRN ×2 (07:59→21:30)
[2018-04-13] MEDS: MULTIVITS,STRESS FORMULA 1 TABLET PO SCH (07:59)
[2018-04-13] MEDS: ALLOPURINOL 300 MG TABLET PO SCH (07:59)
[2018-04-13] MEDS: CHOLECALCIFEROL 5,000u TAB PO SCH (07:59)
[2018-04-13] MEDS: HEPARIN 5,000 UNITS/ML, 1ML SQ SCH ×2 (07:59→21:31)
[2018-04-13 08:11] VITALS: BP 109/54
[2018-04-13 08:14] LABS: MD YES
[2018-04-13 08:17] LABS: ANISOCYTOSIS 1+; BAND#(MANUAL) 0.08 x10^3/uL; BANDS%(MANUAL) 4 % (0-7); BASOS#(MANUAL) 0.02 x10^3/uL (0-0.1); BASOS% (MANUAL) 1 % (0-1); LYMPHS% (MANUAL) 16 % (22-44); MONOS#(MANUAL) 0.02 x10^3/uL (0.3-2.7); MONOS% (MANUAL) 1 % (2-9); POLYCHROMASIA 1+; SEG#(MANUAL) 1.48 x10^3/uL (1.8-6.8); SEGS% (MANUAL) 78 % (42-75)
[2018-04-13 08:18] LABS: <PLATELET ESTIMATE> ADEQUATE; <PLT MORPHOLOGY> NORMAL PLT MORPH
[2018-04-13] MEDS: LACTULOSE 10 GM/15 ML UDC PO SCH ×2 (09:00→21:00)
[2018-04-13 13:42] VITALS: BP 102/63
[2018-04-13] MEDS: ERTAPENEM 1 GM in SODIUM CHLORIDE 0.9% 50 ML IV SCH (17:37)
[2018-04-13 19:27] VITALS: BP 113/63
[2018-04-13] MEDS: DAPTOMYCIN 500 MG in SODIUM CHLORIDE 0.9% 100 ML IV SCH (20:25)
[2018-04-14 02:15] VITALS: BP 104/67
[2018-04-14 04:58] LABS: MEAN CORPUSCULAR HEMOGLOBIN 33.4 pg (27.0-34.8); MEAN CORPUSCULAR HGB CONC 34.5 g/dL (32.4-35.8); MEAN CORPUSCULAR VOLUME 96.8 fL (80-100); MEAN PLATELET VOLUME 7.5 fL (7.4-10.4); PLATELET COUNT 281 x10^3/uL (130-400); RED BLOOD COUNT 2.69 x10^6/uL (3.82-5.3); RED CELL DISTRIBUTION WIDTH 18.5 % (9.6-15.2)
[2018-04-14 05:08] LABS: ALBUMIN 2.9 g/dL (3.4-5.0); ANION GAP 5 mmol/L (5-15); CALCIUM 8.4 mg/dL (8.5-10.1); CHLORIDE 112 mmol/L (98-107)
[2018-04-14 05:10] LABS: ALANINE AMINOTRANSFERASE 25 U/L (12-78); ALKALINE PHOSPHATASE 98 U/L (45-117); BILIRUBIN,TOTAL 0.2 mg/dL (0.2-1.0); CREATININE 0.51 mg/dL (0.55-1.02); TOTAL PROTEIN 5.6 g/dL (6.4-8.2)
[2018-04-14 05:59] LABS: BASOPHILS # (AUTO) 0.01 x10^3/uL (0-0.1); BASOPHILS % (AUTO) 1 % (0-1); EOSINOPHILS % (AUTO) 0 % (1-7); LYMPHOCYTES # (AUTO) 0.39 x10^3/uL (1-3.4); LYMPHOCYTES % (AUTO) 19 % (22-44); MD SCAN; MONOCYTES # (AUTO) 0.01 x10^3/uL (0.2-0.8); MONOCYTES % (AUTO) 0 % (2-9); NEUTROPHILS # (AUTO) 1.63 x10^3/uL (1.8-6.8); NEUTROPHILS % (AUTO) 80 % (42-75)
[2018-04-14 08:35] VITALS: BP 96/61
[2018-04-14] MEDS: LACTULOSE 10 GM/15 ML UDC PO SCH ×2 (09:00→21:00)
[2018-04-14] MEDS: OXYcodone IR 5MG TABLET PO PRN ×2 (09:08→17:04)
[2018-04-14] MEDS: ALLOPURINOL 300 MG TABLET PO SCH (09:09)
[2018-04-14] MEDS: CHOLECALCIFEROL 5,000u TAB PO SCH (09:09)
[2018-04-14] MEDS: ACYCLOVIR 800 MG TABLET PO SCH ×2 (09:09→17:03)
[2018-04-14] MEDS: HEPARIN 5,000 UNITS/ML, 1ML SQ SCH ×2 (09:09→20:14)
[2018-04-14] MEDS: MAGNESIUM OXIDE 400 MG TABLET PO SCH (09:09)
[2018-04-14] MEDS: PANTOPROZOLE 40MG TABLET PO SCH ×2 (09:09→17:04)
[2018-04-14] MEDS: ONDANSETRON ODT 4 MG PO PRN ×2 (11:07→17:03)
[2018-04-14] MEDS: MULTIVITS,STRESS FORMULA 1 TABLET PO SCH (11:07)
[2018-04-14 12:36] VITALS: BP 101/56
[2018-04-14 14:52] VITALS: BP 102/56
[2018-04-14] MEDS: SODIUM CHLORIDE FLUSH 10ML SYR IVF SCH ×2 (16:56→21:00)
[2018-04-14] MEDS: ERTAPENEM 1 GM in SODIUM CHLORIDE 0.9% 50 ML IV SCH (19:24)
[2018-04-14] MEDS: PROMETHAZINE 25 MG/ML, 1ML IM PRN (19:27)
[2018-04-14] MEDS: DAPTOMYCIN 500 MG in SODIUM CHLORIDE 0.9% 100 ML IV SCH (20:14)
[2018-04-14 20:21] VITALS: BP 110/73
[2018-04-15] MEDS: ACYCLOVIR 800 MG TABLET PO SCH ×4 (00:31→21:23)
[2018-04-15 05:35] VITALS: BP 105/62
[2018-04-15 06:18] LABS: CHLORIDE 112 mmol/L (98-107)
[2018-04-15 06:19] LABS: MEAN CORPUSCULAR HEMOGLOBIN 33.5 pg (27.0-34.8); MEAN CORPUSCULAR HGB CONC 34.7 g/dL (32.4-35.8); MEAN CORPUSCULAR VOLUME 96.5 fL (80-100); MEAN PLATELET VOLUME 7.5 fL (7.4-10.4); PLATELET COUNT 254 x10^3/uL (130-400); RED BLOOD COUNT 2.63 x10^6/uL (3.82-5.3); RED CELL DISTRIBUTION WIDTH 17.9 % (9.6-15.2)
[2018-04-15 06:27] LABS: ALANINE AMINOTRANSFERASE 26 U/L (12-78); ALBUMIN 2.7 g/dL (3.4-5.0); ALKALINE PHOSPHATASE 89 U/L (45-117); ANION GAP 9 mmol/L (5-15); BILIRUBIN,TOTAL 0.3 mg/dL (0.2-1.0); CALCIUM 8.1 mg/dL (8.5-10.1); CREATININE 0.51 mg/dL (0.55-1.02); TOTAL PROTEIN 5.1 g/dL (6.4-8.2)
[2018-04-15 06:52] LABS: BASOPHILS % (AUTO) 0 % (0-1); EOSINOPHILS # (AUTO) 0.01 x10^3/uL (0-0.4); EOSINOPHILS % (AUTO) 1 % (1-7); LYMPHOCYTES % (AUTO) 30 % (22-44); MD SCAN; MONOCYTES # (AUTO) 0.01 x10^3/uL (0.2-0.8); MONOCYTES % (AUTO) 1 % (2-9); NEUTROPHILS # (AUTO) 0.92 x10^3/uL (1.8-6.8); NEUTROPHILS % (AUTO) 68 % (42-75)
[2018-04-15] MEDS: PANTOPROZOLE 40MG TABLET PO SCH ×2 (07:08→17:58)
[2018-04-15 07:48] VITALS: BP 110/73
[2018-04-15] MEDS: LACTULOSE 10 GM/15 ML UDC PO SCH ×2 (09:00→21:00)
[2018-04-15] MEDS: OXYcodone IR 5MG TABLET PO PRN ×3 (09:44→18:49)
[2018-04-15] MEDS: ONDANSETRON ODT 4 MG PO PRN (09:44)
[2018-04-15] MEDS: HEPARIN 5,000 UNITS/ML, 1ML SQ SCH ×2 (09:48→21:24)
[2018-04-15] MEDS: MAGNESIUM OXIDE 400 MG TABLET PO SCH (09:50)
[2018-04-15] MEDS: ALLOPURINOL 300 MG TABLET PO SCH (09:50)
[2018-04-15] MEDS: CHOLECALCIFEROL 5,000u TAB PO SCH (09:51)
[2018-04-15 12:32] VITALS: BP 114/62
[2018-04-15] MEDS: MULTIVITS,STRESS FORMULA 1 TABLET PO SCH (15:27)
[2018-04-15] MEDS: SODIUM CHLORIDE FLUSH 10ML SYR IVF SCH ×2 (15:29→21:00)
[2018-04-15] MEDS: ERTAPENEM 1 GM in SODIUM CHLORIDE 0.9% 50 ML IV SCH (17:58)
[2018-04-15 21:13] VITALS: BP 101/58
[2018-04-15] MEDS: DAPTOMYCIN 500 MG in SODIUM CHLORIDE 0.9% 100 ML IV SCH (21:23)
[2018-04-15] MEDS: TBO-FILGRASTIM 480 MCG/0.8 ML SQ SCH (21:24)
[2018-04-16 03:38] LABS: MEAN CORPUSCULAR HEMOGLOBIN 33.3 pg (27.0-34.8); MEAN CORPUSCULAR HGB CONC 34.4 g/dL (32.4-35.8); MEAN CORPUSCULAR VOLUME 96.6 fL (80-100); MEAN PLATELET VOLUME 7.5 fL (7.4-10.4); PLATELET COUNT 233 x10^3/uL (130-400); RED BLOOD COUNT 2.64 x10^6/uL (3.82-5.3); RED CELL DISTRIBUTION WIDTH 17.8 % (9.6-15.2)
[2018-04-16 03:46] LABS: ALBUMIN 2.7 g/dL (3.4-5.0); ANION GAP 8 mmol/L (5-15); CALCIUM 8.4 mg/dL (8.5-10.1); CHLORIDE 110 mmol/L (98-107)
[2018-04-16 03:50] VITALS: BP 103/55
[2018-04-16 03:50] LABS: ALANINE AMINOTRANSFERASE 25 U/L (12-78); ALKALINE PHOSPHATASE 94 U/L (45-117); BILIRUBIN,TOTAL 0.3 mg/dL (0.2-1.0); CREATININE 0.59 mg/dL (0.55-1.02); TOTAL PROTEIN 5.4 g/dL (6.4-8.2)
[2018-04-16 04:32] LABS: BASOPHILS # (AUTO) 0.01 x10^3/uL (0-0.1); BASOPHILS % (AUTO) 1 % (0-1); EOSINOPHILS # (AUTO) 0.01 x10^3/uL (0-0.4); EOSINOPHILS % (AUTO) 1 % (1-7); LYMPHOCYTES # (AUTO) 0.26 x10^3/uL (1-3.4); LYMPHOCYTES % (AUTO) 13 % (22-44); MD SCAN; MONOCYTES # (AUTO) 0.01 x10^3/uL (0.2-0.8); MONOCYTES % (AUTO) 1 % (2-9); NEUTROPHILS # (AUTO) 1.71 x10^3/uL (1.8-6.8); NEUTROPHILS % (AUTO) 85 % (42-75)
[2018-04-16 07:35] VITALS: BP 101/63
[2018-04-16] MEDS: HEPARIN 5,000 UNITS/ML, 1ML SQ SCH ×2 (08:41→20:00)
[2018-04-16] MEDS: OXYcodone IR 5MG TABLET PO PRN ×2 (08:41→17:44)
[2018-04-16] MEDS: CHOLECALCIFEROL 5,000u TAB PO SCH (08:41)
[2018-04-16] MEDS: ONDANSETRON ODT 4 MG PO PRN (08:41)
[2018-04-16] MEDS: PANTOPROZOLE 40MG TABLET PO SCH ×2 (08:41→17:44)
[2018-04-16] MEDS: MULTIVITS,STRESS FORMULA 1 TABLET PO SCH (08:41)
[2018-04-16] MEDS: ACYCLOVIR 800 MG TABLET PO SCH ×3 (08:41→20:00)
[2018-04-16] MEDS: MAGNESIUM OXIDE 400 MG TABLET PO SCH (08:41)
[2018-04-16] MEDS: LACTULOSE 10 GM/15 ML UDC PO SCH ×2 (09:00→20:01)
[2018-04-16] MEDS: ALLOPURINOL 300 MG TABLET PO SCH (12:08)
[2018-04-16] MEDS: SODIUM CHLORIDE FLUSH 10ML SYR IVF SCH ×2 (12:15→20:01)
[2018-04-16 13:35] VITALS: BP 104/67
[2018-04-16] MEDS: ERTAPENEM 1 GM in SODIUM CHLORIDE 0.9% 50 ML IV SCH (17:44)
[2018-04-16 19:50] VITALS: BP 117/76
[2018-04-16] MEDS: METHOCARBAMOL 750 MG TABLET PO PRN (20:00)
[2018-04-16] MEDS: TBO-FILGRASTIM 480 MCG/0.8 ML SQ SCH (21:56)
[2018-04-16] MEDS: DAPTOMYCIN 500 MG in SODIUM CHLORIDE 0.9% 100 ML IV SCH (21:56)
[2018-04-17 03:30] VITALS: BP 120/59
[2018-04-17 05:23] LABS: MEAN CORPUSCULAR HEMOGLOBIN 33.6 pg (27.0-34.8); MEAN CORPUSCULAR HGB CONC 34.7 g/dL (32.4-35.8); MEAN CORPUSCULAR VOLUME 96.7 fL (80-100); MEAN PLATELET VOLUME 7.7 fL (7.4-10.4); PLATELET COUNT 170 x10^3/uL (130-400); RED BLOOD COUNT 2.54 x10^6/uL (3.82-5.3); RED CELL DISTRIBUTION WIDTH 17.5 % (9.6-15.2)
[2018-04-17 05:26] LABS: ALBUMIN 2.7 g/dL (3.4-5.0); ANION GAP 6 mmol/L (5-15); CALCIUM 8.4 mg/dL (8.5-10.1); CHLORIDE 111 mmol/L (98-107)
[2018-04-17 05:31] LABS: ALANINE AMINOTRANSFERASE 21 U/L (12-78); ALKALINE PHOSPHATASE 86 U/L (45-117); BILIRUBIN,TOTAL 0.4 mg/dL (0.2-1.0); TOTAL PROTEIN 5.3 g/dL (6.4-8.2)
[2018-04-17 05:49] LABS: BASOPHILS # (AUTO) 0.01 x10^3/uL (0-0.1); BASOPHILS % (AUTO) 1 % (0-1); EOSINOPHILS # (AUTO) 0.02 x10^3/uL (0-0.4); EOSINOPHILS % (AUTO) 2 % (1-7); LYMPHOCYTES # (AUTO) 0.26 x10^3/uL (1-3.4); LYMPHOCYTES % (AUTO) 21 % (22-44); MD SCAN; MONOCYTES # (AUTO) 0.01 x10^3/uL (0.2-0.8); MONOCYTES % (AUTO) 1 % (2-9); NEUTROPHILS # (AUTO) 0.97 x10^3/uL (1.8-6.8); NEUTROPHILS % (AUTO) 77 % (42-75)
[2018-04-17 07:17] VITALS: BP 114/77
[2018-04-17] MEDS: ACYCLOVIR 800 MG TABLET PO SCH ×3 (07:58→21:00)
[2018-04-17] MEDS: MAGNESIUM OXIDE 400 MG TABLET PO SCH (07:58)
[2018-04-17] MEDS: SODIUM CHLORIDE FLUSH 10ML SYR IVF SCH ×2 (07:58→21:00)
[2018-04-17] MEDS: CHOLECALCIFEROL 5,000u TAB PO SCH (07:58)
[2018-04-17] MEDS: PANTOPROZOLE 40MG TABLET PO SCH ×2 (07:58→17:05)
[2018-04-17] MEDS: ALLOPURINOL 300 MG TABLET PO SCH (07:58)
[2018-04-17] MEDS: LACTULOSE 10 GM/15 ML UDC PO SCH ×2 (07:59→21:00)
[2018-04-17] MEDS: HEPARIN 5,000 UNITS/ML, 1ML SQ SCH ×2 (07:59→20:59)
[2018-04-17] MEDS: MULTIVITS,STRESS FORMULA 1 TABLET PO SCH (08:30)
[2018-04-17 11:00] VITALS: BP 105/68
[2018-04-17] MEDS: ONDANSETRON ODT 4 MG PO PRN ×2 (11:01→17:05)
[2018-04-17] MEDS: OXYcodone IR 5MG TABLET PO PRN ×2 (11:01→17:06)
[2018-04-17 12:00] VITALS: BP 97/54
[2018-04-17] MEDS: ERTAPENEM 1 GM in SODIUM CHLORIDE 0.9% 50 ML IV SCH (17:05)
[2018-04-17] MEDS: PROMETHAZINE 25 MG/ML, 1ML IM PRN (20:59)
[2018-04-17] MEDS: DAPTOMYCIN 500 MG in SODIUM CHLORIDE 0.9% 100 ML IV SCH (20:59)
[2018-04-17] MEDS: TBO-FILGRASTIM 480 MCG/0.8 ML SQ SCH (21:00)
[2018-04-17 22:00] VITALS: BP 100/52
[2018-04-18 03:45] VITALS: BP 93/53
[2018-04-18 04:52] LABS: MEAN CORPUSCULAR HEMOGLOBIN 32.8 pg (27.0-34.8); MEAN CORPUSCULAR HGB CONC 33.9 g/dL (32.4-35.8); MEAN CORPUSCULAR VOLUME 96.8 fL (80-100); MEAN PLATELET VOLUME 8.2 fL (7.4-10.4); PLATELET COUNT 159 x10^3/uL (130-400); RED BLOOD COUNT 2.55 x10^6/uL (3.82-5.3); RED CELL DISTRIBUTION WIDTH 17.9 % (9.6-15.2)
[2018-04-18 05:01] LABS: ALBUMIN 2.8 g/dL (3.4-5.0); ANION GAP 5 mmol/L (5-15); CALCIUM 8.7 mg/dL (8.5-10.1); CHLORIDE 111 mmol/L (98-107)
[2018-04-18 05:04] LABS: ALANINE AMINOTRANSFERASE 21 U/L (12-78); ALKALINE PHOSPHATASE 88 U/L (45-117); BILIRUBIN,TOTAL 0.2 mg/dL (0.2-1.0); CREATININE 0.65 mg/dL (0.55-1.02); TOTAL PROTEIN 5.5 g/dL (6.4-8.2)
[2018-04-18 05:24] LABS: BASOPHILS # (AUTO) 0.01 x10^3/uL (0-0.1); BASOPHILS % (AUTO) 2 % (0-1); EOSINOPHILS # (AUTO) 0.02 x10^3/uL (0-0.4); EOSINOPHILS % (AUTO) 2 % (1-7); LYMPHOCYTES # (AUTO) 0.27 x10^3/uL (1-3.4); LYMPHOCYTES % (AUTO) 38 % (22-44); MD SCAN; MONOCYTES # (AUTO) 0.03 x10^3/uL (0.2-0.8); MONOCYTES % (AUTO) 5 % (2-9); NEUTROPHILS # (AUTO) 0.37 x10^3/uL (1.8-6.8); NEUTROPHILS % (AUTO) 53 % (42-75)
[2018-04-18] MEDS: PANTOPROZOLE 40MG TABLET PO SCH ×2 (07:39→17:03)
[2018-04-18 07:59] VITALS: BP 130/74
[2018-04-18] MEDS: LACTULOSE 10 GM/15 ML UDC PO SCH ×3 (09:00→20:37)
[2018-04-18] MEDS: SODIUM CHLORIDE FLUSH 10ML SYR IVF SCH ×2 (09:26→20:37)
[2018-04-18] MEDS: MULTIVITS,STRESS FORMULA 1 TABLET PO SCH (09:26)
[2018-04-18] MEDS: MAGNESIUM OXIDE 400 MG TABLET PO SCH (09:26)
[2018-04-18] MEDS: CHOLECALCIFEROL 5,000u TAB PO SCH (09:27)
[2018-04-18] MEDS: ACYCLOVIR 800 MG TABLET PO SCH ×3 (09:27→20:36)
[2018-04-18] MEDS: HEPARIN 5,000 UNITS/ML, 1ML SQ SCH ×2 (09:27→20:37)
[2018-04-18] MEDS: TBO-FILGRASTIM 480 MCG/0.8 ML SQ SCH (09:27)
[2018-04-18] MEDS: ALLOPURINOL 300 MG TABLET PO SCH (09:27)
[2018-04-18] MEDS: OXYcodone IR 5MG TABLET PO PRN (09:42)
[2018-04-18 13:30] VITALS: BP 107/62
[2018-04-18] MEDS: ERTAPENEM 1 GM in SODIUM CHLORIDE 0.9% 50 ML IV SCH (17:03)
[2018-04-18 19:41] VITALS: BP 96/63
[2018-04-18] MEDS: DAPTOMYCIN 500 MG in SODIUM CHLORIDE 0.9% 100 ML IV SCH (20:36)
[2018-04-19 04:29] VITALS: BP 114/76
[2018-04-19 05:04] LABS: ALANINE AMINOTRANSFERASE 25 U/L (12-78); ALBUMIN 2.9 g/dL (3.4-5.0); ANION GAP 5 mmol/L (5-15); CALCIUM 8.4 mg/dL (8.5-10.1); CHLORIDE 111 mmol/L (98-107)
[2018-04-19 05:07] LABS: ALKALINE PHOSPHATASE 88 U/L (45-117); BILIRUBIN,TOTAL 0.3 mg/dL (0.2-1.0); CREATININE 0.57 mg/dL (0.55-1.02); TOTAL PROTEIN 5.5 g/dL (6.4-8.2)
[2018-04-19 05:16] LABS: MEAN CORPUSCULAR HEMOGLOBIN 32.6 pg (27.0-34.8); MEAN CORPUSCULAR HGB CONC 33.8 g/dL (32.4-35.8); MEAN CORPUSCULAR VOLUME 96.5 fL (80-100); MEAN PLATELET VOLUME 8.3 fL (7.4-10.4); PLATELET COUNT 143 x10^3/uL (130-400); RED BLOOD COUNT 2.65 x10^6/uL (3.82-5.3); RED CELL DISTRIBUTION WIDTH 18.2 % (9.6-15.2)
[2018-04-19 06:11] LABS: MD YES
[2018-04-19 06:17] LABS: <PLATELET ESTIMATE> ADEQUATE; <PLT MORPHOLOGY> NORMAL PLT MORPH; <RBC MORPHOLOGY> NORMAL; EOS#(MANUAL) 0.01 x10^3/uL (0.0-0.4); EOS% (MANUAL) 2 % (1-7); LYMPH#(MANUAL) 0.31 x10^3/uL (1-3.4); MONOS#(MANUAL) 0.17 x10^3/uL (0.3-2.7); MONOS% (MANUAL) 29 % (2-9); NRBC % (MANUAL) 5 % (0-1); SEGS% (MANUAL) 17 % (42-75)
[2018-04-19 07:42] VITALS: BP 115/72
[2018-04-19] MEDS: PANTOPROZOLE 40MG TABLET PO SCH ×2 (07:55→17:31)
[2018-04-19] MEDS: LACTULOSE 10 GM/15 ML UDC PO SCH ×2 (09:28→20:47)
[2018-04-19] MEDS: OXYcodone IR 5MG TABLET PO PRN ×2 (09:29→20:31)
[2018-04-19] MEDS: ACYCLOVIR 800 MG TABLET PO SCH ×3 (09:29→20:31)
[2018-04-19] MEDS: ALLOPURINOL 300 MG TABLET PO SCH (09:29)
[2018-04-19] MEDS: CHOLECALCIFEROL 5,000u TAB PO SCH (09:29)
[2018-04-19] MEDS: MULTIVITS,STRESS FORMULA 1 TABLET PO SCH (09:29)
[2018-04-19] MEDS: MAGNESIUM OXIDE 400 MG TABLET PO SCH (09:30)
[2018-04-19] MEDS: HEPARIN 5,000 UNITS/ML, 1ML SQ SCH ×2 (09:31→20:31)
[2018-04-19] MEDS: TBO-FILGRASTIM 480 MCG/0.8 ML SQ SCH (09:31)
[2018-04-19] MEDS: SODIUM CHLORIDE FLUSH 10ML SYR IVF SCH ×2 (09:32→20:47)
[2018-04-19] MEDS: METHOCARBAMOL 750 MG TABLET PO PRN (10:26)
[2018-04-19 10:52] LABS: LYMPHS% (MANUAL) 52 % (22-44)
[2018-04-19] MEDS ORDERED: CETIRIZINE 10 MG TABLET PO SCH (12:30)
[2018-04-19 13:17] VITALS: BP 112/65
[2018-04-19] MEDS: PROMETHAZINE 25 MG/ML, 1ML IM PRN (14:58)
[2018-04-19] MEDS: HYDROmorphone 2 MG/ML, 1ML IVPush PRN (16:17)
[2018-04-19] MEDS: ONDANSETRON 2MG/ML, 2ML IVPush PRN (16:27)
[2018-04-19] MEDS: ERTAPENEM 1 GM in SODIUM CHLORIDE 0.9% 50 ML IV SCH (17:31)
[2018-04-19 19:28] VITALS: BP 101/55
[2018-04-19] MEDS: DAPTOMYCIN 500 MG in SODIUM CHLORIDE 0.9% 100 ML IV SCH (20:31)
[2018-04-19] MEDS: ONDANSETRON ODT 4 MG PO PRN (20:31)
[2018-04-19] MEDS: TEMAZEPAM 15 MG CAPSULE PO PRN (20:47)
[2018-04-20 04:16] VITALS: BP 105/69
[2018-04-20 04:45] LABS: ALANINE AMINOTRANSFERASE 22 U/L (12-78); ALBUMIN 2.9 g/dL (3.4-5.0); ANION GAP 5 mmol/L (5-15); CALCIUM 8.4 mg/dL (8.5-10.1); CHLORIDE 109 mmol/L (98-107); CREATININE 0.61 mg/dL (0.55-1.02)
[2018-04-20 04:47] LABS: ALKALINE PHOSPHATASE 94 U/L (45-117); BILIRUBIN,TOTAL 0.3 mg/dL (0.2-1.0); TOTAL PROTEIN 5.6 g/dL (6.4-8.2)
[2018-04-20 05:43] LABS: MEAN CORPUSCULAR HEMOGLOBIN 32.8 pg (27.0-34.8); MEAN CORPUSCULAR HGB CONC 33.7 g/dL (32.4-35.8); MEAN CORPUSCULAR VOLUME 97.2 fL (80-100); PLATELET COUNT 144 x10^3/uL (130-400); RED BLOOD COUNT 2.79 x10^6/uL (3.82-5.3); RED CELL DISTRIBUTION WIDTH 18.1 % (9.6-15.2)
[2018-04-20 05:47] LABS: MD YES
[2018-04-20 06:20] LABS: <PLATELET ESTIMATE> ADEQUATE; <PLT MORPHOLOGY> NORMAL PLT MORPH; <RBC MORPHOLOGY> NORMAL; BAND#(MANUAL) 0.24 x10^3/uL; BANDS%(MANUAL) 16 % (0-7); EOS#(MANUAL) 0.03 x10^3/uL (0.0-0.4); EOS% (MANUAL) 2 % (1-7); LYMPHS% (MANUAL) 20 % (22-44); METAMYELOCYTES# (MANUAL) 0.09 x10^3/uL (0-0); METAMYELOCYTES% (MANUAL) 6 % (0-1); MONOS#(MANUAL) 0.09 x10^3/uL (0.3-2.7); MONOS% (MANUAL) 6 % (2-9); MYELOCYTES# (MANUAL) 0.09 x10^3/uL (0-0); MYELOCYTES% (MANUAL) 6 % (0-0); SEG#(MANUAL) 0.66 x10^3/uL (1.8-6.8); SEGS% (MANUAL) 44 % (42-75)
[2018-04-20 07:41] VITALS: BP 113/64
[2018-04-20] MEDS: PANTOPROZOLE 40MG TABLET PO SCH ×2 (07:55→16:14)
[2018-04-20] MEDS: LACTULOSE 10 GM/15 ML UDC PO SCH ×2 (09:00→20:28)
[2018-04-20] MEDS ORDERED: TBO-FILGRASTIM 480 MCG/0.8 ML SQ SCH (09:00)
[2018-04-20] MEDS: ACYCLOVIR 800 MG TABLET PO SCH ×3 (10:06→20:28)
[2018-04-20] MEDS: CHOLECALCIFEROL 5,000u TAB PO SCH (10:06)
[2018-04-20] MEDS: SODIUM CHLORIDE FLUSH 10ML SYR IVF SCH ×2 (10:06→20:27)
[2018-04-20] MEDS: ONDANSETRON 2MG/ML, 2ML IVPush PRN (10:07)
[2018-04-20] MEDS: ALLOPURINOL 300 MG TABLET PO SCH (10:07)
[2018-04-20] MEDS: MULTIVITS,STRESS FORMULA 1 TABLET PO SCH (10:07)
[2018-04-20] MEDS: MAGNESIUM OXIDE 400 MG TABLET PO SCH (10:07)
[2018-04-20] MEDS: HEPARIN 5,000 UNITS/ML, 1ML SQ SCH ×2 (10:07→20:28)
[2018-04-20 12:19] VITALS: BP 96/62
[2018-04-20] MEDS: LORATADINE 10 MG TABLET PO SCH (12:22)
[2018-04-20] MEDS: OXYcodone IR 5MG TABLET PO PRN ×2 (12:25→17:09)
[2018-04-20] MEDS: ERTAPENEM 1 GM in SODIUM CHLORIDE 0.9% 50 ML IV SCH (17:09)
[2018-04-20 20:00] VITALS: BP 117/76
[2018-04-20] MEDS: ONDANSETRON ODT 4 MG PO PRN (20:00)
[2018-04-20] MEDS: DAPTOMYCIN 500 MG in SODIUM CHLORIDE 0.9% 100 ML IV SCH (20:29)
[2018-04-21 03:40] VITALS: BP 102/66
[2018-04-21 04:26] LABS: ALANINE AMINOTRANSFERASE 18 U/L (12-78); ALBUMIN 2.6 g/dL (3.4-5.0); ANION GAP 10 mmol/L (5-15); CALCIUM 8.4 mg/dL (8.5-10.1); CHLORIDE 108 mmol/L (98-107)
[2018-04-21 04:29] LABS: ALKALINE PHOSPHATASE 90 U/L (45-117); BILIRUBIN,TOTAL 0.2 mg/dL (0.2-1.0); CREATININE 0.65 mg/dL (0.55-1.02); TOTAL PROTEIN 5.4 g/dL (6.4-8.2)
[2018-04-21 05:04] LABS: MD YES; MEAN CORPUSCULAR HEMOGLOBIN 33.6 pg (27.0-34.8); MEAN CORPUSCULAR HGB CONC 34.3 g/dL (32.4-35.8); MEAN PLATELET VOLUME 8.4 fL (7.4-10.4); PLATELET COUNT 153 x10^3/uL (130-400); RED BLOOD COUNT 2.65 x10^6/uL (3.82-5.3); RED CELL DISTRIBUTION WIDTH 19.9 % (9.6-15.2)
[2018-04-21 05:08] LABS: <PLATELET ESTIMATE> ADEQUATE; <PLT MORPHOLOGY> NORMAL PLT MORPH; ANISOCYTOSIS 1+; BANDS%(MANUAL) 20 % (0-7); LYMPH#(MANUAL) 0.72 x10^3/uL (1-3.4); LYMPHS% (MANUAL) 13 % (22-44); METAMYELOCYTES# (MANUAL) 0.17 x10^3/uL (0-0); METAMYELOCYTES% (MANUAL) 3 % (0-1); MONOS% (MANUAL) 9 % (2-9); MYELOCYTES# (MANUAL) 0.28 x10^3/uL (0-0); MYELOCYTES% (MANUAL) 5 % (0-0); NRBC % (MANUAL) 1 % (0-1); POLYCHROMASIA 1+; SEG#(MANUAL) 2.75 x10^3/uL (1.8-6.8); SEGS% (MANUAL) 50 % (42-75)
[2018-04-21 07:51] VITALS: BP 95/49
[2018-04-21] MEDS: MULTIVITS,STRESS FORMULA 1 TABLET PO SCH (08:42)
[2018-04-21] MEDS: CHOLECALCIFEROL 5,000u TAB PO SCH (08:43)
[2018-04-21] MEDS: MAGNESIUM OXIDE 400 MG TABLET PO SCH (08:43)
[2018-04-21] MEDS: LORATADINE 10 MG TABLET PO SCH (08:43)
[2018-04-21] MEDS: ACYCLOVIR 800 MG TABLET PO SCH ×3 (08:43→20:59)
[2018-04-21] MEDS: ALLOPURINOL 300 MG TABLET PO SCH (08:43)
[2018-04-21] MEDS: LACTULOSE 10 GM/15 ML UDC PO SCH ×3 (08:43→20:57)
[2018-04-21] MEDS: PANTOPROZOLE 40MG TABLET PO SCH ×2 (08:43→17:10)
[2018-04-21] MEDS: SODIUM CHLORIDE FLUSH 10ML SYR IVF SCH ×2 (08:44→20:57)
[2018-04-21] MEDS: HEPARIN 5,000 UNITS/ML, 1ML SQ SCH ×2 (08:44→20:59)
[2018-04-21 15:14] VITALS: BP 111/71
[2018-04-21] MEDS: ERTAPENEM 1 GM in SODIUM CHLORIDE 0.9% 50 ML IV SCH (17:10)
[2018-04-21] MEDS: ONDANSETRON 2MG/ML, 2ML IVPush PRN (18:18)
[2018-04-21 19:50] VITALS: BP 105/53
[2018-04-21] MEDS: OXYcodone IR 5MG TABLET PO PRN (20:57)
[2018-04-21] MEDS: DAPTOMYCIN 500 MG in SODIUM CHLORIDE 0.9% 100 ML IV SCH (20:57)
[2018-04-22 01:12] VITALS: BP 104/68
[2018-04-22 05:11] LABS: MEAN CORPUSCULAR HEMOGLOBIN 32.9 pg (27.0-34.8); MEAN CORPUSCULAR HGB CONC 33.6 g/dL (32.4-35.8); MEAN CORPUSCULAR VOLUME 98.1 fL (80-100); PLATELET COUNT 169 x10^3/uL (130-400); RED BLOOD COUNT 2.58 x10^6/uL (3.82-5.3); RED CELL DISTRIBUTION WIDTH 20.2 % (9.6-15.2)
[2018-04-22 05:12] LABS: HCT (SEDRATE) 25.3 % (34.6-47.8)
[2018-04-22 05:23] LABS: ALANINE AMINOTRANSFERASE 25 U/L (12-78); ALBUMIN 2.6 g/dL (3.4-5.0); ANION GAP 7 mmol/L (5-15); CALCIUM 8.2 mg/dL (8.5-10.1); CHLORIDE 111 mmol/L (98-107); CREATININE 0.62 mg/dL (0.55-1.02)
[2018-04-22 05:32] LABS: ALKALINE PHOSPHATASE 88 U/L (45-117); BILIRUBIN,TOTAL 0.1 mg/dL (0.2-1.0); CREATINE KINASE, TOTAL 21 U/L (26-192); TOTAL PROTEIN 5.2 g/dL (6.4-8.2)
[2018-04-22 06:06] LABS: MD YES
[2018-04-22 06:08] LABS: METAMYELOCYTES# (MANUAL) 0.41 x10^3/uL (0-0); METAMYELOCYTES% (MANUAL) 8 % (0-1); MONOS#(MANUAL) 0.46 x10^3/uL (0.3-2.7); MONOS% (MANUAL) 9 % (2-9); MYELOCYTES% (MANUAL) 2 % (0-0); NRBC % (MANUAL) 2 % (0-1); SEGS% (MANUAL) 49 % (42-75)
[2018-04-22 06:09] LABS: ANISOCYTOSIS 1+; BAND#(MANUAL) 0.92 x10^3/uL; BANDS%(MANUAL) 18 % (0-7); LYMPH#(MANUAL) 0.71 x10^3/uL (1-3.4); LYMPHS% (MANUAL) 14 % (22-44); POLYCHROMASIA 1+
[2018-04-22 06:10] LABS: <PLATELET ESTIMATE> ADEQUATE; <PLT MORPHOLOGY> NORMAL PLT MORPH
[2018-04-22 06:43] VITALS: BP 95/60
[2018-04-22] MEDS: LACTULOSE 10 GM/15 ML UDC PO SCH ×2 (08:36→19:33)
[2018-04-22] MEDS: ALLOPURINOL 300 MG TABLET PO SCH (08:37)
[2018-04-22] MEDS: MAGNESIUM OXIDE 400 MG TABLET PO SCH (08:37)
[2018-04-22] MEDS: CHOLECALCIFEROL 5,000u TAB PO SCH (08:37)
[2018-04-22] MEDS: ACYCLOVIR 800 MG TABLET PO SCH ×3 (08:38→19:32)
[2018-04-22] MEDS: MULTIVITS,STRESS FORMULA 1 TABLET PO SCH (08:38)
[2018-04-22] MEDS: HEPARIN 5,000 UNITS/ML, 1ML SQ SCH ×2 (08:38→19:32)
[2018-04-22] MEDS: PANTOPROZOLE 40MG TABLET PO SCH ×2 (08:38→15:56)
[2018-04-22] MEDS: LORATADINE 10 MG TABLET PO SCH (08:38)
[2018-04-22] MEDS: OXYcodone IR 5MG TABLET PO PRN ×2 (08:39→17:47)
[2018-04-22] MEDS: SODIUM CHLORIDE FLUSH 10ML SYR IVF SCH ×2 (08:40→19:33)
[2018-04-22 13:23] VITALS: BP 107/71
[2018-04-22] MEDS: ONDANSETRON ODT 4 MG PO PRN (17:47)
[2018-04-22] MEDS: TEMAZEPAM 15 MG CAPSULE PO PRN (19:32)
[2018-04-22 20:25] VITALS: BP 87/52
[2018-04-23 02:50] VITALS: BP 103/68
[2018-04-23 05:50] LABS: MEAN CORPUSCULAR HEMOGLOBIN 33.1 pg (27.0-34.8); MEAN CORPUSCULAR HGB CONC 33.5 g/dL (32.4-35.8); MEAN CORPUSCULAR VOLUME 98.6 fL (80-100); MEAN PLATELET VOLUME 7.9 fL (7.4-10.4); PLATELET COUNT 191 x10^3/uL (130-400); RED BLOOD COUNT 2.65 x10^6/uL (3.82-5.3); RED CELL DISTRIBUTION WIDTH 20.3 % (9.6-15.2)
[2018-04-23 05:59] LABS: CHLORIDE 110 mmol/L (98-107)
[2018-04-23 06:00] LABS: ALBUMIN 2.6 g/dL (3.4-5.0); ANION GAP 7 mmol/L (5-15); CALCIUM 8.5 mg/dL (8.5-10.1)
[2018-04-23 06:07] LABS: ALANINE AMINOTRANSFERASE 27 U/L (12-78); ALKALINE PHOSPHATASE 85 U/L (45-117); BILIRUBIN,TOTAL 0.7 mg/dL (0.2-1.0); CREATININE 0.69 mg/dL (0.55-1.02); TOTAL PROTEIN 5.2 g/dL (6.4-8.2)
[2018-04-23 06:16] LABS: MD YES
[2018-04-23 06:21] LABS: BAND#(MANUAL) 0.73 x10^3/uL; BANDS%(MANUAL) 17 % (0-7); EOS#(MANUAL) 0.04 x10^3/uL (0.0-0.4); EOS% (MANUAL) 1 % (1-7); LYMPH#(MANUAL) 0.82 x10^3/uL (1-3.4); LYMPHS% (MANUAL) 19 % (22-44); METAMYELOCYTES# (MANUAL) 0.39 x10^3/uL (0-0); METAMYELOCYTES% (MANUAL) 9 % (0-1); MONOS% (MANUAL) 14 % (2-9); MYELOCYTES# (MANUAL) 0.13 x10^3/uL (0-0); MYELOCYTES% (MANUAL) 3 % (0-0); SEG#(MANUAL) 1.59 x10^3/uL (1.8-6.8); SEGS% (MANUAL) 37 % (42-75)
[2018-04-23 06:22] LABS: <PLATELET ESTIMATE> ADEQUATE; <PLT MORPHOLOGY> NORMAL PLT MORPH; ANISOCYTOSIS 1+; POLYCHROMASIA 1+
[2018-04-23] MEDS: PANTOPROZOLE 40MG TABLET PO SCH ×2 (07:41→16:51)
[2018-04-23 07:44] VITALS: BP 119/76
[2018-04-23] MEDS: MAGNESIUM OXIDE 400 MG TABLET PO SCH (08:49)
[2018-04-23] MEDS: LORATADINE 10 MG TABLET PO SCH (08:49)
[2018-04-23] MEDS: MULTIVITS,STRESS FORMULA 1 TABLET PO SCH (08:50)
[2018-04-23] MEDS: ALLOPURINOL 300 MG TABLET PO SCH (08:50)
[2018-04-23] MEDS: CHOLECALCIFEROL 5,000u TAB PO SCH (08:50)
[2018-04-23] MEDS: ACYCLOVIR 800 MG TABLET PO SCH ×2 (08:51→16:00)
[2018-04-23] MEDS: HEPARIN 5,000 UNITS/ML, 1ML SQ SCH ×2 (08:51→20:00)
[2018-04-23] MEDS: LACTULOSE 10 GM/15 ML UDC PO SCH ×2 (08:52→20:00)
[2018-04-23] MEDS: SODIUM CHLORIDE FLUSH 10ML SYR IVF SCH ×2 (08:52→20:00)
[2018-04-23 12:13] VITALS: BP 117/75
[2018-04-23] MEDS: OXYcodone IR 5MG TABLET PO PRN ×2 (17:07→22:30)
[2018-04-23] MEDS: TEMAZEPAM 15 MG CAPSULE PO PRN (20:00)
[2018-04-23 21:17] VITALS: BP 128/78
[2018-04-24 01:50] VITALS: BP 94/64
[2018-04-24] MEDS: OXYcodone IR 5MG TABLET PO PRN ×2 (06:25→11:48)
[2018-04-24] MEDS: ONDANSETRON ODT 4 MG PO PRN ×2 (06:25→11:48)
[2018-04-24 06:28] LABS: MEAN CORPUSCULAR HEMOGLOBIN 33.4 pg (27.0-34.8); MEAN CORPUSCULAR HGB CONC 33.7 g/dL (32.4-35.8); MEAN PLATELET VOLUME 7.8 fL (7.4-10.4); PLATELET COUNT 250 x10^3/uL (130-400); RED BLOOD COUNT 2.67 x10^6/uL (3.82-5.3); RED CELL DISTRIBUTION WIDTH 20.9 % (9.6-15.2)
[2018-04-24 06:34] LABS: ALANINE AMINOTRANSFERASE 26 U/L (12-78); ALBUMIN 2.7 g/dL (3.4-5.0); ANION GAP 7 mmol/L (5-15); CALCIUM 8.4 mg/dL (8.5-10.1); CHLORIDE 110 mmol/L (98-107)
[2018-04-24 06:38] LABS: ALKALINE PHOSPHATASE 90 U/L (45-117); BILIRUBIN,TOTAL 0.1 mg/dL (0.2-1.0); TOTAL PROTEIN 5.5 g/dL (6.4-8.2)
[2018-04-24 06:52] LABS: MD YES
[2018-04-24 06:55] LABS: <PLATELET ESTIMATE> ADEQUATE; <PLT MORPHOLOGY> NORMAL PLT MORPH; ANISOCYTOSIS 1+; BAND#(MANUAL) 0.48 x10^3/uL; BANDS%(MANUAL) 12 % (0-7); BASOS#(MANUAL) 0.08 x10^3/uL (0-0.1); BASOS% (MANUAL) 2 % (0-1); LYMPH#(MANUAL) 0.96 x10^3/uL (1-3.4); LYMPHS% (MANUAL) 24 % (22-44); METAMYELOCYTES# (MANUAL) 0.32 x10^3/uL (0-0); METAMYELOCYTES% (MANUAL) 8 % (0-1); MONOS#(MANUAL) 0.16 x10^3/uL (0.3-2.7); MONOS% (MANUAL) 4 % (2-9); MYELOCYTES# (MANUAL) 0.32 x10^3/uL (0-0); MYELOCYTES% (MANUAL) 8 % (0-0); NRBC % (MANUAL) 2 % (0-1); POLYCHROMASIA 1+; SEG#(MANUAL) 1.68 x10^3/uL (1.8-6.8); SEGS% (MANUAL) 42 % (42-75)
[2018-04-24] MEDS ORDERED: PANT40TA5 PO (08:24)
[2018-04-24] MEDS ORDERED: METH750T2 PO (08:24)
[2018-04-24] MEDS ORDERED: ALLO300T PO (08:24)
[2018-04-24 08:40] VITALS: BP 116/71
[2018-04-24] MEDS: LACTULOSE 10 GM/15 ML UDC PO SCH (08:43)
[2018-04-24] MEDS: HEPARIN 5,000 UNITS/ML, 1ML SQ SCH (08:47)
[2018-04-24] MEDS: ALLOPURINOL 300 MG TABLET PO SCH (08:47)
[2018-04-24] MEDS: MAGNESIUM OXIDE 400 MG TABLET PO SCH (08:48)
[2018-04-24] MEDS: MULTIVITS,STRESS FORMULA 1 TABLET PO SCH (08:48)
[2018-04-24] MEDS: LORATADINE 10 MG TABLET PO SCH (08:48)
[2018-04-24] MEDS: PANTOPROZOLE 40MG TABLET PO SCH (08:48)
[2018-04-24] MEDS: CHOLECALCIFEROL 5,000u TAB PO SCH (08:48)
[2018-04-24] MEDS: SODIUM CHLORIDE FLUSH 10ML SYR IVF SCH (08:49)
[2018-04-24 13:03] VITALS: BP 142/85
== END 2018-04-24 13:21 | disposition home or self-care (01) | DRG 480 ==
LOC: ED 03-01 00:26 → EDIP 03-01 01:01 → 3NW 03-01 01:40
PROVIDERS: ADMIT Hospitalist; ATTEND Family Medicine
PROC: 07DR3ZX Extraction of Iliac Bone Marrow, Percutaneous Approach, Diagnostic (ICD-10-PCS; 2018-03-01)
PROC: 07DR3ZZ Extraction of Iliac Bone Marrow, Percutaneous Approach (ICD-10-PCS; 2018-03-01)
PROC: 0QS606Z Reposition Right Upper Femur with Intramedullary Internal Fixation Device, Open Approach (ICD-10-PCS; principal; 2018-03-01 19:30)
PROC: 30233N1 Transfusion of Nonautologous Red Blood Cells into Peripheral Vein, Percutaneous Approach (ICD-10-PCS; 2018-03-03)
PROC: 02HV33Z Insertion of Infusion Device into Superior Vena Cava, Percutaneous Approach (ICD-10-PCS; 2018-03-11)
PROC: B5181ZA Fluoroscopy of Superior Vena Cava using Low Osmolar Contrast, Guidance (ICD-10-PCS; 2018-03-11)
PROC: B548ZZA Ultrasonography of Superior Vena Cava, Guidance (ICD-10-PCS; 2018-03-11)
PROC: 009U3ZZ Drainage of Spinal Canal, Percutaneous Approach (ICD-10-PCS; 2018-03-20)
PROC: B01B1ZZ Fluoroscopy of Spinal Cord using Low Osmolar Contrast (ICD-10-PCS; 2018-03-20)
PROC: 3E0R305 Introduction of Other Antineoplastic into Spinal Canal, Percutaneous Approach (ICD-10-PCS; 2018-03-20)
PROC: 009U3ZZ Drainage of Spinal Canal, Percutaneous Approach (ICD-10-PCS; 2018-04-10)
PROC: B01B1ZZ Fluoroscopy of Spinal Cord using Low Osmolar Contrast (ICD-10-PCS; 2018-04-10)
PROC: 3E0R305 Introduction of Other Antineoplastic into Spinal Canal, Percutaneous Approach (ICD-10-PCS; 2018-04-10)
DX: M84.451A Pathological fracture, right femur, initial encounter for fracture (principal); E43 Unspecified severe protein-calorie malnutrition; N17.0 Acute kidney failure with tubular necrosis; D61.818 Other pancytopenia; T81.49XA Infection following a procedure, other surgical site, initial encounter; D62 Acute posthemorrhagic anemia; E87.0 Hyperosmolality and hypernatremia; E87.1 Hypo-osmolality and hyponatremia; C82.90 Follicular lymphoma, unspecified, unspecified site; L03.115 Cellulitis of right lower limb; C83.35 Diffuse large B-cell lymphoma, lymph nodes of inguinal region and lower limb; C79.51 Secondary malignant neoplasm of bone; C83.39 Diffuse large B-cell lymphoma, extranodal and solid organ sites; C50.919 Malignant neoplasm of unspecified site of unspecified female breast; B37.3 Candidiasis of vulva and vagina; D63.8 Anemia in other chronic diseases classified elsewhere; E83.52 Hypercalcemia; Z68.30 Body mass index [BMI] 30.0-30.9, adult; D64.81 Anemia due to antineoplastic chemotherapy; E87.5 Hyperkalemia; E87.8 Other disorders of electrolyte and fluid balance, not elsewhere classified; F17.210 Nicotine dependence, cigarettes, uncomplicated; E83.42 Hypomagnesemia; G89.29 Other chronic pain; I89.0 Lymphedema, not elsewhere classified; K21.9 Gastro-esophageal reflux disease without esophagitis; M16.11 Unilateral primary osteoarthritis, right hip; M85.80 Other specified disorders of bone density and structure, unspecified site; B96.20 Unspecified Escherichia coli [E. coli] as the cause of diseases classified elsewhere; B95.2 Enterococcus as the cause of diseases classified elsewhere; B95.7 Other staphylococcus as the cause of diseases classified elsewhere; Z16.12 Extended spectrum beta lactamase (ESBL) resistance; F32.9 Major depressive disorder, single episode, unspecified; T50.995A Adverse effect of other drugs, medicaments and biological substances, initial encounter; F41.9 Anxiety disorder, unspecified; J45.909 Unspecified asthma, uncomplicated; R91.8 Other nonspecific abnormal finding of lung field; M79.89 Other specified soft tissue disorders; T45.1X5A Adverse effect of antineoplastic and immunosuppressive drugs, initial encounter; T45.8X5A Adverse effect of other primarily systemic and hematological agents, initial encounter; Z15.01 Genetic susceptibility to malignant neoplasm of breast; Z80.42 Family history of malignant neoplasm of prostate; Z82.49 Family history of ischemic heart disease and other diseases of the circulatory system; Z83.3 Family history of diabetes mellitus; Z86.19 Personal history of other infectious and parasitic diseases; Z85.3 Personal history of malignant neoplasm of breast; Z87.311 Personal history of (healed) other pathological fracture; Z90.710 Acquired absence of both cervix and uterus; Z91.19 Patient's noncompliance with other medical treatment and regimen; Z92.3 Personal history of irradiation; Z88.2 Allergy status to sulfonamides; Z88.0 Allergy status to penicillin; Y92.89 Other specified places as the place of occurrence of the external cause; Y83.8 Other surgical procedures as the cause of abnormal reaction of the patient, or of later complication, without mention of misadventure at the time of the procedure
CPT/HCPCS: 36415; 72170; 73501; 73552; 73590; 76001; 77001; 99285; S0028; 36430; 36561; 38222; 62270; 71045; 71250; 74176; 76937; 77012; 80048; 80053; 82040; 82272; 82330; 82550; 83540; 83550; 83615; 83735; 84100; 84439; 84443; 84550; 85025; 85060; 85097; 85610; 85651; 85730; 86140; 86704; 86706; 86708; 86803; 86850; 86900; 86923; 87040; 87070; 87077; 87186; 87205; 87340; 88108; 88237; 88264; 88280; 88305; 88307; 88311; 88313; 88341; 88342; 93005; 93306; 96374; 96376; 99156; 99157; C1713; G0378; J0690; J0878; J1100; J1170; J1335; J1453; J1644; J1885; J1940; J2250; J2405; J2550; J2704; J3010; J3301; J3370; J3490; J7070; J9070; J9250; J9310; J9370; Q0162; Q0167; C1788; G0461; J0330; J1200; J1447; J1642; J2310; J2430; J3475; J7030; J7040; J7050; J7512; J9000; P9040; Q0163

== ENCOUNTER 2018-05-03 11:43 | Day surgery (SDC) | payer OTHER ==
[~2018-05-03] VITALS: Ht 160 cm; Wt 82.6 kg
[~2018-05-03 11:43] MED LIST changes: +ALLO300T PO; +METH750T2 PO; +PANT40TA5 PO
[2018-05-03] MEDS ORDERED: LIDOCAINE-MPF 1%, 5ML ONE (12:50)
[2018-05-03 12:51] VITALS: BP 130/76
[2018-05-03] MEDS ORDERED: SODIUM CHLORIDE 0.9% 1,000 ML IV SCH (12:56)
[2018-05-03] MEDS ORDERED: ONDA8TAB12 PO (13:00)
[2018-05-03] MEDS ORDERED: METHOTREXATE/PF 2ML 12 MG in SODIUM CHLORIDE 0.9% 5.52 ML IT ONE (13:00)
[2018-05-03] MEDS ORDERED: OXYC5CAP2 PO (13:00)
[2018-05-03] MEDS ORDERED: PREDNISONE PO (13:00)
== END 2018-05-03 18:15 | disposition home or self-care (01) ==
LOC: OUT 11:43
PROVIDERS: ATTEND Internal Medicine Hematology & Oncology
DX: C83.30 Diffuse large B-cell lymphoma, unspecified site (principal); J44.9 Chronic obstructive pulmonary disease, unspecified; Z88.0 Allergy status to penicillin; Z88.8 Allergy status to other drugs, medicaments and biological substances
CPT/HCPCS: 62270; J7030; J9250

== ENCOUNTER → 2018-05-16 | Outpatient (CLI) | payer OTHER ==
[~2018-05-16] MED LIST changes: +OMNIPAQUE 350 MG/ML, 100ML BOTTLE ONE; +ONDA8TAB12 PO; +OXYC5CAP2 PO; +PREDNISONE PO
== END | disposition home or self-care (01) ==
LOC: RAD 05-03 11:01
PROVIDERS: ATTEND Internal Medicine Hematology & Oncology
DX: J43.2 Centrilobular emphysema (principal); R91.8 Other nonspecific abnormal finding of lung field; M48.54XA Collapsed vertebra, not elsewhere classified, thoracic region, initial encounter for fracture; C50.911 Malignant neoplasm of unspecified site of right female breast; C83.35 Diffuse large B-cell lymphoma, lymph nodes of inguinal region and lower limb
CPT/HCPCS: 71260; 74177; J1642; Q9967

== ENCOUNTER 2018-05-21 13:17 | Day surgery (SDC) | payer OTHER ==
[~2018-05-21] VITALS: Ht 160 cm; Wt 80.8 kg
[~2018-05-21 13:17] MED LIST changes: -OMNIPAQUE 350 MG/ML, 100ML BOTTLE ONE
[2018-05-21 13:47] VITALS: BP 133/80
[2018-05-21] MEDS ORDERED: METHOTREXATE IV ONE (14:45)
[2018-05-21] MEDS ORDERED: SODIUM CHLORIDE 0.9% IV ONE (14:45)
[2018-05-21] MEDS ORDERED: LIDOCAINE-MPF 1%, 5ML ONE (14:55)
[2018-05-21] MEDS ORDERED: SODIUM BICARBONATE 4.0%, 5ML ONE (15:12)
== END 2018-05-21 19:05 | disposition home or self-care (01) ==
LOC: OUT 13:17 → 4NOR 16:23 → OUT 19:05
PROVIDERS: ATTEND Internal Medicine Hematology & Oncology
DX: C83.30 Diffuse large B-cell lymphoma, unspecified site (principal); M54.5 Low back pain; J44.9 Chronic obstructive pulmonary disease, unspecified; Z88.1 Allergy status to other antibiotic agents; Z88.2 Allergy status to sulfonamides; Z88.0 Allergy status to penicillin; Z79.1 Long term (current) use of non-steroidal anti-inflammatories (NSAID); Z79.899 Other long term (current) drug therapy; Z87.891 Personal history of nicotine dependence; Z72.89 Other problems related to lifestyle; Z80.42 Family history of malignant neoplasm of prostate; Z82.49 Family history of ischemic heart disease and other diseases of the circulatory system
CPT/HCPCS: 62270; G0378; J9250

== ENCOUNTER 2018-06-13 07:13 | Day surgery (SDC) | payer OTHER ==
[~2018-06-13] VITALS: Ht 160 cm; Wt 81.8 kg
[2018-06-13] MEDS ORDERED: SODIUM CHLORIDE 0.9% 1,000 ML IV SCH (07:55)
[2018-06-13 07:58] VITALS: BP 147/76
[2018-06-13] MEDS ORDERED: LIDOCAINE-MPF 1%, 5ML ONE (08:46)
[2018-06-13] MEDS ORDERED: METHOTREXATE/PF 2ML 12 MG in SODIUM CHLORIDE 0.9% 5.52 ML IT ONE (09:00)
== END 2018-06-13 13:45 | disposition home or self-care (01) ==
LOC: OUT 07:13
PROVIDERS: ATTEND Internal Medicine Hematology & Oncology
DX: C83.35 Diffuse large B-cell lymphoma, lymph nodes of inguinal region and lower limb (principal); J44.9 Chronic obstructive pulmonary disease, unspecified; Z88.0 Allergy status to penicillin; Z88.8 Allergy status to other drugs, medicaments and biological substances; Z87.891 Personal history of nicotine dependence; Z88.1 Allergy status to other antibiotic agents
CPT/HCPCS: 62270; 77003; J7030; J9250

== ENCOUNTER 2018-07-08 12:16 | Day surgery (SDC) | payer OTHER ==
[2018-07-08 13:14] LABS: MEAN CORPUSCULAR HEMOGLOBIN 31.9 pg (27.0-34.8); MEAN CORPUSCULAR HGB CONC 32.6 g/dL (32.4-35.8); MEAN CORPUSCULAR VOLUME 97.9 fL (80-100); MEAN PLATELET VOLUME 8.1 fL (7.4-10.4); PLATELET COUNT 133 x10^3/uL (130-400); RED BLOOD COUNT 3.33 x10^6/uL (3.82-5.3); RED CELL DISTRIBUTION WIDTH 15.4 % (9.6-15.2)
[2018-07-08 13:52] LABS: BASOPHILS # (AUTO) 0.07 x10^3/uL (0-0.1); BASOPHILS % (AUTO) 1 % (0-1); EOSINOPHILS # (AUTO) 0.01 x10^3/uL (0-0.4); EOSINOPHILS % (AUTO) 0 % (1-7); LYMPHOCYTES # (AUTO) 0.22 x10^3/uL (1-3.4); LYMPHOCYTES % (AUTO) 2 % (22-44); MD SCAN; MONOCYTES # (AUTO) 0.07 x10^3/uL (0.2-0.8); MONOCYTES % (AUTO) 1 % (2-9); NEUTROPHILS # (AUTO) 14.22 x10^3/uL (1.8-6.8); NEUTROPHILS % (AUTO) 98 % (42-75)
[2018-07-08] MEDS ORDERED: METHOTREXATE/PF 2ML 12 MG in SODIUM CHLORIDE 0.9% 5.52 ML IT ONE (14:00)
[2018-07-08] MEDS ORDERED: LIDOCAINE-MPF 1%, 5ML ONE (14:22)
== END 2018-07-08 18:00 | disposition home or self-care (01) ==
LOC: OUT 12:16 → EDSTATUS 14:00 → OUT 18:00
PROVIDERS: ATTEND Internal Medicine Hematology & Oncology
DX: C83.35 Diffuse large B-cell lymphoma, lymph nodes of inguinal region and lower limb (principal); D50.9 Iron deficiency anemia, unspecified; Z88.1 Allergy status to other antibiotic agents; Z88.0 Allergy status to penicillin; Z88.8 Allergy status to other drugs, medicaments and biological substances; Z85.3 Personal history of malignant neoplasm of breast
CPT/HCPCS: 36415; 62270; 77003; 85025; J9250

== ENCOUNTER → 2018-07-31 | Outpatient (CLI) | payer OTHER | END | disposition home or self-care (01) | LOC: PETCFH 07:46 | PROVIDERS: ATTEND Internal Medicine Hematology & Oncology | DX: M48.54XA Collapsed vertebra, not elsewhere classified, thoracic region, initial encounter for fracture (principal); M48.56XA Collapsed vertebra, not elsewhere classified, lumbar region, initial encounter for fracture; C50.911 Malignant neoplasm of unspecified site of right female breast; C83.35 Diffuse large B-cell lymphoma, lymph nodes of inguinal region and lower limb; G95.89 Other specified diseases of spinal cord | CPT/HCPCS: 78815; A9552 ==

== ENCOUNTER 2018-08-13 08:24 | Day surgery (SDC) | payer OTHER ==
[~2018-08-13] VITALS: Ht 160 cm; Wt 79.1 kg
[2018-08-13] MEDS ORDERED: SODIUM CHLORIDE 0.9% 1,000 ML IV SCH (08:54)
[2018-08-13 09:23] VITALS: BP 131/80
[2018-08-13] MEDS ORDERED: LIDOCAINE 1%, 20ML ONE (09:48)
== END 2018-08-13 11:05 | disposition home or self-care (01) ==
LOC: OUT 08:24
PROVIDERS: ATTEND Internal Medicine Hematology & Oncology
DX: Z45.2 Encounter for adjustment and management of vascular access device (principal); C50.911 Malignant neoplasm of unspecified site of right female breast; Z88.1 Allergy status to other antibiotic agents; Z88.0 Allergy status to penicillin; Z88.8 Allergy status to other drugs, medicaments and biological substances
CPT/HCPCS: 36590; 77001; J3490; J7030

== ENCOUNTER 2018-10-29 20:52 | Inpatient (IN) | payer OTHER ==
[~2018-10-29] VITALS: Ht 160 cm; Wt 79.2 kg
[2018-10-29] MEDS ORDERED: ACETAMINOPHEN 325 MG TABLET PO ONE (21:30)
[2018-10-29] MEDS ORDERED: MORPHINE SULFATE 4 MG/ML, 1ML IVPush PRN (21:30)
[2018-10-29] MEDS ORDERED: SODIUM CHLORIDE FLUSH 10ML SYR IVF ONE (21:30)
[2018-10-29] MEDS ORDERED: ONDANSETRON 2MG/ML, 2ML IVPush ONE (21:30)
[2018-10-29] MEDS ORDERED: ONDANSETRON 2MG/ML, 2ML ONE (21:36)
[2018-10-29] MEDS ORDERED: ACETAMINOPHEN 325 MG TABLET ONE (21:37)
[2018-10-29] MEDS ORDERED: MORPHINE SULFATE 4 MG/ML, 1ML ONE (21:37)
[2018-10-29 21:47] LABS: ALANINE AMINOTRANSFERASE 20 U/L (12-78); ALBUMIN 2.9 g/dL (3.4-5.0); ANION GAP 9 mmol/L (5-15); CALCIUM 8.8 mg/dL (8.5-10.1); CHLORIDE 98 mmol/L (98-107); CREATININE 0.86 mg/dL (0.55-1.02)
[2018-10-29 21:49] LABS: ALKALINE PHOSPHATASE 83 U/L (45-117); BILIRUBIN,TOTAL 0.8 mg/dL (0.2-1.0); TOTAL PROTEIN 6.9 g/dL (6.4-8.2)
[2018-10-29 22:05] LABS: MEAN CORPUSCULAR HEMOGLOBIN 34.7 pg (27.0-34.8); MEAN CORPUSCULAR HGB CONC 36.3 g/dL (32.4-35.8); MEAN CORPUSCULAR VOLUME 95.6 fL (80-100); RED BLOOD COUNT 1.76 x10^6/uL (3.82-5.3); RED CELL DISTRIBUTION WIDTH 20.9 % (9.6-15.2)
[2018-10-29 22:11] LABS: MEAN PLATELET VOLUME 8.9 fL (7.4-10.4); PLATELET COUNT 19 x10^3/uL (130-400)
[2018-10-29 22:28] LABS: MICROSCOPIC INDICATED
[2018-10-29] MEDS ORDERED: VANCOMYCIN PER PHARMACY MC PRN (22:30)
[2018-10-29] MEDS ORDERED: CEFEPIME 1 GM in DEXTROSE 5% 50 ML IV ONE (22:30)
[2018-10-29] MEDS ORDERED: VANCOMYCIN 1,500 MG in SODIUM CHLORIDE 0.9% 250 ML IV ONE (22:30)
[2018-10-29] MEDS ORDERED: SODIUM CHLORIDE 0.9% 1,000ML IVBOLUS ONE (22:30)
[2018-10-29 22:40] LABS: CULTURE INDICATED? NO
[2018-10-29] MEDS ORDERED: POTASSIUM CHLORIDE 20 MEQ TAB.ER.PRT PO ONE (23:00)
[2018-10-29] MEDS ORDERED: POTASSIUM CHLORIDE 20 MEQ TAB.ER.PRT ONE (23:28)
[2018-10-29] MEDS ORDERED: CALC-545 PO (23:33)
[2018-10-29] MEDS ORDERED: ESOM40CA PO (23:33)
[2018-10-30] VITALS (14 sets, daily range): BP systolic 91–132; BP diastolic 55–79
[2018-10-30 01:02] LABS: MD YES
[2018-10-30 01:15] LABS: BAND#(MANUAL) 0.06 x10^3/uL; BANDS%(MANUAL) 14 % (0-7); LYMPH#(MANUAL) 0.18 x10^3/uL (1-3.4); LYMPHS% (MANUAL) 46 % (22-44); SEG#(MANUAL) 0.15 x10^3/uL (1.8-6.8); SEGS% (MANUAL) 38 % (42-75)
[2018-10-30 01:16] LABS: OTHER CELLS # (MANUAL) 0.01 x10^3/uL (0-0); OTHER CELLS % (MANUAL) 2 % (0-0)
[2018-10-30 01:17] LABS: ANISOCYTOSIS 2+
[2018-10-30 01:19] LABS: <PLATELET ESTIMATE> DECREASED; <PLT MORPHOLOGY> NORMAL PLT MORPH; OVALOCYTES 1+
[2018-10-30] MEDS ORDERED: CEFEPIME 2 GM in DEXTROSE 5% 100 ML IV SCH (01:30)
[2018-10-30] MEDS ORDERED: KETOROLAC 30 MG/1 ML IV PRN (01:30)
[2018-10-30] MEDS ORDERED: VANCOMYCIN PER PHARMACY MC SCH (01:30)
[2018-10-30] MEDS ORDERED: LABETALOL 5MG/ML, 20ML IVPush PRN (01:30)
[2018-10-30] MEDS: DIPHENHYDRAMINE 25 MG CAPSULE PO PRN (01:51)
[2018-10-30] MEDS: ACETAMINOPHEN 325 MG TABLET PO PRN ×3 (01:51→19:34)
[2018-10-30] MEDS: D5%-0.45NACL+KCL 20MEQ 1,000 ML IV SCH ×3 (02:16→17:22)
[2018-10-30] MEDS ORDERED: PHARMACOKINETIC MONITORING MC PRN (06:00)
[2018-10-30] MEDS ORDERED: PHARMACOKINETIC CONSULTATION MC ONE (06:00)
[2018-10-30 09:47] LABS: ALBUMIN 2.6 g/dL (3.4-5.0); ANION GAP 5 mmol/L (5-15); CALCIUM 9.2 mg/dL (8.5-10.1); CHLORIDE 105 mmol/L (98-107)
[2018-10-30 09:50] LABS: ALANINE AMINOTRANSFERASE 19 U/L (12-78); ALKALINE PHOSPHATASE 75 U/L (45-117); BILIRUBIN,TOTAL 1.1 mg/dL (0.2-1.0); CREATININE 0.76 mg/dL (0.55-1.02); TOTAL PROTEIN 6.2 g/dL (6.4-8.2)
[2018-10-30 10:19] LABS: MEAN CORPUSCULAR HEMOGLOBIN 32.7 pg (27.0-34.8); MEAN CORPUSCULAR HGB CONC 34.9 g/dL (32.4-35.8); MEAN CORPUSCULAR VOLUME 93.7 fL (80-100); MEAN PLATELET VOLUME 9.3 fL (7.4-10.4)
[2018-10-30 10:20] LABS: PLATELET COUNT 15 x10^3/uL (130-400)
[2018-10-30 10:21] LABS: MD YES
[2018-10-30 10:28] LABS: BAND#(MANUAL) 0.02 x10^3/uL; BANDS%(MANUAL) 6 % (0-7); MONOS#(MANUAL) 0.01 x10^3/uL (0.3-2.7); MONOS% (MANUAL) 2 % (2-9)
[2018-10-30 10:29] LABS: LYMPH#(MANUAL) 0.25 x10^3/uL (1-3.4); LYMPHS% (MANUAL) 62 % (22-44); OTHER CELLS # (MANUAL) 0.01 x10^3/uL (0-0); SEG#(MANUAL) 0.11 x10^3/uL (1.8-6.8); SEGS% (MANUAL) 28 % (42-75)
[2018-10-30 10:30] LABS: OTHER CELLS % (MANUAL) 2 % (0-0)
[2018-10-30 10:31] LABS: <PLATELET ESTIMATE> DECREASED; <PLT MORPHOLOGY> NORMAL PLT MORPH; ANISOCYTOSIS 1+; OVALOCYTES 1+
[2018-10-30] MEDS ORDERED: PANTOPRAZOLE 40 MG IV IVPush SCH (11:30)
[2018-10-30] MEDS: ONDANSETRON 2MG/ML, 2ML IVPush PRN ×2 (11:59→21:13)
[2018-10-30] MEDS: MEROPENEM 1 GM in SODIUM CHLORIDE 0.9% 100 ML IV SCH ×2 (12:00→19:35)
[2018-10-30] MEDS ORDERED: KETOROLAC 30 MG/1 ML ONE (13:36)
[2018-10-30] MEDS: FLUCONAZOLE 400 MG/200 ML 200 ML IV SCH (13:42)
[2018-10-30] MEDS ORDERED: KETOROLAC 30 MG/1 ML IVPush ONE (14:00)
[2018-10-30] MEDS ORDERED: KETOROLAC 30 MG/1 ML IVPush PRN (14:00)
[2018-10-30] MEDS: VANCOMYCIN 1,400 MG in SODIUM CHLORIDE 0.9% 250 ML IV SCH (17:18)
[2018-10-30] MEDS ORDERED: OMNIPAQUE 350 MG/ML, 100ML BOTTLE ONE (18:04)
[2018-10-30] MEDS: HYDROmorphone 2 MG/ML, 1ML IVPush PRN (21:53)
[2018-10-31] MEDS: ACETAMINOPHEN 325 MG TABLET PO PRN ×4 (00:41→21:03)
[2018-10-31 01:03] VITALS: BP 127/72
[2018-10-31] MEDS: morphine SULFATE 10 MG/ML, 1ML IVPush PRN ×3 (01:06→23:03)
[2018-10-31] MEDS: D5%-0.45NACL+KCL 20MEQ 1,000 ML IV SCH ×2 (01:55→13:45)
[2018-10-31] MEDS: MEROPENEM 1 GM in SODIUM CHLORIDE 0.9% 100 ML IV SCH ×3 (03:50→19:47)
[2018-10-31 05:11] LABS: ALBUMIN 2.1 g/dL (3.4-5.0); ANION GAP 7 mmol/L (5-15); CALCIUM 8.2 mg/dL (8.5-10.1); CHLORIDE 105 mmol/L (98-107)
[2018-10-31 05:16] LABS: ALANINE AMINOTRANSFERASE 36 U/L (12-78); ALKALINE PHOSPHATASE 85 U/L (45-117); CREATININE 0.75 mg/dL (0.55-1.02); TOTAL PROTEIN 5.4 g/dL (6.4-8.2)
[2018-10-31] MEDS: PANTOPROZOLE 40MG TABLET PO SCH (06:23)
[2018-10-31 06:32] LABS: MEAN CORPUSCULAR HEMOGLOBIN 33.4 pg (27.0-34.8); MEAN CORPUSCULAR HGB CONC 35.3 g/dL (32.4-35.8); MEAN CORPUSCULAR VOLUME 94.7 fL (80-100); RED BLOOD COUNT 2.25 x10^6/uL (3.82-5.3); RED CELL DISTRIBUTION WIDTH 17.4 % (9.6-15.2)
[2018-10-31 06:42] LABS: MD YES
[2018-10-31 06:48] LABS: MEAN PLATELET VOLUME 7.7 fL (7.4-10.4)
[2018-10-31 06:49] LABS: PLATELET COUNT 12 x10^3/uL (130-400)
[2018-10-31 07:09] LABS: SEG#(MANUAL) 0.07 x10^3/uL (1.8-6.8)
[2018-10-31 07:13] LABS: BAND#(MANUAL) 0.01 x10^3/uL; BANDS%(MANUAL) 4 % (0-7); EOS% (MANUAL) 2 % (1-7); LYMPHS% (MANUAL) 50 % (22-44); MONOS#(MANUAL) 0.02 x10^3/uL (0.3-2.7); MONOS% (MANUAL) 8 % (2-9); SEGS% (MANUAL) 34 % (42-75)
[2018-10-31 07:15] LABS: OTHER CELLS % (MANUAL) 2 % (0-0)
[2018-10-31 07:16] LABS: ANISOCYTOSIS 1+
[2018-10-31 07:17] LABS: <PLATELET ESTIMATE> DECREASED; <PLT MORPHOLOGY> NORMAL PLT MORPH
[2018-10-31 08:22] VITALS: BP 125/69
[2018-10-31 09:18] LABS: FOLATE LEVEL > 20.0 ng/mL (3.1-17.5); SEDIMENTATION RATE > 120 mm/hr (0-20)
[2018-10-31 09:31] LABS: HCT (SEDRATE) 19.7 % (34.6-47.8)
[2018-10-31] MEDS ORDERED: LIDOCAINE-MPF 1%, 5ML ONE (09:58)
[2018-10-31] MEDS ORDERED: FENTANYL PF 100 MCG/2ML ONE (10:06)
[2018-10-31] MEDS ORDERED: FLUMAZENIL 0.1 MG/1 ML, 5ML ONE (10:06)
[2018-10-31] MEDS ORDERED: NALOXONE 1 MG/ML, 2ML ONE (10:06)
[2018-10-31] MEDS ORDERED: MIDAZOLAM 1 MG/ML, 5ML ONE (10:06)
[2018-10-31 11:31] VITALS: BP 107/63
[2018-10-31] MEDS: VANCOMYCIN 1,400 MG in SODIUM CHLORIDE 0.9% 250 ML IV SCH (12:05)
[2018-10-31] MEDS: FLUCONAZOLE 400 MG/200 ML 200 ML IV SCH (13:45)
[2018-10-31 13:47] VITALS: BP 110/68
[2018-10-31 15:45] LABS: ANA SCREEN POSITIVE (Negative)
[2018-10-31 15:46] LABS: ANA TITER 1:40; ANTI-NUCLEAR ANTIBODY PATTERN SPECKLED
[2018-10-31] MEDS ORDERED: MORPHINE SULFATE 4 MG/ML, 1ML ONE ×2 (19:41→22:59)
[2018-10-31] MEDS: ONDANSETRON 2MG/ML, 2ML IVPush PRN (19:47)
[2018-10-31 20:13] VITALS: BP 118/65
[2018-10-31] MEDS: DIPHENHYDRAMINE 25 MG CAPSULE PO PRN (23:02)
[2018-11-01] VITALS (8 sets, daily range): BP systolic 98–137; BP diastolic 59–78
[2018-11-01] MEDS: D5%-0.45NACL+KCL 20MEQ 1,000 ML IV SCH ×3 (03:52→21:30)
[2018-11-01] MEDS: MEROPENEM 1 GM in SODIUM CHLORIDE 0.9% 100 ML IV SCH ×3 (04:00→21:18)
[2018-11-01] MEDS ORDERED: MORPHINE SULFATE 4 MG/ML, 1ML ONE ×2 (04:02→21:11)
[2018-11-01] MEDS: morphine SULFATE 10 MG/ML, 1ML IVPush PRN ×3 (04:06→21:15)
[2018-11-01] MEDS: ACETAMINOPHEN 325 MG TABLET PO PRN ×3 (04:12→20:00)
[2018-11-01 06:28] LABS: ALBUMIN 1.8 g/dL (3.4-5.0); ANION GAP 7 mmol/L (5-15); CHLORIDE 106 mmol/L (98-107)
[2018-11-01 06:32] LABS: ALANINE AMINOTRANSFERASE 33 U/L (12-78); ALKALINE PHOSPHATASE 117 U/L (45-117); BILIRUBIN,TOTAL 0.5 mg/dL (0.2-1.0); CREATININE 0.69 mg/dL (0.55-1.02); TOTAL PROTEIN 5.1 g/dL (6.4-8.2); VANCOMYCIN,TROUGH 6.3 mcg/mL (5.0-10.0)
[2018-11-01] MEDS: PANTOPROZOLE 40MG TABLET PO SCH (06:44)
[2018-11-01] MEDS: VANCOMYCIN 1,400 MG in SODIUM CHLORIDE 0.9% 250 ML IV SCH (06:44)
[2018-11-01 07:27] LABS: MD YES; MEAN CORPUSCULAR HEMOGLOBIN 33.2 pg (27.0-34.8); MEAN CORPUSCULAR HGB CONC 35.2 g/dL (32.4-35.8); MEAN CORPUSCULAR VOLUME 94.2 fL (80-100); MEAN PLATELET VOLUME 8.9 fL (7.4-10.4); RED BLOOD COUNT 1.97 x10^6/uL (3.82-5.3); RED CELL DISTRIBUTION WIDTH 16.6 % (9.6-15.2)
[2018-11-01 07:29] LABS: PLATELET COUNT 11 x10^3/uL (130-400)
[2018-11-01 07:46] LABS: BAND#(MANUAL) 0.01 x10^3/uL; BANDS%(MANUAL) 3 % (0-7); EOS#(MANUAL) 0.01 x10^3/uL (0.0-0.4); EOS% (MANUAL) 2 % (1-7); LYMPH#(MANUAL) 0.17 x10^3/uL (1-3.4); LYMPHS% (MANUAL) 57 % (22-44); SEG#(MANUAL) 0.11 x10^3/uL (1.8-6.8); SEGS% (MANUAL) 38 % (42-75)
[2018-11-01 07:48] LABS: ANISOCYTOSIS 1+
[2018-11-01 07:49] LABS: <PLATELET ESTIMATE> DECREASED; OVALOCYTES 1+
[2018-11-01 07:50] LABS: <PLT MORPHOLOGY> NORMAL PLT MORPH
[2018-11-01] MEDS ORDERED: DIPHENHYDRAMINE 25 MG CAPSULE PO PRN (08:00)
[2018-11-01] MEDS ORDERED: ACETAMINOPHEN 325 MG TABLET PO ONE (08:00)
[2018-11-01] MEDS: HYDROmorphone 2 MG/ML, 1ML IVPush PRN (12:06)
[2018-11-01] MEDS: FLUCONAZOLE 400 MG/200 ML 200 ML IV SCH (15:19)
[2018-11-01] MEDS: METHYL SALICYLATE/MENTHOL CRM 85GM TP SCH ×2 (16:18→21:15)
[2018-11-01] MEDS: VANCOMYCIN 1,500 MG in SODIUM CHLORIDE 0.9% 250 ML IV SCH (18:59)
[2018-11-01] MEDS: DIPHENHYDRAMINE 25 MG CAPSULE PO PRN (21:15)
[2018-11-02] VITALS (7 sets, daily range): BP systolic 116–169; BP diastolic 68–102
[2018-11-02] MEDS ORDERED: MORPHINE SULFATE 4 MG/ML, 1ML ONE (02:32)
[2018-11-02] MEDS: morphine SULFATE 10 MG/ML, 1ML IVPush PRN ×5 (02:36→21:10)
[2018-11-02] MEDS: ACETAMINOPHEN 325 MG TABLET PO PRN ×4 (02:41→21:33)
[2018-11-02 04:24] LABS: ALBUMIN 1.9 g/dL (3.4-5.0); ANION GAP 7 mmol/L (5-15); CALCIUM 7.9 mg/dL (8.5-10.1); CHLORIDE 107 mmol/L (98-107)
[2018-11-02 04:25] LABS: MEAN CORPUSCULAR HEMOGLOBIN 32.8 pg (27.0-34.8); MEAN CORPUSCULAR HGB CONC 35.3 g/dL (32.4-35.8); MEAN CORPUSCULAR VOLUME 93.1 fL (80-100); MEAN PLATELET VOLUME 9.5 fL (7.4-10.4); RED BLOOD COUNT 2.38 x10^6/uL (3.82-5.3); RED CELL DISTRIBUTION WIDTH 16.9 % (9.6-15.2)
[2018-11-02 04:30] LABS: ALANINE AMINOTRANSFERASE 67 U/L (12-78); ALKALINE PHOSPHATASE 145 U/L (45-117); BILIRUBIN,TOTAL 0.8 mg/dL (0.2-1.0); CREATININE 0.56 mg/dL (0.55-1.02); TOTAL PROTEIN 5.2 g/dL (6.4-8.2)
[2018-11-02 04:32] LABS: PLATELET COUNT 13 x10^3/uL (130-400)
[2018-11-02] MEDS: MEROPENEM 1 GM in SODIUM CHLORIDE 0.9% 100 ML IV SCH ×3 (05:00→18:54)
[2018-11-02] MEDS: D5%-0.45NACL+KCL 20MEQ 1,000 ML IV SCH ×3 (05:30→20:57)
[2018-11-02 05:50] LABS: MD YES
[2018-11-02] MEDS: PANTOPROZOLE 40MG TABLET PO SCH (06:19)
[2018-11-02] MEDS: VANCOMYCIN 1,500 MG in SODIUM CHLORIDE 0.9% 250 ML IV SCH (06:19)
[2018-11-02 07:52] LABS: BAND#(MANUAL) 0.01 x10^3/uL; BANDS%(MANUAL) 2 % (0-7); EOS#(MANUAL) 0.01 x10^3/uL (0.0-0.4); EOS% (MANUAL) 2 % (1-7); LYMPHS% (MANUAL) 74 % (22-44); SEG#(MANUAL) 0.07 x10^3/uL (1.8-6.8); SEGS% (MANUAL) 18 % (42-75)
[2018-11-02 07:53] LABS: OTHER CELLS # (MANUAL) 0.02 x10^3/uL (0-0); OTHER CELLS % (MANUAL) 4 % (0-0)
[2018-11-02 07:54] LABS: <PLATELET ESTIMATE> DECREASED; <PLT MORPHOLOGY> NORMAL PLT MORPH; OVALOCYTES 1+
[2018-11-02 07:55] LABS: ANISOCYTOSIS 1+
[2018-11-02] MEDS: METHYL SALICYLATE/MENTHOL CRM 85GM TP SCH ×3 (09:50→20:57)
[2018-11-02] MEDS: POLYETHYLENE GLYCOL 17 GM PACKET PO PRN (10:49)
[2018-11-02 13:33] LABS: HCT (SEDRATE) 20.6 % (34.6-47.8)
[2018-11-02] MEDS: MICAFUNGIN 100 MG in SODIUM CHLORIDE 0.9% 100 ML IV SCH (13:58)
[2018-11-02 14:11] LABS: SEDIMENTATION RATE > 120 mm/hr (0-20)
[2018-11-02] MEDS: HYDROmorphone 2 MG/ML, 1ML IVPush PRN (16:13)
[2018-11-02] MEDS: DAPTOMYCIN 500 MG in SODIUM CHLORIDE 0.9% 100 ML IVPB SCH (16:13)
[2018-11-02] MEDS: DIPHENHYDRAMINE 25 MG CAPSULE PO PRN ×2 (16:14→22:40)
[2018-11-03 00:14] VITALS: BP 163/77
[2018-11-03] MEDS: morphine SULFATE 10 MG/ML, 1ML IVPush PRN ×4 (02:15→19:46)
[2018-11-03] MEDS: MEROPENEM 1 GM in SODIUM CHLORIDE 0.9% 100 ML IV SCH ×3 (03:41→19:46)
[2018-11-03] MEDS: ACETAMINOPHEN 325 MG TABLET PO PRN ×3 (05:04→21:40)
[2018-11-03] MEDS: DIPHENHYDRAMINE 25 MG CAPSULE PO PRN ×2 (05:04→21:40)
[2018-11-03] MEDS: PANTOPROZOLE 40MG TABLET PO SCH (05:04)
[2018-11-03] MEDS: D5%-0.45NACL+KCL 20MEQ 1,000 ML IV SCH ×3 (05:05→23:09)
[2018-11-03 05:50] LABS: CALCIUM 8.2 mg/dL (8.5-10.1); CHLORIDE 103 mmol/L (98-107)
[2018-11-03 05:56] LABS: ALANINE AMINOTRANSFERASE 62 U/L (12-78); ALBUMIN 2.1 g/dL (3.4-5.0); ALKALINE PHOSPHATASE 141 U/L (45-117); ANION GAP 6 mmol/L (5-15); BILIRUBIN,TOTAL 0.6 mg/dL (0.2-1.0); CREATININE 0.52 mg/dL (0.55-1.02); TOTAL PROTEIN 5.4 g/dL (6.4-8.2)
[2018-11-03 06:30] LABS: MEAN CORPUSCULAR HEMOGLOBIN 32.4 pg (27.0-34.8); MEAN CORPUSCULAR HGB CONC 34.5 g/dL (32.4-35.8); RED BLOOD COUNT 2.65 x10^6/uL (3.82-5.3); RED CELL DISTRIBUTION WIDTH 16.3 % (9.6-15.2)
[2018-11-03 06:40] VITALS: BP 139/71
[2018-11-03 08:15] LABS: MD YES; MEAN PLATELET VOLUME 9.7 fL (7.4-10.4)
[2018-11-03 08:16] LABS: PLATELET COUNT 14 x10^3/uL (130-400)
[2018-11-03 08:20] LABS: BAND#(MANUAL) 0.01 x10^3/uL; BANDS%(MANUAL) 2 % (0-7); EOS#(MANUAL) 0.01 x10^3/uL (0.0-0.4); EOS% (MANUAL) 2 % (1-7); LYMPH#(MANUAL) 0.34 x10^3/uL (1-3.4); LYMPHS% (MANUAL) 86 % (22-44); REACTIVE LYMPHS # (MANUAL) 0.01 x10^3/uL (0-0); REACTIVE LYMPHS % (MANUAL) 2 % (0-0); SEG#(MANUAL) 0.02 x10^3/uL (1.8-6.8); SEGS% (MANUAL) 6 % (42-75)
[2018-11-03 08:21] LABS: OTHER CELLS # (MANUAL) 0.01 x10^3/uL (0-0); OTHER CELLS % (MANUAL) 2 % (0-0)
[2018-11-03 08:22] LABS: <PLATELET ESTIMATE> DECREASED; <PLT MORPHOLOGY> NORMAL PLT MORPH; ANISOCYTOSIS 1+; OVALOCYTES 1+
[2018-11-03] MEDS: METHYL SALICYLATE/MENTHOL CRM 85GM TP SCH ×3 (09:00→20:16)
[2018-11-03 12:39] VITALS: BP 147/57
[2018-11-03] MEDS: MICAFUNGIN 100 MG in SODIUM CHLORIDE 0.9% 100 ML IV SCH (13:59)
[2018-11-03] MEDS: DAPTOMYCIN 500 MG in SODIUM CHLORIDE 0.9% 100 ML IVPB SCH (16:27)
[2018-11-03] MEDS ORDERED: OMNIPAQUE 350 MG/ML, 75ML BOTTLE ONE (17:17)
[2018-11-03] MEDS: POTASSIUM CHLORIDE 20 MEQ TAB.ER.PRT PO SCH ×2 (17:33→21:39)
[2018-11-03 19:53] VITALS: BP 133/84
[2018-11-03] MEDS: ONDANSETRON 2MG/ML, 2ML IVPush PRN (20:12)
[2018-11-03 20:38] VITALS: BP 130/54
[2018-11-03 21:42] VITALS: BP 148/79
[2018-11-03] MEDS: HYDROmorphone 2 MG/ML, 1ML IVPush PRN (21:57)
[2018-11-04 01:43] VITALS: BP 101/67
[2018-11-04] MEDS: morphine SULFATE 10 MG/ML, 1ML IVPush PRN ×2 (02:42→08:25)
[2018-11-04] MEDS: MEROPENEM 1 GM in SODIUM CHLORIDE 0.9% 100 ML IV SCH ×3 (03:39→19:38)
[2018-11-04] MEDS: HYDROmorphone 2 MG/ML, 1ML IVPush PRN ×2 (03:49→19:38)
[2018-11-04 05:30] LABS: HCT (SEDRATE) 25.3 % (34.6-47.8)
[2018-11-04 05:34] LABS: ALANINE AMINOTRANSFERASE 63 U/L (12-78); ANION GAP 4 mmol/L (5-15); CALCIUM 8.3 mg/dL (8.5-10.1); CHLORIDE 106 mmol/L (98-107)
[2018-11-04 05:44] LABS: ALKALINE PHOSPHATASE 123 U/L (45-117); BILIRUBIN,TOTAL 0.3 mg/dL (0.2-1.0); CREATINE KINASE, TOTAL 15 U/L (26-192); CREATININE 0.46 mg/dL (0.55-1.02); TOTAL PROTEIN 5.5 g/dL (6.4-8.2)
[2018-11-04] MEDS: PANTOPROZOLE 40MG TABLET PO SCH (05:45)
[2018-11-04 05:57] LABS: MEAN CORPUSCULAR HGB CONC 34.2 g/dL (32.4-35.8); MEAN CORPUSCULAR VOLUME 93.5 fL (80-100); MEAN PLATELET VOLUME 9.5 fL (7.4-10.4); RED CELL DISTRIBUTION WIDTH 16.2 % (9.6-15.2)
[2018-11-04 06:00] LABS: MD YES
[2018-11-04 06:01] LABS: PLATELET COUNT 18 x10^3/uL (130-400)
[2018-11-04] MEDS: POLYETHYLENE GLYCOL 17 GM PACKET PO PRN (06:01)
[2018-11-04 06:17] LABS: BAND#(MANUAL) 0.01 x10^3/uL; BANDS%(MANUAL) 2 % (0-7); LYMPH#(MANUAL) 0.32 x10^3/uL (1-3.4); LYMPHS% (MANUAL) 81 % (22-44); MONOS#(MANUAL) 0.02 x10^3/uL (0.3-2.7); MONOS% (MANUAL) 4 % (2-9); SEG#(MANUAL) 0.05 x10^3/uL (1.8-6.8); SEGS% (MANUAL) 13 % (42-75)
[2018-11-04 06:18] LABS: <PLATELET ESTIMATE> DECREASED; <PLT MORPHOLOGY> QNS FOR PLT MORPH; ANISOCYTOSIS 1+; OVALOCYTES 1+
[2018-11-04] MEDS: METHYL SALICYLATE/MENTHOL CRM 85GM TP SCH ×3 (08:09→20:02)
[2018-11-04] MEDS: D5%-0.45NACL+KCL 20MEQ 1,000 ML IV SCH ×2 (08:09→16:50)
[2018-11-04 08:57] VITALS: BP 127/84
[2018-11-04] MEDS: ACETAMINOPHEN 325 MG TABLET PO PRN (10:10)
[2018-11-04] MEDS: MICAFUNGIN 100 MG in SODIUM CHLORIDE 0.9% 100 ML IV SCH ×2 (14:00→17:44)
[2018-11-04 15:51] VITALS: BP 123/73
[2018-11-04] MEDS: DAPTOMYCIN 500 MG in SODIUM CHLORIDE 0.9% 100 ML IVPB SCH (17:10)
[2018-11-04 19:27] VITALS: BP 130/74
[2018-11-04] MEDS: ONDANSETRON 2MG/ML, 2ML IVPush PRN (19:38)
[2018-11-04 19:55] VITALS: BP 120/83
[2018-11-04] MEDS: OXYcodone/APAP 7.5/325MG TABLET PO PRN (20:02)
[2018-11-04] MEDS: DIPHENHYDRAMINE 25 MG CAPSULE PO PRN (22:33)
[2018-11-05] MEDS: D5%-0.45NACL+KCL 20MEQ 1,000 ML IV SCH ×3 (01:04→21:32)
[2018-11-05] MEDS: morphine SULFATE 10 MG/ML, 1ML IVPush PRN (01:15)
[2018-11-05 01:16] VITALS: BP 120/55
[2018-11-05] MEDS: MEROPENEM 1 GM in SODIUM CHLORIDE 0.9% 100 ML IV SCH ×3 (03:46→19:57)
[2018-11-05] MEDS: ACETAMINOPHEN 325 MG TABLET PO PRN (06:26)
[2018-11-05] MEDS: PANTOPROZOLE 40MG TABLET PO SCH (06:27)
[2018-11-05 06:54] LABS: MEAN CORPUSCULAR HEMOGLOBIN 32.5 pg (27.0-34.8); MEAN CORPUSCULAR HGB CONC 34.5 g/dL (32.4-35.8); MEAN CORPUSCULAR VOLUME 94.2 fL (80-100); RED BLOOD COUNT 2.53 x10^6/uL (3.82-5.3); RED CELL DISTRIBUTION WIDTH 16.5 % (9.6-15.2)
[2018-11-05 07:00] LABS: ALANINE AMINOTRANSFERASE 56 U/L (12-78); ANION GAP 6 mmol/L (5-15); CALCIUM 8.4 mg/dL (8.5-10.1); CHLORIDE 104 mmol/L (98-107); CREATININE 0.45 mg/dL (0.55-1.02)
[2018-11-05 07:03] LABS: ALKALINE PHOSPHATASE 111 U/L (45-117); BILIRUBIN,TOTAL 0.5 mg/dL (0.2-1.0); TOTAL PROTEIN 5.3 g/dL (6.4-8.2)
[2018-11-05 07:23] VITALS: BP 133/79
[2018-11-05 08:03] LABS: PLATELET COUNT 13 x10^3/uL (130-400)
[2018-11-05] MEDS: METHYL SALICYLATE/MENTHOL CRM 85GM TP SCH ×3 (08:35→21:32)
[2018-11-05] MEDS: POLYETHYLENE GLYCOL 17 GM PACKET PO PRN (13:06)
[2018-11-05 13:28] VITALS: BP 112/66
[2018-11-05] MEDS: DAPTOMYCIN 500 MG in SODIUM CHLORIDE 0.9% 100 ML IVPB SCH (16:18)
[2018-11-05] MEDS: OXYcodone/APAP 7.5/325MG TABLET PO PRN ×2 (17:37→22:52)
[2018-11-05] MEDS: ONDANSETRON 2MG/ML, 2ML IVPush PRN (17:37)
[2018-11-05] MEDS: MICAFUNGIN 100 MG in SODIUM CHLORIDE 0.9% 100 ML IV SCH (17:38)
[2018-11-05 19:35] VITALS: BP 132/83
[2018-11-05] MEDS: DIPHENHYDRAMINE 25 MG CAPSULE PO PRN (21:36)
[2018-11-06 02:29] VITALS: BP 116/76
[2018-11-06] MEDS: MEROPENEM 1 GM in SODIUM CHLORIDE 0.9% 100 ML IV SCH ×3 (03:37→19:27)
[2018-11-06] MEDS: PANTOPROZOLE 40MG TABLET PO SCH (05:34)
[2018-11-06] MEDS: D5%-0.45NACL+KCL 20MEQ 1,000 ML IV SCH ×3 (05:34→15:21)
[2018-11-06 06:03] LABS: CHLORIDE 110 mmol/L (98-107)
[2018-11-06 06:10] LABS: ALANINE AMINOTRANSFERASE 49 U/L (12-78); ALBUMIN 2.1 g/dL (3.4-5.0); ALKALINE PHOSPHATASE 108 U/L (45-117); ANION GAP 3 mmol/L (5-15); BILIRUBIN,TOTAL 0.5 mg/dL (0.2-1.0); CALCIUM 8.7 mg/dL (8.5-10.1); CREATININE 0.41 mg/dL (0.55-1.02); TOTAL PROTEIN 5.4 g/dL (6.4-8.2)
[2018-11-06 07:30] VITALS: BP 133/71
[2018-11-06 08:07] LABS: MEAN CORPUSCULAR HEMOGLOBIN 32.9 pg (27.0-34.8); MEAN CORPUSCULAR HGB CONC 35.2 g/dL (32.4-35.8); MEAN CORPUSCULAR VOLUME 93.4 fL (80-100); MEAN PLATELET VOLUME 10.2 fL (7.4-10.4); RED BLOOD COUNT 2.47 x10^6/uL (3.82-5.3); RED CELL DISTRIBUTION WIDTH 15.4 % (9.6-15.2)
[2018-11-06 08:10] LABS: MD YES; PLATELET COUNT 11 x10^3/uL (130-400)
[2018-11-06 08:14] LABS: BLASTS % (MANUAL) 1 % (0-0); LYMPH#(MANUAL) 0.34 x10^3/uL (1-3.4); LYMPHS% (MANUAL) 86 % (22-44); MONOS#(MANUAL) 0.01 x10^3/uL (0.3-2.7); MONOS% (MANUAL) 2 % (2-9); SEG#(MANUAL) 0.04 x10^3/uL (1.8-6.8); SEGS% (MANUAL) 11 % (42-75)
[2018-11-06 08:17] LABS: <PLATELET ESTIMATE> DECREASED; <PLT MORPHOLOGY> NORMAL PLT MORPH; ANISOCYTOSIS 1+
[2018-11-06] MEDS: METHYL SALICYLATE/MENTHOL CRM 85GM TP SCH ×3 (09:49→21:34)
[2018-11-06 15:16] VITALS: BP 119/63
[2018-11-06] MEDS: OXYcodone/APAP 7.5/325MG TABLET PO PRN ×2 (15:44→22:30)
[2018-11-06] MEDS: MICAFUNGIN 100 MG in SODIUM CHLORIDE 0.9% 100 ML IV SCH (16:54)
[2018-11-06] MEDS ORDERED: SODIUM CHLORIDE 0.9% IVPB SCH (17:30)
[2018-11-06] MEDS ORDERED: DEXAMETHASONE IVPB SCH (17:30)
[2018-11-06] MEDS ORDERED: ONDANSETRON IVPB SCH (17:30)
[2018-11-06] MEDS ORDERED: SODIUM CHLORIDE 0.9% 1,000 ML IV SCH (17:30)
[2018-11-06] MEDS ORDERED: IDARUBICIN IV SCH (18:00)
[2018-11-06] MEDS: ALLOPURINOL 300 MG TABLET PO SCH (18:03)
[2018-11-06] MEDS ORDERED: CYTARABINE IV SCH (18:30)
[2018-11-06] MEDS ORDERED: SODIUM CHLORIDE 0.9% IV SCH (18:30)
[2018-11-06 19:53] VITALS: BP 113/73
[2018-11-06] MEDS: SODIUM CHLORIDE 0.9% IVPB SCH (20:25)
[2018-11-06] MEDS: DEXAMETHASONE IVPB SCH (20:25)
[2018-11-06] MEDS: ONDANSETRON IVPB SCH (20:25)
[2018-11-06] MEDS: IDARUBICIN IV SCH (21:34)
[2018-11-06] MEDS: SODIUM CHLORIDE 0.9% IV SCH (22:05)
[2018-11-06] MEDS: CYTARABINE IV SCH (22:05)
[2018-11-06] MEDS: DIPHENHYDRAMINE 25 MG CAPSULE PO PRN (22:30)
[2018-11-07 02:15] VITALS: BP 101/66
[2018-11-07] MEDS: MEROPENEM 1 GM in SODIUM CHLORIDE 0.9% 100 ML IV SCH ×3 (03:35→19:51)
[2018-11-07] MEDS: OXYcodone/APAP 7.5/325MG TABLET PO PRN ×2 (05:35→19:50)
[2018-11-07] MEDS: PANTOPROZOLE 40MG TABLET PO SCH (05:35)
[2018-11-07 06:09] LABS: CHLORIDE 109 mmol/L (98-107)
[2018-11-07 06:23] LABS: ALANINE AMINOTRANSFERASE 46 U/L (12-78); ALBUMIN 2.3 g/dL (3.4-5.0); ALKALINE PHOSPHATASE 110 U/L (45-117); ANION GAP 7 mmol/L (5-15); BILIRUBIN,TOTAL 0.4 mg/dL (0.2-1.0); CALCIUM 8.8 mg/dL (8.5-10.1); CREATININE 0.51 mg/dL (0.55-1.02); TOTAL PROTEIN 5.7 g/dL (6.4-8.2)
[2018-11-07 06:53] LABS: MEAN CORPUSCULAR HGB CONC 35.3 g/dL (32.4-35.8); MEAN CORPUSCULAR VOLUME 93.4 fL (80-100); MEAN PLATELET VOLUME 8.7 fL (7.4-10.4); RED BLOOD COUNT 2.58 x10^6/uL (3.82-5.3); RED CELL DISTRIBUTION WIDTH 15.4 % (9.6-15.2)
[2018-11-07 06:55] LABS: MD YES; PLATELET COUNT 10 x10^3/uL (130-400)
[2018-11-07 06:57] LABS: ANISOCYTOSIS 1+; BAND#(MANUAL) 0.01 x10^3/uL; BANDS%(MANUAL) 3 % (0-7); LYMPH#(MANUAL) 0.24 x10^3/uL (1-3.4); LYMPHS% (MANUAL) 79 % (22-44); MONOS% (MANUAL) 1 % (2-9); SEG#(MANUAL) 0.05 x10^3/uL (1.8-6.8); SEGS% (MANUAL) 17 % (42-75)
[2018-11-07 06:58] LABS: <PLATELET ESTIMATE> DECREASED; <PLT MORPHOLOGY> NORMAL PLT MORPH
[2018-11-07] MEDS: METHYL SALICYLATE/MENTHOL CRM 85GM TP SCH ×3 (08:04→19:51)
[2018-11-07 08:26] VITALS: BP 149/84
[2018-11-07] MEDS ORDERED: ALLOPURINOL 300 MG TABLET PO SCH (09:00)
[2018-11-07] MEDS: SODIUM CHLORIDE 0.9% 1,000 ML IV SCH ×2 (10:33→22:33)
[2018-11-07 13:00] VITALS: BP 150/90
[2018-11-07] MEDS: ALLOPURINOL 300 MG TABLET PO SCH (16:10)
[2018-11-07] MEDS ORDERED: SODIUM CHLORIDE 0.9% 1,000 ML IV SCH (18:30)
[2018-11-07 20:28] VITALS: BP_SYST 135; BP_SYST 138; BP_DIAS 80
[2018-11-07] MEDS: ONDANSETRON IVPB SCH (20:30)
[2018-11-07] MEDS: SODIUM CHLORIDE 0.9% IVPB SCH (20:30)
[2018-11-07] MEDS: DEXAMETHASONE IVPB SCH (20:30)
[2018-11-07] MEDS: IDARUBICIN IV SCH (22:06)
[2018-11-07] MEDS: DIPHENHYDRAMINE 25 MG CAPSULE PO PRN (22:33)
[2018-11-08] VITALS (7 sets, daily range): BP systolic 95–147; BP diastolic 57–82
[2018-11-08] MEDS: CYTARABINE IV SCH (00:08)
[2018-11-08] MEDS: SODIUM CHLORIDE 0.9% IV SCH (00:08)
[2018-11-08] MEDS: OXYcodone/APAP 7.5/325MG TABLET PO PRN ×3 (02:11→22:24)
[2018-11-08] MEDS: MEROPENEM 1 GM in SODIUM CHLORIDE 0.9% 100 ML IV SCH ×3 (03:44→19:48)
[2018-11-08] MEDS: PANTOPROZOLE 40MG TABLET PO SCH (05:57)
[2018-11-08 06:19] LABS: MEAN CORPUSCULAR HEMOGLOBIN 32.9 pg (27.0-34.8); MEAN CORPUSCULAR VOLUME 94.1 fL (80-100); MEAN PLATELET VOLUME 9.9 fL (7.4-10.4); RED BLOOD COUNT 2.23 x10^6/uL (3.82-5.3); RED CELL DISTRIBUTION WIDTH 15.5 % (9.6-15.2)
[2018-11-08 06:20] LABS: PLATELET COUNT 9 x10^3/uL (130-400)
[2018-11-08 06:26] LABS: ALANINE AMINOTRANSFERASE 34 U/L (12-78); ALBUMIN 2.2 g/dL (3.4-5.0); ANION GAP 5 mmol/L (5-15); CALCIUM 8.8 mg/dL (8.5-10.1); CHLORIDE 110 mmol/L (98-107); CREATININE 0.49 mg/dL (0.55-1.02)
[2018-11-08 06:29] LABS: ALKALINE PHOSPHATASE 101 U/L (45-117); BILIRUBIN,TOTAL 0.5 mg/dL (0.2-1.0); MD YES; TOTAL PROTEIN 5.2 g/dL (6.4-8.2)
[2018-11-08 06:48] LABS: BAND#(MANUAL) 0.01 x10^3/uL; BANDS%(MANUAL) 4 % (0-7); LYMPH#(MANUAL) 0.19 x10^3/uL (1-3.4); LYMPHS% (MANUAL) 62 % (22-44); MONOS#(MANUAL) 0.01 x10^3/uL (0.3-2.7); MONOS% (MANUAL) 2 % (2-9); SEGS% (MANUAL) 32 % (42-75)
[2018-11-08 06:49] LABS: <PLATELET ESTIMATE> DECREASED; <PLT MORPHOLOGY> NORMAL PLT MORPH; ANISOCYTOSIS 1+
[2018-11-08] MEDS: SODIUM CHLORIDE 0.9% 1,000 ML IV SCH ×2 (08:01→20:50)
[2018-11-08] MEDS: METHYL SALICYLATE/MENTHOL CRM 85GM TP SCH ×3 (08:01→19:53)
[2018-11-08] MEDS: ACETAMINOPHEN 325 MG TABLET PO PRN (15:23)
[2018-11-08] MEDS: DIPHENHYDRAMINE 25 MG CAPSULE PO PRN (15:24)
[2018-11-08] MEDS: ALLOPURINOL 300 MG TABLET PO SCH (17:53)
[2018-11-08] MEDS: SODIUM CHLORIDE 0.9% IVPB SCH (20:46)
[2018-11-08] MEDS: ONDANSETRON IVPB SCH (20:46)
[2018-11-08] MEDS: DEXAMETHASONE IVPB SCH (20:46)
[2018-11-08] MEDS: IDARUBICIN IV SCH (21:54)
[2018-11-09 00:16] VITALS: BP 95/59
[2018-11-09] MEDS: CYTARABINE IV SCH (00:42)
[2018-11-09] MEDS: SODIUM CHLORIDE 0.9% IV SCH (00:42)
[2018-11-09] MEDS: DIPHENHYDRAMINE 25 MG CAPSULE PO PRN (00:47)
[2018-11-09] MEDS: MEROPENEM 1 GM in SODIUM CHLORIDE 0.9% 100 ML IV SCH ×3 (04:04→19:53)
[2018-11-09] MEDS: PANTOPROZOLE 40MG TABLET PO SCH (05:32)
[2018-11-09 06:22] LABS: ALANINE AMINOTRANSFERASE 28 U/L (12-78); ALBUMIN 2.4 g/dL (3.4-5.0); ANION GAP 4 mmol/L (5-15); CALCIUM 8.9 mg/dL (8.5-10.1); CHLORIDE 110 mmol/L (98-107); CREATININE 0.53 mg/dL (0.55-1.02)
[2018-11-09 06:24] LABS: ALKALINE PHOSPHATASE 110 U/L (45-117); BILIRUBIN,TOTAL 0.3 mg/dL (0.2-1.0); TOTAL PROTEIN 5.3 g/dL (6.4-8.2)
[2018-11-09 07:23] LABS: MEAN CORPUSCULAR HEMOGLOBIN 32.9 pg (27.0-34.8); MEAN CORPUSCULAR HGB CONC 34.9 g/dL (32.4-35.8); MEAN CORPUSCULAR VOLUME 94.3 fL (80-100); MEAN PLATELET VOLUME 9.2 fL (7.4-10.4); RED BLOOD COUNT 2.16 x10^6/uL (3.82-5.3); RED CELL DISTRIBUTION WIDTH 15.6 % (9.6-15.2)
[2018-11-09 07:25] LABS: PLATELET COUNT 32 x10^3/uL (130-400)
[2018-11-09 07:30] LABS: MD YES
[2018-11-09 07:32] LABS: <PLATELET ESTIMATE> DECREASED; <PLT MORPHOLOGY> NORMAL PLT MORPH; ANISOCYTOSIS 1+; BAND#(MANUAL) 0.01 x10^3/uL; BANDS%(MANUAL) 2 % (0-7); LYMPH#(MANUAL) 0.17 x10^3/uL (1-3.4); LYMPHS% (MANUAL) 58 % (22-44); MONOS#(MANUAL) 0.01 x10^3/uL (0.3-2.7); MONOS% (MANUAL) 4 % (2-9); SEG#(MANUAL) 0.11 x10^3/uL (1.8-6.8)
[2018-11-09 07:44] LABS: SEGS% (MANUAL) 36 % (42-75)
[2018-11-09 07:59] VITALS: BP 122/73
[2018-11-09] MEDS: METHYL SALICYLATE/MENTHOL CRM 85GM TP SCH ×3 (09:56→22:35)
[2018-11-09] MEDS: SODIUM CHLORIDE 0.9% 1,000 ML IV SCH ×2 (09:56→17:16)
[2018-11-09 12:43] VITALS: BP 121/71
[2018-11-09] MEDS: ALLOPURINOL 300 MG TABLET PO SCH (17:16)
[2018-11-09] MEDS: maalox/diphenh/lido/sucralfate 5 ML PO PRN (17:16)
[2018-11-09 19:54] VITALS: BP 127/78
[2018-11-09] MEDS: OXYcodone/APAP 7.5/325MG TABLET PO PRN (22:35)
[2018-11-09] MEDS: ONDANSETRON IVPB SCH (22:35)
[2018-11-09] MEDS: DEXAMETHASONE IVPB SCH (22:35)
[2018-11-09] MEDS: SODIUM CHLORIDE 0.9% IVPB SCH (22:35)
[2018-11-10] VITALS (7 sets, daily range): BP systolic 96–120; BP diastolic 50–75
[2018-11-10] MEDS: SODIUM CHLORIDE 0.9% IV SCH (00:44)
[2018-11-10] MEDS: CYTARABINE IV SCH (00:44)
[2018-11-10] MEDS: DIPHENHYDRAMINE 25 MG CAPSULE PO PRN ×2 (00:50→07:30)
[2018-11-10] MEDS: MEROPENEM 1 GM in SODIUM CHLORIDE 0.9% 100 ML IV SCH ×3 (03:49→19:31)
[2018-11-10] MEDS: PANTOPROZOLE 40MG TABLET PO SCH (05:43)
[2018-11-10 06:07] LABS: MEAN CORPUSCULAR HEMOGLOBIN 32.7 pg (27.0-34.8); MEAN CORPUSCULAR HGB CONC 35.1 g/dL (32.4-35.8); MEAN CORPUSCULAR VOLUME 93.3 fL (80-100); RED BLOOD COUNT 2.08 x10^6/uL (3.82-5.3); RED CELL DISTRIBUTION WIDTH 14.8 % (9.6-15.2)
[2018-11-10 06:11] LABS: PLATELET COUNT 24 x10^3/uL (130-400)
[2018-11-10 06:16] LABS: CHLORIDE 109 mmol/L (98-107)
[2018-11-10 06:21] LABS: ALANINE AMINOTRANSFERASE 23 U/L (12-78); ALBUMIN 2.4 g/dL (3.4-5.0); ALKALINE PHOSPHATASE 109 U/L (45-117); ANION GAP 3 mmol/L (5-15); BILIRUBIN,TOTAL 0.6 mg/dL (0.2-1.0); CALCIUM 8.7 mg/dL (8.5-10.1); CREATININE 0.43 mg/dL (0.55-1.02); TOTAL PROTEIN 5.3 g/dL (6.4-8.2)
[2018-11-10 06:28] LABS: MD YES
[2018-11-10 06:34] LABS: BANDS%(MANUAL) 2 % (0-7); LYMPH#(MANUAL) 0.11 x10^3/uL (1-3.4); LYMPHS% (MANUAL) 56 % (22-44); SEG#(MANUAL) 0.08 x10^3/uL (1.8-6.8); SEGS% (MANUAL) 42 % (42-75)
[2018-11-10 06:35] LABS: <PLATELET ESTIMATE> DECREASED; <PLT MORPHOLOGY> NORMAL PLT MORPH; ANISOCYTOSIS 1+
[2018-11-10] MEDS: ACETAMINOPHEN 325 MG TABLET PO PRN (07:30)
[2018-11-10] MEDS: SODIUM CHLORIDE 0.9% 1,000 ML IV SCH ×2 (07:31→21:04)
[2018-11-10] MEDS: METHYL SALICYLATE/MENTHOL CRM 85GM TP SCH ×3 (07:31→21:04)
[2018-11-10] MEDS ORDERED: MAGNESIUM SULFATE PMX 2GM/50ML 50 ML IV ONE (09:00)
[2018-11-10] MEDS: ALLOPURINOL 300 MG TABLET PO SCH (17:50)
[2018-11-10] MEDS: OXYcodone/APAP 7.5/325MG TABLET PO PRN (19:39)
[2018-11-10] MEDS: ONDANSETRON IVPB SCH (21:03)
[2018-11-10] MEDS: DEXAMETHASONE IVPB SCH (21:03)
[2018-11-10] MEDS: SODIUM CHLORIDE 0.9% IVPB SCH (21:03)
[2018-11-11] MEDS: SODIUM CHLORIDE 0.9% IV SCH (01:42)
[2018-11-11] MEDS: CYTARABINE IV SCH (01:42)
[2018-11-11 02:35] VITALS: BP 100/56
[2018-11-11] MEDS: MEROPENEM 1 GM in SODIUM CHLORIDE 0.9% 100 ML IV SCH ×3 (03:43→20:43)
[2018-11-11] MEDS: PANTOPROZOLE 40MG TABLET PO SCH (05:44)
[2018-11-11 06:46] LABS: MEAN CORPUSCULAR HEMOGLOBIN 32.4 pg (27.0-34.8); MEAN CORPUSCULAR VOLUME 92.5 fL (80-100); MEAN PLATELET VOLUME 9.7 fL (7.4-10.4); RED BLOOD COUNT 2.37 x10^6/uL (3.82-5.3); RED CELL DISTRIBUTION WIDTH 15.4 % (9.6-15.2)
[2018-11-11 06:49] LABS: PLATELET COUNT 17 x10^3/uL (130-400)
[2018-11-11 06:57] LABS: ALANINE AMINOTRANSFERASE 20 U/L (12-78); ALBUMIN 2.4 g/dL (3.4-5.0); ANION GAP 5 mmol/L (5-15); CALCIUM 8.5 mg/dL (8.5-10.1); CHLORIDE 111 mmol/L (98-107); CREATININE 0.44 mg/dL (0.55-1.02)
[2018-11-11 06:58] LABS: ALKALINE PHOSPHATASE 112 U/L (45-117); BILIRUBIN,TOTAL 0.8 mg/dL (0.2-1.0); TOTAL PROTEIN 5.4 g/dL (6.4-8.2)
[2018-11-11 08:34] LABS: BANDS%(MANUAL) 1 % (0-7); LYMPH#(MANUAL) 0.15 x10^3/uL (1-3.4); LYMPHS% (MANUAL) 74 % (22-44); MONOS#(MANUAL) 0.01 x10^3/uL (0.3-2.7); MONOS% (MANUAL) 4 % (2-9); SEG#(MANUAL) 0.04 x10^3/uL (1.8-6.8); SEGS% (MANUAL) 21 % (42-75)
[2018-11-11 08:36] LABS: <PLATELET ESTIMATE> DECREASED; <PLT MORPHOLOGY> NORMAL PLT MORPH; ANISOCYTOSIS 1+
[2018-11-11 09:10] VITALS: BP 152/83
[2018-11-11] MEDS: METHYL SALICYLATE/MENTHOL CRM 85GM TP SCH ×3 (09:42→20:44)
[2018-11-11] MEDS: SODIUM CHLORIDE 0.9% 1,000 ML IV SCH ×2 (09:42→18:15)
[2018-11-11 15:32] VITALS: BP 127/75
[2018-11-11] MEDS: ALLOPURINOL 300 MG TABLET PO SCH (16:51)
[2018-11-11 20:04] VITALS: BP 140/57
[2018-11-11] MEDS: OXYcodone/APAP 7.5/325MG TABLET PO PRN (21:06)
[2018-11-11] MEDS: TEMAZEPAM 15 MG CAPSULE PO PRN (22:28)
[2018-11-12] MEDS: ONDANSETRON IVPB SCH (01:40)
[2018-11-12] MEDS: SODIUM CHLORIDE 0.9% IVPB SCH (01:40)
[2018-11-12] MEDS: DEXAMETHASONE IVPB SCH (01:40)
[2018-11-12] MEDS: CYTARABINE IV SCH (02:14)
[2018-11-12] MEDS: SODIUM CHLORIDE 0.9% IV SCH (02:14)
[2018-11-12 03:55] VITALS: BP 99/60
[2018-11-12] MEDS: MEROPENEM 1 GM in SODIUM CHLORIDE 0.9% 100 ML IV SCH (04:00)
[2018-11-12 04:58] LABS: ALANINE AMINOTRANSFERASE 19 U/L (12-78); ALBUMIN 2.7 g/dL (3.4-5.0); ANION GAP 4 mmol/L (5-15); CHLORIDE 108 mmol/L (98-107)
[2018-11-12 05:00] LABS: ALKALINE PHOSPHATASE 119 U/L (45-117); BILIRUBIN,TOTAL 1.2 mg/dL (0.2-1.0); CREATININE 0.51 mg/dL (0.55-1.02); TOTAL PROTEIN 5.5 g/dL (6.4-8.2)
[2018-11-12 05:09] LABS: MEAN CORPUSCULAR HEMOGLOBIN 32.5 pg (27.0-34.8); MEAN CORPUSCULAR HGB CONC 35.2 g/dL (32.4-35.8); MEAN CORPUSCULAR VOLUME 92.3 fL (80-100); RED BLOOD COUNT 2.46 x10^6/uL (3.82-5.3); RED CELL DISTRIBUTION WIDTH 14.8 % (9.6-15.2)
[2018-11-12] MEDS: PANTOPROZOLE 40MG TABLET PO SCH (05:48)
[2018-11-12] MEDS: SODIUM CHLORIDE 0.9% 1,000 ML IV SCH ×2 (05:49→14:17)
[2018-11-12 07:17] LABS: MEAN PLATELET VOLUME 9.4 fL (7.4-10.4)
[2018-11-12 07:23] LABS: PLATELET COUNT 13 x10^3/uL (130-400)
[2018-11-12 07:25] VITALS: BP 104/61
[2018-11-12 07:25] LABS: MD YES
[2018-11-12 07:50] LABS: <PLATELET ESTIMATE> DECREASED; <PLT MORPHOLOGY> NORMAL PLT MORPH; EOS% (MANUAL) 1 % (1-7); LYMPH#(MANUAL) 0.23 x10^3/uL (1-3.4); LYMPHS% (MANUAL) 75 % (22-44); MONOS#(MANUAL) 0.02 x10^3/uL (0.3-2.7); MONOS% (MANUAL) 6 % (2-9); SEG#(MANUAL) 0.05 x10^3/uL (1.8-6.8); SEGS% (MANUAL) 18 % (42-75)
[2018-11-12 07:51] LABS: ANISOCYTOSIS 1+; OVALOCYTES 1+
[2018-11-12] MEDS: METHYL SALICYLATE/MENTHOL CRM 85GM TP SCH ×3 (09:05→21:00)
[2018-11-12] MEDS: CEFEPIME 2 GM in DEXTROSE 5% 100 ML IV SCH ×2 (10:40→16:50)
[2018-11-12 14:34] VITALS: BP 141/82
[2018-11-12] MEDS: ALLOPURINOL 300 MG TABLET PO SCH (16:50)
[2018-11-12] MEDS: OXYcodone/APAP 7.5/325MG TABLET PO PRN (16:50)
[2018-11-12] MEDS: ONDANSETRON 2MG/ML, 2ML IVPush PRN (18:54)
[2018-11-12 19:39] VITALS: BP 148/68
[2018-11-13] VITALS (10 sets, daily range): BP systolic 99–132; BP diastolic 55–73
[2018-11-13] MEDS: SODIUM CHLORIDE 0.9% 1,000 ML IV SCH ×2 (00:06→16:32)
[2018-11-13] MEDS: TEMAZEPAM 15 MG CAPSULE PO PRN ×2 (00:18→19:47)
[2018-11-13] MEDS: CEFEPIME 2 GM in DEXTROSE 5% 100 ML IV SCH ×3 (01:11→16:36)
[2018-11-13] MEDS: SODIUM CHLORIDE 0.9% IVPB SCH (03:41)
[2018-11-13] MEDS: DEXAMETHASONE IVPB SCH (03:41)
[2018-11-13] MEDS: ONDANSETRON IVPB SCH (03:41)
[2018-11-13] MEDS: CYTARABINE IV SCH (03:56)
[2018-11-13] MEDS: SODIUM CHLORIDE 0.9% IV SCH (03:56)
[2018-11-13] MEDS: PANTOPROZOLE 40MG TABLET PO SCH (06:09)
[2018-11-13 07:10] LABS: ALANINE AMINOTRANSFERASE 13 U/L (12-78); ALBUMIN 2.5 g/dL (3.4-5.0); ANION GAP 5 mmol/L (5-15); BILIRUBIN, DIRECT 0.2 mg/dL (0.1-0.2); CALCIUM 8.7 mg/dL (8.5-10.1); CHLORIDE 109 mmol/L (98-107)
[2018-11-13 07:13] LABS: ALKALINE PHOSPHATASE 103 U/L (45-117); BILIRUBIN,TOTAL 0.5 mg/dL (0.2-1.0); TOTAL PROTEIN 5.4 g/dL (6.4-8.2)
[2018-11-13 07:25] LABS: MEAN CORPUSCULAR HEMOGLOBIN 32.4 pg (27.0-34.8); MEAN CORPUSCULAR HGB CONC 35.1 g/dL (32.4-35.8); MEAN CORPUSCULAR VOLUME 92.3 fL (80-100); RED BLOOD COUNT 2.01 x10^6/uL (3.82-5.3); RED CELL DISTRIBUTION WIDTH 14.4 % (9.6-15.2)
[2018-11-13 07:30] LABS: PLATELET COUNT 8 x10^3/uL (130-400)
[2018-11-13] MEDS ORDERED: FUROSEMIDE 20 MG/2 ML IV ONE (08:00)
[2018-11-13 08:18] LABS: MD YES
[2018-11-13 08:25] LABS: <PLATELET ESTIMATE> DECREASED; ANISOCYTOSIS 1+; BAND#(MANUAL) 0.01 x10^3/uL; BANDS%(MANUAL) 4 % (0-7); LYMPH#(MANUAL) 0.19 x10^3/uL (1-3.4); LYMPHS% (MANUAL) 96 % (22-44); OVALOCYTES 1+
[2018-11-13 08:26] LABS: <PLT MORPHOLOGY> NORMAL PLT MORPH
[2018-11-13] MEDS: ACETAMINOPHEN 325 MG TABLET PO PRN (08:33)
[2018-11-13] MEDS: DIPHENHYDRAMINE 25 MG CAPSULE PO PRN (08:34)
[2018-11-13] MEDS: METHYL SALICYLATE/MENTHOL CRM 85GM TP SCH ×3 (08:34→19:30)
[2018-11-13] MEDS: POLYETHYLENE GLYCOL 17 GM PACKET PO PRN (08:55)
[2018-11-13] MEDS ORDERED: FUROSEMIDE 20 MG/2 ML ONE (16:19)
[2018-11-13] MEDS: ALLOPURINOL 300 MG TABLET PO SCH (16:48)
[2018-11-13] MEDS: ONDANSETRON 2MG/ML, 2ML IVPush PRN (19:30)
[2018-11-13] MEDS: OXYcodone/APAP 7.5/325MG TABLET PO PRN (21:55)
[2018-11-14] MEDS: CEFEPIME 2 GM in DEXTROSE 5% 100 ML IV SCH ×3 (01:51→17:21)
[2018-11-14] MEDS: SODIUM CHLORIDE 0.9% 1,000 ML IV SCH ×3 (01:52→23:42)
[2018-11-14 03:04] VITALS: BP 146/82
[2018-11-14] MEDS: POLYETHYLENE GLYCOL 17 GM PACKET PO PRN (05:46)
[2018-11-14] MEDS: PANTOPROZOLE 40MG TABLET PO SCH (05:46)
[2018-11-14 06:05] LABS: MEAN CORPUSCULAR HEMOGLOBIN 31.8 pg (27.0-34.8); MEAN CORPUSCULAR HGB CONC 35.6 g/dL (32.4-35.8); MEAN CORPUSCULAR VOLUME 89.5 fL (80-100); RED BLOOD COUNT 2.43 x10^6/uL (3.82-5.3); RED CELL DISTRIBUTION WIDTH 15.6 % (9.6-15.2)
[2018-11-14 06:15] LABS: ALANINE AMINOTRANSFERASE 18 U/L (12-78); ALBUMIN 2.6 g/dL (3.4-5.0); ANION GAP 7 mmol/L (5-15); CALCIUM 8.4 mg/dL (8.5-10.1); CHLORIDE 107 mmol/L (98-107); CREATININE 0.51 mg/dL (0.55-1.02)
[2018-11-14 06:18] LABS: ALKALINE PHOSPHATASE 115 U/L (45-117); BILIRUBIN,TOTAL 0.6 mg/dL (0.2-1.0); TOTAL PROTEIN 5.6 g/dL (6.4-8.2)
[2018-11-14 07:06] LABS: MEAN PLATELET VOLUME 7.1 fL (7.4-10.4)
[2018-11-14 07:08] LABS: MD YES
[2018-11-14 07:19] LABS: LYMPHS% (MANUAL) 100 % (22-44)
[2018-11-14 07:20] LABS: <PLATELET ESTIMATE> DECREASED; <PLT MORPHOLOGY> NORMAL PLT MORPH; ANISOCYTOSIS 1+; OVALOCYTES 1+
[2018-11-14 07:22] LABS: PLATELET COUNT 46 x10^3/uL (130-400)
[2018-11-14] MEDS ORDERED: MAGNESIUM SULFATE PMX 2GM/50ML 50 ML IV ONE (08:00)
[2018-11-14] MEDS ORDERED: POTASSIUM CHLORIDE 20 MEQ TAB.ER.PRT PO ONE (08:00)
[2018-11-14 09:06] VITALS: BP 115/68
[2018-11-14] MEDS: ONDANSETRON 2MG/ML, 2ML IVPush PRN ×2 (09:11→13:57)
[2018-11-14] MEDS: METHYL SALICYLATE/MENTHOL CRM 85GM TP SCH ×3 (09:12→20:33)
[2018-11-14] MEDS ORDERED: ONDANSETRON 2MG/ML, 2ML ONE (13:54)
[2018-11-14] MEDS ORDERED: PROCHLORPERAZINE 5 MG/ML, 2ML IVPush PRN (15:00)
[2018-11-14 15:01] VITALS: BP 116/60
[2018-11-14] MEDS: PROCHLORPERAZINE 5 MG/ML, 2ML IVPush PRN (15:17)
[2018-11-14] MEDS: ALLOPURINOL 300 MG TABLET PO SCH (17:21)
[2018-11-14] MEDS: OXYcodone/APAP 7.5/325MG TABLET PO PRN (20:33)
[2018-11-14] MEDS: TEMAZEPAM 15 MG CAPSULE PO PRN (21:29)
[2018-11-14 21:59] VITALS: BP 107/59
[2018-11-15 00:43] VITALS: BP 103/49
[2018-11-15] MEDS: CEFEPIME 2 GM in DEXTROSE 5% 100 ML IV SCH ×3 (01:06→16:16)
[2018-11-15] MEDS: PANTOPROZOLE 40MG TABLET PO SCH (05:14)
[2018-11-15 06:11] LABS: ALANINE AMINOTRANSFERASE 14 U/L (12-78); ALBUMIN 2.6 g/dL (3.4-5.0); ANION GAP 6 mmol/L (5-15); CALCIUM 8.8 mg/dL (8.5-10.1); CHLORIDE 103 mmol/L (98-107); CREATININE 0.47 mg/dL (0.55-1.02)
[2018-11-15 06:13] LABS: ALKALINE PHOSPHATASE 116 U/L (45-117)
[2018-11-15 06:41] LABS: MEAN CORPUSCULAR HEMOGLOBIN 31.4 pg (27.0-34.8); MEAN CORPUSCULAR VOLUME 89.8 fL (80-100); MEAN PLATELET VOLUME 7.4 fL (7.4-10.4); RED BLOOD COUNT 2.44 x10^6/uL (3.82-5.3); RED CELL DISTRIBUTION WIDTH 15.1 % (9.6-15.2)
[2018-11-15 06:43] LABS: PLATELET COUNT 36 x10^3/uL (130-400)
[2018-11-15 06:47] LABS: MD YES
[2018-11-15 06:50] LABS: <PLATELET ESTIMATE> DECREASED; <PLT MORPHOLOGY> NORMAL PLT MORPH; ANISOCYTOSIS 1+; LYMPHS% (MANUAL) 100 % (22-44); OVALOCYTES 1+; SEGS% (MANUAL) 0 % (42-75)
[2018-11-15] MEDS: METHYL SALICYLATE/MENTHOL CRM 85GM TP SCH ×3 (08:35→20:06)
[2018-11-15 08:42] VITALS: BP 108/72
[2018-11-15] MEDS: ONDANSETRON 2MG/ML, 2ML IVPush PRN (08:49)
[2018-11-15] MEDS: SODIUM CHLORIDE 0.9% 1,000 ML IV SCH ×2 (10:10→21:52)
[2018-11-15 13:29] VITALS: BP 97/65
[2018-11-15] MEDS: ALLOPURINOL 300 MG TABLET PO SCH (16:16)
[2018-11-15] MEDS: OXYcodone/APAP 7.5/325MG TABLET PO PRN (18:29)
[2018-11-15] MEDS: PROCHLORPERAZINE 5 MG/ML, 2ML IVPush PRN (18:29)
[2018-11-15 20:37] VITALS: BP 109/68
[2018-11-15] MEDS: VORICONAZOLE 200 MG TABLET PO SCH (21:52)
[2018-11-15] MEDS ORDERED: CATHFLO-ALTEPLASE 2 MG/2 ML CATHFLUSH ONE (22:00)
[2018-11-16] MEDS: CEFEPIME 2 GM in DEXTROSE 5% 100 ML IV SCH ×3 (00:09→17:23)
[2018-11-16 00:34] VITALS: BP 101/66
[2018-11-16] MEDS: OXYcodone/APAP 7.5/325MG TABLET PO PRN ×2 (04:00→21:23)
[2018-11-16] MEDS: ONDANSETRON 2MG/ML, 2ML IVPush PRN ×2 (04:00→16:22)
[2018-11-16] MEDS: PROCHLORPERAZINE 5 MG/ML, 2ML IVPush PRN ×2 (05:55→20:48)
[2018-11-16] MEDS: PANTOPROZOLE 40MG TABLET PO SCH (05:56)
[2018-11-16 06:07] LABS: MEAN CORPUSCULAR HEMOGLOBIN 32.1 pg (27.0-34.8); MEAN CORPUSCULAR HGB CONC 35.1 g/dL (32.4-35.8); MEAN CORPUSCULAR VOLUME 91.3 fL (80-100); RED BLOOD COUNT 2.31 x10^6/uL (3.82-5.3); RED CELL DISTRIBUTION WIDTH 14.7 % (9.6-15.2)
[2018-11-16 06:17] LABS: ALANINE AMINOTRANSFERASE 12 U/L (12-78); ALBUMIN 2.6 g/dL (3.4-5.0); ANION GAP 8 mmol/L (5-15); CALCIUM 8.7 mg/dL (8.5-10.1); CHLORIDE 104 mmol/L (98-107); CREATININE 0.52 mg/dL (0.55-1.02)
[2018-11-16 06:19] LABS: ALKALINE PHOSPHATASE 110 U/L (45-117); TOTAL PROTEIN 6.1 g/dL (6.4-8.2)
[2018-11-16 06:48] LABS: MD YES
[2018-11-16 06:49] LABS: MEAN PLATELET VOLUME 7.6 fL (7.4-10.4)
[2018-11-16 06:50] LABS: PLATELET COUNT 24 x10^3/uL (130-400)
[2018-11-16 06:54] LABS: LYMPHS% (MANUAL) 99 % (22-44)
[2018-11-16 06:55] LABS: <PLATELET ESTIMATE> DECREASED; <PLT MORPHOLOGY> NORMAL PLT MORPH; ANISOCYTOSIS 1+; BASOS% (MANUAL) 1 % (0-1)
[2018-11-16 08:30] VITALS: BP 113/76
[2018-11-16] MEDS: VORICONAZOLE 200 MG TABLET PO SCH (08:55)
[2018-11-16] MEDS: METHYL SALICYLATE/MENTHOL CRM 85GM TP SCH ×3 (08:57→20:48)
[2018-11-16] MEDS: SODIUM CHLORIDE 0.9% 1,000 ML IV SCH ×2 (08:57→20:48)
[2018-11-16] MEDS: DIPHENHYDRAMINE 25 MG CAPSULE PO PRN (09:01)
[2018-11-16] MEDS ORDERED: MAGNESIUM SULFATE PMX 2GM/50ML 50 ML IV ONE (09:30)
[2018-11-16 12:40] VITALS: BP 100/66
[2018-11-16] MEDS: ALLOPURINOL 300 MG TABLET PO SCH (17:23)
[2018-11-16 20:56] VITALS: BP 101/68
[2018-11-16] MEDS: VORICONAZOLE 50 MG TABLET PO SCH (21:23)
[2018-11-16] MEDS: TEMAZEPAM 15 MG CAPSULE PO PRN (21:24)
[2018-11-17] VITALS (7 sets, daily range): BP systolic 101–142; BP diastolic 65–85
[2018-11-17] MEDS: CEFEPIME 2 GM in DEXTROSE 5% 100 ML IV SCH ×3 (01:38→17:03)
[2018-11-17 05:04] LABS: MEAN CORPUSCULAR HEMOGLOBIN 31.6 pg (27.0-34.8); MEAN CORPUSCULAR HGB CONC 34.4 g/dL (32.4-35.8); MEAN CORPUSCULAR VOLUME 91.7 fL (80-100); MEAN PLATELET VOLUME 7.9 fL (7.4-10.4); RED BLOOD COUNT 1.98 x10^6/uL (3.82-5.3); RED CELL DISTRIBUTION WIDTH 14.3 % (9.6-15.2)
[2018-11-17 05:10] LABS: PLATELET COUNT 16 x10^3/uL (130-400)
[2018-11-17] MEDS: PANTOPROZOLE 40MG TABLET PO SCH (05:12)
[2018-11-17 05:13] LABS: ALANINE AMINOTRANSFERASE 7 U/L (12-78); ALBUMIN 2.4 g/dL (3.4-5.0); ANION GAP 5 mmol/L (5-15); CALCIUM 8.5 mg/dL (8.5-10.1); CHLORIDE 109 mmol/L (98-107)
[2018-11-17 05:16] LABS: ALKALINE PHOSPHATASE 99 U/L (45-117); BILIRUBIN,TOTAL 0.8 mg/dL (0.2-1.0); CREATININE 0.55 mg/dL (0.55-1.02); TOTAL PROTEIN 5.8 g/dL (6.4-8.2)
[2018-11-17 06:18] LABS: MD YES
[2018-11-17 06:23] LABS: LYMPHS% (MANUAL) 100 % (22-44); SEGS% (MANUAL) 0 % (42-75)
[2018-11-17 06:24] LABS: <PLATELET ESTIMATE> DECREASED; <PLT MORPHOLOGY> NORMAL PLT MORPH; ANISOCYTOSIS 1+
[2018-11-17] MEDS: SODIUM CHLORIDE 0.9% 1,000 ML IV SCH ×2 (07:28→17:03)
[2018-11-17] MEDS: MAGNESIUM OXIDE 400 MG TABLET PO SCH ×2 (08:41→21:16)
[2018-11-17] MEDS: VORICONAZOLE 50 MG TABLET PO SCH ×2 (08:42→21:16)
[2018-11-17] MEDS: DIPHENHYDRAMINE 25 MG CAPSULE PO PRN (08:42)
[2018-11-17] MEDS: ACETAMINOPHEN 325 MG TABLET PO PRN (08:42)
[2018-11-17] MEDS: METHYL SALICYLATE/MENTHOL CRM 85GM TP SCH ×3 (08:43→21:17)
[2018-11-17] MEDS: ONDANSETRON 2MG/ML, 2ML IVPush PRN (14:36)
[2018-11-17] MEDS: ALLOPURINOL 300 MG TABLET PO SCH (17:03)
[2018-11-17] MEDS: PROCHLORPERAZINE 5 MG/ML, 2ML IVPush PRN (21:25)
[2018-11-17] MEDS: OXYcodone/APAP 7.5/325MG TABLET PO PRN (21:25)
[2018-11-18] MEDS: CEFEPIME 2 GM in DEXTROSE 5% 100 ML IV SCH ×3 (01:39→18:21)
[2018-11-18 02:14] VITALS: BP 100/65
[2018-11-18] MEDS: SODIUM CHLORIDE 0.9% 1,000 ML IV SCH ×2 (05:09→14:33)
[2018-11-18] MEDS: PANTOPROZOLE 40MG TABLET PO SCH (05:09)
[2018-11-18 05:48] LABS: ANION GAP 6 mmol/L (5-15); CALCIUM 8.9 mg/dL (8.5-10.1); CHLORIDE 108 mmol/L (98-107)
[2018-11-18 05:59] LABS: ALANINE AMINOTRANSFERASE 11 U/L (12-78); ALBUMIN 2.4 g/dL (3.4-5.0); ALKALINE PHOSPHATASE 93 U/L (45-117); BILIRUBIN,TOTAL 0.6 mg/dL (0.2-1.0); CREATINE KINASE, TOTAL 13 U/L (26-192); CREATININE 0.48 mg/dL (0.55-1.02); TOTAL PROTEIN 5.5 g/dL (6.4-8.2)
[2018-11-18 06:43] LABS: MD YES; MEAN CORPUSCULAR HEMOGLOBIN 31.3 pg (27.0-34.8); MEAN CORPUSCULAR HGB CONC 33.7 g/dL (32.4-35.8); MEAN CORPUSCULAR VOLUME 93.1 fL (80-100); MEAN PLATELET VOLUME 7.5 fL (7.4-10.4); RED BLOOD COUNT 2.36 x10^6/uL (3.82-5.3); RED CELL DISTRIBUTION WIDTH 13.9 % (9.6-15.2)
[2018-11-18 06:50] LABS: PLATELET COUNT 10 x10^3/uL (130-400)
[2018-11-18 06:51] LABS: <PLATELET ESTIMATE> DECREASED; <PLT MORPHOLOGY> QNS FOR PLT MORPH; <RBC MORPHOLOGY> NORMAL; LYMPHS% (MANUAL) 100 % (22-44)
[2018-11-18 06:58] LABS: HCT (SEDRATE) 21.9 % (34.6-47.8)
[2018-11-18 08:33] VITALS: BP 150/88
[2018-11-18] MEDS: VORICONAZOLE 50 MG TABLET PO SCH ×2 (09:20→21:48)
[2018-11-18] MEDS: maalox/diphenh/lido/sucralfate 5 ML PO PRN (09:20)
[2018-11-18] MEDS: MAGNESIUM OXIDE 400 MG TABLET PO SCH ×2 (09:20→21:49)
[2018-11-18] MEDS: METHYL SALICYLATE/MENTHOL CRM 85GM TP SCH ×3 (09:21→21:49)
[2018-11-18] MEDS ORDERED: MAGNESIUM SULFATE PMX 2GM/50ML 50 ML IV ONE (13:00)
[2018-11-18 13:17] VITALS: BP 153/82
[2018-11-18] MEDS: OXYcodone/APAP 7.5/325MG TABLET PO PRN (18:21)
[2018-11-18] MEDS: ALLOPURINOL 300 MG TABLET PO SCH (18:21)
[2018-11-18 19:44] VITALS: BP 122/81
[2018-11-18] MEDS: methylPREDNISolone SOD SUCC 40 MG/ML IV SCH (19:54)
[2018-11-18] MEDS: ONDANSETRON 2MG/ML, 2ML IVPush PRN (21:44)
[2018-11-19] VITALS (7 sets, daily range): BP systolic 133–149; BP diastolic 64–86
[2018-11-19] MEDS: CEFEPIME 2 GM in DEXTROSE 5% 100 ML IV SCH ×3 (01:28→16:14)
[2018-11-19 05:04] LABS: MEAN CORPUSCULAR HEMOGLOBIN 30.4 pg (27.0-34.8); MEAN CORPUSCULAR HGB CONC 33.3 g/dL (32.4-35.8); MEAN CORPUSCULAR VOLUME 91.3 fL (80-100); MEAN PLATELET VOLUME 8.4 fL (7.4-10.4); RED BLOOD COUNT 2.56 x10^6/uL (3.82-5.3); RED CELL DISTRIBUTION WIDTH 13.7 % (9.6-15.2)
[2018-11-19 05:09] LABS: CHLORIDE 104 mmol/L (98-107)
[2018-11-19] MEDS: PANTOPROZOLE 40MG TABLET PO SCH (05:11)
[2018-11-19 05:12] LABS: PLATELET COUNT 7 x10^3/uL (130-400)
[2018-11-19 05:16] LABS: ALANINE AMINOTRANSFERASE 10 U/L (12-78); ALBUMIN 2.6 g/dL (3.4-5.0); ALKALINE PHOSPHATASE 104 U/L (45-117); ANION GAP 9 mmol/L (5-15); BILIRUBIN,TOTAL 0.8 mg/dL (0.2-1.0); CREATININE 0.56 mg/dL (0.55-1.02); TOTAL PROTEIN 6.4 g/dL (6.4-8.2)
[2018-11-19] MEDS: SODIUM CHLORIDE 0.9% 1,000 ML IV SCH ×2 (08:35→20:51)
[2018-11-19] MEDS: methylPREDNISolone SOD SUCC 40 MG/ML IV SCH (08:36)
[2018-11-19] MEDS: MAGNESIUM OXIDE 400 MG TABLET PO SCH ×2 (08:36→20:52)
[2018-11-19] MEDS: VORICONAZOLE 50 MG TABLET PO SCH ×2 (08:36→20:52)
[2018-11-19] MEDS: METHYL SALICYLATE/MENTHOL CRM 85GM TP SCH ×3 (08:37→20:53)
[2018-11-19] MEDS: DIPHENHYDRAMINE 25 MG CAPSULE PO PRN (08:51)
[2018-11-19] MEDS: ALLOPURINOL 300 MG TABLET PO SCH (16:15)
[2018-11-19] MEDS: maalox/diphenh/lido/sucralfate 5 ML PO PRN (20:51)
[2018-11-19] MEDS: OXYcodone/APAP 7.5/325MG TABLET PO PRN (20:52)
[2018-11-19] MEDS: ONDANSETRON 2MG/ML, 2ML IVPush PRN (20:53)
[2018-11-19] MEDS: TEMAZEPAM 15 MG CAPSULE PO PRN (20:56)
[2018-11-20 01:13] VITALS: BP 150/84
[2018-11-20] MEDS: CEFEPIME 2 GM in DEXTROSE 5% 100 ML IV SCH ×3 (02:31→19:45)
[2018-11-20] MEDS: PANTOPROZOLE 40MG TABLET PO SCH (05:51)
[2018-11-20] MEDS: maalox/diphenh/lido/sucralfate 5 ML PO PRN (05:52)
[2018-11-20 06:33] VITALS: BP 153/79
[2018-11-20 06:37] LABS: ALANINE AMINOTRANSFERASE 15 U/L (12-78); ALBUMIN 2.6 g/dL (3.4-5.0); ANION GAP 7 mmol/L (5-15); CALCIUM 9.3 mg/dL (8.5-10.1); CHLORIDE 109 mmol/L (98-107); CREATININE 0.59 mg/dL (0.55-1.02)
[2018-11-20 06:39] LABS: ALKALINE PHOSPHATASE 92 U/L (45-117); BILIRUBIN,TOTAL 0.2 mg/dL (0.2-1.0); TOTAL PROTEIN 6.3 g/dL (6.4-8.2)
[2018-11-20 07:24] LABS: MEAN CORPUSCULAR HEMOGLOBIN 31.1 pg (27.0-34.8); MEAN CORPUSCULAR HGB CONC 33.6 g/dL (32.4-35.8); MEAN CORPUSCULAR VOLUME 92.5 fL (80-100); MEAN PLATELET VOLUME 7.3 fL (7.4-10.4); RED BLOOD COUNT 2.65 x10^6/uL (3.82-5.3); RED CELL DISTRIBUTION WIDTH 13.6 % (9.6-15.2)
[2018-11-20 07:25] LABS: PLATELET COUNT 40 x10^3/uL (130-400)
[2018-11-20 07:26] LABS: MD YES
[2018-11-20 07:28] LABS: <PLATELET ESTIMATE> DECREASED; <PLT MORPHOLOGY> NORMAL PLT MORPH; <RBC MORPHOLOGY> NORMAL; LYMPHS% (MANUAL) 100 % (22-44); SEGS% (MANUAL) 0 % (42-75)
[2018-11-20] MEDS: SODIUM CHLORIDE 0.9% 1,000 ML IV SCH (08:36)
[2018-11-20] MEDS: VORICONAZOLE 50 MG TABLET PO SCH ×2 (08:37→21:32)
[2018-11-20] MEDS: MAGNESIUM OXIDE 400 MG TABLET PO SCH ×2 (08:37→21:32)
[2018-11-20] MEDS: METHYL SALICYLATE/MENTHOL CRM 85GM TP SCH ×3 (08:38→21:32)
[2018-11-20 13:28] VITALS: BP 157/76
[2018-11-20] MEDS: ALLOPURINOL 300 MG TABLET PO SCH (18:25)
[2018-11-20] MEDS: TEMAZEPAM 15 MG CAPSULE PO PRN (20:05)
[2018-11-20] MEDS: POLYETHYLENE GLYCOL 17 GM PACKET PO PRN (20:05)
[2018-11-20] MEDS: ONDANSETRON 2MG/ML, 2ML IVPush PRN (20:05)
[2018-11-20 20:40] VITALS: BP 145/88
[2018-11-21] VITALS (7 sets, daily range): BP systolic 113–136; BP diastolic 70–81
[2018-11-21] MEDS: CEFEPIME 2 GM in DEXTROSE 5% 100 ML IV SCH ×3 (04:19→20:42)
[2018-11-21 04:49] LABS: MEAN CORPUSCULAR HEMOGLOBIN 30.8 pg (27.0-34.8); MEAN CORPUSCULAR HGB CONC 33.3 g/dL (32.4-35.8); MEAN CORPUSCULAR VOLUME 92.4 fL (80-100); RED BLOOD COUNT 2.16 x10^6/uL (3.82-5.3); RED CELL DISTRIBUTION WIDTH 13.7 % (9.6-15.2)
[2018-11-21 04:54] LABS: ALANINE AMINOTRANSFERASE 13 U/L (12-78); ALBUMIN 2.5 g/dL (3.4-5.0); ANION GAP 6 mmol/L (5-15); CALCIUM 8.4 mg/dL (8.5-10.1); CHLORIDE 107 mmol/L (98-107)
[2018-11-21 04:57] LABS: ALKALINE PHOSPHATASE 86 U/L (45-117); BILIRUBIN,TOTAL 0.3 mg/dL (0.2-1.0); CREATININE 0.57 mg/dL (0.55-1.02); TOTAL PROTEIN 5.8 g/dL (6.4-8.2)
[2018-11-21 05:26] LABS: PLATELET COUNT 29 x10^3/uL (130-400)
[2018-11-21] MEDS: maalox/diphenh/lido/sucralfate 5 ML PO PRN ×2 (05:49→15:42)
[2018-11-21] MEDS: PANTOPROZOLE 40MG TABLET PO SCH (05:53)
[2018-11-21] MEDS ORDERED: SODIUM CHLORIDE 0.9% 1,000 ML IV SCH (08:00)
[2018-11-21] MEDS: ONDANSETRON 2MG/ML, 2ML IVPush PRN ×3 (08:15→20:52)
[2018-11-21] MEDS: MAGNESIUM OXIDE 400 MG TABLET PO SCH ×2 (08:17→20:43)
[2018-11-21] MEDS: ACETAMINOPHEN 325 MG TABLET PO PRN (08:17)
[2018-11-21] MEDS: DIPHENHYDRAMINE 25 MG CAPSULE PO PRN (08:17)
[2018-11-21] MEDS: METHYL SALICYLATE/MENTHOL CRM 85GM TP SCH ×3 (08:17→20:43)
[2018-11-21] MEDS: VORICONAZOLE 50 MG TABLET PO SCH ×2 (08:17→20:43)
[2018-11-21] MEDS: ALLOPURINOL 300 MG TABLET PO SCH (17:09)
[2018-11-21] MEDS: OXYcodone/APAP 7.5/325MG TABLET PO PRN (17:09)
[2018-11-21] MEDS: TEMAZEPAM 15 MG CAPSULE PO PRN (20:43)
[2018-11-22 01:35] VITALS: BP 121/79
[2018-11-22] MEDS: maalox/diphenh/lido/sucralfate 5 ML PO PRN ×2 (02:10→07:59)
[2018-11-22] MEDS: CEFEPIME 2 GM in DEXTROSE 5% 100 ML IV SCH ×3 (03:39→20:00)
[2018-11-22 06:22] LABS: MEAN CORPUSCULAR HEMOGLOBIN 31.2 pg (27.0-34.8); MEAN CORPUSCULAR HGB CONC 34.2 g/dL (32.4-35.8); MEAN CORPUSCULAR VOLUME 91.3 fL (80-100); MEAN PLATELET VOLUME 7.7 fL (7.4-10.4); RED BLOOD COUNT 2.61 x10^6/uL (3.82-5.3); RED CELL DISTRIBUTION WIDTH 13.4 % (9.6-15.2)
[2018-11-22 06:43] LABS: PLATELET COUNT 22 x10^3/uL (130-400)
[2018-11-22 06:49] LABS: CHLORIDE 102 mmol/L (98-107)
[2018-11-22 07:01] LABS: ALANINE AMINOTRANSFERASE 11 U/L (12-78); ALBUMIN 2.7 g/dL (3.4-5.0); ALKALINE PHOSPHATASE 95 U/L (45-117); ANION GAP 6 mmol/L (5-15); BILIRUBIN,TOTAL 0.4 mg/dL (0.2-1.0); CREATININE 0.61 mg/dL (0.55-1.02); TOTAL PROTEIN 6.2 g/dL (6.4-8.2)
[2018-11-22 07:08] LABS: MD YES
[2018-11-22 07:20] LABS: <PLATELET ESTIMATE> DECREASED; <PLT MORPHOLOGY> NORMAL PLT MORPH; <RBC MORPHOLOGY> NORMAL; LYMPH#(MANUAL) 0.19 x10^3/uL (1-3.4); LYMPHS% (MANUAL) 96 % (22-44); SEG#(MANUAL) 0.01 x10^3/uL (1.8-6.8); SEGS% (MANUAL) 4 % (42-75)
[2018-11-22 07:40] VITALS: BP 117/80
[2018-11-22] MEDS: MAGNESIUM OXIDE 400 MG TABLET PO SCH ×2 (07:51→20:00)
[2018-11-22] MEDS: PANTOPROZOLE 40MG TABLET PO SCH (07:51)
[2018-11-22] MEDS: ONDANSETRON 2MG/ML, 2ML IVPush PRN ×2 (07:52→19:59)
[2018-11-22] MEDS: VORICONAZOLE 50 MG TABLET PO SCH ×2 (07:52→19:59)
[2018-11-22] MEDS: METHYL SALICYLATE/MENTHOL CRM 85GM TP SCH ×3 (07:52→20:00)
[2018-11-22] MEDS ORDERED: MIDAZOLAM 1 MG/ML, 5ML ONE (08:11)
[2018-11-22] MEDS ORDERED: FENTANYL PF 100 MCG/2ML ONE (08:11)
[2018-11-22] MEDS ORDERED: FLUMAZENIL 0.1 MG/1 ML, 5ML ONE (08:11)
[2018-11-22] MEDS ORDERED: NALOXONE 1 MG/ML, 2ML ONE (08:12)
[2018-11-22 13:51] VITALS: BP 116/78
[2018-11-22] MEDS: ALLOPURINOL 300 MG TABLET PO SCH (15:49)
[2018-11-22 18:50] VITALS: BP 114/74
[2018-11-22] MEDS: DIPHENHYDRAMINE 25 MG CAPSULE PO PRN (22:50)
[2018-11-23] VITALS (7 sets, daily range): BP systolic 108–128; BP diastolic 68–82
[2018-11-23] MEDS: CEFEPIME 2 GM in DEXTROSE 5% 100 ML IV SCH ×3 (03:55→19:26)
[2018-11-23] MEDS: maalox/diphenh/lido/sucralfate 5 ML PO PRN ×3 (03:55→17:51)
[2018-11-23] MEDS: ONDANSETRON 2MG/ML, 2ML IVPush PRN ×3 (03:55→17:51)
[2018-11-23] MEDS: OXYcodone/APAP 7.5/325MG TABLET PO PRN (03:55)
[2018-11-23 05:17] LABS: MEAN CORPUSCULAR HEMOGLOBIN 31.3 pg (27.0-34.8); MEAN CORPUSCULAR HGB CONC 34.2 g/dL (32.4-35.8); MEAN CORPUSCULAR VOLUME 91.3 fL (80-100); RED BLOOD COUNT 2.17 x10^6/uL (3.82-5.3); RED CELL DISTRIBUTION WIDTH 13.4 % (9.6-15.2)
[2018-11-23 05:51] LABS: MD YES; MEAN PLATELET VOLUME 7.7 fL (7.4-10.4)
[2018-11-23 05:56] LABS: <RBC MORPHOLOGY> NORMAL; LYMPHS% (MANUAL) 100 % (22-44); SEGS% (MANUAL) 0 % (42-75)
[2018-11-23 05:57] LABS: <PLATELET ESTIMATE> DECREASED; <PLT MORPHOLOGY> NORMAL PLT MORPH
[2018-11-23 05:58] LABS: PLATELET COUNT 13 x10^3/uL (130-400)
[2018-11-23] MEDS: PANTOPROZOLE 40MG TABLET PO SCH (05:58)
[2018-11-23 06:38] LABS: ALBUMIN 2.8 g/dL (3.4-5.0); ANION GAP 9 mmol/L (5-15); CALCIUM 9.2 mg/dL (8.5-10.1); CHLORIDE 100 mmol/L (98-107)
[2018-11-23 06:42] LABS: ALANINE AMINOTRANSFERASE 12 U/L (12-78); ALKALINE PHOSPHATASE 101 U/L (45-117); BILIRUBIN,TOTAL 0.4 mg/dL (0.2-1.0); CREATININE 0.65 mg/dL (0.55-1.02)
[2018-11-23] MEDS: POLYETHYLENE GLYCOL 17 GM PACKET PO PRN (08:35)
[2018-11-23] MEDS: MAGNESIUM OXIDE 400 MG TABLET PO SCH ×2 (08:35→20:59)
[2018-11-23] MEDS: METHYL SALICYLATE/MENTHOL CRM 85GM TP SCH ×3 (08:36→21:00)
[2018-11-23] MEDS: ACETAMINOPHEN 325 MG TABLET PO PRN ×2 (09:23→21:04)
[2018-11-23] MEDS: DIPHENHYDRAMINE 25 MG CAPSULE PO PRN ×2 (09:23→20:59)
[2018-11-23] MEDS: VORICONAZOLE 50 MG TABLET PO SCH ×2 (10:24→21:00)
[2018-11-24] VITALS (8 sets, daily range): BP systolic 114–138; BP diastolic 71–97
[2018-11-24] MEDS: CEFEPIME 2 GM in DEXTROSE 5% 100 ML IV SCH ×3 (03:53→19:56)
[2018-11-24] MEDS: ONDANSETRON 2MG/ML, 2ML IVPush PRN ×3 (03:53→20:42)
[2018-11-24 04:18] LABS: MEAN CORPUSCULAR HGB CONC 34.9 g/dL (32.4-35.8); MEAN CORPUSCULAR VOLUME 91.7 fL (80-100); MEAN PLATELET VOLUME 6.8 fL (7.4-10.4); RED BLOOD COUNT 2.86 x10^6/uL (3.82-5.3); RED CELL DISTRIBUTION WIDTH 13.4 % (9.6-15.2)
[2018-11-24 04:21] LABS: PLATELET COUNT 9 x10^3/uL (130-400)
[2018-11-24 04:29] LABS: ALANINE AMINOTRANSFERASE 11 U/L (12-78); ALBUMIN 2.6 g/dL (3.4-5.0); ANION GAP 6 mmol/L (5-15); CALCIUM 8.7 mg/dL (8.5-10.1); CHLORIDE 104 mmol/L (98-107); CREATININE 0.62 mg/dL (0.55-1.02)
[2018-11-24 04:32] LABS: ALKALINE PHOSPHATASE 94 U/L (45-117); BILIRUBIN,TOTAL 0.5 mg/dL (0.2-1.0); TOTAL PROTEIN 6.5 g/dL (6.4-8.2)
[2018-11-24 04:46] LABS: MD YES
[2018-11-24] MEDS: maalox/diphenh/lido/sucralfate 5 ML PO PRN ×3 (04:52→18:23)
[2018-11-24 05:02] LABS: <PLATELET ESTIMATE> DECREASED; <PLT MORPHOLOGY> QNS FOR PLT MORPH; <RBC MORPHOLOGY> NORMAL; LYMPHS% (MANUAL) 100 % (22-44)
[2018-11-24] MEDS: PANTOPROZOLE 40MG TABLET PO SCH (06:00)
[2018-11-24] MEDS: POLYETHYLENE GLYCOL 17 GM PACKET PO PRN (06:06)
[2018-11-24] MEDS: ACETAMINOPHEN 325 MG TABLET PO PRN ×2 (08:40→18:37)
[2018-11-24] MEDS: MAGNESIUM OXIDE 400 MG TABLET PO SCH ×2 (08:40→20:43)
[2018-11-24] MEDS: DIPHENHYDRAMINE 25 MG CAPSULE PO PRN (08:40)
[2018-11-24] MEDS: METHYL SALICYLATE/MENTHOL CRM 85GM TP SCH ×3 (08:41→20:43)
[2018-11-24] MEDS: VORICONAZOLE 50 MG TABLET PO SCH ×2 (08:41→20:43)
[2018-11-24] MEDS: OXYcodone/APAP 7.5/325MG TABLET PO PRN (17:05)
[2018-11-25] VITALS (7 sets, daily range): BP systolic 99–142; BP diastolic 63–84
[2018-11-25] MEDS: CEFEPIME 2 GM in DEXTROSE 5% 100 ML IV SCH (03:33)
[2018-11-25] MEDS: ACETAMINOPHEN 325 MG TABLET PO PRN ×3 (03:41→19:26)
[2018-11-25] MEDS: ONDANSETRON 2MG/ML, 2ML IVPush PRN (04:59)
[2018-11-25] MEDS: OXYcodone/APAP 7.5/325MG TABLET PO PRN ×2 (05:00→19:32)
[2018-11-25 05:18] LABS: CHLORIDE 98 mmol/L (98-107)
[2018-11-25 05:25] LABS: ALANINE AMINOTRANSFERASE 11 U/L (12-78); ALBUMIN 2.7 g/dL (3.4-5.0); ALKALINE PHOSPHATASE 98 U/L (45-117); ANION GAP 5 mmol/L (5-15); BILIRUBIN,TOTAL 0.5 mg/dL (0.2-1.0); CALCIUM 8.8 mg/dL (8.5-10.1); CREATININE 0.68 mg/dL (0.55-1.02); TOTAL PROTEIN 6.8 g/dL (6.4-8.2)
[2018-11-25] MEDS: PANTOPROZOLE 40MG TABLET PO SCH (06:00)
[2018-11-25] MEDS: MEROPENEM 1 GM in SODIUM CHLORIDE 0.9% 100 ML IV SCH ×3 (06:22→23:52)
[2018-11-25] MEDS: maalox/diphenh/lido/sucralfate 5 ML PO PRN ×2 (06:24→17:26)
[2018-11-25 06:32] LABS: MEAN CORPUSCULAR HEMOGLOBIN 31.5 pg (27.0-34.8); MEAN CORPUSCULAR HGB CONC 34.1 g/dL (32.4-35.8); MEAN CORPUSCULAR VOLUME 92.1 fL (80-100); MEAN PLATELET VOLUME 8.7 fL (7.4-10.4); RED BLOOD COUNT 2.84 x10^6/uL (3.82-5.3); RED CELL DISTRIBUTION WIDTH 13.5 % (9.6-15.2)
[2018-11-25 06:34] LABS: PLATELET COUNT 5 x10^3/uL (130-400)
[2018-11-25 06:47] LABS: MD YES
[2018-11-25 06:53] LABS: LYMPHS% (MANUAL) 98 % (22-44); REACTIVE LYMPHS % (MANUAL) 2 % (0-0); SEGS% (MANUAL) 0 % (42-75)
[2018-11-25 06:54] LABS: <PLATELET ESTIMATE> DECREASED; <PLT MORPHOLOGY> QNS FOR PLT MORPH; <RBC MORPHOLOGY> NORMAL
[2018-11-25] MEDS: MAGNESIUM OXIDE 400 MG TABLET PO SCH ×2 (10:24→19:26)
[2018-11-25] MEDS: METHYL SALICYLATE/MENTHOL CRM 85GM TP SCH ×3 (10:25→19:32)
[2018-11-25] MEDS: MICAFUNGIN 100 MG in SODIUM CHLORIDE 0.9% 100 ML IV SCH (10:25)
[2018-11-25] MEDS: DIPHENHYDRAMINE 25 MG CAPSULE PO PRN ×2 (11:14→22:21)
[2018-11-25] MEDS: PROCHLORPERAZINE 5 MG/ML, 2ML IVPush PRN (11:15)
[2018-11-25 13:38] LABS: CULTURE INDICATED? NO; MICROSCOPIC AUTO
[2018-11-25] MEDS ORDERED: VANCOMYCIN PER PHARMACY MC PRN (21:00)
[2018-11-25] MEDS ORDERED: VANCOMYCIN 1,500 MG in SODIUM CHLORIDE 0.9% 250 ML IV SCH (21:30)
[2018-11-25] MEDS ORDERED: PHARMACOKINETIC CONSULTATION MC ONE (21:30)
[2018-11-25] MEDS ORDERED: PHARMACOKINETIC MONITORING MC PRN (21:30)
[2018-11-26 03:54] VITALS: BP 114/68
[2018-11-26] MEDS: ACETAMINOPHEN 325 MG TABLET PO PRN (03:57)
[2018-11-26 04:33] LABS: ALANINE AMINOTRANSFERASE 11 U/L (12-78); ALBUMIN 2.6 g/dL (3.4-5.0); ANION GAP 7 mmol/L (5-15); CALCIUM 8.6 mg/dL (8.5-10.1); CHLORIDE 101 mmol/L (98-107); CREATININE 0.61 mg/dL (0.55-1.02)
[2018-11-26 04:35] LABS: ALKALINE PHOSPHATASE 95 U/L (45-117); BILIRUBIN,TOTAL 0.2 mg/dL (0.2-1.0); TOTAL PROTEIN 6.5 g/dL (6.4-8.2)
[2018-11-26] MEDS: PANTOPROZOLE 40MG TABLET PO SCH (05:46)
[2018-11-26 06:45] LABS: MEAN CORPUSCULAR HEMOGLOBIN 31.8 pg (27.0-34.8); MEAN CORPUSCULAR HGB CONC 34.9 g/dL (32.4-35.8); MEAN CORPUSCULAR VOLUME 91.2 fL (80-100); MEAN PLATELET VOLUME 7.7 fL (7.4-10.4); RED BLOOD COUNT 2.72 x10^6/uL (3.82-5.3); RED CELL DISTRIBUTION WIDTH 13.3 % (9.6-15.2)
[2018-11-26 06:46] LABS: PLATELET COUNT 27 x10^3/uL (130-400)
[2018-11-26 07:11] LABS: MD YES
[2018-11-26 07:12] LABS: LYMPHS% (MANUAL) 100 % (22-44)
[2018-11-26 07:13] LABS: <PLATELET ESTIMATE> DECREASED; <PLT MORPHOLOGY> NORMAL PLT MORPH; <RBC MORPHOLOGY> NORMAL; SEGS% (MANUAL) 0 % (42-75)
[2018-11-26 07:28] VITALS: BP 129/85
[2018-11-26] MEDS: OXYcodone/APAP 7.5/325MG TABLET PO PRN ×3 (07:28→22:14)
[2018-11-26] MEDS: MAGNESIUM OXIDE 400 MG TABLET PO SCH ×2 (07:58→21:00)
[2018-11-26] MEDS: POLYETHYLENE GLYCOL 17 GM PACKET PO PRN (07:58)
[2018-11-26] MEDS: MEROPENEM 1 GM in SODIUM CHLORIDE 0.9% 100 ML IV SCH (07:58)
[2018-11-26] MEDS: METHYL SALICYLATE/MENTHOL CRM 85GM TP SCH ×3 (07:59→21:07)
[2018-11-26] MEDS ORDERED: LEVOFLOXACIN/PMX 750MG/150ML 150 ML IV SCH (09:00)
[2018-11-26] MEDS: MICAFUNGIN 100 MG in SODIUM CHLORIDE 0.9% 100 ML IV SCH (10:03)
[2018-11-26] MEDS: maalox/diphenh/lido/sucralfate 5 ML PO PRN ×2 (11:19→19:30)
[2018-11-26] MEDS: ERAVACYCLINE IV SCH ×2 (11:47→23:03)
[2018-11-26] MEDS: SODIUM CHLORIDE 0.9% IV SCH ×2 (11:47→23:03)
[2018-11-26 12:50] VITALS: BP 109/69
[2018-11-26 19:59] VITALS: BP 127/78
[2018-11-26] MEDS ORDERED: DOCUSATE 50 MG/5 ML, 10ML UDC PO SCH (21:00)
[2018-11-26] MEDS ORDERED: MAGNESIUM CITRATE 300ML ORAL SOL PO ONE (21:00)
[2018-11-26] MEDS: DIPHENHYDRAMINE 25 MG CAPSULE PO PRN (21:07)
[2018-11-26] MEDS: ONDANSETRON 2MG/ML, 2ML IVPush PRN (22:14)
[2018-11-26] MEDS: LORazepam 2 MG/ML, 1ML IVPush PRN (23:13)
[2018-11-27 02:17] VITALS: BP 113/73
[2018-11-27] MEDS: OXYcodone/APAP 7.5/325MG TABLET PO PRN ×3 (02:17→20:58)
[2018-11-27 05:22] LABS: ALBUMIN 2.5 g/dL (3.4-5.0); ANION GAP 5 mmol/L (5-15); CALCIUM 8.5 mg/dL (8.5-10.1); CHLORIDE 102 mmol/L (98-107)
[2018-11-27 05:25] LABS: ALANINE AMINOTRANSFERASE 13 U/L (12-78); ALKALINE PHOSPHATASE 98 U/L (45-117); BILIRUBIN,TOTAL 0.4 mg/dL (0.2-1.0); CREATININE 0.51 mg/dL (0.55-1.02); TOTAL PROTEIN 6.2 g/dL (6.4-8.2)
[2018-11-27] MEDS: maalox/diphenh/lido/sucralfate 5 ML PO PRN ×3 (05:55→21:30)
[2018-11-27] MEDS: PANTOPROZOLE 40MG TABLET PO SCH (05:55)
[2018-11-27] MEDS: PROCHLORPERAZINE 5 MG/ML, 2ML IVPush PRN (06:56)
[2018-11-27 06:57] LABS: MEAN CORPUSCULAR HEMOGLOBIN 31.1 pg (27.0-34.8); MEAN CORPUSCULAR HGB CONC 34.3 g/dL (32.4-35.8); MEAN CORPUSCULAR VOLUME 90.7 fL (80-100); MEAN PLATELET VOLUME 8.4 fL (7.4-10.4); RED CELL DISTRIBUTION WIDTH 13.4 % (9.6-15.2)
[2018-11-27 06:58] LABS: PLATELET COUNT 17 x10^3/uL (130-400)
[2018-11-27 07:25] VITALS: BP 111/72
[2018-11-27] MEDS: MICAFUNGIN 100 MG in SODIUM CHLORIDE 0.9% 100 ML IV SCH (08:43)
[2018-11-27] MEDS: MAGNESIUM OXIDE 400 MG TABLET PO SCH ×2 (08:43→20:58)
[2018-11-27] MEDS: DOCUSATE 100 MG CAPSULE PO SCH ×2 (08:43→20:58)
[2018-11-27] MEDS: POLYETHYLENE GLYCOL 17 GM PACKET PO PRN (08:44)
[2018-11-27] MEDS: METHYL SALICYLATE/MENTHOL CRM 85GM TP SCH ×3 (08:53→20:58)
[2018-11-27] MEDS: ONDANSETRON 2MG/ML, 2ML IVPush PRN ×2 (12:25→21:18)
[2018-11-27] MEDS: ERAVACYCLINE IV SCH ×2 (12:33→23:09)
[2018-11-27] MEDS: SODIUM CHLORIDE 0.9% IV SCH ×2 (12:33→23:09)
[2018-11-27 14:00] VITALS: BP 148/84
[2018-11-27 19:58] VITALS: BP 125/75
[2018-11-27] MEDS: LORazepam 2 MG/ML, 1ML IVPush PRN (20:58)
[2018-11-27] MEDS: DIPHENHYDRAMINE 25 MG CAPSULE PO PRN (20:58)
[2018-11-28 01:59] VITALS: BP 98/64
[2018-11-28 05:40] LABS: MEAN CORPUSCULAR HEMOGLOBIN 31.7 pg (27.0-34.8); MEAN CORPUSCULAR HGB CONC 34.8 g/dL (32.4-35.8); MEAN CORPUSCULAR VOLUME 91.3 fL (80-100); RED BLOOD COUNT 2.56 x10^6/uL (3.82-5.3); RED CELL DISTRIBUTION WIDTH 13.1 % (9.6-15.2)
[2018-11-28 05:41] LABS: CHLORIDE 100 mmol/L (98-107)
[2018-11-28 05:48] LABS: ALANINE AMINOTRANSFERASE 14 U/L (12-78); ALBUMIN 2.4 g/dL (3.4-5.0); ALKALINE PHOSPHATASE 99 U/L (45-117); ANION GAP 7 mmol/L (5-15); BILIRUBIN,TOTAL 0.5 mg/dL (0.2-1.0); CALCIUM 8.3 mg/dL (8.5-10.1); CREATININE 0.55 mg/dL (0.55-1.02); TOTAL PROTEIN 5.6 g/dL (6.4-8.2)
[2018-11-28 07:04] LABS: MEAN PLATELET VOLUME 9.5 fL (7.4-10.4)
[2018-11-28 07:06] LABS: PLATELET COUNT 9 x10^3/uL (130-400)
[2018-11-28 07:07] LABS: MD YES
[2018-11-28 07:14] LABS: BANDS%(MANUAL) 1 % (0-7); LYMPH#(MANUAL) 0.14 x10^3/uL (1-3.4); LYMPHS% (MANUAL) 72 % (22-44); MONOS#(MANUAL) 0.03 x10^3/uL (0.3-2.7); MONOS% (MANUAL) 17 % (2-9); SEG#(MANUAL) 0.02 x10^3/uL (1.8-6.8); SEGS% (MANUAL) 10 % (42-75)
[2018-11-28 07:15] LABS: <PLATELET ESTIMATE> DECREASED; <PLT MORPHOLOGY> NORMAL PLT MORPH; <RBC MORPHOLOGY> NORMAL
[2018-11-28 07:50] VITALS: BP 124/72
[2018-11-28] MEDS: OXYcodone/APAP 7.5/325MG TABLET PO PRN ×2 (07:57→20:28)
[2018-11-28] MEDS: PANTOPROZOLE 40MG TABLET PO SCH (07:57)
[2018-11-28] MEDS: ACETAMINOPHEN 325 MG TABLET PO PRN ×2 (07:57→18:36)
[2018-11-28] MEDS: ONDANSETRON 2MG/ML, 2ML IVPush PRN (09:39)
[2018-11-28] MEDS: DOCUSATE 100 MG CAPSULE PO SCH ×2 (09:39→20:28)
[2018-11-28] MEDS: POLYETHYLENE GLYCOL 17 GM PACKET PO PRN (09:39)
[2018-11-28] MEDS: MAGNESIUM OXIDE 400 MG TABLET PO SCH ×2 (09:39→20:28)
[2018-11-28] MEDS: MICAFUNGIN 100 MG in SODIUM CHLORIDE 0.9% 100 ML IV SCH (09:39)
[2018-11-28] MEDS: METHYL SALICYLATE/MENTHOL CRM 85GM TP SCH ×3 (09:44→20:28)
[2018-11-28] MEDS: maalox/diphenh/lido/sucralfate 5 ML PO PRN ×2 (09:47→21:57)
[2018-11-28] MEDS: SODIUM CHLORIDE 0.9% IV SCH ×2 (11:29→23:19)
[2018-11-28] MEDS: ERAVACYCLINE IV SCH ×2 (11:29→23:19)
[2018-11-28 11:43] VITALS: BP 99/63
[2018-11-28 12:07] VITALS: BP 102/66
[2018-11-28 13:33] VITALS: BP 96/62
[2018-11-28 19:52] VITALS: BP 133/78
[2018-11-28] MEDS: GUAIFENESIN/DM 200-20MG, 10ML UDC PO PRN (20:28)
[2018-11-28] MEDS: DIPHENHYDRAMINE 25 MG CAPSULE PO PRN (21:57)
[2018-11-29 01:27] VITALS: BP 126/75
[2018-11-29] MEDS: GUAIFENESIN/DM 200-20MG, 10ML UDC PO PRN ×3 (02:09→23:25)
[2018-11-29] MEDS: PANTOPROZOLE 40MG TABLET PO SCH (06:00)
[2018-11-29] MEDS: OXYcodone/APAP 7.5/325MG TABLET PO PRN ×3 (06:00→21:22)
[2018-11-29 06:02] LABS: ALANINE AMINOTRANSFERASE 14 U/L (12-78); ALBUMIN 2.4 g/dL (3.4-5.0); ANION GAP 6 mmol/L (5-15); CALCIUM 8.4 mg/dL (8.5-10.1); CHLORIDE 103 mmol/L (98-107); CREATININE 0.52 mg/dL (0.55-1.02)
[2018-11-29 06:04] LABS: ALKALINE PHOSPHATASE 107 U/L (45-117); BILIRUBIN,TOTAL 0.3 mg/dL (0.2-1.0); TOTAL PROTEIN 5.8 g/dL (6.4-8.2)
[2018-11-29 06:34] LABS: MEAN CORPUSCULAR HGB CONC 34.1 g/dL (32.4-35.8); MEAN PLATELET VOLUME 8.9 fL (7.4-10.4); RED BLOOD COUNT 2.53 x10^6/uL (3.82-5.3); RED CELL DISTRIBUTION WIDTH 12.9 % (9.6-15.2)
[2018-11-29 06:36] LABS: PLATELET COUNT 36 x10^3/uL (130-400)
[2018-11-29 06:37] LABS: MD YES
[2018-11-29 08:36] VITALS: BP 99/63
[2018-11-29] MEDS: MAGNESIUM OXIDE 400 MG TABLET PO SCH ×2 (09:29→21:22)
[2018-11-29] MEDS: DOCUSATE 100 MG CAPSULE PO SCH ×2 (09:29→21:00)
[2018-11-29] MEDS: maalox/diphenh/lido/sucralfate 5 ML PO PRN ×4 (09:29→21:21)
[2018-11-29] MEDS: MICAFUNGIN 100 MG in SODIUM CHLORIDE 0.9% 100 ML IV SCH (09:30)
[2018-11-29] MEDS: METHYL SALICYLATE/MENTHOL CRM 85GM TP SCH ×3 (09:30→21:22)
[2018-11-29] MEDS: POLYETHYLENE GLYCOL 17 GM PACKET PO SCH (09:30)
[2018-11-29] MEDS: SODIUM CHLORIDE 0.9% IV SCH ×2 (11:26→23:26)
[2018-11-29] MEDS: ERAVACYCLINE IV SCH ×2 (11:26→23:26)
[2018-11-29 11:34] LABS: <RBC MORPHOLOGY> NORMAL; LYMPH#(MANUAL) 0.23 x10^3/uL (1-3.4); LYMPHS% (MANUAL) 76 % (22-44); MONOS#(MANUAL) 0.03 x10^3/uL (0.3-2.7); MONOS% (MANUAL) 10 % (2-9); SEG#(MANUAL) 0.04 x10^3/uL (1.8-6.8); SEGS% (MANUAL) 14 % (42-75)
[2018-11-29 11:35] LABS: <PLATELET ESTIMATE> DECREASED; <PLT MORPHOLOGY> NORMAL PLT MORPH
[2018-11-29] MEDS ORDERED: DIPHENHYDRAMINE 50 MG CAPSULE PO PRN (12:00)
[2018-11-29] MEDS: LORATADINE 10 MG TABLET PO SCH (13:39)
[2018-11-29 13:45] VITALS: BP 116/63
[2018-11-29 19:40] VITALS: BP 92/56
[2018-11-30] MEDS ORDERED: CATHFLO-ALTEPLASE 2 MG/2 ML CATHFLUSH ONE ×2 (00:30→01:00)
[2018-11-30 01:15] VITALS: BP 104/67
[2018-11-30] MEDS: OXYcodone/APAP 7.5/325MG TABLET PO PRN ×4 (01:25→17:44)
[2018-11-30] MEDS: PANTOPROZOLE 40MG TABLET PO SCH (05:49)
[2018-11-30 06:15] LABS: MEAN CORPUSCULAR HEMOGLOBIN 30.9 pg (27.0-34.8); MEAN CORPUSCULAR HGB CONC 33.9 g/dL (32.4-35.8); MEAN CORPUSCULAR VOLUME 91.3 fL (80-100); MEAN PLATELET VOLUME 8.9 fL (7.4-10.4); RED BLOOD COUNT 2.41 x10^6/uL (3.82-5.3); RED CELL DISTRIBUTION WIDTH 13.3 % (9.6-15.2)
[2018-11-30 06:16] LABS: ALBUMIN 2.1 g/dL (3.4-5.0); ANION GAP 5 mmol/L (5-15); CALCIUM 8.1 mg/dL (8.5-10.1); CHLORIDE 105 mmol/L (98-107)
[2018-11-30 06:20] LABS: ALANINE AMINOTRANSFERASE 12 U/L (12-78); ALKALINE PHOSPHATASE 103 U/L (45-117); BILIRUBIN,TOTAL 0.3 mg/dL (0.2-1.0); CREATININE 0.45 mg/dL (0.55-1.02); TOTAL PROTEIN 5.2 g/dL (6.4-8.2)
[2018-11-30 06:25] LABS: PLATELET COUNT 40 x10^3/uL (130-400)
[2018-11-30 06:54] LABS: MD YES
[2018-11-30 07:52] VITALS: BP 136/86
[2018-11-30] MEDS: POLYETHYLENE GLYCOL 17 GM PACKET PO SCH (08:14)
[2018-11-30] MEDS: LORATADINE 10 MG TABLET PO SCH (08:14)
[2018-11-30] MEDS: DOCUSATE 100 MG CAPSULE PO SCH ×2 (08:14→21:02)
[2018-11-30] MEDS: MAGNESIUM OXIDE 400 MG TABLET PO SCH ×2 (08:15→21:03)
[2018-11-30] MEDS: METHYL SALICYLATE/MENTHOL CRM 85GM TP SCH ×3 (08:28→21:04)
[2018-11-30] MEDS: MICAFUNGIN 100 MG in SODIUM CHLORIDE 0.9% 100 ML IV SCH (08:28)
[2018-11-30 08:41] LABS: BAND#(MANUAL) 0.04 x10^3/uL; BANDS%(MANUAL) 8 % (0-7); LYMPH#(MANUAL) 0.28 x10^3/uL (1-3.4); LYMPHS% (MANUAL) 56 % (22-44); MONOS#(MANUAL) 0.08 x10^3/uL (0.3-2.7); MONOS% (MANUAL) 16 % (2-9); REACTIVE LYMPHS # (MANUAL) 0.02 x10^3/uL (0-0); REACTIVE LYMPHS % (MANUAL) 4 % (0-0); SEG#(MANUAL) 0.08 x10^3/uL (1.8-6.8); SEGS% (MANUAL) 16 % (42-75)
[2018-11-30 08:42] LABS: <PLATELET ESTIMATE> DECREASED; <PLT MORPHOLOGY> NORMAL PLT MORPH
[2018-11-30] MEDS ORDERED: POLYETHYLENE GLYCOL 17 GM PACKET PO SCH (09:00)
[2018-11-30] MEDS: TRIAMCINOLONE CRM 0.1%, 454GMS TP PRN ×2 (11:27→21:04)
[2018-11-30] MEDS: GUAIFENESIN/DM 200-20MG, 10ML UDC PO PRN ×2 (11:28→21:02)
[2018-11-30] MEDS: ERAVACYCLINE IV SCH (11:28)
[2018-11-30] MEDS: SODIUM CHLORIDE 0.9% IV SCH (11:28)
[2018-11-30 12:32] VITALS: BP 108/66
[2018-11-30] MEDS: maalox/diphenh/lido/sucralfate 5 ML PO PRN (17:14)
[2018-11-30 19:52] VITALS: BP 129/76
[2018-11-30] MEDS: hydrOXyzine 10MG TABLET PO PRN (21:03)
[2018-11-30] MEDS: LORazepam 2 MG/ML, 1ML IVPush PRN (21:20)
[2018-12-01] MEDS: OXYcodone/APAP 7.5/325MG TABLET PO PRN ×6 (00:02→23:16)
[2018-12-01] MEDS: SODIUM CHLORIDE 0.9% IV SCH ×3 (00:03→23:16)
[2018-12-01] MEDS: ERAVACYCLINE IV SCH ×3 (00:03→23:16)
[2018-12-01 02:55] VITALS: BP 117/56
[2018-12-01] MEDS: PANTOPROZOLE 40MG TABLET PO SCH (04:55)
[2018-12-01] MEDS: GUAIFENESIN/DM 200-20MG, 10ML UDC PO PRN ×2 (04:55→18:02)
[2018-12-01] MEDS: ONDANSETRON 2MG/ML, 2ML IVPush PRN ×2 (04:57→11:17)
[2018-12-01 05:32] LABS: ALBUMIN 2.2 g/dL (3.4-5.0); ANION GAP 7 mmol/L (5-15); CALCIUM 8.2 mg/dL (8.5-10.1); CHLORIDE 108 mmol/L (98-107)
[2018-12-01 05:35] LABS: ALANINE AMINOTRANSFERASE 13 U/L (12-78); ALKALINE PHOSPHATASE 119 U/L (45-117); BILIRUBIN,TOTAL 0.3 mg/dL (0.2-1.0); CREATININE 0.49 mg/dL (0.55-1.02); TOTAL PROTEIN 5.2 g/dL (6.4-8.2)
[2018-12-01 05:59] LABS: MEAN CORPUSCULAR HEMOGLOBIN 30.8 pg (27.0-34.8); MEAN CORPUSCULAR HGB CONC 34.1 g/dL (32.4-35.8); MEAN CORPUSCULAR VOLUME 90.5 fL (80-100); MEAN PLATELET VOLUME 8.6 fL (7.4-10.4); PLATELET COUNT 53 x10^3/uL (130-400); RED BLOOD COUNT 2.49 x10^6/uL (3.82-5.3)
[2018-12-01 06:00] LABS: MD YES
[2018-12-01 06:03] LABS: BAND#(MANUAL) 0.02 x10^3/uL; BANDS%(MANUAL) 3 % (0-7); LYMPH#(MANUAL) 0.32 x10^3/uL (1-3.4); LYMPHS% (MANUAL) 40 % (22-44); MONOS#(MANUAL) 0.25 x10^3/uL (0.3-2.7); MONOS% (MANUAL) 31 % (2-9); NRBC % (MANUAL) 1 % (0-1); SEG#(MANUAL) 0.21 x10^3/uL (1.8-6.8); SEGS% (MANUAL) 26 % (42-75)
[2018-12-01 06:06] LABS: <PLATELET ESTIMATE> DECREASED; <PLT MORPHOLOGY> NORMAL PLT MORPH; <RBC MORPHOLOGY> NORMAL
[2018-12-01 07:55] VITALS: BP 124/66
[2018-12-01] MEDS: DOCUSATE 100 MG CAPSULE PO SCH ×2 (09:05→21:00)
[2018-12-01] MEDS: MICAFUNGIN 100 MG in SODIUM CHLORIDE 0.9% 100 ML IV SCH (09:05)
[2018-12-01] MEDS: POLYETHYLENE GLYCOL 17 GM PACKET PO SCH (09:05)
[2018-12-01] MEDS: LORATADINE 10 MG TABLET PO SCH (09:05)
[2018-12-01] MEDS: METHYL SALICYLATE/MENTHOL CRM 85GM TP SCH ×3 (09:06→21:00)
[2018-12-01] MEDS: MAGNESIUM OXIDE 400 MG TABLET PO SCH ×2 (09:06→21:24)
[2018-12-01 16:03] VITALS: BP 111/67
[2018-12-01 19:06] VITALS: BP 104/66
[2018-12-01] MEDS: TRIAMCINOLONE CRM 0.1%, 454GMS TP PRN (21:15)
[2018-12-01] MEDS: LORazepam 2 MG/ML, 1ML IVPush PRN (21:24)
[2018-12-01] MEDS: hydrOXyzine 10MG TABLET PO PRN (21:24)
[2018-12-02 03:21] VITALS: BP 119/75
[2018-12-02] MEDS: OXYcodone/APAP 7.5/325MG TABLET PO PRN ×3 (03:27→20:38)
[2018-12-02] MEDS: LORazepam 2 MG/ML, 1ML IVPush PRN (03:27)
[2018-12-02] MEDS: PANTOPROZOLE 40MG TABLET PO SCH (05:21)
[2018-12-02 06:00] LABS: ALBUMIN 2.1 g/dL (3.4-5.0); ANION GAP 4 mmol/L (5-15); CALCIUM 8.3 mg/dL (8.5-10.1); CHLORIDE 109 mmol/L (98-107)
[2018-12-02 06:03] LABS: ALANINE AMINOTRANSFERASE 13 U/L (12-78); ALKALINE PHOSPHATASE 123 U/L (45-117); BILIRUBIN,TOTAL 0.3 mg/dL (0.2-1.0); CREATININE 0.48 mg/dL (0.55-1.02)
[2018-12-02] MEDS ORDERED: CATHFLO-ALTEPLASE 2 MG/2 ML CATHFLUSH ONE (06:30)
[2018-12-02 07:31] LABS: MEAN CORPUSCULAR HEMOGLOBIN 30.7 pg (27.0-34.8); MEAN CORPUSCULAR HGB CONC 33.7 g/dL (32.4-35.8); MEAN CORPUSCULAR VOLUME 91.2 fL (80-100); MEAN PLATELET VOLUME 7.8 fL (7.4-10.4); PLATELET COUNT 66 x10^3/uL (130-400); RED BLOOD COUNT 2.41 x10^6/uL (3.82-5.3); RED CELL DISTRIBUTION WIDTH 13.6 % (9.6-15.2)
[2018-12-02 07:32] LABS: MD YES
[2018-12-02 07:49] LABS: BAND#(MANUAL) 0.03 x10^3/uL; BANDS%(MANUAL) 3 % (0-7); LYMPH#(MANUAL) 0.36 x10^3/uL (1-3.4); LYMPHS% (MANUAL) 33 % (22-44); METAMYELOCYTES# (MANUAL) 0.04 x10^3/uL (0-0); METAMYELOCYTES% (MANUAL) 4 % (0-1); MONOS#(MANUAL) 0.18 x10^3/uL (0.3-2.7); MONOS% (MANUAL) 16 % (2-9); MYELOCYTES# (MANUAL) 0.01 x10^3/uL (0-0); MYELOCYTES% (MANUAL) 1 % (0-0); SEG#(MANUAL) 0.47 x10^3/uL (1.8-6.8); SEGS% (MANUAL) 43 % (42-75)
[2018-12-02 07:50] LABS: <PLATELET ESTIMATE> DECREASED; <PLT MORPHOLOGY> NORMAL PLT MORPH; POLYCHROMASIA 1+
[2018-12-02 08:15] VITALS: BP 115/78
[2018-12-02] MEDS: DOCUSATE 100 MG CAPSULE PO SCH ×2 (08:15→20:38)
[2018-12-02] MEDS: POLYETHYLENE GLYCOL 17 GM PACKET PO SCH (08:16)
[2018-12-02] MEDS: MAGNESIUM OXIDE 400 MG TABLET PO SCH ×2 (08:30→20:38)
[2018-12-02] MEDS: MICAFUNGIN 100 MG in SODIUM CHLORIDE 0.9% 100 ML IV SCH (08:30)
[2018-12-02] MEDS: METHYL SALICYLATE/MENTHOL CRM 85GM TP SCH ×3 (08:30→20:42)
[2018-12-02] MEDS: LORATADINE 10 MG TABLET PO SCH (08:30)
[2018-12-02] MEDS ORDERED: ALUMINUM/MAG/SIMETHICONE 30 ML UDC PO PRN (09:00)
[2018-12-02] MEDS: ERAVACYCLINE IV SCH ×2 (12:16→23:34)
[2018-12-02] MEDS: SODIUM CHLORIDE 0.9% IV SCH ×2 (12:16→23:34)
[2018-12-02 13:20] VITALS: BP 126/75
[2018-12-02] MEDS: ONDANSETRON 2MG/ML, 2ML IVPush PRN (14:24)
[2018-12-02 18:47] VITALS: BP 117/77
[2018-12-03 01:16] VITALS: BP 122/85
[2018-12-03 04:20] LABS: MEAN CORPUSCULAR HEMOGLOBIN 30.8 pg (27.0-34.8); MEAN CORPUSCULAR HGB CONC 33.9 g/dL (32.4-35.8); MEAN CORPUSCULAR VOLUME 90.8 fL (80-100); MEAN PLATELET VOLUME 7.8 fL (7.4-10.4); PLATELET COUNT 94 x10^3/uL (130-400); RED BLOOD COUNT 2.58 x10^6/uL (3.82-5.3); RED CELL DISTRIBUTION WIDTH 13.5 % (9.6-15.2)
[2018-12-03 04:27] LABS: ALANINE AMINOTRANSFERASE 13 U/L (12-78); ALBUMIN 2.1 g/dL (3.4-5.0); ANION GAP 5 mmol/L (5-15); CHLORIDE 107 mmol/L (98-107)
[2018-12-03 04:30] LABS: ALKALINE PHOSPHATASE 129 U/L (45-117); BILIRUBIN,TOTAL 0.2 mg/dL (0.2-1.0); CREATININE 0.53 mg/dL (0.55-1.02); TOTAL PROTEIN 4.9 g/dL (6.4-8.2)
[2018-12-03 04:35] LABS: MD YES
[2018-12-03 04:46] LABS: BAND#(MANUAL) 0.11 x10^3/uL; BANDS%(MANUAL) 7 % (0-7); LYMPH#(MANUAL) 0.48 x10^3/uL (1-3.4); LYMPHS% (MANUAL) 30 % (22-44); METAMYELOCYTES# (MANUAL) 0.05 x10^3/uL (0-0); METAMYELOCYTES% (MANUAL) 3 % (0-1); MONOS#(MANUAL) 0.29 x10^3/uL (0.3-2.7); MONOS% (MANUAL) 18 % (2-9); MYELOCYTES# (MANUAL) 0.02 x10^3/uL (0-0); MYELOCYTES% (MANUAL) 1 % (0-0); NRBC % (MANUAL) 2 % (0-1); SEG#(MANUAL) 0.66 x10^3/uL (1.8-6.8); SEGS% (MANUAL) 41 % (42-75)
[2018-12-03 04:48] LABS: <PLATELET ESTIMATE> DECREASED; <PLT MORPHOLOGY> NORMAL PLT MORPH; POLYCHROMASIA 1+
[2018-12-03] MEDS: PANTOPROZOLE 40MG TABLET PO SCH (05:54)
[2018-12-03] MEDS: ONDANSETRON 2MG/ML, 2ML IVPush PRN (07:36)
[2018-12-03 07:38] VITALS: BP 123/82
[2018-12-03] MEDS: DOCUSATE 100 MG CAPSULE PO SCH ×2 (07:40→20:50)
[2018-12-03] MEDS: LORATADINE 10 MG TABLET PO SCH (07:40)
[2018-12-03] MEDS: METHOCARBAMOL 500 MG TABLET PO PRN ×2 (07:40→23:11)
[2018-12-03] MEDS: MAGNESIUM OXIDE 400 MG TABLET PO SCH ×2 (07:40→20:50)
[2018-12-03] MEDS: POLYETHYLENE GLYCOL 17 GM PACKET PO SCH (07:40)
[2018-12-03] MEDS: METHYL SALICYLATE/MENTHOL CRM 85GM TP SCH ×3 (07:43→20:50)
[2018-12-03] MEDS: MICAFUNGIN 100 MG in SODIUM CHLORIDE 0.9% 100 ML IV SCH (09:42)
[2018-12-03] MEDS: SODIUM CHLORIDE 0.9% IV SCH ×2 (12:04→23:11)
[2018-12-03] MEDS: ERAVACYCLINE IV SCH ×2 (12:04→23:11)
[2018-12-03] MEDS: OXYcodone/APAP 7.5/325MG TABLET PO PRN ×2 (13:53→20:50)
[2018-12-03] MEDS: GUAIFENESIN/DM 200-20MG, 10ML UDC PO PRN (13:53)
[2018-12-03 14:13] VITALS: BP 94/64
[2018-12-03 19:30] VITALS: BP 113/75
[2018-12-04 01:15] VITALS: BP 118/75
[2018-12-04] MEDS: OXYcodone/APAP 7.5/325MG TABLET PO PRN ×3 (05:00→14:11)
[2018-12-04] MEDS: PANTOPROZOLE 40MG TABLET PO SCH (05:00)
[2018-12-04 05:28] LABS: MEAN CORPUSCULAR HEMOGLOBIN 30.4 pg (27.0-34.8); MEAN CORPUSCULAR HGB CONC 33.8 g/dL (32.4-35.8); MEAN CORPUSCULAR VOLUME 90.1 fL (80-100); MEAN PLATELET VOLUME 7.6 fL (7.4-10.4); PLATELET COUNT 120 x10^3/uL (130-400); RED BLOOD COUNT 2.49 x10^6/uL (3.82-5.3)
[2018-12-04 05:31] LABS: ALANINE AMINOTRANSFERASE 10 U/L (12-78); ANION GAP 7 mmol/L (5-15); CALCIUM 8.1 mg/dL (8.5-10.1); CHLORIDE 105 mmol/L (98-107)
[2018-12-04 05:33] LABS: ALKALINE PHOSPHATASE 140 U/L (45-117); BILIRUBIN,TOTAL 0.2 mg/dL (0.2-1.0); TOTAL PROTEIN 4.8 g/dL (6.4-8.2)
[2018-12-04 06:21] LABS: MD YES
[2018-12-04 06:34] LABS: <PLATELET ESTIMATE> DECREASED; <PLT MORPHOLOGY> NORMAL PLT MORPH; LYMPH#(MANUAL) 0.36 x10^3/uL (1-3.4); LYMPHS% (MANUAL) 17 % (22-44); METAMYELOCYTES# (MANUAL) 0.08 x10^3/uL (0-0); METAMYELOCYTES% (MANUAL) 4 % (0-1); MONOS#(MANUAL) 0.38 x10^3/uL (0.3-2.7); MONOS% (MANUAL) 18 % (2-9); MYELOCYTES# (MANUAL) 0.06 x10^3/uL (0-0); MYELOCYTES% (MANUAL) 3 % (0-0); POLYCHROMASIA 1+; SEG#(MANUAL) 1.22 x10^3/uL (1.8-6.8); SEGS% (MANUAL) 58 % (42-75)
[2018-12-04 08:07] VITALS: BP 118/81
[2018-12-04] MEDS: LORATADINE 10 MG TABLET PO SCH (08:19)
[2018-12-04] MEDS: MAGNESIUM OXIDE 400 MG TABLET PO SCH (08:19)
[2018-12-04] MEDS: METHYL SALICYLATE/MENTHOL CRM 85GM TP SCH (08:19)
[2018-12-04] MEDS: POLYETHYLENE GLYCOL 17 GM PACKET PO SCH (08:19)
[2018-12-04] MEDS: ONDANSETRON 2MG/ML, 2ML IVPush PRN ×2 (08:19→14:11)
[2018-12-04] MEDS: DOCUSATE 100 MG CAPSULE PO SCH (08:19)
[2018-12-04] MEDS: GUAIFENESIN/DM 200-20MG, 10ML UDC PO PRN (10:45)
[2018-12-04] MEDS: ERAVACYCLINE IV SCH (12:04)
[2018-12-04] MEDS: SODIUM CHLORIDE 0.9% IV SCH (12:04)
[2018-12-04] MEDS ORDERED: OXYC1TAB8 PO (12:15)
[2018-12-04 14:53] VITALS: BP 134/79
== END 2018-12-04 15:36 | disposition home or self-care (01) | DRG 871 ==
LOC: ED 21:37 → EDIP 22:40 → 3NW 10-30 00:21
PROVIDERS: ADMIT Family Medicine; ATTEND Family Medicine
PROC: 30233N1 Transfusion of Nonautologous Red Blood Cells into Peripheral Vein, Percutaneous Approach (ICD-10-PCS; 2018-10-30)
PROC: 07DR3ZX Extraction of Iliac Bone Marrow, Percutaneous Approach, Diagnostic (ICD-10-PCS; principal; 2018-10-31)
PROC: 02HV33Z Insertion of Infusion Device into Superior Vena Cava, Percutaneous Approach (ICD-10-PCS; 2018-11-02)
PROC: B5181ZA Fluoroscopy of Superior Vena Cava using Low Osmolar Contrast, Guidance (ICD-10-PCS; 2018-11-02)
PROC: B548ZZA Ultrasonography of Superior Vena Cava, Guidance (ICD-10-PCS; 2018-11-02)
PROC: 07DR3ZX Extraction of Iliac Bone Marrow, Percutaneous Approach, Diagnostic (ICD-10-PCS; 2018-11-22)
PROC: 30233R1 Transfusion of Nonautologous Platelets into Peripheral Vein, Percutaneous Approach (ICD-10-PCS; 2018-11-24)
DX: A41.9 Sepsis, unspecified organism (principal); E43 Unspecified severe protein-calorie malnutrition; B02.29 Other postherpetic nervous system involvement; C79.51 Secondary malignant neoplasm of bone; C83.30 Diffuse large B-cell lymphoma, unspecified site; C92.00 Acute myeloblastic leukemia, not having achieved remission; D61.818 Other pancytopenia; D69.3 Immune thrombocytopenic purpura; K62.5 Hemorrhage of anus and rectum; M48.56XA Collapsed vertebra, not elsewhere classified, lumbar region, initial encounter for fracture; Z68.30 Body mass index [BMI] 30.0-30.9, adult; Z88.0 Allergy status to penicillin; Z88.2 Allergy status to sulfonamides; E83.42 Hypomagnesemia; E87.6 Hypokalemia; J30.2 Other seasonal allergic rhinitis; J32.9 Chronic sinusitis, unspecified; J44.9 Chronic obstructive pulmonary disease, unspecified; K12.1 Other forms of stomatitis; K12.30 Oral mucositis (ulcerative), unspecified; K21.9 Gastro-esophageal reflux disease without esophagitis; K59.00 Constipation, unspecified; K64.9 Unspecified hemorrhoids; R50.81 Fever presenting with conditions classified elsewhere; R65.20 Severe sepsis without septic shock; T45.1X5A Adverse effect of antineoplastic and immunosuppressive drugs, initial encounter; Z15.01 Genetic susceptibility to malignant neoplasm of breast; Z81.8 Family history of other mental and behavioral disorders; Z82.5 Family history of asthma and other chronic lower respiratory diseases; Z83.3 Family history of diabetes mellitus; Z85.3 Personal history of malignant neoplasm of breast; Z86.19 Personal history of other infectious and parasitic diseases; Z87.891 Personal history of nicotine dependence; Z90.710 Acquired absence of both cervix and uterus; Z92.3 Personal history of irradiation; F32.9 Major depressive disorder, single episode, unspecified
CPT/HCPCS: 36415; 36430; 36573; 38222; 70487; 71045; 71260; 74160; 77012; 80053; 80074; 80202; 81001; 82248; 82550; 82607; 82746; 83605; 83615; 83735; 84100; 84145; 84550; 85025; 85027; 85060; 85097; 85651; 86038; 86039; 86140; 86644; 86645; 86850; 86900; 86923; 87040; 87086; 87305; 87449; 87806; 88237; 88264; 88280; 88305; 88311; 88313; 88360; 93005; 93306; 96374; 96375; 99156; 99157; G0378; J0692; J0878; J1100; J1170; J1450; J1885; J2185; J2248; J2250; J2405; J2997; J3010; J3370; J9100; J9211; Q9967; C1751; C9113; G0475; J0780; J1940; J2060; J2270; J2310; J2920; J3475; J3480; J7030; J7050; J7512; P9037; P9040; Q0163

== ENCOUNTER → 2018-12-23 | Outpatient (CLI) | payer OTHER ==
[~2018-12-23] MED LIST changes: +CALC-545 PO; +OXYC1TAB8 PO
== END | disposition home or self-care (01) ==
LOC: CFH 11:54
PROVIDERS: ATTEND Internal Medicine Hematology & Oncology
DX: Z12.31 Encounter for screening mammogram for malignant neoplasm of breast (principal)
CPT/HCPCS: 77067

== ENCOUNTER 2019-01-06 08:58 | Inpatient (IN) | payer OTHER, MEDICAID ==
[~2019-01-06] VITALS: Ht 160 cm; Wt 76.4 kg
[2019-01-06 10:00] VITALS: BP 127/69
[2019-01-06 11:21] LABS: BASOPHILS # (AUTO) 0.06 x10^3/uL (0-0.1); BASOPHILS % (AUTO) 1 % (0-1); EOSINOPHILS # (AUTO) 0.24 x10^3/uL (0-0.4); EOSINOPHILS % (AUTO) 5 % (1-7); LYMPHOCYTES # (AUTO) 0.54 x10^3/uL (1-3.4); LYMPHOCYTES % (AUTO) 11 % (22-44); MD NO; MEAN CORPUSCULAR HEMOGLOBIN 31.2 pg (27.0-34.8); MEAN CORPUSCULAR HGB CONC 32.3 g/dL (32.4-35.8); MEAN CORPUSCULAR VOLUME 96.5 fL (80-100); MEAN PLATELET VOLUME 7.3 fL (7.4-10.4); MONOCYTES # (AUTO) 0.35 x10^3/uL (0.2-0.8); MONOCYTES % (AUTO) 7 % (2-9); NEUTROPHILS # (AUTO) 3.79 x10^3/uL (1.8-6.8); NEUTROPHILS % (AUTO) 76 % (42-75); PLATELET COUNT 279 x10^3/uL (130-400); RED BLOOD COUNT 3.66 x10^6/uL (3.82-5.3)
[2019-01-06 11:30] LABS: ANION GAP 8 mmol/L (5-15); CALCIUM 9.2 mg/dL (8.5-10.1); CHLORIDE 110 mmol/L (98-107); CREATININE 0.69 mg/dL (0.55-1.02)
[2019-01-06] MEDS ORDERED: ACETAMINOPHEN 325 MG TABLET PO ONE (13:30)
[2019-01-06] MEDS ORDERED: ONDANSETRON 8 MG, DEXAMETHASONE 10 MG in SODIUM CHLORIDE 0.9% 50 ML IVPB ONE (14:00)
[2019-01-06] MEDS ORDERED: FAMOTIDINE 20 MG/2 ML IVPush ONE (14:00)
[2019-01-06] MEDS ORDERED: DIPHENHYDRAMINE 50 MG/ML, 1ML IVPush ONE (14:00)
[2019-01-06 14:12] VITALS: BP 118/57
[2019-01-06] MEDS: DEXAMETHASONE OPHTH 0.1%, 5ML EACHEYE SCH ×2 (14:19→18:39)
[2019-01-06] MEDS: SODIUM CHLORIDE 0.9% 1,000 ML IV SCH (14:20)
[2019-01-06] MEDS ORDERED: CYTARABINE IV SCH (15:00)
[2019-01-06] MEDS ORDERED: SODIUM CHLORIDE 0.9% IV SCH (15:00)
[2019-01-06] MEDS: CYTARABINE IV SCH (15:41)
[2019-01-06] MEDS: SODIUM CHLORIDE 0.9% IV SCH (15:41)
[2019-01-06 18:55] VITALS: BP 102/66
[2019-01-07] MEDS: SODIUM CHLORIDE 0.9% 1,000 ML IV SCH ×3 (00:32→23:42)
[2019-01-07] MEDS: DEXAMETHASONE OPHTH 0.1%, 5ML EACHEYE SCH ×5 (00:32→20:30)
[2019-01-07 02:36] VITALS: BP 106/51
[2019-01-07] MEDS: CYTARABINE IV SCH (03:13)
[2019-01-07] MEDS: SODIUM CHLORIDE 0.9% IV SCH (03:13)
[2019-01-07 06:13] LABS: BASOPHILS # (AUTO) 0.02 x10^3/uL (0-0.1); BASOPHILS % (AUTO) 0 % (0-1); EOSINOPHILS % (AUTO) 0 % (1-7); LYMPHOCYTES # (AUTO) 0.28 x10^3/uL (1-3.4); LYMPHOCYTES % (AUTO) 6 % (22-44); MD NO; MEAN CORPUSCULAR HEMOGLOBIN 32.3 pg (27.0-34.8); MEAN CORPUSCULAR HGB CONC 32.6 g/dL (32.4-35.8); MEAN CORPUSCULAR VOLUME 99.1 fL (80-100); MONOCYTES # (AUTO) 0.15 x10^3/uL (0.2-0.8); MONOCYTES % (AUTO) 3 % (2-9); NEUTROPHILS # (AUTO) 4.41 x10^3/uL (1.8-6.8); NEUTROPHILS % (AUTO) 91 % (42-75); PLATELET COUNT 246 x10^3/uL (130-400); RED BLOOD COUNT 3.28 x10^6/uL (3.82-5.3); RED CELL DISTRIBUTION WIDTH 19.4 % (9.6-15.2)
[2019-01-07 06:17] LABS: ALANINE AMINOTRANSFERASE 17 U/L (12-78); ALBUMIN 3.1 g/dL (3.4-5.0); ANION GAP 7 mmol/L (5-15); CALCIUM 9.2 mg/dL (8.5-10.1); CHLORIDE 112 mmol/L (98-107); CREATININE 0.59 mg/dL (0.55-1.02)
[2019-01-07 06:20] LABS: ALKALINE PHOSPHATASE 86 U/L (45-117); BILIRUBIN,TOTAL 0.2 mg/dL (0.2-1.0); TOTAL PROTEIN 6.1 g/dL (6.4-8.2)
[2019-01-07 07:14] VITALS: BP 138/69
[2019-01-07] MEDS ORDERED: CHOLECALCIFEROL MC SCH (08:30)
[2019-01-07] MEDS ORDERED: ONDANSETRON ODT 8 MG PO PRN (08:30)
[2019-01-07] MEDS ORDERED: CHOLECALCIFEROL 5,000u TAB ONE (08:48)
[2019-01-07] MEDS: CALCIUM CARBONATE 500 MG TABLET PO SCH (08:49)
[2019-01-07] MEDS: PANTOPROZOLE 40MG TABLET PO SCH ×2 (08:49→17:06)
[2019-01-07] MEDS: CHOLECALCIFEROL 5,000u TAB PO SCH (08:49)
[2019-01-07] MEDS: MAGNESIUM OXIDE 400 MG TABLET PO SCH (08:49)
[2019-01-07] MEDS ORDERED: CHOLECALCIFEROL 5,000u TAB PO SCH (09:00)
[2019-01-07] MEDS: ENOXAPARIN 40 MG/0.4 ML SQ SCH (11:23)
[2019-01-07 13:54] VITALS: BP 129/76
[2019-01-07 20:26] VITALS: BP 114/60
[2019-01-08 00:59] VITALS: BP 100/49
[2019-01-08] MEDS: DEXAMETHASONE OPHTH 0.1%, 5ML EACHEYE SCH ×4 (05:40→20:25)
[2019-01-08] MEDS: PANTOPROZOLE 40MG TABLET PO SCH ×2 (05:40→16:51)
[2019-01-08 06:13] LABS: CHLORIDE 114 mmol/L (98-107)
[2019-01-08 06:20] LABS: ALANINE AMINOTRANSFERASE 16 U/L (12-78); ALBUMIN 2.9 g/dL (3.4-5.0); ALKALINE PHOSPHATASE 81 U/L (45-117); ANION GAP 7 mmol/L (5-15); BILIRUBIN,TOTAL 0.8 mg/dL (0.2-1.0); CALCIUM 8.7 mg/dL (8.5-10.1); CREATININE 0.55 mg/dL (0.55-1.02); TOTAL PROTEIN 5.7 g/dL (6.4-8.2)
[2019-01-08 06:26] LABS: BASOPHILS # (AUTO) 0.01 x10^3/uL (0-0.1); BASOPHILS % (AUTO) 0 % (0-1); EOSINOPHILS % (AUTO) 3 % (1-7); LYMPHOCYTES # (AUTO) 0.34 x10^3/uL (1-3.4); LYMPHOCYTES % (AUTO) 10 % (22-44); MD NO; MEAN CORPUSCULAR HGB CONC 32.6 g/dL (32.4-35.8); MEAN CORPUSCULAR VOLUME 98.2 fL (80-100); MEAN PLATELET VOLUME 7.7 fL (7.4-10.4); MONOCYTES # (AUTO) 0.18 x10^3/uL (0.2-0.8); MONOCYTES % (AUTO) 5 % (2-9); NEUTROPHILS # (AUTO) 2.66 x10^3/uL (1.8-6.8); NEUTROPHILS % (AUTO) 81 % (42-75); PLATELET COUNT 207 x10^3/uL (130-400); RED BLOOD COUNT 3.22 x10^6/uL (3.82-5.3); RED CELL DISTRIBUTION WIDTH 18.5 % (9.6-15.2)
[2019-01-08 08:05] VITALS: BP 131/69
[2019-01-08] MEDS: CHOLECALCIFEROL 5,000u TAB PO SCH (10:09)
[2019-01-08] MEDS: MAGNESIUM OXIDE 400 MG TABLET PO SCH (10:09)
[2019-01-08] MEDS: ENOXAPARIN 40 MG/0.4 ML SQ SCH (10:09)
[2019-01-08] MEDS: CALCIUM CARBONATE 500 MG TABLET PO SCH (10:09)
[2019-01-08] MEDS: SODIUM CHLORIDE 0.9% 1,000 ML IV SCH ×2 (11:11→20:26)
[2019-01-08] MEDS ORDERED: ACETAMINOPHEN 325 MG TABLET PO PRN (11:30)
[2019-01-08] MEDS: LORATADINE 10 MG TABLET PO SCH (12:16)
[2019-01-08 14:00] VITALS: BP 99/67
[2019-01-08] MEDS ORDERED: ACETAMINOPHEN 325 MG TABLET PO ONE (14:30)
[2019-01-08] MEDS ORDERED: DIPHENHYDRAMINE 50 MG/ML, 1ML IVPush ONE ×2 (14:30)
[2019-01-08] MEDS ORDERED: ONDANSETRON 8 MG, DEXAMETHASONE 10 MG in SODIUM CHLORIDE 0.9% 50 ML IVPB ONE (14:30)
[2019-01-08] MEDS ORDERED: FAMOTIDINE 20 MG/2 ML IVPush ONE (14:30)
[2019-01-08] MEDS: SODIUM CHLORIDE 0.9% IV SCH (15:40)
[2019-01-08] MEDS: CYTARABINE IV SCH (15:40)
[2019-01-08 20:06] VITALS: BP 102/61
[2019-01-09 02:42] VITALS: BP 91/54
[2019-01-09] MEDS: CYTARABINE IV SCH (03:03)
[2019-01-09] MEDS: SODIUM CHLORIDE 0.9% IV SCH (03:03)
[2019-01-09] MEDS: PANTOPROZOLE 40MG TABLET PO SCH ×2 (06:13→16:28)
[2019-01-09] MEDS: DEXAMETHASONE OPHTH 0.1%, 5ML EACHEYE SCH ×4 (06:13→21:09)
[2019-01-09] MEDS: SODIUM CHLORIDE 0.9% 1,000 ML IV SCH ×2 (06:29→16:28)
[2019-01-09 06:36] LABS: MEAN CORPUSCULAR HGB CONC 32.8 g/dL (32.4-35.8); MEAN CORPUSCULAR VOLUME 97.6 fL (80-100); MEAN PLATELET VOLUME 7.7 fL (7.4-10.4); PLATELET COUNT 219 x10^3/uL (130-400); RED BLOOD COUNT 3.28 x10^6/uL (3.82-5.3); RED CELL DISTRIBUTION WIDTH 17.7 % (9.6-15.2)
[2019-01-09 06:49] LABS: ALANINE AMINOTRANSFERASE 18 U/L (12-78); ANION GAP 8 mmol/L (5-15); CALCIUM 8.8 mg/dL (8.5-10.1); CHLORIDE 111 mmol/L (98-107)
[2019-01-09 06:51] LABS: ALKALINE PHOSPHATASE 95 U/L (45-117); BILIRUBIN,TOTAL 0.3 mg/dL (0.2-1.0); TOTAL PROTEIN 5.9 g/dL (6.4-8.2)
[2019-01-09 06:58] LABS: BASOPHILS # (AUTO) 0.01 x10^3/uL (0-0.1); BASOPHILS % (AUTO) 0 % (0-1); EOSINOPHILS % (AUTO) 0 % (1-7); LYMPHOCYTES # (AUTO) 0.13 x10^3/uL (1-3.4); LYMPHOCYTES % (AUTO) 3 % (22-44); MD SCAN; MONOCYTES # (AUTO) 0.09 x10^3/uL (0.2-0.8); MONOCYTES % (AUTO) 2 % (2-9); NEUTROPHILS # (AUTO) 4.39 x10^3/uL (1.8-6.8); NEUTROPHILS % (AUTO) 95 % (42-75)
[2019-01-09] MEDS: LORATADINE 10 MG TABLET PO SCH (08:12)
[2019-01-09] MEDS: ENOXAPARIN 40 MG/0.4 ML SQ SCH (08:12)
[2019-01-09] MEDS: CALCIUM CARBONATE 500 MG TABLET PO SCH (08:12)
[2019-01-09] MEDS: CHOLECALCIFEROL 5,000u TAB PO SCH (08:12)
[2019-01-09] MEDS: MAGNESIUM OXIDE 400 MG TABLET PO SCH (08:13)
[2019-01-09 08:57] VITALS: BP 130/72
[2019-01-09 13:49] VITALS: BP 106/46
[2019-01-09 21:04] VITALS: BP 125/62
[2019-01-10] MEDS: SODIUM CHLORIDE 0.9% 1,000 ML IV SCH ×3 (02:05→23:23)
[2019-01-10 02:06] VITALS: BP 113/50
[2019-01-10] MEDS: DEXAMETHASONE OPHTH 0.1%, 5ML EACHEYE SCH ×4 (05:49→20:47)
[2019-01-10] MEDS: PANTOPROZOLE 40MG TABLET PO SCH ×2 (05:54→17:44)
[2019-01-10 06:11] LABS: ALANINE AMINOTRANSFERASE 41 U/L (12-78); ALBUMIN 2.7 g/dL (3.4-5.0); ANION GAP 5 mmol/L (5-15); CALCIUM 8.1 mg/dL (8.5-10.1); CHLORIDE 112 mmol/L (98-107); CREATININE 0.47 mg/dL (0.55-1.02)
[2019-01-10 06:13] LABS: ALKALINE PHOSPHATASE 79 U/L (45-117); BILIRUBIN,TOTAL 0.4 mg/dL (0.2-1.0); TOTAL PROTEIN 5.2 g/dL (6.4-8.2)
[2019-01-10 06:17] LABS: MEAN CORPUSCULAR HEMOGLOBIN 32.7 pg (27.0-34.8); MEAN CORPUSCULAR HGB CONC 33.2 g/dL (32.4-35.8); MEAN CORPUSCULAR VOLUME 98.4 fL (80-100); MEAN PLATELET VOLUME 7.8 fL (7.4-10.4); PLATELET COUNT 159 x10^3/uL (130-400); RED BLOOD COUNT 2.88 x10^6/uL (3.82-5.3); RED CELL DISTRIBUTION WIDTH 17.6 % (9.6-15.2)
[2019-01-10 06:37] LABS: BASOPHILS # (AUTO) 0.01 x10^3/uL (0-0.1); BASOPHILS % (AUTO) 0 % (0-1); EOSINOPHILS # (AUTO) 0.09 x10^3/uL (0-0.4); EOSINOPHILS % (AUTO) 3 % (1-7); LYMPHOCYTES # (AUTO) 0.14 x10^3/uL (1-3.4); LYMPHOCYTES % (AUTO) 5 % (22-44); MD SCAN; MONOCYTES # (AUTO) 0.02 x10^3/uL (0.2-0.8); MONOCYTES % (AUTO) 1 % (2-9); NEUTROPHILS % (AUTO) 91 % (42-75)
[2019-01-10 07:38] VITALS: BP 121/65
[2019-01-10] MEDS: ENOXAPARIN 40 MG/0.4 ML SQ SCH (07:42)
[2019-01-10] MEDS: CALCIUM CARBONATE 500 MG TABLET PO SCH (07:42)
[2019-01-10] MEDS: CHOLECALCIFEROL 5,000u TAB PO SCH (07:43)
[2019-01-10] MEDS: MAGNESIUM OXIDE 400 MG TABLET PO SCH (07:43)
[2019-01-10] MEDS: LORATADINE 10 MG TABLET PO SCH (07:43)
[2019-01-10 13:56] VITALS: BP 103/53
[2019-01-10] MEDS ORDERED: ACETAMINOPHEN 325 MG TABLET PO ONE (14:30)
[2019-01-10] MEDS ORDERED: FAMOTIDINE 20 MG/2 ML IVPush ONE (14:30)
[2019-01-10] MEDS ORDERED: DIPHENHYDRAMINE 50 MG/ML, 1ML IVPush ONE ×2 (14:30)
[2019-01-10] MEDS ORDERED: ONDANSETRON 8 MG, DEXAMETHASONE 10 MG in SODIUM CHLORIDE 0.9% 50 ML IVPB ONE (14:30)
[2019-01-10] MEDS ORDERED: CYTARABINE IV SCH (15:00)
[2019-01-10] MEDS ORDERED: SODIUM CHLORIDE 0.9% IV SCH (15:00)
[2019-01-10] MEDS: SODIUM CHLORIDE 0.9% IV SCH (15:33)
[2019-01-10] MEDS: CYTARABINE IV SCH (15:33)
[2019-01-10 19:17] VITALS: BP 104/66
[2019-01-11 02:36] VITALS: BP 115/59
[2019-01-11] MEDS: SODIUM CHLORIDE 0.9% IV SCH (03:27)
[2019-01-11] MEDS: CYTARABINE IV SCH (03:27)
[2019-01-11] MEDS: DEXAMETHASONE OPHTH 0.1%, 5ML EACHEYE SCH ×2 (06:03→11:36)
[2019-01-11] MEDS: PANTOPROZOLE 40MG TABLET PO SCH (06:03)
[2019-01-11 06:39] LABS: MEAN CORPUSCULAR HEMOGLOBIN 32.6 pg (27.0-34.8); MEAN CORPUSCULAR HGB CONC 33.5 g/dL (32.4-35.8); MEAN CORPUSCULAR VOLUME 97.3 fL (80-100); MEAN PLATELET VOLUME 7.5 fL (7.4-10.4); PLATELET COUNT 169 x10^3/uL (130-400); RED BLOOD COUNT 3.05 x10^6/uL (3.82-5.3); RED CELL DISTRIBUTION WIDTH 17.3 % (9.6-15.2)
[2019-01-11 06:49] LABS: ALANINE AMINOTRANSFERASE 47 U/L (12-78); ANION GAP 5 mmol/L (5-15); CALCIUM 8.9 mg/dL (8.5-10.1); CHLORIDE 111 mmol/L (98-107); CREATININE 0.55 mg/dL (0.55-1.02)
[2019-01-11 06:51] LABS: ALKALINE PHOSPHATASE 94 U/L (45-117); BILIRUBIN,TOTAL 0.3 mg/dL (0.2-1.0); TOTAL PROTEIN 5.9 g/dL (6.4-8.2)
[2019-01-11 07:04] LABS: BASOPHILS # (AUTO) 0.02 x10^3/uL (0-0.1); BASOPHILS % (AUTO) 1 % (0-1); EOSINOPHILS % (AUTO) 0 % (1-7); LYMPHOCYTES # (AUTO) 0.09 x10^3/uL (1-3.4); LYMPHOCYTES % (AUTO) 3 % (22-44); MD SCAN; MONOCYTES % (AUTO) 0 % (2-9); NEUTROPHILS # (AUTO) 3.37 x10^3/uL (1.8-6.8); NEUTROPHILS % (AUTO) 97 % (42-75)
[2019-01-11 07:12] VITALS: BP 131/76
[2019-01-11] MEDS: CALCIUM CARBONATE 500 MG TABLET PO SCH (08:13)
[2019-01-11] MEDS: LORATADINE 10 MG TABLET PO SCH (08:13)
[2019-01-11] MEDS: CHOLECALCIFEROL 5,000u TAB PO SCH (08:13)
[2019-01-11] MEDS: ENOXAPARIN 40 MG/0.4 ML SQ SCH (08:13)
[2019-01-11] MEDS: MAGNESIUM OXIDE 400 MG TABLET PO SCH (08:13)
[2019-01-11] MEDS: SODIUM CHLORIDE 0.9% 1,000 ML IV SCH (08:14)
== END 2019-01-11 12:30 | disposition home or self-care (01) | DRG 839 ==
LOC: 3NW 08:58
PROVIDERS: ADMIT Internal Medicine Hematology & Oncology; ATTEND Internal Medicine Hematology & Oncology
PROC: 02HV33Z Insertion of Infusion Device into Superior Vena Cava, Percutaneous Approach (ICD-10-PCS; principal; 2019-01-06)
PROC: B5181ZA Fluoroscopy of Superior Vena Cava using Low Osmolar Contrast, Guidance (ICD-10-PCS; 2019-01-06)
PROC: B548ZZA Ultrasonography of Superior Vena Cava, Guidance (ICD-10-PCS; 2019-01-06)
DX: Z51.11 Encounter for antineoplastic chemotherapy (principal); C92.01 Acute myeloblastic leukemia, in remission; D75.9 Disease of blood and blood-forming organs, unspecified; Z85.3 Personal history of malignant neoplasm of breast; Z85.72 Personal history of non-Hodgkin lymphomas; Z88.0 Allergy status to penicillin; Z88.2 Allergy status to sulfonamides; Z88.8 Allergy status to other drugs, medicaments and biological substances
CPT/HCPCS: 36415; J3490; 36573; 80048; 80053; 83615; 83735; 85025; G0378; J1100; J1650; J2405; J9100; C1751; J1200; J7030; J7050

== ENCOUNTER 2019-01-20 08:38 | Inpatient (IN) | payer OTHER, MEDICAID ==
[~2019-01-20] VITALS: Ht 160 cm; Wt 94.9 kg
--- NOTE | 2019-01-20 09:17 | NUR ---
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
--- NOTE | 2019-01-20 10:07 | NUR ---
PATIENT WITH MD FOR RECHECK
[2019-01-20] MEDS ORDERED: FLUC100T4 PO (10:26)
[2019-01-20] MEDS ORDERED: ACYC-57 PO (10:26)
[2019-01-20] MEDS ORDERED: LEVO500T8 PO (10:26)
[2019-01-20] MEDS ORDERED: CEFTRIAXONE PMX 1GM/50ML 50 ML IV ONE (10:30)
[2019-01-20 10:31] LABS: INTERNATIONAL NORMALIZED RATIO 1.27 (0.93-1.1); PROTHROMBIN TIME 13.2 Seconds (9.6-11.5)
[2019-01-20 10:43] LABS: ALBUMIN 2.9 g/dL (3.4-5.0); ANION GAP 11 mmol/L (5-15); CALCIUM 8.3 mg/dL (8.5-10.1); CHLORIDE 104 mmol/L (98-107)
[2019-01-20 10:50] LABS: CULTURE INDICATED? YES; MICROSCOPIC INDICATED
[2019-01-20 10:53] LABS: MEAN CORPUSCULAR HEMOGLOBIN 32.2 pg (27.0-34.8); MEAN CORPUSCULAR HGB CONC 33.7 g/dL (32.4-35.8); MEAN CORPUSCULAR VOLUME 95.3 fL (80-100); MEAN PLATELET VOLUME 7.5 fL (7.4-10.4); RED BLOOD COUNT 2.37 x10^6/uL (3.82-5.3); RED CELL DISTRIBUTION WIDTH 14.7 % (9.6-15.2)
[2019-01-20 10:54] LABS: PLATELET COUNT 2 x10^3/uL (130-400)
[2019-01-20 10:56] LABS: ALANINE AMINOTRANSFERASE 29 U/L (12-78); ALKALINE PHOSPHATASE 124 U/L (45-117); BILIRUBIN,TOTAL 0.8 mg/dL (0.2-1.0); CREATININE 0.83 mg/dL (0.55-1.02); TOTAL PROTEIN 6.2 g/dL (6.4-8.2)
--- NOTE | 2019-01-20 10:57 | NUR ---
GUNNAR HAS BEEN IN REVERSE ISO SINCE ARRIVAL TO ROOM.
[2019-01-20] MEDS ORDERED: VANCOMYCIN 1,500 MG in SODIUM CHLORIDE 0.9% 250 ML IV ONE (11:00)
[2019-01-20] MEDS ORDERED: VANCOMYCIN PER PHARMACY MC PRN ×2 (11:00→15:00)
--- NOTE | 2019-01-20 11:14 | NUR ---
BED ORDERED FOR PATIENT
[2019-01-20] MEDS ORDERED: MORPHINE SULFATE 4 MG/ML, 1ML ONE (12:42)
[2019-01-20] MEDS ORDERED: ONDANSETRON 2MG/ML, 2ML ONE (12:42)
[2019-01-20] MEDS ORDERED: CEFTRIAXONE PMX 1GM/50ML 50 ML ONE (12:43)
[2019-01-20] MEDS ORDERED: LIDOCAINE 2%,20 ML JEL.PF.APP MM ONE (12:43)
--- NOTE | 2019-01-20 12:50 | NUR ---
PT MEDICATED PER MAR.
[2019-01-20 12:59] VITALS: BP 114/50
[2019-01-20] MEDS ORDERED: ONDANSETRON 2MG/ML, 2ML IVPush ONE (13:00)
[2019-01-20] MEDS ORDERED: LIDOCAINE 2% VISCOUS, 100ML MM ONE (13:00)
[2019-01-20] MEDS ORDERED: MORPHINE SULFATE 4 MG/ML, 1ML IVPush PRN (13:00)
[2019-01-20] MEDS ORDERED: ACETAMINOPHEN 500 MG TABLET PO ONE (13:00)
[2019-01-20] MEDS ORDERED: LIDOCAINE 2% VISCOUS 15 ML UDC MM ONE (13:00)
[2019-01-20] MEDS ORDERED: SODIUM CHLORIDE 0.9%, 500ML IVBOLUS ONE ×2 (13:00→17:00)
--- NOTE | 2019-01-20 13:01 | NUR ---
PT WITH ORDERS TO TRANSFUSE PLATLETS, CONSENT OBTAINED. PLATLETS HUNG. PT WITH TEMP 103.0, HR 127 PRIOR TO PLATLET TRANSFUSION. WILL GIVE TYLENOL PER MAR
[2019-01-20] MEDS ORDERED: ACETAMINOPHEN 500 MG TABLET ONE (13:02)
--- NOTE | 2019-01-20 13:06 | NUR ---
REPORT TO BRANDY MCCRACKEN
[2019-01-20 13:15] VITALS: BP 137/68
[2019-01-20 13:44] VITALS: BP 125/75
[2019-01-20 14:47] VITALS: BP 90/57
[2019-01-20] MEDS: SODIUM CHLORIDE 0.9% 1,000 ML IV SCH (14:58)
[2019-01-20] MEDS ORDERED: ACETAMINOPHEN 325 MG TABLET PO PRN (15:00)
[2019-01-20] MEDS ORDERED: MEROPENEM 1 GM in SODIUM CHLORIDE 0.9% 100 ML IV SCH (15:00)
[2019-01-20] MEDS ORDERED: PHARMACY MAY ADJ FOR RENAL FX MC SCH (15:00)
[2019-01-20] MEDS ORDERED: LIDODERM 5% PATCH TD PRN (15:00)
[2019-01-20] MEDS ORDERED: PROMETHAZINE 25 MG/ML, 1ML IM PRN (15:00)
[2019-01-20] MEDS ORDERED: IBUPROFEN 600 MG TABLET PO PRN (15:00)
[2019-01-20] MEDS ORDERED: ONDANSETRON 2MG/ML, 2ML IVPush PRN (15:00)
[2019-01-20] MEDS: PROMETHAZINE 25 MG/ML, 1ML IM PRN ×2 (15:11→21:49)
[2019-01-20] MEDS ORDERED: PHARMACOKINETIC CONSULTATION MC ONE (16:00)
[2019-01-20] MEDS ORDERED: PHARMACOKINETIC MONITORING MC PRN (16:00)
[2019-01-20] MEDS: PANTOPROZOLE 40MG TABLET PO SCH (16:03)
[2019-01-20] MEDS: ONDANSETRON ODT 8 MG PO SCH ×2 (16:04→23:53)
[2019-01-20 16:22] VITALS: BP 86/54
[2019-01-20] MEDS: CEFEPIME 2 GM in DEXTROSE 5% 100 ML IV SCH (16:58)
[2019-01-20] MEDS: HYDROcodone/APAP 10/325 MG TABLET PO PRN (18:26)
[2019-01-20 19:05] VITALS: BP 95/59
[2019-01-20] MEDS: ACYCLOVIR 400 MG TABLET PO SCH (23:53)
[2019-01-21] VITALS (12 sets, daily range): BP systolic 95–142; BP diastolic 59–81
[2019-01-21] MEDS: SODIUM CHLORIDE 0.9% 1,000 ML IV SCH (00:12)
[2019-01-21] MEDS: CEFEPIME 2 GM in DEXTROSE 5% 100 ML IV SCH ×3 (00:12→18:31)
[2019-01-21] MEDS: HYDROcodone/APAP 10/325 MG TABLET PO PRN (05:02)
[2019-01-21] MEDS: PROMETHAZINE 25 MG/ML, 1ML IM PRN (05:02)
[2019-01-21 05:19] LABS: MEAN CORPUSCULAR HEMOGLOBIN 32.7 pg (27.0-34.8); MEAN PLATELET VOLUME 8.4 fL (7.4-10.4); RED BLOOD COUNT 1.91 x10^6/uL (3.82-5.3); RED CELL DISTRIBUTION WIDTH 15.3 % (9.6-15.2)
[2019-01-21 05:24] LABS: ALBUMIN 2.4 g/dL (3.4-5.0); ANION GAP 9 mmol/L (5-15); CALCIUM 7.8 mg/dL (8.5-10.1); CHLORIDE 107 mmol/L (98-107)
[2019-01-21 05:38] LABS: CREATININE 0.86 mg/dL (0.55-1.02)
[2019-01-21 05:39] LABS: ALANINE AMINOTRANSFERASE 48 U/L (12-78); ALKALINE PHOSPHATASE 78 U/L (45-117); BILIRUBIN,TOTAL 0.6 mg/dL (0.2-1.0); PLATELET COUNT 10 x10^3/uL (130-400); TOTAL PROTEIN 5.4 g/dL (6.4-8.2)
[2019-01-21 06:13] LABS: MD YES
[2019-01-21 06:22] LABS: EOS#(MANUAL) 0.01 x10^3/uL (0.0-0.4); EOS% (MANUAL) 10 % (1-7); LYMPH#(MANUAL) 0.06 x10^3/uL (1-3.4); LYMPHS% (MANUAL) 60 % (22-44); MONOS#(MANUAL) 0.01 x10^3/uL (0.3-2.7); MONOS% (MANUAL) 10 % (2-9); SEG#(MANUAL) 0.02 x10^3/uL (1.8-6.8); SEGS% (MANUAL) 20 % (42-75)
[2019-01-21 06:23] LABS: <PLATELET ESTIMATE> DECREASED; <PLT MORPHOLOGY> NORMAL PLT MORPH; ANISOCYTOSIS 1+
[2019-01-21] MEDS ORDERED: maalox/diphenh/lido/sucralfate 5 ML PO PRN (08:30)
[2019-01-21] MEDS ORDERED: ACETAMINOPHEN 325 MG TABLET PO ONE (08:30)
[2019-01-21] MEDS: FLUCONAZOLE 200 MG TABLET PO SCH (08:47)
[2019-01-21] MEDS: ACYCLOVIR 400 MG TABLET PO SCH ×2 (08:48→22:53)
[2019-01-21] MEDS: PANTOPROZOLE 40MG TABLET PO SCH ×2 (08:48→17:26)
[2019-01-21] MEDS: ONDANSETRON ODT 8 MG PO SCH ×3 (08:48→22:53)
[2019-01-21] MEDS ORDERED: MAGNESIUM OXIDE 400 MG TABLET PO SCH (09:00)
[2019-01-21] MEDS ORDERED: ACETAMINOPHEN 325 MG TABLET PO PRN (12:00)
[2019-01-21] MEDS ORDERED: VANCOMYCIN 1,500 MG in SODIUM CHLORIDE 0.9% 250 ML IV SCH (12:00)
[2019-01-21] MEDS: DIPHENHYDRAMINE 50 MG/ML, 1ML IVPush PRN ×2 (12:02→22:53)
[2019-01-21] MEDS ORDERED: MAGNESIUM SULFATE PMX 2GM/50ML 50 ML IV ONE (14:00)
[2019-01-21] MEDS: LORazepam 2 MG/ML, 1ML IVPush PRN ×2 (16:40→19:00)
[2019-01-21] MEDS: TOBRAMYCIN IV SCH (18:31)
[2019-01-21] MEDS: SODIUM CHLORIDE 0.9% IV SCH (18:31)
[2019-01-21] MEDS: PROCHLORPERAZINE 5 MG/ML, 2ML IVPush PRN (19:00)
[2019-01-21] MEDS ORDERED: ALBUTEROL/IPRATROPIUM 2.5MG/0.5MG, 3 ML ONE (19:01)
[2019-01-21 21:09] LABS: MEAN CORPUSCULAR HEMOGLOBIN 31.4 pg (27.0-34.8); MEAN CORPUSCULAR VOLUME 92.4 fL (80-100); MEAN PLATELET VOLUME 8.1 fL (7.4-10.4); RED BLOOD COUNT 2.76 x10^6/uL (3.82-5.3); RED CELL DISTRIBUTION WIDTH 15.1 % (9.6-15.2)
[2019-01-21 21:11] LABS: PLATELET COUNT 10 x10^3/uL (130-400)
[2019-01-21] MEDS ORDERED: SODIUM CHLORIDE 0.9% 1,000 ML IV SCH (23:00)
[2019-01-22 01:02] VITALS: BP 102/63
[2019-01-22] MEDS: CEFEPIME 2 GM in DEXTROSE 5% 100 ML IV SCH ×2 (01:53→09:23)
[2019-01-22] MEDS: HYDROcodone/APAP 10/325 MG TABLET PO PRN (05:27)
[2019-01-22 06:54] LABS: ANION GAP 9 mmol/L (5-15); CALCIUM 8.5 mg/dL (8.5-10.1); CHLORIDE 109 mmol/L (98-107); CREATININE 0.84 mg/dL (0.55-1.02)
[2019-01-22 07:05] VITALS: BP 105/70
[2019-01-22] MEDS: SODIUM CHLORIDE 0.9% 1,000 ML IV SCH ×2 (07:30→19:51)
[2019-01-22] MEDS ORDERED: DIPHENHYDRAMINE 25 MG CAPSULE PO PRN (07:30)
[2019-01-22 07:42] LABS: MEAN CORPUSCULAR HEMOGLOBIN 32.2 pg (27.0-34.8); MEAN CORPUSCULAR HGB CONC 34.5 g/dL (32.4-35.8); MEAN CORPUSCULAR VOLUME 93.2 fL (80-100); MEAN PLATELET VOLUME 7.8 fL (7.4-10.4); PLATELET COUNT 6 x10^3/uL (130-400); RED BLOOD COUNT 2.62 x10^6/uL (3.82-5.3); RED CELL DISTRIBUTION WIDTH 15.9 % (9.6-15.2)
[2019-01-22 07:45] LABS: MD YES
[2019-01-22 08:00] LABS: <PLATELET ESTIMATE> DECREASED; <PLT MORPHOLOGY> NORMAL PLT MORPH; ANISOCYTOSIS 1+; BAND#(MANUAL) 0.01 x10^3/uL; BANDS%(MANUAL) 10 % (0-7); LYMPH#(MANUAL) 0.03 x10^3/uL (1-3.4); LYMPHS% (MANUAL) 30 % (22-44); MONOS#(MANUAL) 0.03 x10^3/uL (0.3-2.7); MONOS% (MANUAL) 30 % (2-9); SEG#(MANUAL) 0.03 x10^3/uL (1.8-6.8)
[2019-01-22 08:01] LABS: SEGS% (MANUAL) 30 % (42-75)
[2019-01-22] MEDS ORDERED: HYDROcodone/APAP 10/325 MG TABLET PO PRN (09:00)
[2019-01-22] MEDS: ACYCLOVIR 400 MG TABLET PO SCH ×2 (09:22→21:23)
[2019-01-22] MEDS: ONDANSETRON ODT 8 MG PO SCH ×3 (09:22→21:24)
[2019-01-22] MEDS: ACETYLCYSTEINE 600 MG CAPSULE PO SCH ×2 (09:22→21:23)
[2019-01-22] MEDS: FLUCONAZOLE 200 MG TABLET PO SCH (09:22)
[2019-01-22] MEDS: FAMOTIDINE 20 MG TABLET PO SCH ×2 (11:31→21:23)
[2019-01-22] MEDS: VORICONAZOLE 200 MG TABLET PO SCH ×2 (11:33→21:24)
[2019-01-22] MEDS: ALBUTEROL SULFATE 2.5 MG/3 ML NPPB PRN (12:19)
[2019-01-22] MEDS: CEFTOLOZANE/TAZOBACTAM 1.5 GM in SODIUM CHLORIDE 0.9% 100 ML IVPB SCH ×2 (13:17→21:23)
[2019-01-22 14:20] VITALS: BP 97/65
[2019-01-22] MEDS: ACETAMINOPHEN 325 MG TABLET PO PRN (14:36)
[2019-01-22 15:26] VITALS: BP 98/61
[2019-01-22 15:40] VITALS: BP 93/60
[2019-01-22] MEDS: SODIUM CHLORIDE 0.9% IV SCH (17:35)
[2019-01-22] MEDS: TOBRAMYCIN IV SCH (17:35)
[2019-01-22 19:38] VITALS: BP 110/70
[2019-01-22] MEDS ORDERED: FAMOTIDINE 20 MG TABLET PO SCH (21:00)
[2019-01-22] MEDS: PROCHLORPERAZINE 5 MG/ML, 2ML IVPush PRN (23:18)
[2019-01-22] MEDS: LORazepam 2 MG/ML, 1ML IVPush PRN (23:18)
[2019-01-23] VITALS (8 sets, daily range): BP systolic 88–140; BP diastolic 47–88
[2019-01-23] MEDS: CEFTOLOZANE/TAZOBACTAM 1.5 GM in SODIUM CHLORIDE 0.9% 100 ML IVPB SCH ×3 (04:34→21:23)
[2019-01-23 05:16] LABS: ANION GAP 11 mmol/L (5-15); CALCIUM 8.6 mg/dL (8.5-10.1); CHLORIDE 113 mmol/L (98-107); CREATININE 1.74 mg/dL (0.55-1.02); IRON LEVEL 130 mcg/dL (50-170); TOTAL IRON BINDING CAPACITY 125 mcg/dL (250-450)
[2019-01-23 05:19] LABS: % IRON SATURATION 104 % (20-55)
[2019-01-23 05:42] LABS: MEAN CORPUSCULAR HEMOGLOBIN 31.8 pg (27.0-34.8); MEAN CORPUSCULAR HGB CONC 33.8 g/dL (32.4-35.8); MEAN CORPUSCULAR VOLUME 94.1 fL (80-100); MEAN PLATELET VOLUME 8.4 fL (7.4-10.4); RED BLOOD COUNT 2.56 x10^6/uL (3.82-5.3); RED CELL DISTRIBUTION WIDTH 16.2 % (9.6-15.2)
[2019-01-23 05:44] LABS: MD YES; PLATELET COUNT 9 x10^3/uL (130-400)
[2019-01-23] MEDS ORDERED: SODIUM CHLORIDE 0.9% 1,000ML IVBOLUS ONE (06:00)
[2019-01-23 06:03] LABS: BAND#(MANUAL) 0.03 x10^3/uL; BANDS%(MANUAL) 10 % (0-7); LYMPH#(MANUAL) 0.13 x10^3/uL (1-3.4); LYMPHS% (MANUAL) 44 % (22-44); MONOS#(MANUAL) 0.08 x10^3/uL (0.3-2.7); MONOS% (MANUAL) 26 % (2-9); SEG#(MANUAL) 0.06 x10^3/uL (1.8-6.8); SEGS% (MANUAL) 20 % (42-75)
[2019-01-23 06:04] LABS: <PLATELET ESTIMATE> DECREASED; <PLT MORPHOLOGY> NORMAL PLT MORPH; ANISOCYTOSIS 1+
[2019-01-23] MEDS: VORICONAZOLE 200 MG TABLET PO SCH ×2 (09:20→21:22)
[2019-01-23] MEDS: ACETYLCYSTEINE 600 MG CAPSULE PO SCH ×2 (09:20→21:23)
[2019-01-23] MEDS: ONDANSETRON ODT 8 MG PO SCH ×3 (09:20→21:23)
[2019-01-23] MEDS: ACYCLOVIR 400 MG TABLET PO SCH ×2 (09:20→21:22)
[2019-01-23] MEDS: FAMOTIDINE 20 MG TABLET PO SCH ×2 (09:20→21:22)
[2019-01-23] MEDS: SODIUM CHLORIDE 0.9% 1,000 ML IV SCH ×2 (09:21→14:20)
[2019-01-23] MEDS: PROCHLORPERAZINE 5 MG/ML, 2ML IVPush PRN (09:29)
[2019-01-23] MEDS: PROMETHAZINE 25 MG/ML, 1ML IM PRN (11:05)
[2019-01-23] MEDS: ALBUTEROL SULFATE 2.5 MG/3 ML NPPB PRN (22:15)
[2019-01-24] MEDS ORDERED: SODIUM CHLORIDE 0.9% 1,000 ML IV SCH (02:30)
[2019-01-24] MEDS: LIDOCAINE GEL 2%, 5ML TP PRN ×4 (03:05→15:46)
[2019-01-24 05:15] LABS: MEAN CORPUSCULAR HGB CONC 33.9 g/dL (32.4-35.8); MEAN CORPUSCULAR VOLUME 94.3 fL (80-100); MEAN PLATELET VOLUME 8.8 fL (7.4-10.4); RED BLOOD COUNT 2.63 x10^6/uL (3.82-5.3); RED CELL DISTRIBUTION WIDTH 16.1 % (9.6-15.2)
[2019-01-24 05:17] LABS: PLATELET COUNT 5 x10^3/uL (130-400)
[2019-01-24 05:28] LABS: ANION GAP 12 mmol/L (5-15); CALCIUM 9.5 mg/dL (8.5-10.1); CHLORIDE 110 mmol/L (98-107); CREATININE 1.86 mg/dL (0.55-1.02)
[2019-01-24] MEDS: CEFTOLOZANE/TAZOBACTAM 1.5 GM in SODIUM CHLORIDE 0.9% 100 ML IVPB SCH ×3 (05:28→21:33)
[2019-01-24 05:32] VITALS: BP 131/73
[2019-01-24 05:38] LABS: MD YES
[2019-01-24 05:44] LABS: BAND#(MANUAL) 0.07 x10^3/uL; BANDS%(MANUAL) 5 % (0-7); LYMPH#(MANUAL) 0.13 x10^3/uL (1-3.4); LYMPHS% (MANUAL) 10 % (22-44); METAMYELOCYTES# (MANUAL) 0.01 x10^3/uL (0-0); METAMYELOCYTES% (MANUAL) 1 % (0-1); MONOS#(MANUAL) 0.12 x10^3/uL (0.3-2.7); MONOS% (MANUAL) 9 % (2-9); MYELOCYTES# (MANUAL) 0.03 x10^3/uL (0-0); MYELOCYTES% (MANUAL) 2 % (0-0); SEG#(MANUAL) 0.95 x10^3/uL (1.8-6.8); SEGS% (MANUAL) 73 % (42-75)
[2019-01-24 05:45] LABS: <PLATELET ESTIMATE> DECREASED; <PLT MORPHOLOGY> NORMAL PLT MORPH; ANISOCYTOSIS 1+
[2019-01-24 05:46] LABS: ECHINOCYTES 1+
[2019-01-24] MEDS ORDERED: POTASSIUM CHLORIDE 40 MEQ in SODIUM CHLORIDE 0.9% 100 ML IV ONE (06:00)
[2019-01-24] MEDS: ACYCLOVIR 400 MG TABLET PO SCH ×2 (08:18→21:34)
[2019-01-24] MEDS: ACETYLCYSTEINE 600 MG CAPSULE PO SCH ×2 (08:18→21:33)
[2019-01-24] MEDS: FAMOTIDINE 20 MG TABLET PO SCH ×2 (08:18→21:34)
[2019-01-24] MEDS: ONDANSETRON ODT 8 MG PO SCH ×3 (08:18→21:34)
[2019-01-24] MEDS: VORICONAZOLE 200 MG TABLET PO SCH ×2 (08:19→21:34)
[2019-01-24 09:06] VITALS: BP 127/73
[2019-01-24 09:25] VITALS: BP 135/70
[2019-01-24 09:45] VITALS: BP 143/71
[2019-01-24 10:34] VITALS: BP 139/72
[2019-01-24 11:34] VITALS: BP 153/80
[2019-01-24] MEDS: PROCHLORPERAZINE 5 MG/ML, 2ML IVPush PRN (12:07)
[2019-01-24] MEDS: HYDROcodone/APAP 10/325 MG TABLET PO PRN (12:07)
[2019-01-24] MEDS: ACETAMINOPHEN 325 MG TABLET PO PRN (15:46)
[2019-01-25] VITALS (7 sets, daily range): BP systolic 124–164; BP diastolic 72–97
[2019-01-25] MEDS ORDERED: SODIUM CHLORIDE 0.9% 1,000 ML IV SCH (02:30)
[2019-01-25] MEDS: LIDOCAINE GEL 2%, 5ML TP PRN ×2 (03:26→11:44)
[2019-01-25] MEDS: CEFTOLOZANE/TAZOBACTAM 1.5 GM in SODIUM CHLORIDE 0.9% 100 ML IVPB SCH ×3 (05:04→21:22)
[2019-01-25 05:36] LABS: MEAN CORPUSCULAR HEMOGLOBIN 31.6 pg (27.0-34.8); MEAN CORPUSCULAR VOLUME 93.1 fL (80-100); MEAN PLATELET VOLUME 8.7 fL (7.4-10.4); RED BLOOD COUNT 2.57 x10^6/uL (3.82-5.3); RED CELL DISTRIBUTION WIDTH 16.2 % (9.6-15.2)
[2019-01-25 05:42] LABS: ANION GAP 10 mmol/L (5-15); CALCIUM 9.6 mg/dL (8.5-10.1); CHLORIDE 114 mmol/L (98-107); CREATININE 1.37 mg/dL (0.55-1.02); PLATELET COUNT 11 x10^3/uL (130-400)
[2019-01-25 06:02] LABS: MD YES
[2019-01-25 06:04] LABS: BAND#(MANUAL) 0.52 x10^3/uL; BANDS%(MANUAL) 14 % (0-7); LYMPH#(MANUAL) 0.15 x10^3/uL (1-3.4); LYMPHS% (MANUAL) 4 % (22-44); METAMYELOCYTES# (MANUAL) 0.07 x10^3/uL (0-0); METAMYELOCYTES% (MANUAL) 2 % (0-1); MONOS#(MANUAL) 0.22 x10^3/uL (0.3-2.7); MONOS% (MANUAL) 6 % (2-9); SEG#(MANUAL) 2.74 x10^3/uL (1.8-6.8); SEGS% (MANUAL) 74 % (42-75)
[2019-01-25 06:05] LABS: <PLATELET ESTIMATE> DECREASED; <PLT MORPHOLOGY> NORMAL PLT MORPH; ANISOCYTOSIS 1+
[2019-01-25] MEDS ORDERED: POTASSIUM CHLORIDE 20 MEQ TAB.ER.PRT PO ONE (07:00)
[2019-01-25] MEDS ORDERED: POLYETHYLENE GLYCOL 17 GM PACKET PO PRN (08:00)
[2019-01-25] MEDS: ONDANSETRON ODT 8 MG PO SCH ×3 (08:49→20:13)
[2019-01-25] MEDS: FAMOTIDINE 20 MG TABLET PO SCH ×2 (08:50→20:13)
[2019-01-25] MEDS: ACETYLCYSTEINE 600 MG CAPSULE PO SCH (08:50)
[2019-01-25] MEDS: VORICONAZOLE 200 MG TABLET PO SCH ×2 (08:50→20:12)
[2019-01-25] MEDS: ACYCLOVIR 400 MG TABLET PO SCH ×2 (08:50→20:12)
[2019-01-25] MEDS: METOPROLOL TARTRATE 25 MG TABLET PO SCH ×3 (08:51→20:33)
[2019-01-25] MEDS: DOCUSATE 100 MG CAPSULE PO SCH ×2 (08:51→20:12)
[2019-01-25] MEDS ORDERED: GLUCAGON 1 MG IM PRN (09:00)
[2019-01-25] MEDS ORDERED: DEXTROSE 4 GM TAB.CHEW PO PRN (09:00)
[2019-01-25] MEDS: SODIUM CHLORIDE FLUSH 10ML SYR IVF SCH ×2 (09:00→20:33)
[2019-01-25] MEDS ORDERED: DEXTROSE 50%, 50ML SYRINGE IVPush PRN (09:00)
[2019-01-25] MEDS: D5%-0.45NACL+KCL 20MEQ 1,000 ML IV SCH (10:30)
[2019-01-25] MEDS: LORazepam 2 MG/ML, 1ML IVPush PRN ×2 (11:44→16:56)
[2019-01-25] MEDS: HYDROcodone/APAP 10/325 MG TABLET PO PRN ×2 (13:39→18:16)
[2019-01-25] MEDS: PROMETHAZINE 25 MG/ML, 1ML IM PRN (20:32)
[2019-01-26 00:59] VITALS: BP 143/69
[2019-01-26] MEDS: CEFTOLOZANE/TAZOBACTAM 1.5 GM in SODIUM CHLORIDE 0.9% 100 ML IVPB SCH ×2 (05:07→14:35)
[2019-01-26] MEDS: METOPROLOL TARTRATE 25 MG TABLET PO SCH ×3 (05:11→22:00)
[2019-01-26 05:31] LABS: ANION GAP 10 mmol/L (5-15); CALCIUM 9.4 mg/dL (8.5-10.1); CHLORIDE 115 mmol/L (98-107); CREATININE 1.23 mg/dL (0.55-1.02)
[2019-01-26 05:57] LABS: MD YES; MEAN CORPUSCULAR HEMOGLOBIN 31.3 pg (27.0-34.8); MEAN CORPUSCULAR HGB CONC 33.3 g/dL (32.4-35.8); MEAN CORPUSCULAR VOLUME 93.9 fL (80-100); MEAN PLATELET VOLUME 9.4 fL (7.4-10.4); RED BLOOD COUNT 2.62 x10^6/uL (3.82-5.3); RED CELL DISTRIBUTION WIDTH 16.1 % (9.6-15.2)
[2019-01-26 05:59] LABS: BAND#(MANUAL) 1.05 x10^3/uL; BANDS%(MANUAL) 11 % (0-7); LYMPH#(MANUAL) 0.38 x10^3/uL (1-3.4); LYMPHS% (MANUAL) 4 % (22-44); MONOS#(MANUAL) 0.57 x10^3/uL (0.3-2.7); MONOS% (MANUAL) 6 % (2-9); SEG#(MANUAL) 7.51 x10^3/uL (1.8-6.8); SEGS% (MANUAL) 79 % (42-75)
[2019-01-26 06:00] LABS: <PLATELET ESTIMATE> DECREASED; <PLT MORPHOLOGY> NORMAL PLT MORPH; ANISOCYTOSIS 1+; OVALOCYTES 1+
[2019-01-26 06:01] LABS: PLATELET COUNT 20 x10^3/uL (130-400)
[2019-01-26] MEDS: D5%-0.45NACL+KCL 20MEQ 1,000 ML IV SCH (06:22)
[2019-01-26 07:26] VITALS: BP 145/81
[2019-01-26] MEDS: VORICONAZOLE 200 MG TABLET PO SCH ×2 (09:00→21:00)
[2019-01-26] MEDS: DOCUSATE 100 MG CAPSULE PO SCH ×2 (09:00→21:00)
[2019-01-26] MEDS: FAMOTIDINE 20 MG TABLET PO SCH ×2 (09:00→21:00)
[2019-01-26] MEDS: SODIUM CHLORIDE FLUSH 10ML SYR IVF SCH ×2 (09:00→21:00)
[2019-01-26] MEDS: ACYCLOVIR 400 MG TABLET PO SCH ×2 (09:32→21:00)
[2019-01-26] MEDS: HYDROcodone/APAP 10/325 MG TABLET PO PRN (09:32)
[2019-01-26] MEDS: ONDANSETRON ODT 8 MG PO SCH ×3 (09:32→21:00)
[2019-01-26] MEDS: LORazepam 2 MG/ML, 1ML IVPush PRN ×4 (10:55→21:40)
[2019-01-26] MEDS: MORPHINE SULFATE 4 MG/ML, 1ML IVPush PRN ×3 (13:28→20:53)
[2019-01-26] MEDS ORDERED: CATHFLO-ALTEPLASE 2 MG/2 ML CATHFLUSH ONE ×2 (16:30)
[2019-01-26] MEDS: CEFTOLOZANE/TAZOBACTAM 0.75 GM in SODIUM CHLORIDE 0.9% 100 ML IVPB SCH (20:54)
[2019-01-26 21:35] VITALS: BP 143/82
[2019-01-27 02:44] VITALS: BP 153/68
[2019-01-27 02:50] VITALS: BP 153/68
[2019-01-27] MEDS: MORPHINE SULFATE 4 MG/ML, 1ML IVPush PRN ×7 (03:05→22:55)
[2019-01-27] MEDS: LORazepam 2 MG/ML, 1ML IVPush PRN ×5 (03:15→22:05)
[2019-01-27 03:20] LABS: MEAN CORPUSCULAR HEMOGLOBIN 31.4 pg (27.0-34.8); MEAN CORPUSCULAR HGB CONC 33.4 g/dL (32.4-35.8); MEAN CORPUSCULAR VOLUME 94.2 fL (80-100); RED BLOOD COUNT 2.63 x10^6/uL (3.82-5.3); RED CELL DISTRIBUTION WIDTH 16.4 % (9.6-15.2)
[2019-01-27 03:21] LABS: PLATELET COUNT 14 x10^3/uL (130-400)
[2019-01-27 03:24] LABS: ANION GAP 9 mmol/L (5-15); CALCIUM 9.1 mg/dL (8.5-10.1); CHLORIDE 115 mmol/L (98-107)
[2019-01-27 03:25] LABS: CREATININE 0.99 mg/dL (0.55-1.02)
[2019-01-27 04:00] LABS: MD YES
[2019-01-27 04:03] LABS: <PLATELET ESTIMATE> DECREASED; <PLT MORPHOLOGY> NORMAL PLT MORPH; ANISOCYTOSIS 1+; BAND#(MANUAL) 0.42 x10^3/uL; BANDS%(MANUAL) 4 % (0-7); LYMPH#(MANUAL) 0.21 x10^3/uL (1-3.4); LYMPHS% (MANUAL) 2 % (22-44); MONOS#(MANUAL) 0.63 x10^3/uL (0.3-2.7); MONOS% (MANUAL) 6 % (2-9); OVALOCYTES 1+; SEG#(MANUAL) 9.24 x10^3/uL (1.8-6.8); SEGS% (MANUAL) 88 % (42-75)
[2019-01-27] MEDS: D5%-0.45NACL+KCL 20MEQ 1,000 ML IV SCH (04:48)
[2019-01-27] MEDS: CEFTOLOZANE/TAZOBACTAM 0.75 GM in SODIUM CHLORIDE 0.9% 100 ML IVPB SCH (04:48)
[2019-01-27] MEDS: METOPROLOL TARTRATE 25 MG TABLET PO SCH ×3 (05:47→20:53)
[2019-01-27] MEDS ORDERED: D5%-0.45NACL+KCL 40MEQ 1,000 ML IV SCH (08:30)
[2019-01-27] MEDS: SODIUM CHLORIDE FLUSH 10ML SYR IVF SCH ×2 (09:00→22:05)
[2019-01-27] MEDS: FAMOTIDINE 20 MG TABLET PO SCH ×2 (09:24→20:53)
[2019-01-27] MEDS: DOCUSATE 100 MG CAPSULE PO SCH ×2 (09:24→20:53)
[2019-01-27] MEDS: ONDANSETRON ODT 8 MG PO SCH ×3 (09:25→20:53)
[2019-01-27] MEDS: ACYCLOVIR 400 MG TABLET PO SCH ×2 (09:25→20:53)
[2019-01-27 11:07] VITALS: BP 134/83
[2019-01-27] MEDS: CEFTOLOZANE/TAZOBACTAM 1.5 GM in SODIUM CHLORIDE 0.9% 100 ML IVPB SCH ×2 (11:59→20:18)
[2019-01-27] MEDS ORDERED: SCOPOLAMINE PATCH, 1.5MG PATCH.TD72 TD SCH (14:30)
[2019-01-27 15:06] LABS: ALBUMIN 2.1 g/dL (3.4-5.0); ANION GAP 9 mmol/L (5-15); CALCIUM 8.9 mg/dL (8.5-10.1); CHLORIDE 116 mmol/L (98-107)
[2019-01-27 15:09] LABS: ALANINE AMINOTRANSFERASE 269 U/L (12-78); ALKALINE PHOSPHATASE 127 U/L (45-117); BILIRUBIN,TOTAL 1.1 mg/dL (0.2-1.0); CREATININE 0.97 mg/dL (0.55-1.02)
[2019-01-27 20:00] VITALS: BP 141/81
[2019-01-27] MEDS ORDERED: MORPHINE SULFATE 4 MG/ML, 1ML IVPush PRN (20:00)
[2019-01-27] MEDS ORDERED: PROCHLORPERAZINE 5 MG/ML, 2ML IVPush PRN (20:00)
[2019-01-27] MEDS: NS + 40MEQ KCL 1,000 ML IV SCH (20:18)
[2019-01-28] MEDS: CEFTOLOZANE/TAZOBACTAM 1.5 GM in SODIUM CHLORIDE 0.9% 100 ML IVPB SCH (04:18)
[2019-01-28] MEDS: NS + 40MEQ KCL 1,000 ML IV SCH (05:44)
[2019-01-28] MEDS: METOPROLOL TARTRATE 25 MG TABLET PO SCH (06:00)
[2019-01-28] MEDS: MORPHINE SULFATE 4 MG/ML, 1ML IVPush PRN (06:10)
[2019-01-28] MEDS ORDERED: SCOPOLAMINE PATCH, 1.5MG PATCH.TD72 TD SCH ×2 (09:00)
== END 2019-01-28 08:32 | disposition expired | DRG 871 ==
LOC: ED 11:35 → EDIP 11:36 → ED 11:36 → 3NW 12:54 → CCU 01-23 23:44 → ICU 01-24 19:26 → 4WST 01-25 10:02 → 4EST 01-25 23:30 → 3NW 01-26 12:47
PROVIDERS: ADMIT Internal Medicine; ATTEND Internal Medicine
DX: A41.51 Sepsis due to Escherichia coli [E. coli] (principal); J18.1 Lobar pneumonia, unspecified organism; J96.01 Acute respiratory failure with hypoxia; C78.00 Secondary malignant neoplasm of unspecified lung; C83.30 Diffuse large B-cell lymphoma, unspecified site; C92.00 Acute myeloblastic leukemia, not having achieved remission; E44.0 Moderate protein-calorie malnutrition; G93.40 Encephalopathy, unspecified; I50.32 Chronic diastolic (congestive) heart failure; J44.0 Chronic obstructive pulmonary disease with (acute) lower respiratory infection; M48.50XA Collapsed vertebra, not elsewhere classified, site unspecified, initial encounter for fracture; N17.9 Acute kidney failure, unspecified; N39.0 Urinary tract infection, site not specified; C50.919 Malignant neoplasm of unspecified site of unspecified female breast; D63.8 Anemia in other chronic diseases classified elsewhere; D69.59 Other secondary thrombocytopenia; E66.9 Obesity, unspecified; Z66 Do not resuscitate; T50.995A Adverse effect of other drugs, medicaments and biological substances, initial encounter; Z51.5 Encounter for palliative care; D70.1 Agranulocytosis secondary to cancer chemotherapy; E16.2 Hypoglycemia, unspecified; T36.5X5A Adverse effect of aminoglycosides, initial encounter; B02.9 Zoster without complications; R65.20 Severe sepsis without septic shock; D89.9 Disorder involving the immune mechanism, unspecified; K57.90 Diverticulosis of intestine, part unspecified, without perforation or abscess without bleeding; R39.15 Urgency of urination; E87.6 Hypokalemia; G47.33 Obstructive sleep apnea (adult) (pediatric); I48.0 Paroxysmal atrial fibrillation; K21.9 Gastro-esophageal reflux disease without esophagitis; K64.9 Unspecified hemorrhoids; R50.81 Fever presenting with conditions classified elsewhere; T45.1X5A Adverse effect of antineoplastic and immunosuppressive drugs, initial encounter; Z16.12 Extended spectrum beta lactamase (ESBL) resistance; Z16.23 Resistance to quinolones and fluoroquinolones; Z81.8 Family history of other mental and behavioral disorders; Z68.37 Body mass index [BMI] 37.0-37.9, adult; Y92.89 Other specified places as the place of occurrence of the external cause; Q92.8 Other specified trisomies and partial trisomies of autosomes; Z15.01 Genetic susceptibility to malignant neoplasm of breast; Z86.19 Personal history of other infectious and parasitic diseases; Z87.891 Personal history of nicotine dependence; Z88.0 Allergy status to penicillin; Z88.2 Allergy status to sulfonamides; Z88.8 Allergy status to other drugs, medicaments and biological substances; Z90.710 Acquired absence of both cervix and uterus; Z92.3 Personal history of irradiation
CPT/HCPCS: 36415; 36600; 73502; 84145; 99291; J7613; 36430; 70450; 71045; 71250; 80048; 80053; 81001; 82140; 82803; 82962; 83540; 83550; 83605; 83735; 84100; 84443; 85025; 85027; 85610; 85730; 86850; 86900; 86923; 87040; 87077; 87081; 87086; 87184; 87186; 93005; 94640; 96374; 96375; G0378; J0696; J2405; J2550; J2997; J3370; J3480; Q0162; J0695; J0780; J1200; J2060; J2270; J3260; J3475; J7030; J7040; J7050; P9037; P9040; Q0163